=== PATIENT | male | born 1955 | race Caucasian/White ===

== ENCOUNTER → 2017-10-21 | Outpatient (CLI) | payer SELFPAY ==
[2017-10-21 15:53] LABS: HCT 37.9 % (39.0-53.0); HGB 12.4 gm/dL (13.0-17.5); MCH 27.1 pg (25.0-35.0); MCHC 32.7 g/dL (31.0-37.0); Mean Platelet Volume 6.6; Platelet Count 263 k/uL (150-450); RBC 4.57 m/uL (4.30-5.90); RDW 13.9 % (11.5-15.5); WBC 5.6 k/uL (3.8-10.6)
[2017-10-21 16:03] LABS: Anion Gap 12 mmol/L; Blood Urea Nitrogen 18 mg/dL (9-20); Carbon Dioxide 26 mmol/L (22-30); Chloride 99 mmol/L (98-107); Potassium 4.8 mmol/L (3.5-5.1); Sodium 137 mmol/L (137-145)
== END | disposition home or self-care (01) ==
LOC: LABPAT 15:13
PROVIDERS: ATTEND Internal Medicine Interventional Cardiology
DX: Z01.812 Encounter for preprocedural laboratory examination (principal); I25.10 Atherosclerotic heart disease of native coronary artery without angina pectoris
CPT/HCPCS: 36415; 80051; 82565; 84520; 85027

== ENCOUNTER 2017-10-29 10:16 | Day surgery (SDC) | payer OTHER ==
[2017-10-28 08:38] VITALS: BMI 29.2
[~2017-10-29 10:16] MED LIST: ALPRAZolam 0.25 MG TAB PO PRN; ALPRAZolam 0.5 MG TAB PO PRN; ASPIRIN 325 MG TAB PO STA; ATORVASTATIN 80 MG TAB PO STA; NITROGLYCERIN SL TABS 0.4 MG TAB SUBLINGUAL PRN; SODIUM CHLORIDE 0.9% 1,000 ML in EMPTY BAG 1 BAG IV ONE
[2017-10-29 11:00] LABS: Glucose,Whole Blood 179 mg/dL (75-99)
[2017-10-29] MEDS ORDERED: diphenhydrAMINE 50 MG/ML 1 ML VIAL IVP ONE (12:25)
[2017-10-29] MEDS ORDERED: fentaNYL (PF) 50 MCG/ML 2 ML AMP IV ONE (12:25)
[2017-10-29] MEDS ORDERED: LIDOCAINE 1% INJ 10MG/ML (20 ML MDV) SQ ONE (12:27)
[2017-10-29] MEDS ORDERED: VERAPAMIL SYRINGE (5 MG/10 ML) INTRAARTER ONE (12:28)
[2017-10-29] MEDS ORDERED: MIDAZOLAM 2 MG/2 ML VIAL IV ONE (12:29)
[2017-10-29] MEDS ORDERED: HEPARIN SODIUM 1,000 UN/ML (10ML VL) IV ONE (12:34)
[2017-10-29] MEDS ORDERED: IOPAMIDOL-370 125ML BTL INJ ONE (12:38)
[2017-10-29] MEDS ORDERED: RX INFO: IV CONTRAST WAS GIVEN 1 EACH MISC MISCELLANE PRN (12:47)
[2017-10-29] MEDS ORDERED: SODIUM CHLORIDE 0.9% 1,000 ML IV SCH (13:00)
[2017-10-29] MEDS ORDERED: MD COMMUNICATION TO PHARMACY 1 EACH MISC PO ONE ×2 (14:49)
--- NOTE | 2017-10-29 15:07 | CC ---
CARDIAC CATHETERIZATION REPORT Mr. Castro is a 62-year-old male with known history of hypertension, hyperlipidemia, diabetes mellitus, who has been complaining of progressive exertional chest discomfort and dyspnea on exertion. He had an abnormal myocardial perfusion imaging with evidence of inducible ischemia involving the anterior wall. In view of that, recommendation made regarding cardiac catheterization. The procedures, risks and complication were discussed with the patient who is in full understanding and agreement. PROCEDURE: Patient was brought to laborer cook house in a fasting state after receiving fentanyl and Benadryl and achieving moderate conscious sedated state. Using Xylocaine anesthesia and Seldinger technique a 6-Italian sheath was introduced in the right radial artery. Selective right and left angiography performed using 3.5 Bend, right and left Shanta catheter, multiple views of the coronary artery including hemiaxial views obtained. Following that, a 5-Italian tight pigtail catheter was introduced in the left ventricle and a 30 degree DENSON view of the left ventricle was obtained. Following that, catheter and sheath were removed, hemostasis was obtained with deployment of a TR band. There was no immediate complication. Patient is returned to his room in stable condition. Patient received 5000 units of intravenous heparin as well as intra-arterial verapamil. FINDINGS: FLUOROSCOPY: There was severe calcification involving the proximal LAD and the proximal left circumflex as well as in mid right coronary artery. LEFT MAIN: This is a large-sized vessel bifurcating into left circumflex, left anterior descending artery, left main coronary artery has a 20% to 30% plaque proximally without any evidence of high-grade stenosis. LEFT ANTERIOR DESCENDING ARTERY: This is a heavily calcified vessel reaching to the apex, tapers down distal third giving rise to 2 diagonal branch at the takeoff of the first diagonal branch and the first septal bridge contractor, there is a heavily calcified lesion with area of stenosis up to 99%. There is another lesion following the takeoff of the first septal bridge contractor. The rest of the vessel has mild to moderate intimal disease without any evidence of high-grade stenosis next left circumflex this is a nondominant vessel giving rise to a large obtuse marginal branch. The obtuse marginal branch at the takeoff of the 95% stenosis. The rest of the vessel has no high-grade stenosis. RIGHT CORONARY ARTERY: This is a large, dominant vessel bifurcating into PDA and posterolateral single branches, heavily calcified in the mid segment. The vessel has diffuse intimal disease with area of stenosis of 30% to 40% without any evidence of high-grade stenosis. LEFT VENTRICULOGRAM: Left ventriculogram is performed 30-degree DENSON view and revealed mild mid anterior wall hypokinesis. The estimated ejection fraction is 50%. There was no significant mitral regurgitation. HEMODYNAMICS: There was no gradient across the aortic valve. The left the ventricular end-diastolic pressure was 12-14 mmHg. CONCLUSION: 1. Critical stenosis involving the proximal left anterior descending artery and the first obtuse marginal branch. 2. Mild to moderate disease in the right coronary artery. 3. Heavily calcified coronary arteries. 4. Minimally impaired left ventricular systolic function. RECOMMENDATION: In view of finding anatomy, I have recommended proceeding with evaluation for possible coronary bypass grafting. The rationale behind that approach in view of the history of diabetes and the location of the lesion were discussed with the patient and his family who is in full understanding and agreement. DURATION OF PROCEDURE: 16 minutes. JANINE / KEILY: [id number] /
--- NOTE | 2017-10-29 15:13 | LTR ---
DATE OF SERVICE: 10/29/2017 RE: Micah Castro Dear Dr. Valentine; I had the pleasure to perform cardiac catheterization on Mr. Castro at [facility] on October 29 and a full copy of the procedure note will be forwarded to you. In brief, he was found to have severe obstructive disease involving the LAD and the first obtuse marginal branch and based on those findings and his history of diabetes, I have recommended to proceed with evaluation for possible coronary artery bypass grafting. I will keep you updated on his progress and thank you again for allowing me to participate in this patient's care. Please feel free to call for any questions. Sincerely yours. MD JANINE Thurman / KEILY: [id number] /
--- NOTE | 2017-10-29 15:22 | P.GSCN ---
History of Present Illness Consult date: 10/29/17 Reason for Consult: Coronary artery disease, surgical recommendations. Requesting physician: Chano Varma History of present illness: This is a 62-year-old patient of Dr. Valentine. He has a previous medical history of hypertension, [id number] diabetes mellitus, gout, and remote tobacco dependence, he quit smoking 30 years ago. Over the last 2 years he's had chest discomfort with increased activity, however it has been getting worse recently. He has associated dyspnea on exertion and occasional palpitations along with some numbness in his left arm. He denies dizziness, orthopnea, paroxysmal nocturnal dyspnea, syncope or near syncope, lower extremity claudication, TIA or strokelike symptoms. This chest discomfort was relieved with rest. He presented to his primary care physician as he was concerned about the increase in frequency and severity. A stress test was completed 10/10 which demonstrated mild anterior wall hypokinesis with inducible ischemia at peak exercise. He was referred to Dr. Varma for cardiac evaluation. Transthoracic echocardiogram completed in Dr. Varma's office on 10/15/2017 demonstrated normal systolic function with an ejection fraction of 55%, normal diastolic function, mild mitral regurgitation, trace aortic regurgitation, and mild tricuspid regurgitation. He was recommended to undergo heart catheterization which was completed today in which demonstrated left main stenosis 30%, RCA 40% stenosis, circumflex stenosis of 90%, and proximal and mid LAD stenosis of 99%. LV gram completed demonstrated ejection fraction of 50 %. Due to the nature of his disease cardiothoracic surgery was consulted for surgical revascularization recommendations. Review of Systems Review of systems was completed and was negative except as noted. - Cardiovascular Reports chest pain, Reports decreased exercise tolerance, Reports dyspnea on exertion, Reports high blood pressure, Reports palpitations, Reports shortness of breath Past Medical History Past Medical History: Chest Pain / Angina, Diabetes Mellitus, Deep Vein Thrombosis (DVT), Hyperlipidemia, Hypertension Additional Past Medical History / Comment(s): gout, History of Any Multi-Drug Resistant Organisms: None Reported Past Surgical History: Hernia Repair, Orthopedic Surgery Additional Past Surgical History / Comment(s): left upper leg surgery(Fx)/pin and jose- jose later removed, surgery for fx left lower leg Past Anesthesia/Blood Transfusion Reactions: No Reported Reaction Past Psychological History: No Psychological Hx Reported Smoking Status: Former smoker Past Alcohol Use History: Rare Past Drug Use History: None Reported - Past Family History Mother Family Medical History: No Reported History Medications and Allergies Home Medications Medication Instructions Recorded Confirmed Type Aspirin [Adult Low Dose Aspirin EC] 81 mg PO DAILY 10/28/17 10/29/17 History Atorvastatin [Lipitor] 40 mg PO DAILY 10/28/17 10/29/17 History Fish Oil(Dose Unknown) 1 tab PO DAILY 10/28/17 10/29/17 History Isosorbide Mononitrate ER [Imdur] 30 mg PO DAILY 10/28/17 10/29/17 History Multivitamins, Thera [Multivitamin 1 tab PO 1200 10/28/17 10/29/17 History (formulary)] metFORMIN HCL 1,000 mg PO BID 10/28/17 10/29/17 History Allergies Allergy/AdvReac Type Severity Reaction Status Date / Time No Known Allergies Allergy Verified 10/28/17 08:25 Surgical - Exam Vital Signs Temp Pulse Resp BP Pulse Ox 97.9 F 76 18 98/56 98 10/29/17 10:40 10/29/17 10:40 10/29/17 10:40 10/29/17 10:40 10/29/17 10:40 - General well developed, well nourished, no distress, no pain, obese - Eyes PERRL, normal ocular movement - ENT no hearing loss - Neck no masses, no bruits, trachea midline - Respiratory Lungs sounds clear bilaterally. Respirations even, nonlabored. Currently on room air with oxygen saturation 99%. No chest wall deformities. - Cardiovascular S1, S2 present. Regular rate and rhythm, sinus rhythm on telemetry. Palpable peripheral pulses bilaterally. No edema present. No calf pain or tenderness noted. No varicosities noted. T band present to right radial artery. - Abdomen Abdomen: soft, bowel sounds - Genitourinary Deferred - Rectum Deferred - Integumentary no rash, no growths, no abnormal pigmentation - Neurologic normal coordination, normal sensation - Psychiatric oriented to time, oriented to person, oriented to place, speech is normal, memory intact Results - Labs Abnormal Lab Results - Last 24 Hours (Table) 10/29/17 Range/Units 10:42 POC Glucose (mg/dL) 179 H (75-99) mg/dL - Imaging Additional studies: Heart catheterization films reviewed. Assessment and Plan (1) Hypertension Current Visit: Yes Status: Chronic Code(s): I10 - ESSENTIAL (PRIMARY) HYPERTENSION SNOMED Code(s): 39181735 (2) Hyperlipidemia Current Visit: Yes Status: Chronic Code(s): E78.5 - HYPERLIPIDEMIA, UNSPECIFIED SNOMED Code(s): 54845410 (3) Non-insulin dependent type 2 diabetes mellitus Current Visit: Yes Status: Chronic Code(s): E11.9 - TYPE 2 DIABETES MELLITUS WITHOUT COMPLICATIONS SNOMED Code(s): 40329450 (4) Tobacco dependence in remission Current Visit: No Status: Resolved Code(s): F17.201 - NICOTINE DEPENDENCE, UNSPECIFIED, IN REMISSION SNOMED Code(s): 216984261 (5) Coronary artery disease Current Visit: Yes Status: Chronic Code(s): I25.10 - ATHSCL HEART DISEASE OF [place] CORONARY ARTERY W/O ANG PCTRS SNOMED Code(s): 98691507 (6) Gout Current Visit: Yes Status: Chronic Code(s): M10.9 - GOUT, UNSPECIFIED SNOMED Code(s): 18024531 (7) Obesity Current Visit: Yes Status: Chronic Code(s): E66.9 - OBESITY, UNSPECIFIED SNOMED Code(s): 495004727 Plan: The patient was seen and examined at the bedside. Chart/diagnostics were reviewed. Will discuss the case with the surgeon. Normal surgical process explained in detail to the patient and his family. Risks and benefits were explained. All questions were answered, and patient was agreeable to consider surgery and allow preoperative testing. Preoperative testing was ordered. We would recommend continuing aspirin, statin. Would recommend adding beta lenore therapy. We will calculate STS risk score once testing is completed and will discuss with the patient and his family. Medical management per Dr. Varma. More recommendations to follow once testing is complete. Thank you Dr. Varma for this consult. We look forward to working with you in the care of your patient. Time with Patient: Greater than 30
[2017-10-29 21:03] LABS: Glucose,Whole Blood 307 mg/dL (75-99)
--- NOTE | 2017-10-29 21:36 | US ---
EXAMINATION TYPE: US carotid duplex BILAT DATE OF EXAM: 10/29/2017 COMPARISON: NONE CLINICAL HISTORY: preop cardiac surgery. EXAM MEASUREMENTS: RIGHT: Peak Systolic Velocity (PSV) cm/sec ----- Right CCA: 67.7 ----- Right ICA: 50.0 ----- Right ECA: 66.0 ICA/CCA ratio: 0.7 RIGHT: End Diastole cm/sec ----- Right CCA: 18.0 ----- Right ICA: 17.6 ----- Right ECA: 7.1 LEFT: Peak Systolic Velocity (PSV) cm/sec ----- Left CCA: 68.3 ----- Left ICA: 56.1 ----- Left ECA: 41.4 ICA/CCA ratio: 0.8 LEFT: End Diastole cm/sec ----- Left CCA: 22.5 ----- Left ICA: 24.6 ----- Left ECA: 0.0 VERTEBRALS (direction of flow): Right Vertebral: Antegrade Left Vertebral: Antegrade Rhythm: Normal IMPRESSION: ONLY MILD ATHEROSCLEROTIC CHANGES WITH NO SIGNIFICANT VELOCITY ELEVATIONS.
--- NOTE | 2017-10-29 21:38 | XR ---
EXAMINATION: XR chest 2V DATE AND TIME: 10/29/2017 5:39 PM ORDERING PROVIDER: Rupali Hoewll CLINICAL INDICATION: PreOp Cardiac Surgery TECHNIQUE: PA and lateral COMPARISON: None. DESCRIPTION: Intrathoracic stomach redemonstrated. The lungs are clear. The pleural spaces are negative. The cardiac silhouette is not enlarged. The skeletal structures are intact without focal findings. The soft tissues are unremarkable. IMPRESSION: NO ACUTE PROCESS.
[2017-10-29 22:22] LABS: Appearance,Urine Clear (Clear); Bilirubin,Urine Negative (Negative); Blood,Urine Negative (Negative); Color,Urine Light Yellow; Glucose,Urine (UA) 4+ (Negative); Ketones,Urine Negative (Negative); Leukocyte Esterase,Urine Negative (Negative); Nitrite,Urine Negative (Negative); PH, Urine 5.5 (5.0-8.0); Protein,Urine Negative (Negative); Specific Gravity,Urine 1.015 (1.001-1.035); Urobilinogen,Urine <2.0 mg/dL (<2.0)
[2017-10-29] MEDS: INSULIN ASPART 100 UNIT/ML 1 ML 10 ML VIAL SQ SCH (22:41)
[2017-10-30 06:03] LABS: Glucose,Whole Blood 188 mg/dL (75-99)
[2017-10-30] MEDS: INSULIN ASPART 100 UNIT/ML 1 ML 10 ML VIAL SQ SCH (06:44)
[2017-10-30 06:54] LABS: Basophils % (A) 1 %; Eosinophils # (A) 0.2 k/uL (0-0.7); Eosinophils % (A) 5 %; HCT 37.8 % (39.0-53.0); HGB 12.6 gm/dL (13.0-17.5); Lymphocytes # (A) 1.3 k/uL (1.0-4.8); Lymphocytes % (A) 29 %; MCH 28.1 pg (25.0-35.0); MCHC 33.4 g/dL (31.0-37.0); Mean Platelet Volume 6.7; Monocytes # (A) 0.3 k/uL (0-1.0); Monocytes % (A) 6 %; Neutrophils # (A) 2.6 k/uL (1.3-7.7); Neutrophils % (A) 57 %; Platelet Count 222 k/uL (150-450); RDW 14.1 % (11.5-15.5); WBC 4.5 k/uL (3.8-10.6)
[2017-10-30 07:16] LABS: Partial Thromboplastin Time 22.2 sec (22.0-30.0); Prothrombin Time 10.2 sec (9.0-12.0)
--- NOTE | 2017-10-30 07:41 | PN ---
PROGRESS NOTE Mr. Castro is a 62-year-old male known history of hypertension, hyperlipidemia, diabetes mellitus, who presented with symptoms of chest discomfort and abnormal myocardial perfusion imaging, underwent a coronary angiography was performed and revealed a severe disease involving the proximal LAD as well as the first obtuse marginal branch. He is doing well this morning, ambulating without difficulty. Denying any chest pain. No dizziness. No palpitation. No nausea. He continued to be on aspirin once a day, Lipitor 40 mg daily, isosorbide mononitrate 30 mg daily. PHYSICAL EXAMINATION: Blood pressure 114/60 with the heart rate in 70s. LUNGS: Clear. HEART: Regular rate and rhythm. S1, S2. No S3. No rub. ABDOMEN: Soft, nontender. EXTREMITIES: No edema. Right radial pulse is intact. IMPRESSION: 1. Severe coronary disease involving the proximal left anterior descending artery. 2. Diabetes. 3. Hyperlipidemia. RECOMMENDATION: The patient will be evaluated by the surgical team today and depending on their decision, further recommendation will be made. In view of the location of the lesion as well as history of diabetes, patient will benefit from a GOMEZ to the LAD. Otherwise, percutaneous revascularization can be performed. Depending on the timing of surgical intervention if recommended, the patient may be discharged home today and followed as an outpatient. MMODL / IJN: [id number] /
[2017-10-30 07:44] LABS: ALT 48 U/L (21-72); AST 30 U/L (17-59); Albumin 3.9 g/dL (3.5-5.0); Alkaline Phosphatase 53 U/L (38-126); Anion Gap 11 mmol/L; Blood Urea Nitrogen 15 mg/dL (9-20); Carbon Dioxide 27 mmol/L (22-30); Chloride 104 mmol/L (98-107); Cholesterol 159 mg/dL (<200); Glucose 175 mg/dL (74-99); HDL Cholesterol 45 mg/dL (40-60); LDL Cholesterol,Calculated 77 mg/dL (0-99); Magnesium 2.1 mg/dL (1.6-2.3); Potassium 4.7 mmol/L (3.5-5.1); Sodium 142 mmol/L (137-145); Total Bilirubin 0.6 mg/dL (0.2-1.3); Total Protein 6.4 g/dL (6.3-8.2); Triglycerides 187 mg/dL (<150)
[2017-10-30 08:16] VITALS: RESP 16; TEMP 97.1
--- NOTE | 2017-10-30 08:38 | P.CONS ---
History of Present Illness - Reason for Consult Consult date: 10/30/17 Medical management - Chief Complaint Critical coronary artery disease with angina. - History of Present Illness This is a consultation note on a 62-year-old white male who is essentially admitted for abnormal cardiac catheterization. The patient saw me in the office recently and had symptoms of angina with EKG changes. The patient was then admitted for appropriate consultation with cardiology which ended up doing a cardiac catheterization. The patient is now fairly asymptomatic at rest. However, catheterization does show critical stenosis and thoracic and Henefer surgery have been consulted for appropriate evaluation for open heart surgery. Review of Systems Constitutional: Denies chills, Denies fever Eyes: denies blurred vision, denies pain Ears, nose, mouth and throat: Denies headache, Denies sore throat Cardiovascular: Reports as per HPI, Reports chest pain, Reports decreased exercise tolerance Respiratory: Denies cough Gastrointestinal: Denies abdominal pain, Denies diarrhea, Denies nausea, Denies vomiting Musculoskeletal: Denies myalgias Integumentary: Denies pruritus, Denies rash Neurological: Denies numbness, Denies weakness Past Medical History Past Medical History: Chest Pain / Angina, Diabetes Mellitus, Deep Vein Thrombosis (DVT), Hyperlipidemia, Hypertension Additional Past Medical History / Comment(s): gout, History of Any Multi-Drug Resistant Organisms: None Reported Past Surgical History: Hernia Repair, Orthopedic Surgery Additional Past Surgical History / Comment(s): left upper leg surgery(Fx)/pin and jose- jose later removed, surgery for fx left lower leg Past Anesthesia/Blood Transfusion Reactions: No Reported Reaction Past Psychological History: No Psychological Hx Reported Smoking Status: Former smoker Past Alcohol Use History: Rare Past Drug Use History: None Reported - Past Family History Mother Family Medical History: No Reported History Medications and Allergies Home Medications Medication Instructions Recorded Confirmed Type Aspirin [Adult Low Dose Aspirin EC] 81 mg PO DAILY 10/28/17 10/29/17 History Atorvastatin [Lipitor] 40 mg PO DAILY 10/28/17 10/29/17 History Fish Oil(Dose Unknown) 1 tab PO DAILY 10/28/17 10/29/17 History Isosorbide Mononitrate ER [Imdur] 30 mg PO DAILY 10/28/17 10/29/17 History Multivitamins, Thera [Multivitamin 1 tab PO 1200 10/28/17 10/29/17 History (formulary)] metFORMIN HCL 1,000 mg PO BID 10/28/17 10/29/17 History Allergies Allergy/AdvReac Type Severity Reaction Status Date / Time No Known Allergies Allergy Verified 10/28/17 08:25 Physical Exam Vitals: Vital Signs Temp Pulse Pulse Resp BP BP Pulse Ox 10/30/17 08:00 97.1 F L 80 16 132/87 96 10/29/17 20:00 97.9 F 75 18 114/68 97 10/29/17 16:32 78 16 117/72 97 10/29/17 15:32 72 16 135/78 94 L 10/29/17 14:40 81 18 130/78 10/29/17 13:40 72 18 114/77 10/29/17 13:25 72 18 116/73 99 10/29/17 13:13 64 18 111/71 100 10/29/17 12:55 66 16 112/72 95 10/29/17 10:40 97.9 F 76 18 98/56 98 Intake and Output 10/29/17 10/30/17 10/30/17 22:59 06:59 14:59 Intake Total 500 360 Balance 500 360 Intake: Intake, IV Titration 500 Amount Sodium Chloride 0.9% 1, 500 000 ml @ 100 mls/hr IV . Q10H [facility] Rx#:[id number] Oral 360 Other: Voiding Method Toilet Urinal # Voids 1 1 Weight 95.254 kg 95.1 kg - Constitutional General appearance: no acute distress - EENT Eyes: EOMI - Neck Neck: no lymphadenopathy - Respiratory Respiratory: bilateral: CTA - Cardiovascular Rhythm: regular Heart sounds: normal: S1, S2 Abnormal Heart Sounds: no S3 Gallop - Gastrointestinal General gastrointestinal: soft, no tenderness - Neurologic Neurologic: CNII-XII intact - Musculoskeletal Musculoskeletal: gait normal Results CBC & Chem 7: 10/30/17 06:20 10/30/17 06:20 Labs: Abnormal Lab Results - Last 24 Hours (Table) 10/29/17 10/29/17 10/29/17 Range/Units 10:42 21:01 22:10 Hgb (13.0-17.5) gm/dL Hct (39.0-53.0) % Glucose (74-99) mg/dL POC Glucose (mg/dL) 179 H 307 H (75-99) mg/dL Triglycerides (<150) mg/dL Urine Glucose (UA) 4+ H (Negative) 10/30/17 10/30/17 10/30/17 Range/Units 06:01 06:20 06:20 Hgb 12.6 L (13.0-17.5) gm/dL Hct 37.8 L (39.0-53.0) % Glucose 175 H (74-99) mg/dL POC Glucose (mg/dL) 188 H (75-99) mg/dL Triglycerides 187 H (<150) mg/dL Urine Glucose (UA) (Negative) Microbiology - Last 24 Hours (Table) 10/29/17 20:25 Nasal Screen MRSA/MSSA - Preliminary Nasal Swab Assessment and Plan (1) Coronary artery disease Current Visit: Yes Status: Chronic Code(s): I25.10 - ATHSCL HEART DISEASE OF [place] CORONARY ARTERY W/O ANG PCTRS SNOMED Code(s): 46850644 (2) Gout Current Visit: Yes Status: Chronic Code(s): M10.9 - GOUT, UNSPECIFIED SNOMED Code(s): 97365992 (3) Hyperlipidemia Current Visit: Yes Status: Chronic Code(s): E78.5 - HYPERLIPIDEMIA, UNSPECIFIED SNOMED Code(s): 65299930 (4) Hypertension Current Visit: Yes Status: Chronic Code(s): I10 - ESSENTIAL (PRIMARY) HYPERTENSION SNOMED Code(s): 21203209 (5) Non-insulin dependent type 2 diabetes mellitus Current Visit: Yes Status: Chronic Code(s): E11.9 - TYPE 2 DIABETES MELLITUS WITHOUT COMPLICATIONS SNOMED Code(s): 93956964 (6) Tobacco dependence in remission Current Visit: No Status: Resolved Code(s): F17.201 - NICOTINE DEPENDENCE, UNSPECIFIED, IN REMISSION SNOMED Code(s): 575668829 Plan: We'll continue to follow with cardiology and thoracic surgery. Most likely CABG will be instituted. Follow blood sugar closely. We'll continue to follow. Time with Patient: Less than 30
[2017-10-30] MEDS ORDERED: METOPROLOL TARTRATE 12.5 MG TAB PO SCH (09:00)
[2017-10-30] MEDS ORDERED: ATORVASTATIN 40 MG TAB PO SCH (09:00)
[2017-10-30] MEDS ORDERED: ISOSORBIDE MONONITRATE ER 30 MG TAB.ER.24H PO SCH (09:00)
[2017-10-30] MEDS ORDERED: ASPIRIN 81 MG PO SCH (09:00)
--- NOTE | 2017-10-30 09:07 | P.PN ---
Subjective Progress Note Date: 10/30/17 Principal diagnosis: Coronary artery disease. Previous medical history of hypertension, non-insulin- dependent diabetes mellitus, gout, and remote tobacco dependence with preoperative FEV1 91% of predicted. Patient's currently sitting in bed in no acute distress. Denies pain, shortness of breath. Dr. Saravia was present to discuss surgery with the patient , reinforced teaching, risks discussed with patient and family, all questions answered, patient is agreeable to proceed with surgery. Objective - Vital Signs Vital signs: Vital Signs Temp 97.1 F L 10/30/17 08:00 Pulse 80 10/30/17 08:00 Resp 16 10/30/17 08:00 BP 132/87 10/30/17 08:00 Pulse Ox 96 10/30/17 08:00 Intake & Output 10/29/17 10/30/17 10/30/17 18:59 06:59 18:59 Intake Total 300 500 370 Balance 300 500 370 Weight 95.254 kg 95.1 kg Intake: IV 300 10 Invasive Line 1 10 Intake, IV Titration 500 Amount Sodium Chloride 0.9% 1, 500 000 ml @ 100 mls/hr IV . Q10H [facility] Rx#:[id number] Oral 360 Other: Voiding Method Toilet Toilet Urinal # Voids 1 - Constitutional General appearance: Present: cooperative, no acute distress, obese - Respiratory Details: Lungs sounds clear bilaterally. Respirations even, nonlabored. Currently on room air with oxygen saturation 96%. Able to achieve 2500 mL on his incentive spirometry. - Cardiovascular Details: S1, S2 present. Regular rate and rhythm, sinus rhythm on telemetry. Palpable peripheral pulses bilaterally. No edema present. No calf pain or tenderness noted. - Gastrointestinal Gastrointestinal Comment(s): Abdomen soft, nontender, nondistended. Active bowel sounds 4 quadrants. Tolerating diet. - Genitourinary Genitourinary Comment(s): Continues to void clear, yellow urine. - Integumentary Integumentary Comment(s): Skin is warm and dry with evidence of good perfusion. Right radial arterial site puncture without hematoma. - Neurologic Neurologic: Present: CNII-XII intact - Musculoskeletal Musculoskeletal: Present: gait normal, strength equal bilaterally - Psychiatric Psychiatric: Present: A&O x's 3, appropriate affect, intact judgment & insight - Allied health notes Allied health notes reviewed: nursing - Labs CBC & Chem 7: 10/30/17 06:20 10/30/17 06:20 Labs: Abnormal Lab Results - Last 24 Hours (Table) 10/29/17 10/29/17 10/29/17 Range/Units 10:42 21:01 22:10 Hgb (13.0-17.5) gm/dL Hct (39.0-53.0) % Glucose (74-99) mg/dL POC Glucose (mg/dL) 179 H 307 H (75-99) mg/dL Triglycerides (<150) mg/dL Urine Glucose (UA) 4+ H (Negative) 10/30/17 10/30/17 10/30/17 Range/Units 06:01 06:20 06:20 Hgb 12.6 L (13.0-17.5) gm/dL Hct 37.8 L (39.0-53.0) % Glucose 175 H (74-99) mg/dL POC Glucose (mg/dL) 188 H (75-99) mg/dL Triglycerides 187 H (<150) mg/dL Urine Glucose (UA) (Negative) Microbiology - Last 24 Hours (Table) 10/29/17 20:25 Nasal Screen MRSA/MSSA - Preliminary Nasal Swab - Imaging and Cardiology Chest x-ray: report reviewed, image reviewed Results and carotid Dopplers and vein mapping reviewed. Assessment and Plan (1) Hypertension Current Visit: Yes Status: Chronic Code(s): I10 - ESSENTIAL (PRIMARY) HYPERTENSION SNOMED Code(s): 76335660 (2) Hyperlipidemia Current Visit: Yes Status: Chronic Code(s): E78.5 - HYPERLIPIDEMIA, UNSPECIFIED SNOMED Code(s): 16901468 (3) Non-insulin dependent type 2 diabetes mellitus Current Visit: Yes Status: Chronic Code(s): E11.9 - TYPE 2 DIABETES MELLITUS WITHOUT COMPLICATIONS SNOMED Code(s): 54393713 (4) Tobacco dependence in remission Current Visit: No Status: Resolved Code(s): F17.201 - NICOTINE DEPENDENCE, UNSPECIFIED, IN REMISSION SNOMED Code(s): 319779096 (5) Coronary artery disease Current Visit: Yes Status: Chronic Code(s): I25.10 - ATHSCL HEART DISEASE OF [place] CORONARY ARTERY W/O ANG PCTRS SNOMED Code(s): 66839942 (6) Gout Current Visit: Yes Status: Chronic Code(s): M10.9 - GOUT, UNSPECIFIED SNOMED Code(s): 85484978 (7) Obesity Current Visit: Yes Status: Chronic Code(s): E66.9 - OBESITY, UNSPECIFIED SNOMED Code(s): 234076427 Plan: 1. Continue aspirin, statin. Will add low-dose beta lenore. 2. Encourage preoperative use of incentive spirometer. 3. Patient needs good blood sugar control. Defer to primary care for management at this time. 4. Will continue to reinforce preoperative teaching. 5. Will perform 5 m walk test today. 6. STS risk score calculated and discussed with the family. 7. Plan is coronary artery bypass grafting 2, bilateral internal mammary artery harvest, intraoperative transesophageal echocardiogram, and epi-aortic scanning next 11/05/2017. Need to maximize medical therapy including starting beta lenore therapy. Time with Patient: Greater than 30
[2017-10-30] MEDS ORDERED: MUPIROCIN 2% OINT 22 GM TUBE TOPICAL SCH (09:30)
[2017-10-30 10:41] VITALS: BP 136/77; PULSE 78
--- NOTE | 2017-11-05 11:41 | P.VSCSTY ---
Greater Saphenous Vein Mapping This is bilateral lower extremity greater saphenous vein mapping. Date of service 10/29/2017 Vein quality and ultrasound appearance no thrombus or wall changes are seen. The vein on the right leg appears small throughout. The vein on the left leg is especially small below the knee.. Vein size groin right 5.2 x 4.6 groin left 3.8 x 2.9 High thigh right 3.4 x 1.8 high thigh left 2.8 x 2.4 Mid thigh right 2.2 x 1.6 mid thigh left 2.9 x 2.5 Above-knee right 1.9 x 1.6 above- knee left 2.3 x 2.0 Below knee right 1.7 x 1.4 below-knee left to 0.3 x 1.6 Mid calf right 1.4 x 0.9 mid calf left 1.9 x 1.5 Ankle right 1.7 x 0.9 ankle left 2.3 x 1.6 Impression the saphenous vein in most of the right leg may very well be too small for use as conduit. Also the vein below the knee on the left may be too small. Right thigh may be usable. Consider other conduit..
--- NOTE | 2017-11-05 11:42 | P.ARTDOP ---
Arterial Doppler LOWER EXTREMITY ARTERIAL DOPPLER: DATE OF SERVICE: 10/29/2017 Reason for study: Pre-CABG. Doppler waveforms: Multiphasic throughout bilaterally. Pulse volume recording: []. Pressure gradients: None. Ankle-brachial indices: Greater than 1 bilaterally. Toe pressures: [] on the right, [] on the left Impression: Normal study.
== END 2017-10-30 11:39 | disposition home or self-care (01) ==
LOC: CATHCVL 10:16 → 6SEL 12:45 → CATHCVL 10-30 11:39
PROVIDERS: ATTEND Internal Medicine Interventional Cardiology
DX: I25.10 Atherosclerotic heart disease of native coronary artery without angina pectoris (principal); M10.9 Gout, unspecified; E78.00 Pure hypercholesterolemia, unspecified; I10 Essential (primary) hypertension; E11.9 Type 2 diabetes mellitus without complications; R94.39 Abnormal result of other cardiovascular function study; E66.9 Obesity, unspecified; Z68.29 Body mass index [BMI] 29.0-29.9, adult; Z86.718 Personal history of other venous thrombosis and embolism; Z79.84 Long term (current) use of oral hypoglycemic drugs; Z79.82 Long term (current) use of aspirin; Z79.899 Other long term (current) drug therapy; Z87.891 Personal history of nicotine dependence
CPT/HCPCS: 94150; 93458; 80061; 80053; 84443; 83735; 85025; 85610; 85730; 81003; 87070; 87086; 71046; 93970; 93922; 93880; C1894; C1769; J2250; J1200; J2001; J3010; J1644; Q9967; 80074; 83036; 86850; 86900; 86901; 86920; 93923

== ENCOUNTER 2017-11-05 06:29 | Inpatient (IN) | payer OTHER ==
[2017-10-30 13:06] LABS: Hepatitis B Core IgM Non-Reactive (Non-Reactive)
[2017-10-30 15:01] LABS: Hemoglobin A1C 7.9 % (4.0-6.0)
[2017-11-01 16:22] LABS: Hepatitis A Antibody IgM Non-Reactive (Non-Reactive)
[~2017-11-05 06:29] MED LIST changes: +ALBUMIN HUMAN 25% 50 ML IV ONE; +ALBUMIN HUMAN 5% 500 ML IVPB ONE; -ALPRAZolam 0.25 MG TAB PO PRN; -ALPRAZolam 0.5 MG TAB PO PRN; +ASPIRIN 325 MG TAB PO ONE; -ASPIRIN 325 MG TAB PO STA; +ATORVASTATIN 10 MG TAB PO ONE; -ATORVASTATIN 80 MG TAB PO STA; +CALCIUM CHLORIDE 100 MG/ML 10 ML SYRINGE IV ONE; +CHLORHEXIDINE GLUCONATE 15 ML CUP MUCOUS MEM ONE; +CLEVIDIPINE BUTYRATE 25 MG in EMPTY BAG 1 BAG IV ONE; +DEXTROSE 5% IN WATER 1,000 ML with POTASSIUM CHLORIDE 110 MEQ, MAGNESIUM SULFATE 16 MEQ... IV ONE; +DEXTROSE 5% IN WATER 1,000 ML with POTASSIUM CHLORIDE 25 MEQ, SODIUM CHLORIDE 2.5MEQ/ML... IRRIGATION ONE; +HEPARIN SODIUM 1,000 UN/ML (10ML VL) IV ONE; +HEPARIN SODIUM,PORCINE 5,000 UNIT in SODIUM CHLORIDE 0.9% 500 ML IV ONE; +INSULIN REGULAR 100 UNIT in SODIUM CHLORIDE 0.9% 100 ML IV ONE; +LACTATED RINGERS 1,000 ML IV ONE; +MAGNESIUM SULFATE MG 500 MG/ML VIAL IV ONE; +MANNITOL 25% 12.5 GM/50 ML VIAL IV ONE; +METOPROLOL TARTRATE 12.5 MG TAB PO ONE; +NITROGLYCERIN SL TABS 0.4 MG TAB SUBLINGUAL ONE; -NITROGLYCERIN SL TABS 0.4 MG TAB SUBLINGUAL PRN; +NITROGLYCERIN-D5W PMX 25 MG/250 ML BTL IV ONE; +NITROGLYCERIN-D5W PMX 50 MG in DEXTROSE/WATER 1 250ML.BAG IV ONE; +NOREPINEPHRINE 4 MG in DEXTROSE 5% IN WATER 250 ML IV ONE; +PAPAVERINE 360 MG in SODIUM CHLORIDE 0.9% 90 ML IV ONE; +PHENYLEPHRINE 40 MG in SODIUM CHLORIDE 0.9% 250 ML IV ONE; +PHENYLEPHRINE-0.9% NACL SYG 1 MG/10 ML SYRINGE IV ONE; +PROPOFOL 1,000 MG/100 ML VIAL IV ONE; +PROTAMINE SULFATE 10 MG/ML 25 ML VIAL IV ONE; +PROTAMINE SULFATE 250 MG in EMPTY BAG 1 BAG IV ONE; +SODIUM BICARB 8.4% 50 ML SYR (1 MEQ/ML) IV ONE; +SODIUM CHLORIDE 0.9% 1,000 ML IV ONE; -SODIUM CHLORIDE 0.9% 1,000 ML in EMPTY BAG 1 BAG IV ONE; +TRANEXAMIC ACID 2,000 MG in SODIUM CHLORIDE 0.9% 180 ML IV ONE; +ceFAZolin 1,000 MG in SODIUM CHLORIDE 0.9% IRRIGATIO 1,000 ML IRRIGATION ONE; +ceFAZolin 2,000 MG in SODIUM CHLORIDE 0.9% 30 ML IVPB ONE
[2017-11-05 08:16] LABS: Glucose,Whole Blood 188 mg/dL (75-99)
[2017-11-05] MEDS ORDERED: PROTAMINE SULFATE 10 MG/ML 25 ML VIAL IV ONE (10:03)
[2017-11-05] MEDS ORDERED: MAGNESIUM SULFATE 4 MEQ/ML 2 ML VIAL ONE (10:03)
[2017-11-05] MEDS ORDERED: ELECTROLYTE-R (PH 7.4) 1,000 ML IV.SOLN IV ONE (10:03)
[2017-11-05] MEDS ORDERED: SODIUM CHLORIDE 0.9% 250 ML BAG ONE (10:03)
[2017-11-05] MEDS ORDERED: fentaNYL (PF) 50 MCG/ML 50 ML VIAL ONE (10:03)
[2017-11-05] MEDS ORDERED: PROPOFOL 10 MG/ML 20 ML VIAL IV ONE (10:03)
[2017-11-05] MEDS ORDERED: SODIUM CHLORIDE 0.9% IRRIG 1,000 ML BTL IRRIGATION ONE (10:03)
[2017-11-05] MEDS ORDERED: VECURONIUM 10 MG VIAL IV ONE (10:03)
[2017-11-05] MEDS ORDERED: MIDAZOLAM 2 MG/2 ML VIAL ONE (10:03)
[2017-11-05] MEDS ORDERED: HEPARIN SODIUM,PORCINE 10,000 UNIT/ML 1 ML VIAL ONE (10:03)
[2017-11-05] MEDS ORDERED: ROCURONIUM BROMIDE 10 MG/ML 10 ML VIAL IV ONE (10:03)
[2017-11-05] MEDS ORDERED: LIDOCAINE 2% SYG (PF) 100 MG/5 ML ONE (10:03)
[2017-11-05] MEDS ORDERED: fentaNYL (PF) 50 MCG/ML 2 ML AMP ONE (10:03)
[2017-11-05] MEDS ORDERED: ALBUMIN HUMAN 5% 500 ML VIAL IVPB ONE (10:03)
[2017-11-05] MEDS ORDERED: TRANEXAMIC ACID 1,000 MG/10 ML VIAL ONE (10:03)
[2017-11-05 10:38] LABS: ABG Base Excess -0.3 mmol/L; ABG HCO3 24 mmol/L (21-25); ABG Oxygen Saturation 99.9 % (94-97); ABG PCO2 37 mmHg (35-45); ABG PH 7.42 (7.35-7.45); ABG PO2 211 mmHg (83-108); ABG Sodium Whole Blood 140 mmol/L (135-146); ABG TCO2 25 mmol/L (19-24)
[2017-11-05] MEDS ORDERED: TRANEXAMIC ACID 2,000 MG in SODIUM CHLORIDE 0.9% 180 ML IV ONE (11:00)
[2017-11-05 12:04] LABS: ABG Base Excess -0.9 mmol/L; ABG HCO3 24 mmol/L (21-25); ABG PCO2 40 mmHg (35-45); ABG PH 7.39 (7.35-7.45); ABG PO2 262 mmHg (83-108); ABG Potassium Whole Blood 3.9 mmol/L (3.4-4.5); ABG Sodium Whole Blood 141 mmol/L (135-146); ABG TCO2 25 mmol/L (19-24)
[2017-11-05 13:14] LABS: ABG Base Excess -1.4 mmol/L; ABG HCO3 24 mmol/L (21-25); ABG PCO2 40 mmHg (35-45); ABG PH 7.38 (7.35-7.45); ABG PO2 227 mmHg (83-108); ABG Potassium Whole Blood 3.8 mmol/L (3.4-4.5); ABG Sodium Whole Blood 141 mmol/L (135-146); ABG TCO2 25 mmol/L (19-24)
[2017-11-05 14:18] LABS: ABG HCO3 26 mmol/L (21-25); ABG PCO2 48 mmHg (35-45); ABG PH 7.34 (7.35-7.45); ABG PO2 222 mmHg (83-108); ABG Potassium Whole Blood 4.9 mmol/L (3.4-4.5); ABG Sodium Whole Blood 138 mmol/L (135-146); ABG TCO2 27 mmol/L (19-24)
[2017-11-05 14:48] LABS: ABG Base Excess -0.1 mmol/L; ABG HCO3 25 mmol/L (21-25); ABG PCO2 43 mmHg (35-45); ABG PH 7.38 (7.35-7.45); ABG PO2 265 mmHg (83-108); ABG Potassium Whole Blood 4.3 mmol/L (3.4-4.5); ABG Sodium Whole Blood 139 mmol/L (135-146); ABG TCO2 26 mmol/L (19-24)
[2017-11-05 15:52] LABS: ABG Base Excess -0.1 mmol/L; ABG HCO3 25 mmol/L (21-25); ABG Oxygen Saturation 99.5 % (94-97); ABG PCO2 43 mmHg (35-45); ABG PH 7.38 (7.35-7.45); ABG PO2 150 mmHg (83-108); ABG Potassium Whole Blood 3.9 mmol/L (3.4-4.5); ABG Sodium Whole Blood 141 mmol/L (135-146); ABG TCO2 27 mmol/L (19-24)
[2017-11-05] MEDS ORDERED: ONDANSETRON 4 MG/2 ML VIAL IVP PRN (16:55)
[2017-11-05] MEDS ORDERED: Phosphorus Replacement Protoco 1 EACH MISC MISCELLANE PRN (16:55)
[2017-11-05] MEDS ORDERED: NITROGLYCERIN-D5W PMX 50 MG in DEXTROSE/WATER 1 250ML.BAG IV SCH (16:55)
[2017-11-05] MEDS ORDERED: Potassium Replacement Protocol 1 EACH MISC MISCELLANE PRN (16:55)
[2017-11-05] MEDS ORDERED: Magnesium Replacement Protocol 1 EACH MISC MISCELLANE PRN (16:55)
[2017-11-05] MEDS ORDERED: PROPOFOL 1,000 MG in EMPTY BAG 1 BAG IV SCH (16:55)
[2017-11-05] MEDS ORDERED: BENZOCAINE/MENTHOL LOZENG 1 EACH LOZENGE MUCOUS MEM PRN (16:55)
[2017-11-05] MEDS ORDERED: CALCIUM CHLORIDE 1,000 MG in SODIUM CHLORIDE 0.9% 100 ML IV PRN (16:55)
[2017-11-05] MEDS ORDERED: IPRATROPIUM-ALBUTEROL 3 ML NEB INHALATION PRN (16:55)
[2017-11-05] MEDS ORDERED: METOCLOPRAMIDE 5 MG/ML 2 ML VIAL IVP PRN (16:55)
[2017-11-05] MEDS ORDERED: DEXTROSE 5% IN WATER 100 ML with AMIODARONE 150 MG IV PRN (16:55)
[2017-11-05] MEDS: LACTATED RINGERS 1,000 ML IV SCH (17:00)
[2017-11-05 17:09] LABS: Glucose,Whole Blood 100 mg/dL (75-99)
[2017-11-05] MEDS: CLEVIDIPINE BUTYRATE 25 MG in EMPTY BAG 1 BAG IV SCH ×4 (17:15→21:45)
--- NOTE | 2017-11-05 17:32 | XR ---
EXAMINATION TYPE: XR chest 1V portable DATE OF EXAM: 11/05/2017 COMPARISON: 10/29/2017 HISTORY: Postop cardiac surgery TECHNIQUE: Single frontal view of the chest is obtained. FINDINGS: Endotracheal tube is 5 cm from the monae in good position. There is left chest tube. Ther e is nasogastric tube. There is right jugular catheter with tip in the right pulmonary artery. There is right chest tube. There is some mild atelectasis at the lung bases. IMPRESSION: Postsurgical changes. Mild subsegmental atelectasis. No heart failure. No pneumothorax.
[2017-11-05 17:41] LABS: INR 1.3 (<1.2); Partial Thromboplastin Time 29.8 sec (22.0-30.0); Prothrombin Time 12.5 sec (9.0-12.0)
[2017-11-05] MEDS: ACETAMINOPHEN IV (For NPO) 1,000 MG in EMPTY BAG 1 BAG IVPB SCH (17:41)
[2017-11-05 17:42] LABS: Ionized Calcium 4.9 mg/dL (4.5-5.3)
[2017-11-05 17:44] LABS: Basophils % (A) 0 %; Eosinophils # (A) 0.1 k/uL (0-0.7); Eosinophils % (A) 2 %; HCT 22.4 % (39.0-53.0); Lymphocytes # (A) 0.7 k/uL (1.0-4.8); Lymphocytes % (A) 17 %; MCH 27.3 pg (25.0-35.0); MCHC 33.5 g/dL (31.0-37.0); MCV 81.5 fL (80.0-100.0); Mean Platelet Volume 7.7; Monocytes # (A) 0.3 k/uL (0-1.0); Monocytes % (A) 7 %; Neutrophils # (A) 3.2 k/uL (1.3-7.7); Neutrophils % (A) 73 %; Platelet Count 133 k/uL (150-450); RBC 2.75 m/uL (4.30-5.90); RDW 14.1 % (11.5-15.5); WBC 4.3 k/uL (3.8-10.6)
[2017-11-05 17:45] LABS: HGB 7.5 gm/dL (13.0-17.5)
[2017-11-05 17:46] LABS: ABG Base Excess -0.2 mmol/L; ABG HCO3 26 mmol/L (21-25); ABG PCO2 47 mmHg (35-45); ABG PH 7.34 (7.35-7.45); ABG PO2 223 mmHg (83-108); ABG TCO2 27 mmol/L (19-24)
--- NOTE | 2017-11-05 17:53 | PCN ---
PROCEDURE NOTE DATE OF PROCEDURE: 11/05/2017 SURGEON: Dr. Dayday Saravia PROCEDURE: Intraoperative graft flow measurements using the [employer] system. 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 DESCRIPTION OF PROCEDURE: After completing the 2 distal anastomoses of the right internal mammary artery to the left anterior descending artery and the left internal mammary artery to the obtuse marginal artery, and after coming off bypass with good hemodynamics, a 2 mm probe was selected. The flow into the right internal mammary artery to the left anterior descending artery was 99 mL/minute, pulsatility index of 1.7, and diastolic filling of 75%, showing an excellent functioning graft. The flow into the left internal mammary artery to the obtuse marginal artery was 28 mL/minute, pulsatility index of 1.9, diastolic filling of 65%, also showing an excellent functioning graft. With that, the procedure was terminated. MMODL / IJN: [id number] /
[2017-11-05] MEDS: KETOROLAC 30 MG/ML 1 ML VIAL IVP SCH (17:54)
[2017-11-05 18:02] LABS: Glucose,Whole Blood 122 mg/dL (75-99)
[2017-11-05] MEDS: INSULIN REGULAR 100 UNIT in SODIUM CHLORIDE 0.9% 100 ML IV SCH (18:02)
[2017-11-05] MEDS ORDERED: MORPHINE SULFATE 2 MG/ML SYRINGE IVP PRN (18:04)
[2017-11-05 18:05] LABS: ALT 36 U/L (21-72); AST 32 U/L (17-59); Albumin 3.4 g/dL (3.5-5.0); Alkaline Phosphatase 24 U/L (38-126); Anion Gap 6 mmol/L; Blood Urea Nitrogen 14 mg/dL (9-20); Carbon Dioxide 25 mmol/L (22-30); Chloride 110 mmol/L (98-107); Glucose 92 mg/dL (74-99); Magnesium 2.3 mg/dL (1.6-2.3); Potassium 3.8 mmol/L (3.5-5.1); Sodium 141 mmol/L (137-145); Total Bilirubin 0.7 mg/dL (0.2-1.3)
[2017-11-05] MEDS ORDERED: hydrALAZINE HCL 20 MG/ML 1 ML VIAL IVP PRN (18:12)
[2017-11-05 19:01] LABS: Glucose,Whole Blood 169 mg/dL (75-99)
[2017-11-05] MEDS: IPRATROPIUM-ALBUTEROL 3 ML NEB INHALATION SCH (19:34)
[2017-11-05 19:53] LABS: Basophils # (A) 0.1 k/uL (0-0.2); Basophils % (A) 1 %; Eosinophils # (A) 0.2 k/uL (0-0.7); Eosinophils % (A) 2 %; Lymphocytes # (A) 1.6 k/uL (1.0-4.8); Lymphocytes % (A) 15 %; MCH 28.9 pg (25.0-35.0); MCHC 35.3 g/dL (31.0-37.0); Mean Platelet Volume 7.1; Monocytes # (A) 0.6 k/uL (0-1.0); Monocytes % (A) 6 %; Neutrophils # (A) 8.4 k/uL (1.3-7.7); Neutrophils % (A) 77 %; Platelet Count 241 k/uL (150-450); RBC 3.17 m/uL (4.30-5.90); RDW 14.1 % (11.5-15.5); WBC 10.9 k/uL (3.8-10.6)
[2017-11-05 19:55] LABS: HGB 9.2 gm/dL (13.0-17.5)
[2017-11-05] MEDS ORDERED: IPRATROPIUM-ALBUTEROL 3 ML NEB INHALATION SCH (20:00)
[2017-11-05 20:10] LABS: Glucose,Whole Blood 183 mg/dL (75-99)
[2017-11-05] MEDS: MUPIROCIN 2% OINT 22 GM TUBE NASAL SCH (20:37)
[2017-11-05] MEDS ORDERED: METOPROLOL TARTRATE 12.5 MG TAB PO STA (20:39)
[2017-11-05 21:08] LABS: Glucose,Whole Blood 191 mg/dL (75-99)
[2017-11-05] MEDS ORDERED: MUPIROCIN 2% OINT 22 GM TUBE NASAL ONE (21:15)
[2017-11-05 21:16] LABS: ABG Base Excess -2.6 mmol/L; ABG HCO3 23 mmol/L (21-25); ABG Oxygen Saturation 93.7 % (94-97); ABG PCO2 39 mmHg (35-45); ABG PH 7.37 (7.35-7.45); ABG PO2 67 mmHg (83-108); ABG TCO2 24 mmol/L (19-24)
[2017-11-05] MEDS: POTASSIUM CHLORIDE 10 MEQ in WATER FOR INJECTION 1 100ML.BAG IVPB SCH ×2 (21:45→22:50)
[2017-11-05 21:54] LABS: Glucose,Whole Blood 192 mg/dL (75-99)
[2017-11-05 23:00] LABS: Basophils % (A) 0 %; Eosinophils % (A) 0 %; HCT 24.8 % (39.0-53.0); HGB 8.7 gm/dL (13.0-17.5); Lymphocytes # (A) 0.5 k/uL (1.0-4.8); Lymphocytes % (A) 6 %; MCH 28.8 pg (25.0-35.0); MCHC 35.2 g/dL (31.0-37.0); MCV 81.9 fL (80.0-100.0); Mean Platelet Volume 7.2; Monocytes # (A) 0.4 k/uL (0-1.0); Monocytes % (A) 5 %; Neutrophils # (A) 6.8 k/uL (1.3-7.7); Neutrophils % (A) 88 %; Platelet Count 206 k/uL (150-450); RBC 3.03 m/uL (4.30-5.90); WBC 7.8 k/uL (3.8-10.6)
[2017-11-05 23:05] LABS: Glucose,Whole Blood 178 mg/dL (75-99)
[2017-11-05] MEDS ORDERED: ceFAZolin IN SWFI 2 GM/20 ML SYRINGE IVP ONE (23:10)
[2017-11-05] MEDS ORDERED: HEPARIN SODIUM,PORCINE 5,000 UNIT/ML 1 ML VIAL ONE (23:30)
[2017-11-05] MEDS ORDERED: KETOROLAC 30 MG/ML 1 ML VIAL ONE (23:30)
[2017-11-05] MEDS ORDERED: METOPROLOL TARTRATE 12.5 MG TAB ONE (23:30)
[2017-11-06 00:05] LABS: Glucose,Whole Blood 173 mg/dL (75-99)
[2017-11-06 00:56] LABS: Glucose,Whole Blood 165 mg/dL (75-99)
[2017-11-06 01:56] LABS: Glucose,Whole Blood 148 mg/dL (75-99)
[2017-11-06 02:55] LABS: Glucose,Whole Blood 125 mg/dL (75-99)
[2017-11-06 03:55] LABS: Glucose,Whole Blood 127 mg/dL (75-99)
[2017-11-06] MEDS: HEPARIN SODIUM,PORCINE 5,000 UNIT/ML 1 ML VIAL SQ SCH ×4 (04:27→23:04)
[2017-11-06] MEDS: ACETAMINOPHEN IV (For NPO) 1,000 MG in EMPTY BAG 1 BAG IVPB SCH ×4 (04:27→17:11)
[2017-11-06] MEDS: KETOROLAC 30 MG/ML 1 ML VIAL IVP SCH ×5 (04:27→23:05)
[2017-11-06] MEDS: ceFAZolin IN SWFI 2 GM/20 ML SYRINGE IVP SCH ×3 (04:27→15:00)
[2017-11-06 04:28] LABS: Basophils % (A) 0 %; Eosinophils % (A) 0 %; HCT 23.3 % (39.0-53.0); HGB 7.7 gm/dL (13.0-17.5); Lymphocytes # (A) 0.5 k/uL (1.0-4.8); Lymphocytes % (A) 11 %; MCH 26.8 pg (25.0-35.0); MCHC 33.1 g/dL (31.0-37.0); MCV 81.1 fL (80.0-100.0); Mean Platelet Volume 9.6; Monocytes # (A) 0.4 k/uL (0-1.0); Monocytes % (A) 8 %; Neutrophils # (A) 3.9 k/uL (1.3-7.7); Neutrophils % (A) 80 %; Platelet Count 155 k/uL (150-450); RBC 2.88 m/uL (4.30-5.90); RDW 14.1 % (11.5-15.5); WBC 4.9 k/uL (3.8-10.6)
[2017-11-06 04:35] LABS: Ionized Calcium 4.6 mg/dL (4.5-5.3)
[2017-11-06 04:38] LABS: INR 1.2 (<1.2); Partial Thromboplastin Time 23.3 sec (22.0-30.0); Prothrombin Time 11.1 sec (9.0-12.0)
[2017-11-06 04:44] LABS: ALT 38 U/L (21-72); AST 71 U/L (17-59); Albumin 3.6 g/dL (3.5-5.0); Alkaline Phosphatase 25 U/L (38-126); Anion Gap 8 mmol/L; Blood Urea Nitrogen 11 mg/dL (9-20); Calcium 8.2 mg/dL (8.4-10.2); Carbon Dioxide 25 mmol/L (22-30); Chloride 107 mmol/L (98-107); Glucose 109 mg/dL (74-99); Sodium 140 mmol/L (137-145); Total Bilirubin 0.4 mg/dL (0.2-1.3); Total Protein 5.2 g/dL (6.3-8.2)
[2017-11-06 04:54] LABS: Glucose,Whole Blood 116 mg/dL (75-99)
[2017-11-06] MEDS: ALBUMIN HUMAN 5% 250 ML in EMPTY BAG 1 BAG IVPB PRN ×2 (04:55→06:27)
[2017-11-06] MEDS: INSULIN REGULAR 100 UNIT in SODIUM CHLORIDE 0.9% 100 ML IV SCH (05:59)
[2017-11-06 06:10] LABS: Glucose,Whole Blood 112 mg/dL (75-99)
[2017-11-06 07:02] LABS: Glucose,Whole Blood 149 mg/dL (75-99)
--- NOTE | 2017-11-06 07:59 | P.CRDCN ---
History of Present Illness Consult date: 11/06/17 Chief complaint: Status post CABG History of present illness: This is a pleasant 62-year-old gentleman who sees Dr. Varma in the office as an outpatient who was admitted to the hospital yesterday and underwent elective CABG 2 were the patient received GOMEZ to OM and the OMAR to LAD. This is his postoperative day #1. The patient was extubated yesterday after the surgery. He is maintaining normal sinus mechanism. Hemodynamically he is stable. He has been making good urine. He is on small dose of nitrate to keep his GOMEZ and OMAR open. Beside that he is on aspirin and metoprolol and statin. The liver function test are slightly deviated. Once the liver function tests improve the patient's need to be started on higher dose of statin. The patient was experiencing chest discomfort concerning for severe underlying coronary artery disease. He underwent a myocardial perfusion imaging stress test which revealed an anterior ischemia and subsequently underwent a heart catheterization which revealed two-vessel CAD involving the LAD as well as the OM. The patient was referred for CABG and he received 2 bypasses as described above. We'll continue the current medical regimen which includes antiplatelet, statin, and beta lenore. Consider adding Plavix to current medical treatment down the line. Consider also increasing the dose of statin down the line. Continue monitor the knee function and electrolytes. His hemoglobin this morning is above 7. The GFR is more than 60. 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 History of Any Multi-Drug Resistant Organisms: None Reported Past Surgical History: Heart Catheterization, Hernia Repair, Orthopedic Surgery Additional Past Surgical History / Comment(s): left upper leg surgery(Fx)/pin and jose- jose later removed,ORIF surgery for fx left lower leg Past Anesthesia/Blood Transfusion Reactions: No Reported Reaction, Motion Sickness Additional Past Anesthesia/Blood Transfusion Reaction / Comment(s): no hx blood transfusion Smoking Status: Former smoker - Past Family History Mother Family Medical History: No Reported History Medications and Allergies Home Medications Medication Instructions Recorded Confirmed Type Atorvastatin [Lipitor] 40 mg PO DAILY 10/28/17 11/05/17 History Fish Oil/Dha/Epa [Fish Oil 1,200 1 cap PO DAILY #0 10/28/17 11/05/17 History mg Fish Oil] Isosorbide Mononitrate ER [Imdur] 30 mg PO DAILY 10/28/17 11/05/17 History Multivitamins, Thera [Multivitamin 1 tab PO DAILY 10/28/17 11/05/17 History (formulary)] Metoprolol Tartrate [Lopressor] 12.5 mg PO BID #60 tab 10/30/17 11/05/17 Rx Mupirocin 2% Oint [Bactroban 2% 1 applic TOPICAL BID applic 10/30/17 11/05/17 Rx Oint] Nitroglycerin Sl Tabs [Nitrostat] 0.4 mg SUBLINGUAL Q5M PRN #25 tab 10/30/17 Rx metFORMIN HCL 1,000 mg PO BID #0 10/30/17 11/05/17 Rx Aspirin EC [Ecotrin] 325 mg PO DAILY 11/05/17 11/05/17 History Allergies Allergy/AdvReac Type Severity Reaction Status Date / Time No Known Allergies Allergy Verified 11/05/17 17:07 Physical Exam Vitals: Vital Signs Pulse Resp BP Pulse Ox 11/06/17 07:00 79 20 100 11/06/17 06:30 77 26 H 99 11/06/17 06:00 80 13 98 11/06/17 05:30 87 21 82/65 98 11/06/17 05:00 81 16 82/65 99 11/06/17 04:30 84 14 92/70 98 11/06/17 04:00 87 14 92/70 98 11/06/17 03:30 86 16 92/63 99 11/06/17 03:00 87 16 92/63 100 11/06/17 02:30 83 15 92/64 99 11/06/17 02:00 84 15 92/64 96 11/06/17 01:30 83 14 88/66 96 11/06/17 01:00 86 14 84/62 96 11/06/17 00:30 86 14 85/61 96 11/06/17 00:00 84 13 85/61 93 L 11/05/17 23:30 93 15 95/61 92 L 11/05/17 23:00 92 16 94/59 93 L 11/05/17 22:30 93 13 90/60 94 L 07/17/18 22:00 95 14 90/60 94 L 11/05/17 21:30 115 H 24 100/60 92 L 11/05/17 21:00 87 12 100/60 93 L 11/05/17 20:30 111 H 27 H 103/62 90 L 18 20:00 108 H 23 103/62 92 L 18 19:56 96 18 19:35 102 H 18 19:30 101 H 20 110/71 95 18 19:00 84 16 110/71 90 L 18 18:50 100 14 135/85 92 L 18 18:40 94 40 H 135/85 97 18 18:30 85 21 135/85 92 L 18 18:20 93 17 93 L 18 18:10 81 16 93 L 18 18:00 84 18 135/85 97 18 17:50 80 14 100 18 17:40 76 16 100 18 17:30 74 18 100 18 17:20 73 17 100 18 17:10 72 16 100 18 17:08 72 14 100 18 16:55 100 Intake and Output 11/05/1711/06/18 18 22:59 06:59 14:59 Intake Total 437.025 0307.208 59 Output Total 3858 1081 50 Balance -3001.376 445.208 9 Intake: IV 704 1332 59 ACETAMINOPHEN IV (For NPO 100 200 ) 1,000 mg In Empty Bag 1 bag @ 400 mls/hr IVPB Q6HR [facility] Rx#:[id number] Albumin Human 5% 250 ml 500 In Empty Bag 1 bag @ 250 mls/hr IVPB Q1HR PRN Rx#: [id number] Cardiac Output 150 60 Lactated Ringers 1,000 ml 300 400 50 @ 20 mls/hr IV .Q24H [facility] Rx#:[id number] Potassium Chloride 10 meq 100 100 In Water For Injection 1 100ml.bag @ 100 mls/hr IVPB Q1H [facility] Rx#: [id number] Pressure Bag 54 72 9 Intake, IV Titration 152.624 94.208 0 Amount Clevidipine Butyrate 25 126.300 50 mg In Empty Bag 1 bag @ 1 MG/HR 2 mls/hr IV .Q24H [facility] Rx#:[id number] Insulin Regular 100 unit 11.125 44.208 0 In Sodium Chloride 0.9% 100 ml @ Per Protocol IV .Q0M [facility] Rx#:[id number] Propofol 1,000 mg In 15.199 Empty Bag 1 bag @ Titrate IV .Q0M [facility] Rx#: [id number] Oral 100 Output: Chest Tube Drainage 568 371 36 Left Pleural/Mediastinal 107 56 10 Mediastinal 430 200 20 Right Pleural/Mediastinal 31 115 6 Urine 2290 710 14 Estimated Blood Loss 1000 Other: Voiding Method Indwelling Catheter Indwelling Catheter Weight 98.7 kg ABP, PAP, CO, CI - Last 8 Hours Arterial Blood Pressure 98/55 Arterial Blood Pressure 105/59 Arterial Blood Pressure 115/68 Arterial Blood Pressure 113/61 Arterial Blood Pressure 104/57 Arterial Blood Pressure 109/61 Arterial Blood Pressure 103/59 Arterial Blood Pressure 106/61 Arterial Blood Pressure 101/57 Arterial Blood Pressure 102/56 Arterial Blood Pressure 106/61 Arterial Blood Pressure 110/63 Arterial Blood Pressure 114/63 Arterial Blood Pressure 101/59 Pulmonary Artery Pressure 30/15 Pulmonary Artery Pressure 24/13 Pulmonary Artery Pressure 26/14 Pulmonary Artery Pressure 39/24 Pulmonary Artery Pressure 25/13 Pulmonary Artery Pressure 23/11 Pulmonary Artery Pressure 21/11 Pulmonary Artery Pressure 24/13 Pulmonary Artery Pressure 24/13 Pulmonary Artery Pressure 26/13 Pulmonary Artery Pressure 27/14 Pulmonary Artery Pressure 32/18 Pulmonary Artery Pressure 34/20 Pulmonary Artery Pressure 34/19 Pulmonary Artery Pressure 33/19 Cardiac Output 5.1 Cardiac Output 5.1 Cardiac Output 5.1 Cardiac Output 5.1 Cardiac Output 5.1 Cardiac Output 5.1 Cardiac Output 5.1 Cardiac Output 7.5 Cardiac Output 7.5 Cardiac Output 7.5 Cardiac Output 7.5 Cardiac Output 7.5 Cardiac Output 7.5 Cardiac Output 7.5 Cardiac Output 7.5 Cardiac Index 2.4 - Constitutional General appearance: no acute distress - Respiratory Respiratory: bilateral: diminished - Cardiovascular Rhythm: regular Heart sounds: normal: S1, S2 Results 11/06/17 04:15 11/06/17 04:15 Cardiac Enzymes 11/05/17 11/06/17 Range/Units 17:15 04:15 AST 32 71 H (17-59) U/L Coagulation 11/05/17 11/06/17 Range/Units 17:30 04:15 PT 12.5 H 11.1 (9.0-12.0) sec APTT 29.8 23.3 (22.0-30.0) sec CBC 11/05/17 11/05/17 11/05/17 Range/Units 17:15 19:40 22:35 WBC 4.3 10.9 H 7.8 (3.8-10.6) k/uL RBC 2.75 L 3.17 L 3.03 L (4.30-5.90) m/uL Hgb 7.5 L D 9.2 L D 8.7 L (13.0-17.5) gm/dL Hct 22.4 L 26.0 L 24.8 L (39.0-53.0) % Plt Count 133 L 241 206 (150-450) k/uL 11/06/17 Range/Units 04:15 WBC 4.9 (3.8-10.6) k/uL RBC 2.88 L (4.30-5.90) m/uL Hgb 7.7 L (13.0-17.5) gm/dL Hct 23.3 L (39.0-53.0) % Plt Count 155 (150-450) k/uL Comprehensive Metabolic Panel 11/05/17 11/06/17 Range/Units 17:15 04:15 Sodium 141 140 (137-145) mmol/L Potassium 3.8 4.0 (3.5-5.1) mmol/L Chloride 110 H 107 (98-107) mmol/L Carbon Dioxide 25 25 (22-30) mmol/L BUN 14 11 (9-20) mg/dL Creatinine 0.70 0.70 (0.66-1.25) mg/dL Glucose 92 109 H (74-99) mg/dL Calcium 8.0 L 8.2 L (8.4-10.2) mg/dL AST 32 71 H (17-59) U/L ALT 36 38 (21-72) U/L Alkaline Phosphatase 24 L 25 L (38-126) U/L Total Protein 5.0 L 5.2 L (6.3-8.2) g/dL Albumin 3.4 L 3.6 (3.5-5.0) g/dL Current Medications Generic Name Dose Route Start Last Admin Trade Name Freq PRN Reason Stop Dose Admin Hydrocodone Bitart/Acetaminophen 2 each 11/06/17 23:00 Anton 5-325 PO Q4HR PRN Severe Pain Hydrocodone Bitart/Acetaminophen 1 each 11/06/17 23:00 Anton 5-325 PO Q4HR PRN Moderate Pain Albuterol/Ipratropium 3 ml 11/05/17 16:55 Duoneb 0.5 Mg-3 Mg/3 Ml Soln INHALATION RT-Q2H PRN Shortness Of Breath Or Wheezing Albuterol/Ipratropium 3 ml 11/05/17 22:31 11/05/17 19:34 Duoneb 0.5 Mg-3 Mg/3 Ml Soln INHALATION Not Given RT-QID [facility] Aspirin 325 mg 11/06/17 09:00 Aspirin PO DAILY [facility] Atorvastatin Calcium 40 mg 11/06/17 09:00 Lipitor PO DAILY [facility] Benzocaine/Menthol 1 each 11/05/17 16:55 Cepacol Lozenge MUCOUS MEM Q2H PRN Sore Throat Bisacodyl 10 mg 11/06/17 16:31 Dulcolax RECTAL DAILY PRN Constipation Cefazolin Sodium 2 gm 11/06/17 00:00 11/06/17 04:27 Kefzol IVP 11/06/17 16:01 Not Given Q8HR [facility] Clopidogrel Bisulfate 75 mg 11/06/17 09:00 Plavix PO DAILY [facility] Heparin Sodium (Porcine) 5,000 unit 11/06/17 00:31 11/06/17 04:27 Heparin SQ Not Given Q8HR [facility] Hydralazine HCl 10 mg 11/05/17 18:12 Apresoline IVP Q6HR PRN SBP >150 Acetaminophen 1,000 mg/ IV 100 mls @ 400 mls/hr 11/05/17 18:00 11/06/17 06:30 Solution IVPB 11/06/17 18:01 400 mls/hr Q6HR [facility] Administration Albumin Human 250 ml/ IV 250 mls @ 250 mls/hr 11/05/17 16:55 11/06/17 06:27 Solution IVPB 11/07/17 16:56 250 mls/hr Q1HR PRN Administration For Volume Amiodarone HCl 150 mg/ 103 mls @ 618 mls/hr 11/05/17 16:55 Dextrose/Water IV .Q10M PRN Per protocol Protocol Calcium Chloride 1,000 mg/ 110 mls @ 100 mls/hr 11/05/17 16:55 Sodium Chloride IV 12/05/17 23:00 ONCE PRN Ionized Calcium less than 4.4 Clevidipine 25 mg/ IV Solution 50 mls @ 2 mls/hr 11/05/17 16:55 11/06/17 02: 00 IV Infused .Q24H [facility] Titration Protocol 1 MG/HR Insulin Human Regular 100 unit 101 mls @ 0 mls/hr 11/05/17 16:55 11/06/17 07: 03 / Sodium Chloride IV 4.5 units/hr .Q0M [facility] 4.54 mls/hr Titration Protocol Per Protocol Lactated Ringer's 1,000 mls @ 20 mls/hr 11/05/17 16:55 11/05/17 17:00 Lactated Ringers IV 50 mls/hr .Q24H [facility] Administration Ketorolac Tromethamine 15 mg 11/05/17 18:00 11/06/17 06:24 Toradol IVP 11/10/17 18:01 15 mg Q6H [facility] Administration Magnesium Hydroxide 2,400 mg 11/06/17 16:31 Milk Of Magnesia PO BID PRN Constipation Metoclopramide HCl 10 mg 11/05/17 16:55 Reglan IVP Q4H PRN Nausea And Vomiting Metoprolol Tartrate 12.5 mg 11/06/17 09:00 Lopressor PO BID [facility] Miscellaneous Information 1 each 11/05/17 16:55 Magnesium Per Protocol MISCELLANE DAILY PRN Per Protocol Protocol Miscellaneous Information 1 each 11/05/17 16:55 Phosphorus Per Protocol MISCELLANE DAILY PRN Per Protocol Protocol Miscellaneous Information 1 each 11/05/17 16:55 Potassium Per Protocol MISCELLANE DAILY PRN Per Protocol Protocol Multivitamins 1 each 11/06/17 12:00 Theragran PO DAILY@1200 [facility] Mupirocin 1 applic 11/05/17 21:00 11/05/17 20:37 Bactroban Oint NASAL 11/08/17 21:01 1 applic BID [facility] Administration Ondansetron HCl 4 mg 11/05/17 16:55 Zofran IVP Q6HR PRN Nausea And Vomiting Oxycodone HCl 10 mg 11/05/17 16:55 Oxyir PO 11/06/17 23:00 Q4H PRN Severe Pain Oxycodone HCl 5 mg 11/05/17 16:55 11/06/17 04:39 Oxyir PO 11/06/17 23:00 5 mg Q4H PRN Administration Moderate Pain Pantoprazole Sodium 40 mg 11/06/17 09:00 Protonix IVP DAILY [facility] Senna/Docusate Sodium 2 each 11/06/17 21:00 Senokot-S PO HS [facility] Sodium Chloride 10 ml 11/05/17 21:00 11/05/17 20:37 Saline Flush IV 10 ml BID [facility] Administration Intake and Output 11/05/17 11/06/17 11/06/17 22:59 06:59 14:59 Intake Total 379.460 4753.208 59 Output Total 3858 1081 50 Balance -3001.376 445.208 9 Intake: IV 704 1332 59 ACETAMINOPHEN IV (For NPO 100 200 ) 1,000 mg In Empty Bag 1 bag @ 400 mls/hr IVPB Q6HR [facility] Rx#:[id number] Albumin Human 5% 250 ml 500 In Empty Bag 1 bag @ 250 mls/hr IVPB Q1HR PRN Rx#: [id number] Cardiac Output 150 60 Lactated Ringers 1,000 ml 300 400 50 @ 20 mls/hr IV .Q24H [facility] Rx#:[id number] Potassium Chloride 10 meq 100 100 In Water For Injection 1 100ml.bag @ 100 mls/hr IVPB Q1H [facility] Rx#: [id number] Pressure Bag 54 72 9 Intake, IV Titration 152.624 94.208 0 Amount Clevidipine Butyrate 25 126.300 50 mg In Empty Bag 1 bag @ 1 MG/HR 2 mls/hr IV .Q24H [facility] Rx#:[id number] Insulin Regular 100 unit 11.125 44.208 0 In Sodium Chloride 0.9% 100 ml @ Per Protocol IV .Q0M [facility] Rx#:[id number] Propofol 1,000 mg In 15.199 Empty Bag 1 bag @ Titrate IV .Q0M [facility] Rx#: [id number] Oral 100 Output: Chest Tube Drainage 568 371 36 Left Pleural/Mediastinal 107 56 10 Mediastinal 430 200 20 Right Pleural/Mediastinal 31 115 6 Urine 2290 710 14 Estimated Blood Loss 1000 Other: Voiding Method Indwelling Catheter Indwelling Catheter Weight 98.7 kg 11/06/17 04:15 11/06/17 04:15 Assessment and Plan Assessment: Assessment #1 severe CAD and status post CABG as described above #2 acute respiratory failure which has improved #3 diabetes type 2 #4 hypertension #5 dyslipidemia Plan #1 the patient was extubated yesterday #2 he is hemodynamically stable #3 he has been maintaining normal sinus mechanism #4 I would continue the current medical treatment with aspirin, beta lenore, and statin #5 the dose of statin need to be increased down the line #6 also should consider starting the patient on Plavix. Thank you for allowing us participate in his care and we will continue following up with the patient
[2017-11-06 08:02] LABS: Glucose,Whole Blood 228 mg/dL (75-99)
[2017-11-06] MEDS: ASPIRIN 325 MG TAB PO SCH (08:04)
[2017-11-06] MEDS: CLOPIDOGREL 75 MG TAB PO SCH (08:04)
[2017-11-06] MEDS: METOPROLOL TARTRATE 12.5 MG TAB PO SCH ×2 (08:04→21:08)
[2017-11-06] MEDS: ATORVASTATIN 40 MG TAB PO SCH (08:05)
[2017-11-06] MEDS: MUPIROCIN 2% OINT 22 GM TUBE NASAL SCH ×2 (08:05→21:08)
--- NOTE | 2017-11-06 08:16 | XR ---
EXAMINATION TYPE: XR chest 1V portable DATE OF EXAM: 11/06/2017 CLINICAL HISTORY: Post open cardiac surgery progress study. TECHNIQUE: Single AP portable upright view of the chest is obtained. COMPARISON: Chest x-ray from one day earlier and older exam one week earlier. FINDINGS: There is interval extubation with removal of endotracheal and orogastric tubes. There is s table right internal jugular [place] catheter. Post CABG changes with mediastinal clips and sternal wires is redemonstrated. There are persistent bilateral chest tubes and mediastinal drainage cathete r. There is persistent cardiomegaly with mild central vascular congestion and small bilateral pleural ef fusions. There is persistent right hilar linear atelectasis. No new focal airspace opacity or pneumot horax is seen bilaterally. Osseous structures are intact. Retrocardiac opacity suggesting moderate si ze hiatal hernia is again seen. IMPRESSION: Interval extubation. There is persisting cardiomegaly with mild central vascular congesti on and small bilateral pleural effusions with right hilar linear atelectasis redemonstrated
[2017-11-06] MEDS: IPRATROPIUM-ALBUTEROL 3 ML NEB INHALATION SCH ×4 (08:55→19:27)
[2017-11-06] MEDS ORDERED: PANTOPRAZOLE 40 MG/10 ML VIAL IVP SCH (09:00)
[2017-11-06 09:04] LABS: Glucose,Whole Blood 201 mg/dL (75-99)
[2017-11-06 09:54] LABS: Glucose,Whole Blood 164 mg/dL (75-99)
--- NOTE | 2017-11-06 09:57 | P.PN ---
Subjective Progress Note Date: 11/06/17 Principal diagnosis: Coronary artery disease. Previous medical history of hypertension, hyperlipidemia, [id number] diabetes mellitus with preoperative hemoglobin A1c 7.9%, gout, remote tobacco dependence with preoperative FEV1 91% of predicted, obesity. POD #1 elective coronary artery bypass grafting 2, left internal mammary artery to the first obtuse marginal coronary artery, right internal mammary artery to the left anterior descending coronary artery. Intraoperative transesophageal echocardiogram. Epi-aortic scanning. Intraoperative graft flow measurements using the [employer] system. Postoperative normocytic, normochromic anemia, an expected outcome of surgery secondary to hemodilution and bypass pump use. Patient's currently sitting up in chair in no acute distress. States his pain is well-controlled, denies shortness of breath. He was successfully extubated last night at 21:32. His postoperative course thus far has been uneventful. Objective - Vital Signs Vital signs: Vital Signs Temp 97.1 F L 11/05/17 07:23 Pulse 80 11/06/17 09:09 Resp 7 L 11/06/17 09:00 BP 82/65 11/06/17 05:30 Pulse Ox 100 11/06/17 09:00 Intake & Output 11/05/17 11/06/17 11/06/17 18:59 06:59 18:59 Intake Total 114.248 9695.457 141.389 Output Total 3055 1884 184 Balance -2754.625 201.457 -42.611 Weight 98.7 kg Intake: IV 261 1778 137 ACETAMINOPHEN IV (For NPO 100 200 ) 1,000 mg In Empty Bag 1 bag @ 400 mls/hr IVPB Q6HR [facility] Rx#:[id number] Albumin Human 5% 250 ml 500 In Empty Bag 1 bag @ 250 mls/hr IVPB Q1HR PRN Rx#: [id number] Cardiac Output 40 170 10 Lactated Ringers 1,000 ml 100 600 100 @ 20 mls/hr IV .Q24H [facility] Rx#:[id number] Potassium Chloride 10 meq 200 In Water For Injection 1 100ml.bag @ 100 mls/hr IVPB Q1H [facility] Rx#: [id number] Pressure Bag 18 108 27 Intake, IV Titration 39.375 207.457 4.389 Amount Clevidipine Butyrate 25 38.900 137.400 mg In Empty Bag 1 bag @ 1 MG/HR 2 mls/hr IV .Q24H [facility] Rx#:[id number] Insulin Regular 100 unit 0.475 54.858 4.389 In Sodium Chloride 0.9% 100 ml @ Per Protocol IV .Q0M [facility] Rx#:[id number] Propofol 1,000 mg In 15.199 Empty Bag 1 bag @ Titrate IV .Q0M [facility] Rx#: [id number] Oral 100 Output: Chest Tube Drainage 390 549 100 Left Pleural/Mediastinal 70 93 10 Mediastinal 310 320 80 Right Pleural/Mediastinal 10 136 10 Urine 1665 1335 84 Estimated Blood Loss 1000 Other: Voiding Method Indwelling Catheter Indwelling Catheter Indwelling Catheter ABP, PAP, CO, CI - Last Documented Arterial Blood Pressure 99/52 Pulmonary Artery Pressure 24/12 Cardiac Output 5.1 Cardiac Index 2.4 - Constitutional General appearance: Present: cooperative, no acute distress, obese - Respiratory Details: Lungs sounds diminished bilaterally. Respirations even, nonlabored. Currently on 2 L nasal cannula with oxygen saturation 100%. Able to achieve 750 mL on his incentive spirometry. Effective cough. Mediastinal chest tube to continuous wall suction, 200 mL serosanguineous drainage overnight, 600 mL since surgery. Left pleural chest tube to continuous wall suction, 55 mL serosanguineous drainage overnight, 170 mL since surgery. Right pleural chest tube to continuous wall suction, 110 mL serosanguineous drainage overnight, on 140 mL since surgery. No air leaks present. - Cardiovascular Details: S1, S2 present. Regular rate and rhythm, sinus rhythm on telemetry. Sternum stable. Ventricular epicardial pacemaker wires present, connected to generator , VVI mode with backup rate 50 bpm. Palpable peripheral pulses bilaterally. No edema present. No calf pain or tenderness noted. Right internal jugular [place]/Cordis, left radial arterial line present. Last CO/CI 5.1/2.4 on no inotropes. Heart hugger in place with patient demonstrating appropriate use. Antiembolism stockings, SCDs present. - Gastrointestinal Gastrointestinal Comment(s): Abdomen soft, nontender, nondistended. Hypoactive bowel sounds present 4 quadrants. Tolerating clear liquids. No flatus yet. - Genitourinary Genitourinary Comment(s): De Jesus present draining clear, yellow urine. Output 40-175 mL per hour overnight. - Integumentary Integumentary Comment(s): Skin is warm and dry with evidence of good perfusion. Anterior chest incision well approximated and covered with dry intact dressing. - Neurologic Neurologic: Present: CNII-XII intact - Musculoskeletal Musculoskeletal: Present: strength equal bilaterally - Psychiatric Psychiatric: Present: A&O x's 3, appropriate affect, intact judgment & insight - Allied health notes Allied health notes reviewed: nursing - Labs CBC & Chem 7: 11/06/17 04:15 11/06/17 04:15 Labs: Abnormal Lab Results - Last 24 Hours (Table) 10/30/17 11/05/17 11/05/17 Range/Units 06:20 10:40 12:06 WBC (3.8-10.6) k/uL RBC (4.30-5.90) m/uL Hgb (13.0-17.5) gm/dL Hct (39.0-53.0) % Plt Count (150-450) k/uL Neutrophils # (1.3-7.7) k/uL Lymphocytes # (1.0-4.8) k/uL PT (9.0-12.0) sec INR (<1.2) ABG pH (7.35-7.45) ABG pCO2 (35-45) mmHg ABG pO2 211 H 262 H (83-108) mmHg ABG HCO3 (21-25) mmol/L ABG Total CO2 25 H 25 H (19-24) mmol/L ABG O2 Saturation 99.9 H 100.0 H (94-97) % ABG Hematocrit (34.0-46.0) % ABG Potassium (3.4-4.5) mmol/L ABG Ionized Calcium (4.5-5.3) mg/dL ABG Glucose 175 H 154 H (75-99) mg/dL ABG Lactic Acid 1.8 H (0.5-1.6) mmol/L Hemoglobin 11.5 L 11.1 L (13.0-17.5) gm/dL Chloride (98-107) mmol/L Glucose (74-99) mg/dL POC Glucose (mg/dL) (75-99) mg/dL Calcium (8.4-10.2) mg/dL AST (17-59) U/L Alkaline Phosphatase (38-126) U/L Total Protein (6.3-8.2) g/dL Albumin (3.5-5.0) g/dL Arterial Blood Potassium (3.4-4.5) mmol/L Arterial Blood Glucose 175 H 154 H (75-99) mg/dL Crossmatch See Detail 11/05/17 11/05/17 11/05/17 Range/Units 13:16 14:19 14:49 WBC (3.8-10.6) k/uL RBC (4.30-5.90) m/uL Hgb (13.0-17.5) gm/dL Hct (39.0-53.0) % Plt Count (150-450) k/uL Neutrophils # (1.3-7.7) k/uL Lymphocytes # (1.0-4.8) k/uL PT (9.0-12.0) sec INR (<1.2) ABG pH 7.34 L (7.35-7.45) ABG pCO2 48 H (35-45) mmHg ABG pO2 227 H 222 H 265 H (83-108) mmHg ABG HCO3 26 H (21-25) mmol/L ABG Total CO2 25 H 27 H 26 H (19-24) mmol/L ABG O2 Saturation 100.0 H 100.0 H 100.0 H (94-97) % ABG Hematocrit 30 L 21 L 23 L (34.0-46.0) % ABG Potassium 4.9 H (3.4-4.5) mmol/L ABG Ionized Calcium 4.1 L 4.1 L (4.5-5.3) mg/dL ABG Glucose 136 H 187 H 161 H (75-99) mg/dL ABG Lactic Acid 1.7 H 1.9 H 1.9 H (0.5-1.6) mmol/L Hemoglobin 9.7 L 7.0 L* 7.6 L (13.0-17.5) gm/dL Chloride (98-107) mmol/L Glucose (74-99) mg/dL POC Glucose (mg/dL) (75-99) mg/dL Calcium (8.4-10.2) mg/dL AST (17-59) U/L Alkaline Phosphatase (38-126) U/L Total Protein (6.3-8.2) g/dL Albumin (3.5-5.0) g/dL Arterial Blood Potassium 4.9 H (3.4-4.5) mmol/L Arterial Blood Glucose 136 H 187 H 161 H (75-99) mg/dL Crossmatch 11/05/17 11/05/17 11/05/17 Range/Units 15:54 17:07 17:15 WBC (3.8-10.6) k/uL RBC 2.75 L (4.30-5.90) m/uL Hgb 7.5 L D (13.0-17.5) gm/dL Hct 22.4 L (39.0-53.0) % Plt Count 133 L (150-450) k/uL Neutrophils # (1.3-7.7) k/uL Lymphocytes # 0.7 L (1.0-4.8) k/uL PT (9.0-12.0) sec INR (<1.2) ABG pH (7.35-7.45) ABG pCO2 (35-45) mmHg ABG pO2 150 H (83-108) mmHg ABG HCO3 (21-25) mmol/L ABG Total CO2 27 H (19-24) mmol/L ABG O2 Saturation 99.5 H (94-97) % ABG Hematocrit 25 L (34.0-46.0) % ABG Potassium (3.4-4.5) mmol/L ABG Ionized Calcium (4.5-5.3) mg/dL ABG Glucose 137 H (75-99) mg/dL ABG Lactic Acid 1.9 H (0.5-1.6) mmol/L Hemoglobin 8.3 L (13.0-17.5) gm/dL Chloride (98-107) mmol/L Glucose (74-99) mg/dL POC Glucose (mg/dL) 100 H (75-99) mg/dL Calcium (8.4-10.2) mg/dL AST (17-59) U/L Alkaline Phosphatase (38-126) U/L Total Protein (6.3-8.2) g/dL Albumin (3.5-5.0) g/dL Arterial Blood Potassium (3.4-4.5) mmol/L Arterial Blood Glucose 137 H (75-99) mg/dL Crossmatch 11/05/17 11/05/17 11/05/17 Range/Units 17:15 17:30 17:41 WBC (3.8-10.6) k/uL RBC (4.30-5.90) m/uL Hgb (13.0-17.5) gm/dL Hct (39.0-53.0) % Plt Count (150-450) k/uL Neutrophils # (1.3-7.7) k/uL Lymphocytes # (1.0-4.8) k/uL PT 12.5 H (9.0-12.0) sec INR 1.3 H (<1.2) ABG pH 7.34 L (7.35-7.45) ABG pCO2 47 H (35-45) mmHg ABG pO2 223 H (83-108) mmHg ABG HCO3 26 H (21-25) mmol/L ABG Total CO2 27 H (19-24) mmol/L ABG O2 Saturation 100.0 H (94-97) % ABG Hematocrit (34.0-46.0) % ABG Potassium (3.4-4.5) mmol/L ABG Ionized Calcium (4.5-5.3) mg/dL ABG Glucose (75-99) mg/dL ABG Lactic Acid (0.5-1.6) mmol/L Hemoglobin (13.0-17.5) gm/dL Chloride 110 H (98-107) mmol/L Glucose (74-99) mg/dL POC Glucose (mg/dL) (75-99) mg/dL Calcium 8.0 L (8.4-10.2) mg/dL AST (17-59) U/L Alkaline Phosphatase 24 L (38-126) U/L Total Protein 5.0 L (6.3-8.2) g/dL Albumin 3.4 L (3.5-5.0) g/dL Arterial Blood Potassium (3.4-4.5) mmol/L Arterial Blood Glucose (75-99) mg/dL Crossmatch 11/05/17 11/05/17 11/05/17 Range/Units 18:01 18:59 19:40 WBC 10.9 H (3.8-10.6) k/uL RBC 3.17 L (4.30-5.90) m/uL Hgb 9.2 L D (13.0-17.5) gm/dL Hct 26.0 L (39.0-53.0) % Plt Count (150-450) k/uL Neutrophils # 8.4 H (1.3-7.7) k/uL Lymphocytes # (1.0-4.8) k/uL PT (9.0-12.0) sec INR (<1.2) ABG pH (7.35-7.45) ABG pCO2 (35-45) mmHg ABG pO2 (83-108) mmHg ABG HCO3 (21-25) mmol/L ABG Total CO2 (19-24) mmol/L ABG O2 Saturation (94-97) % ABG Hematocrit (34.0-46.0) % ABG Potassium (3.4-4.5) mmol/L ABG Ionized Calcium (4.5-5.3) mg/dL ABG Glucose (75-99) mg/dL ABG Lactic Acid (0.5-1.6) mmol/L Hemoglobin (13.0-17.5) gm/dL Chloride (98-107) mmol/L Glucose (74-99) mg/dL POC Glucose (mg/dL) 122 H 169 H (75-99) mg/dL Calcium (8.4-10.2) mg/dL AST (17-59) U/L Alkaline Phosphatase (38-126) U/L Total Protein (6.3-8.2) g/dL Albumin (3.5-5.0) g/dL Arterial Blood Potassium (3.4-4.5) mmol/L Arterial Blood Glucose (75-99) mg/dL Crossmatch 11/05/17 11/05/17 11/05/17 Range/Units 20:08 21:06 21:10 WBC (3.8-10.6) k/uL RBC (4.30-5.90) m/uL Hgb (13.0-17.5) gm/dL Hct (39.0-53.0) % Plt Count (150-450) k/uL Neutrophils # (1.3-7.7) k/uL Lymphocytes # (1.0-4.8) k/uL PT (9.0-12.0) sec INR (<1.2) ABG pH (7.35-7.45) ABG pCO2 (35-45) mmHg ABG pO2 67 L (83-108) mmHg ABG HCO3 (21-25) mmol/L ABG Total CO2 (19-24) mmol/L ABG O2 Saturation 93.7 L (94-97) % ABG Hematocrit (34.0-46.0) % ABG Potassium (3.4-4.5) mmol/L ABG Ionized Calcium (4.5-5.3) mg/dL ABG Glucose (75-99) mg/dL ABG Lactic Acid (0.5-1.6) mmol/L Hemoglobin (13.0-17.5) gm/dL Chloride (98-107) mmol/L Glucose (74-99) mg/dL POC Glucose (mg/dL) 183 H 191 H (75-99) mg/dL Calcium (8.4-10.2) mg/dL AST (17-59) U/L Alkaline Phosphatase (38-126) U/L Total Protein (6.3-8.2) g/dL Albumin (3.5-5.0) g/dL Arterial Blood Potassium (3.4-4.5) mmol/L Arterial Blood Glucose (75-99) mg/dL Crossmatch 11/05/17 11/05/17 11/05/17 Range/Units 21:52 22:35 23:03 WBC (3.8-10.6) k/uL RBC 3.03 L (4.30-5.90) m/uL Hgb 8.7 L (13.0-17.5) gm/dL Hct 24.8 L (39.0-53.0) % Plt Count (150-450) k/uL Neutrophils # (1.3-7.7) k/uL Lymphocytes # 0.5 L (1.0-4.8) k/uL PT (9.0-12.0) sec INR (<1.2) ABG pH (7.35-7.45) ABG pCO2 (35-45) mmHg ABG pO2 (83-108) mmHg ABG HCO3 (21-25) mmol/L ABG Total CO2 (19-24) mmol/L ABG O2 Saturation (94-97) % ABG Hematocrit (34.0-46.0) % ABG Potassium (3.4-4.5) mmol/L ABG Ionized Calcium (4.5-5.3) mg/dL ABG Glucose (75-99) mg/dL ABG Lactic Acid (0.5-1.6) mmol/L Hemoglobin (13.0-17.5) gm/dL Chloride (98-107) mmol/L Glucose (74-99) mg/dL POC Glucose (mg/dL) 192 H 178 H (75-99) mg/dL Calcium (8.4-10.2) mg/dL AST (17-59) U/L Alkaline Phosphatase (38-126) U/L Total Protein (6.3-8.2) g/dL Albumin (3.5-5.0) g/dL Arterial Blood Potassium (3.4-4.5) mmol/L Arterial Blood Glucose (75-99) mg/dL Crossmatch 11/06/17 11/06/17 11/06/17 Range/Units 00:04 00:54 01:53 WBC (3.8-10.6) k/uL RBC (4.30-5.90) m/uL Hgb (13.0-17.5) gm/dL Hct (39.0-53.0) % Plt Count (150-450) k/uL Neutrophils # (1.3-7.7) k/uL Lymphocytes # (1.0-4.8) k/uL PT (9.0-12.0) sec INR (<1.2) ABG pH (7.35-7.45) ABG pCO2 (35-45) mmHg ABG pO2 (83-108) mmHg ABG HCO3 (21-25) mmol/L ABG Total CO2 (19-24) mmol/L ABG O2 Saturation (94-97) % ABG Hematocrit (34.0-46.0) % ABG Potassium (3.4-4.5) mmol/L ABG Ionized Calcium (4.5-5.3) mg/dL ABG Glucose (75-99) mg/dL ABG Lactic Acid (0.5-1.6) mmol/L Hemoglobin (13.0-17.5) gm/dL Chloride (98-107) mmol/L Glucose (74-99) mg/dL POC Glucose (mg/dL) 173 H 165 H 148 H (75-99) mg/dL Calcium (8.4-10.2) mg/dL AST (17-59) U/L Alkaline Phosphatase (38-126) U/L Total Protein (6.3-8.2) g/dL Albumin (3.5-5.0) g/dL Arterial Blood Potassium (3.4-4.5) mmol/L Arterial Blood Glucose (75-99) mg/dL Crossmatch 11/06/17 11/06/17 11/06/17 Range/Units 02:53 03:52 04:15 WBC (3.8-10.6) k/uL RBC 2.88 L (4.30-5.90) m/uL Hgb 7.7 L (13.0-17.5) gm/dL Hct 23.3 L (39.0-53.0) % Plt Count (150-450) k/uL Neutrophils # (1.3-7.7) k/uL Lymphocytes # 0.5 L (1.0-4.8) k/uL PT (9.0-12.0) sec INR (<1.2) ABG pH (7.35-7.45) ABG pCO2 (35-45) mmHg ABG pO2 (83-108) mmHg ABG HCO3 (21-25) mmol/L ABG Total CO2 (19-24) mmol/L ABG O2 Saturation (94-97) % ABG Hematocrit (34.0-46.0) % ABG Potassium (3.4-4.5) mmol/L ABG Ionized Calcium (4.5-5.3) mg/dL ABG Glucose (75-99) mg/dL ABG Lactic Acid (0.5-1.6) mmol/L Hemoglobin (13.0-17.5) gm/dL Chloride (98-107) mmol/L Glucose (74-99) mg/dL POC Glucose (mg/dL) 125 H 127 H (75-99) mg/dL Calcium (8.4-10.2) mg/dL AST (17-59) U/L Alkaline Phosphatase (38-126) U/L Total Protein (6.3-8.2) g/dL Albumin (3.5-5.0) g/dL Arterial Blood Potassium (3.4-4.5) mmol/L Arterial Blood Glucose (75-99) mg/dL Crossmatch 11/06/17 11/06/17 11/06/17 Range/Units 04:15 04:15 04:50 WBC (3.8-10.6) k/uL RBC (4.30-5.90) m/uL Hgb (13.0-17.5) gm/dL Hct (39.0-53.0) % Plt Count (150-450) k/uL Neutrophils # (1.3-7.7) k/uL Lymphocytes # (1.0-4.8) k/uL PT (9.0-12.0) sec INR 1.2 H (<1.2) ABG pH (7.35-7.45) ABG pCO2 (35-45) mmHg ABG pO2 (83-108) mmHg ABG HCO3 (21-25) mmol/L ABG Total CO2 (19-24) mmol/L ABG O2 Saturation (94-97) % ABG Hematocrit (34.0-46.0) % ABG Potassium (3.4-4.5) mmol/L ABG Ionized Calcium (4.5-5.3) mg/dL ABG Glucose (75-99) mg/dL ABG Lactic Acid (0.5-1.6) mmol/L Hemoglobin (13.0-17.5) gm/dL Chloride (98-107) mmol/L Glucose 109 H (74-99) mg/dL POC Glucose (mg/dL) 116 H (75-99) mg/dL Calcium 8.2 L (8.4-10.2) mg/dL AST 71 H (17-59) U/L Alkaline Phosphatase 25 L (38-126) U/L Total Protein 5.2 L (6.3-8.2) g/dL Albumin (3.5-5.0) g/dL Arterial Blood Potassium (3.4-4.5) mmol/L Arterial Blood Glucose (75-99) mg/dL Crossmatch 11/06/17 11/06/17 11/06/17 Range/Units 06:08 06:59 08:01 WBC (3.8-10.6) k/uL RBC (4.30-5.90) m/uL Hgb (13.0-17.5) gm/dL Hct (39.0-53.0) % Plt Count (150-450) k/uL Neutrophils # (1.3-7.7) k/uL Lymphocytes # (1.0-4.8) k/uL PT (9.0-12.0) sec INR (<1.2) ABG pH (7.35-7.45) ABG pCO2 (35-45) mmHg ABG pO2 (83-108) mmHg ABG HCO3 (21-25) mmol/L ABG Total CO2 (19-24) mmol/L ABG O2 Saturation (94-97) % ABG Hematocrit (34.0-46.0) % ABG Potassium (3.4-4.5) mmol/L ABG Ionized Calcium (4.5-5.3) mg/dL ABG Glucose (75-99) mg/dL ABG Lactic Acid (0.5-1.6) mmol/L Hemoglobin (13.0-17.5) gm/dL Chloride (98-107) mmol/L Glucose (74-99) mg/dL POC Glucose (mg/dL) 112 H 149 H 228 H (75-99) mg/dL Calcium (8.4-10.2) mg/dL AST (17-59) U/L Alkaline Phosphatase (38-126) U/L Total Protein (6.3-8.2) g/dL Albumin (3.5-5.0) g/dL Arterial Blood Potassium (3.4-4.5) mmol/L Arterial Blood Glucose (75-99) mg/dL Crossmatch 11/06/17 Range/Units 09:02 WBC (3.8-10.6) k/uL RBC (4.30-5.90) m/uL Hgb (13.0-17.5) gm/dL Hct (39.0-53.0) % Plt Count (150-450) k/uL Neutrophils # (1.3-7.7) k/uL Lymphocytes # (1.0-4.8) k/uL PT (9.0-12.0) sec INR (<1.2) ABG pH (7.35-7.45) ABG pCO2 (35-45) mmHg ABG pO2 (83-108) mmHg ABG HCO3 (21-25) mmol/L ABG Total CO2 (19-24) mmol/L ABG O2 Saturation (94-97) % ABG Hematocrit (34.0-46.0) % ABG Potassium (3.4-4.5) mmol/L ABG Ionized Calcium (4.5-5.3) mg/dL ABG Glucose (75-99) mg/dL ABG Lactic Acid (0.5-1.6) mmol/L Hemoglobin (13.0-17.5) gm/dL Chloride (98-107) mmol/L Glucose (74-99) mg/dL POC Glucose (mg/dL) 201 H (75-99) mg/dL Calcium (8.4-10.2) mg/dL AST (17-59) U/L Alkaline Phosphatase (38-126) U/L Total Protein (6.3-8.2) g/dL Albumin (3.5-5.0) g/dL Arterial Blood Potassium (3.4-4.5) mmol/L Arterial Blood Glucose (75-99) mg/dL Crossmatch - Imaging and Cardiology Chest x-ray: report reviewed, image reviewed Assessment and Plan (1) Coronary artery disease Current Visit: Yes Status: Chronic Code(s): I25.10 - ATHSCL HEART DISEASE OF [place] CORONARY ARTERY W/O ANG PCTRS SNOMED Code(s): 88090983 (2) Gout Current Visit: Yes Status: Chronic Code(s): M10.9 - GOUT, UNSPECIFIED SNOMED Code(s): 06007057 (3) Hyperlipidemia Current Visit: Yes Status: Chronic Code(s): E78.5 - HYPERLIPIDEMIA, UNSPECIFIED SNOMED Code(s): 49484873 (4) Hypertension Current Visit: Yes Status: Chronic Code(s): I10 - ESSENTIAL (PRIMARY) HYPERTENSION SNOMED Code(s): 93620513 (5) Non-insulin dependent type 2 diabetes mellitus Current Visit: Yes Status: Chronic Code(s): E11.9 - TYPE 2 DIABETES MELLITUS WITHOUT COMPLICATIONS SNOMED Code(s): 55105170 (6) Obesity Current Visit: Yes Status: Chronic Code(s): E66.9 - OBESITY, UNSPECIFIED SNOMED Code(s): 994800329 (7) Tobacco dependence in remission Current Visit: No Status: Resolved Code(s): F17.201 - NICOTINE DEPENDENCE, UNSPECIFIED, IN REMISSION SNOMED Code(s): 263990361 Plan: 1. Continue aspirin, statin, Plavix, subcu heparin, beta lenore. Will increase beta lenore therapy as tolerated. 2. Discontinue [place]-Sakina catheter. Connected Cordis to continuous CVP monitoring. 3. Wean O2 as tolerated. Encourage incentive spirometry use 10 times every hour. Encourage continued smoking cessation. 4. Bronchodilators per pulmonology. 5. Increase activity, ambulate in room. PT/OT/cardiac rehab consulted. 6. GI/DVT prophylaxis. 7. Will monitor daily labs and x-rays. No need for blood transfusion. 8. Pain control with ordered medications. 9. More recommendations to follow. Time with Patient: Greater than 30
[2017-11-06 10:58] LABS: Glucose,Whole Blood 134 mg/dL (75-99)
[2017-11-06] MEDS: MULTIVITAMINS, THERA 1 EACH TAB PO SCH (11:47)
[2017-11-06 12:05] LABS: Glucose,Whole Blood 99 mg/dL (75-99)
[2017-11-06 13:04] LABS: Glucose,Whole Blood 137 mg/dL (75-99)
[2017-11-06] MEDS: LACTATED RINGERS 1,000 ML IV SCH (13:09)
[2017-11-06] MEDS ORDERED: FUROSEMIDE 10 MG/ML 2 ML VIAL IV ONE (13:30)
[2017-11-06] MEDS ORDERED: ALBUMIN HUMAN 5% 250 ML in EMPTY BAG 1 BAG IVPB ONE (13:30)
[2017-11-06 14:00] LABS: Glucose,Whole Blood 180 mg/dL (75-99)
--- NOTE | 2017-11-06 14:05 | P.CNPUL ---
History of Present Illness Consult date: 11/06/17 Requesting physician: Dayday Saravia Reason for consult: other (Status post CABG) Chief complaint: Status post CABG History of present illness: This is a 62-year-old white male, status post CABG 2, done electively, patient had previous workup on outpatient basis, and he underwent GOMEZ to obtuse marginal and OMAR to LAD. Postoperatively, patient was on mechanical ventilation, and I was asked to see him on consultation. Patient was on mechanical ventilation for few hours, and his weaning was followed as per protocol. Extubated a few hours after he arrived to the ICU, tolerated the extubation well, and I'm seeing him today on consultation. Doing well, asymptomatic, denies any chest pain or discomfort, denies any shortness of breath. No cough no wheezing, no nausea, no vomiting, no abdominal pain. Patient is presently on multiple cardiac meds including antiplatelets, beta blockers, and statins. Chest x-ray showed cardiomegaly, small bilateral pleural effusions, and minimal right hilar linear atelectasis. 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 History of Any Multi-Drug Resistant Organisms: None Reported Past Surgical History: Heart Catheterization, Hernia Repair, Orthopedic Surgery Additional Past Surgical History / Comment(s): left upper leg surgery(Fx)/pin and jose- jose later removed,ORIF surgery for fx left lower leg Past Anesthesia/Blood Transfusion Reactions: No Reported Reaction, Motion Sickness Additional Past Anesthesia/Blood Transfusion Reaction / Comment(s): no hx blood transfusion Smoking Status: Former smoker - Past Family History Mother Family Medical History: No Reported History Medications and Allergies Home Medications Medication Instructions Recorded Confirmed Type Atorvastatin [Lipitor] 40 mg PO DAILY 10/28/17 11/05/17 History Fish Oil/Dha/Epa [Fish Oil 1,200 1 cap PO DAILY #0 10/28/17 11/05/17 History mg Fish Oil] Isosorbide Mononitrate ER [Imdur] 30 mg PO DAILY 10/28/17 11/05/17 History Multivitamins, Thera [Multivitamin 1 tab PO DAILY 10/28/17 11/05/17 History (formulary)] Metoprolol Tartrate [Lopressor] 12.5 mg PO BID #60 tab 10/30/17 11/05/17 Rx Mupirocin 2% Oint [Bactroban 2% 1 applic TOPICAL BID applic 10/30/17 11/05/17 Rx Oint] Nitroglycerin Sl Tabs [Nitrostat] 0.4 mg SUBLINGUAL Q5M PRN #25 tab 10/30/17 Rx metFORMIN HCL 1,000 mg PO BID #0 10/30/17 11/05/17 Rx Aspirin EC [Ecotrin] 325 mg PO DAILY 11/05/17 11/05/17 History Allergies Allergy/AdvReac Type Severity Reaction Status Date / Time No Known Allergies Allergy Verified 11/05/17 17:07 Physical Exam Vitals: Vital Signs Temp Pulse Resp BP Pulse Ox 11/06/17 13:00 81 18 97 11/06/17 12:30 75 17 98 11/06/17 12:00 98.3 F 77 10 L 98 11/06/17 11:30 78 10 L 96 11/06/17 11:00 80 13 92 L 11/06/17 10:39 78 16 100 11/06/17 10:00 75 12 97 11/06/17 09:30 81 10 L 97 11/06/17 09:09 80 11/06/17 09:00 78 7 L 100 11/06/17 08:57 77 11/06/17 08:30 77 14 100 11/06/17 08:00 83 22 98 11/06/17 07:30 83 10 L 100 11/06/17 07:00 79 20 100 11/06/17 06:30 77 26 H 99 11/06/17 06:00 80 13 98 11/06/17 05:30 87 21 82/65 98 11/06/17 05:00 81 16 82/65 99 11/06/17 04:30 84 14 92/70 98 11/06/17 04:00 87 14 92/70 98 11/06/17 03:30 86 16 92/63 99 11/06/17 03:00 87 16 92/63 100 11/06/17 02:30 83 15 92/64 99 07/18/18 02:00 84 15 92/64 96 07/18/18 01:30 83 14 88/66 96 18/18 01:00 86 14 84/62 96 18/18 00:30 86 14 85/61 96 18/18 00:00 84 13 85/61 93 L 07/17/18 23:30 93 15 95/61 92 L 07/17/18 23:00 92 16 94/59 93 L 0717/18 22:30 93 13 90/60 94 L 0717/18 22:00 95 14 90/60 94 L 07/17/18 21:30 115 H 24 100/60 92 L 07/17/18 21:00 87 12 100/60 93 L 17/18 20:30 111 H 27 H 103/62 90 L 17/18 20:00 108 H 23 103/62 92 L 0717/18 19:56 96 17/18 19:35 102 H 17/18 19:30 101 H 20 110/71 95 17/18 19:00 84 16 110/71 90 L 17/18 18:50 100 14 135/85 92 L 0717/18 18:40 94 40 H 135/85 97 0717/18 18:30 85 21 135/85 92 L 0717/18 18:20 93 17 93 L 17/18 18:10 81 16 93 L 07/17/18 18:00 84 18 135/85 97 /17/18 17:50 80 14 100 17/18 17:40 76 16 100 17/18 17:30 74 18 100 17/18 17:20 73 17 100 /17/18 17:10 72 16 100 07/17/18 17:08 72 14 100 07/17/18 16:55 100 Intake and Output 17/18 /18/18 /18/18 22:59 06:59 14:59 Intake Total 859.772 9396.208 389.118 Output Total 3858 1081 435 Balance -3001.376 445.208 -45.882 Intake: IV 704 1332 361 ACETAMINOPHEN IV (For NPO 100 200 100 ) 1,000 mg In Empty Bag 1 bag @ 400 mls/hr IVPB Q6HR [facility] Rx#:[id number] Albumin Human 5% 250 ml 500 In Empty Bag 1 bag @ 250 mls/hr IVPB Q1HR PRN Rx#: [id number] Cardiac Output 150 60 10 Lactated Ringers 1,000 ml 300 400 200 @ 20 mls/hr IV .Q24H [facility] Rx#:[id number] Potassium Chloride 10 meq 100 100 In Water For Injection 1 100ml.bag @ 100 mls/hr IVPB Q1H [facility] Rx#: [id number] Pressure Bag 54 72 51 Intake, IV Titration 152.624 94.208 28.118 Amount Clevidipine Butyrate 25 126.300 50 mg In Empty Bag 1 bag @ 1 MG/HR 2 mls/hr IV .Q24H [facility] Rx#:[id number] Insulin Regular 100 unit 11.125 44.208 28.118 In Sodium Chloride 0.9% 100 ml @ Per Protocol IV .Q0M [facility] Rx#:[id number] Propofol 1,000 mg In 15.199 Empty Bag 1 bag @ Titrate IV .Q0M [facility] Rx#: [id number] Oral 100 Output: Chest Tube Drainage 568 371 230 Left Pleural/Mediastinal 107 56 40 Mediastinal 430 200 130 Right Pleural/Mediastinal 31 115 60 Urine 2290 710 205 Estimated Blood Loss 1000 Other: Voiding Method Indwelling Catheter Indwelling Catheter Indwelling Catheter Weight 98.7 kg ABP, PAP, CO, CI - Last 8 Hours Arterial Blood Pressure 99/48 Arterial Blood Pressure 93/48 Arterial Blood Pressure 88/49 Arterial Blood Pressure 87/52 Arterial Blood Pressure 86/54 Arterial Blood Pressure 88/53 Arterial Blood Pressure 97/51 Arterial Blood Pressure 100/53 Arterial Blood Pressure 99/52 Arterial Blood Pressure 104/54 Arterial Blood Pressure 92/54 Arterial Blood Pressure 96/53 Arterial Blood Pressure 98/55 Arterial Blood Pressure 105/59 Pulmonary Artery Pressure 24/12 Pulmonary Artery Pressure 26/14 Pulmonary Artery Pressure 33/17 Pulmonary Artery Pressure 30/16 Pulmonary Artery Pressure 30/15 Pulmonary Artery Pressure 24/13 Pulmonary Artery Pressure 26/14 Cardiac Output 5.1 Cardiac Output 5.1 Cardiac Output 5.1 Cardiac Output 5.1 Cardiac Output 5.1 Cardiac Output 5.1 Cardiac Output 5.1 Cardiac Index 2.4 Physical Exam: Revealed a 62-year-old white male in no distress, on nasal cannula. Head: Atraumatic normocephalic. HEENT:[Neck is supple.] [No neck masses.] [No thyromegaly.] [No JVD.] Chest: [Diminished breath sounds at the bases, no crackles or rhonchi or wheezes..] Cardiac Exam: [Normal S1 and S2, no S3 gallop, positive pericardial rub..] Abdomen: [Soft, nontender, no megaly, no rebound, no guarding, normal bowel sounds.] Extremities: [No clubbing, no edema, no cyanosis.] Neurological Exam: [No focal neurologic deficit.] Psychiatric: Normal mood affect and mental status examination. Musculoskeletal: No focal weakness, normal range of motion, no deformities. Results - Laboratory Findings CBC and BMP: 11/06/17 04:15 11/06/17 04:15 ABG ABG pH 7.37 (7.35-7.45) 11/05/17 21:10 ABG pCO2 39 mmHg (35-45) 11/05/17 21:10 ABG pO2 67 mmHg (83-108) L 11/05/17 21:10 ABG O2 Saturation 93.7 % (94-97) L 11/05/17 21:10 PT/INR, D-dimer PT 11.1 sec (9.0-12.0) 11/06/17 04:15 INR 1.2 (<1.2) H 11/06/17 04:15 Abnormal lab findings: Abnormal Labs 10/30/17 10/30/17 11/05/17 06:20 06:20 08:14 WBC RBC Hgb Hct Plt Count Neutrophils # Lymphocytes # PT INR ABG pH ABG pCO2 ABG pO2 ABG HCO3 ABG Total CO2 ABG O2 Saturation ABG Hematocrit ABG Potassium ABG Ionized Calcium ABG Glucose ABG Lactic Acid Hemoglobin Chloride Glucose POC Glucose (mg/dL) 188 H Hemoglobin A1c 7.9 H Calcium AST Alkaline Phosphatase Total Protein Albumin Arterial Blood Potassium Arterial Blood Glucose Crossmatch See Detail 11/05/17 11/05/17 11/05/17 10:40 12:06 13:16 WBC RBC Hgb Hct Plt Count Neutrophils # Lymphocytes # PT INR ABG pH ABG pCO2 ABG pO2 211 H 262 H 227 H ABG HCO3 ABG Total CO2 25 H 25 H 25 H ABG O2 Saturation 99.9 H 100.0 H 100.0 H ABG Hematocrit 30 L ABG Potassium ABG Ionized Calcium ABG Glucose 175 H 154 H 136 H ABG Lactic Acid 1.8 H 1.7 H Hemoglobin 11.5 L 11.1 L 9.7 L Chloride Glucose POC Glucose (mg/dL) Hemoglobin A1c Calcium AST Alkaline Phosphatase Total Protein Albumin Arterial Blood Potassium Arterial Blood Glucose 175 H 154 H 136 H Crossmatch 11/05/17 11/05/17 11/05/17 14:19 14:49 15:54 WBC RBC Hgb Hct Plt Count Neutrophils # Lymphocytes # PT INR ABG pH 7.34 L ABG pCO2 48 H ABG pO2 222 H 265 H 150 H ABG HCO3 26 H ABG Total CO2 27 H 26 H 27 H ABG O2 Saturation 100.0 H 100.0 H 99.5 H ABG Hematocrit 21 L 23 L 25 L ABG Potassium 4.9 H ABG Ionized Calcium 4.1 L 4.1 L ABG Glucose 187 H 161 H 137 H ABG Lactic Acid 1.9 H 1.9 H 1.9 H Hemoglobin 7.0 L* 7.6 L 8.3 L Chloride Glucose POC Glucose (mg/dL) Hemoglobin A1c Calcium AST Alkaline Phosphatase Total Protein Albumin Arterial Blood Potassium 4.9 H Arterial Blood Glucose 187 H 161 H 137 H Crossmatch 11/05/17 11/05/17 11/05/17 17:07 17:15 17:15 WBC RBC 2.75 L Hgb 7.5 L D Hct 22.4 L Plt Count 133 L Neutrophils # Lymphocytes # 0.7 L PT INR ABG pH ABG pCO2 ABG pO2 ABG HCO3 ABG Total CO2 ABG O2 Saturation ABG Hematocrit ABG Potassium ABG Ionized Calcium ABG Glucose ABG Lactic Acid Hemoglobin Chloride 110 H Glucose POC Glucose (mg/dL) 100 H Hemoglobin A1c Calcium 8.0 L AST Alkaline Phosphatase 24 L Total Protein 5.0 L Albumin 3.4 L Arterial Blood Potassium Arterial Blood Glucose Crossmatch 11/05/17 11/05/17 11/05/17 17:30 17:41 18:01 WBC RBC Hgb Hct Plt Count Neutrophils # Lymphocytes # PT 12.5 H INR 1.3 H ABG pH 7.34 L ABG pCO2 47 H ABG pO2 223 H ABG HCO3 26 H ABG Total CO2 27 H ABG O2 Saturation 100.0 H ABG Hematocrit ABG Potassium ABG Ionized Calcium ABG Glucose ABG Lactic Acid Hemoglobin Chloride Glucose POC Glucose (mg/dL) 122 H Hemoglobin A1c Calcium AST Alkaline Phosphatase Total Protein Albumin Arterial Blood Potassium Arterial Blood Glucose Crossmatch 11/05/17 11/05/17 11/05/17 18:59 19:40 20:08 WBC 10.9 H RBC 3.17 L Hgb 9.2 L D Hct 26.0 L Plt Count Neutrophils # 8.4 H Lymphocytes # PT INR ABG pH ABG pCO2 ABG pO2 ABG HCO3 ABG Total CO2 ABG O2 Saturation ABG Hematocrit ABG Potassium ABG Ionized Calcium ABG Glucose ABG Lactic Acid Hemoglobin Chloride Glucose POC Glucose (mg/dL) 169 H 183 H Hemoglobin A1c Calcium AST Alkaline Phosphatase Total Protein Albumin Arterial Blood Potassium Arterial Blood Glucose Crossmatch 11/05/17 11/05/17 11/05/17 21:06 21:10 21:52 WBC RBC Hgb Hct Plt Count Neutrophils # Lymphocytes # PT INR ABG pH ABG pCO2 ABG pO2 67 L ABG HCO3 ABG Total CO2 ABG O2 Saturation 93.7 L ABG Hematocrit ABG Potassium ABG Ionized Calcium ABG Glucose ABG Lactic Acid Hemoglobin Chloride Glucose POC Glucose (mg/dL) 191 H 192 H Hemoglobin A1c Calcium AST Alkaline Phosphatase Total Protein Albumin Arterial Blood Potassium Arterial Blood Glucose Crossmatch 11/05/17 11/05/17 11/06/17 22:35 23:03 00:04 WBC RBC 3.03 L Hgb 8.7 L Hct 24.8 L Plt Count Neutrophils # Lymphocytes # 0.5 L PT INR ABG pH ABG pCO2 ABG pO2 ABG HCO3 ABG Total CO2 ABG O2 Saturation ABG Hematocrit ABG Potassium ABG Ionized Calcium ABG Glucose ABG Lactic Acid Hemoglobin Chloride Glucose POC Glucose (mg/dL) 178 H 173 H Hemoglobin A1c Calcium AST Alkaline Phosphatase Total Protein Albumin Arterial Blood Potassium Arterial Blood Glucose Crossmatch 11/06/17 11/06/17 11/06/17 00:54 01:53 02:53 WBC RBC Hgb Hct Plt Count Neutrophils # Lymphocytes # PT INR ABG pH ABG pCO2 ABG pO2 ABG HCO3 ABG Total CO2 ABG O2 Saturation ABG Hematocrit ABG Potassium ABG Ionized Calcium ABG Glucose ABG Lactic Acid Hemoglobin Chloride Glucose POC Glucose (mg/dL) 165 H 148 H 125 H Hemoglobin A1c Calcium AST Alkaline Phosphatase Total Protein Albumin Arterial Blood Potassium Arterial Blood Glucose Crossmatch 11/06/17 11/06/17 11/06/17 03:52 04:15 04:15 WBC RBC 2.88 L Hgb 7.7 L Hct 23.3 L Plt Count Neutrophils # Lymphocytes # 0.5 L PT INR 1.2 H ABG pH ABG pCO2 ABG pO2 ABG HCO3 ABG Total CO2 ABG O2 Saturation ABG Hematocrit ABG Potassium ABG Ionized Calcium ABG Glucose ABG Lactic Acid Hemoglobin Chloride Glucose POC Glucose (mg/dL) 127 H Hemoglobin A1c Calcium AST Alkaline Phosphatase Total Protein Albumin Arterial Blood Potassium Arterial Blood Glucose Crossmatch 11/06/17 11/06/17 11/06/17 04:15 04:50 06:08 WBC RBC Hgb Hct Plt Count Neutrophils # Lymphocytes # PT INR ABG pH ABG pCO2 ABG pO2 ABG HCO3 ABG Total CO2 ABG O2 Saturation ABG Hematocrit ABG Potassium ABG Ionized Calcium ABG Glucose ABG Lactic Acid Hemoglobin Chloride Glucose 109 H POC Glucose (mg/dL) 116 H 112 H Hemoglobin A1c Calcium 8.2 L AST 71 H Alkaline Phosphatase 25 L Total Protein 5.2 L Albumin Arterial Blood Potassium Arterial Blood Glucose Crossmatch 11/06/17 11/06/17 11/06/17 06:59 08:01 09:02 WBC RBC Hgb Hct Plt Count Neutrophils # Lymphocytes # PT INR ABG pH ABG pCO2 ABG pO2 ABG HCO3 ABG Total CO2 ABG O2 Saturation ABG Hematocrit ABG Potassium ABG Ionized Calcium ABG Glucose ABG Lactic Acid Hemoglobin Chloride Glucose POC Glucose (mg/dL) 149 H 228 H 201 H Hemoglobin A1c Calcium AST Alkaline Phosphatase Total Protein Albumin Arterial Blood Potassium Arterial Blood Glucose Crossmatch 11/06/17 11/06/17 11/06/17 09:52 10:57 13:03 WBC RBC Hgb Hct Plt Count Neutrophils # Lymphocytes # PT INR ABG pH ABG pCO2 ABG pO2 ABG HCO3 ABG Total CO2 ABG O2 Saturation ABG Hematocrit ABG Potassium ABG Ionized Calcium ABG Glucose ABG Lactic Acid Hemoglobin Chloride Glucose POC Glucose (mg/dL) 164 H 134 H 137 H Hemoglobin A1c Calcium AST Alkaline Phosphatase Total Protein Albumin Arterial Blood Potassium Arterial Blood Glucose Crossmatch - Diagnostic Findings Chest x-ray: image reviewed (As noted in HPI.) Assessment and Plan Assessment: Impression: 1 severe coronary artery disease, status post CABG 2. Patient was extubated uneventfully a few hours after he arrived to the ICU. He is postoperative day # 1. 2 multiple comorbidities including type 2 diabetes, benign essential hypertension, dyslipidemia. Recommendation: Continue present treatment plan, incentive spirometry, and early ambulation. We'll continue to follow. Time with Patient: Greater than 30
[2017-11-06] MEDS ORDERED: ALBUMIN HUMAN 5% 250 ML in EMPTY BAG 1 BAG IVPB STA (15:16)
[2017-11-06 15:46] LABS: Glucose,Whole Blood 177 mg/dL (75-99)
[2017-11-06 16:21] LABS: Glucose,Whole Blood 147 mg/dL (75-99)
[2017-11-06] MEDS ORDERED: BISACODYL 10 MG SUPP RECTAL PRN (16:31)
[2017-11-06] MEDS ORDERED: MAGNESIUM HYDROXIDE 2,400 MG/10 ML CUP PO PRN (16:31)
[2017-11-06 17:25] LABS: Glucose,Whole Blood 118 mg/dL (75-99)
[2017-11-06 17:25] LABS: Glucose,Whole Blood 144 mg/dL (75-99)
[2017-11-06 17:53] LABS: Glucose,Whole Blood 119 mg/dL (75-99)
[2017-11-06 18:56] LABS: Glucose,Whole Blood 165 mg/dL (75-99)
[2017-11-06 19:45] LABS: Glucose,Whole Blood 154 mg/dL (75-99)
[2017-11-06 20:54] LABS: Glucose,Whole Blood 97 mg/dL (75-99)
[2017-11-06] MEDS: SENNOSIDES-DOCUSATE SODIUM 1 EACH TAB PO SCH (21:09)
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
[2017-11-06 22:04] LABS: Glucose,Whole Blood 88 mg/dL (75-99)
[2017-11-06] MEDS ORDERED: HYDROcodone/APAP 5-325MG 1 EACH TAB PO PRN ×2 (23:00)
[2017-11-06 23:13] LABS: Glucose,Whole Blood 119 mg/dL (75-99)
[2017-11-07 00:05] LABS: Glucose,Whole Blood 143 mg/dL (75-99)
[2017-11-07] MEDS: ALBUMIN HUMAN 5% 250 ML in EMPTY BAG 1 BAG IVPB PRN (00:15)
[2017-11-07 01:01] LABS: Glucose,Whole Blood 119 mg/dL (75-99)
[2017-11-07 01:50] LABS: Glucose,Whole Blood 102 mg/dL (75-99)
[2017-11-07 03:04] LABS: Glucose,Whole Blood 100 mg/dL (75-99)
[2017-11-07 04:24] LABS: Glucose,Whole Blood 153 mg/dL (75-99)
[2017-11-07 05:12] LABS: Glucose,Whole Blood 139 mg/dL (75-99)
[2017-11-07 05:54] LABS: Basophils % (A) 0 %; Eosinophils # (A) 0.1 k/uL (0-0.7); Eosinophils % (A) 2 %; Lymphocytes # (A) 0.8 k/uL (1.0-4.8); Lymphocytes % (A) 16 %; MCH 27.2 pg (25.0-35.0); MCHC 33.4 g/dL (31.0-37.0); MCV 81.6 fL (80.0-100.0); Mean Platelet Volume 8.5; Monocytes # (A) 0.3 k/uL (0-1.0); Monocytes % (A) 6 %; Neutrophils # (A) 3.7 k/uL (1.3-7.7); Neutrophils % (A) 76 %; Platelet Count 147 k/uL (150-450); RBC 2.45 m/uL (4.30-5.90); RDW 14.1 % (11.5-15.5); WBC 4.9 k/uL (3.8-10.6)
[2017-11-07 05:56] LABS: HGB 6.7 gm/dL (13.0-17.5)
[2017-11-07] MEDS: KETOROLAC 30 MG/ML 1 ML VIAL IVP SCH (06:00)
[2017-11-07 06:04] LABS: Ionized Calcium 4.7 mg/dL (4.5-5.3)
--- NOTE | 2017-11-07 06:10 | P.PN ---
Subjective Progress Note Date: 11/07/17 Principal diagnosis: This is a continue progress note on a 62-year-old white male essentially postop day #2 for coronary bypass graft. The patient has no new complaints. Hemodynamically has been stable as far as the ICU team is concerned. He states minimal pain. No other voiding difficulties are stated. No significant nausea or vomiting is noted. Objective - Vital Signs Vital signs: Vital Signs Temp 100.2 F H 11/07/17 04:00 Pulse 83 11/07/17 04:00 Resp 19 11/07/17 04:00 BP 82/65 11/06/17 05:30 Pulse Ox 100 11/07/17 04:00 Intake & Output 11/06/17 11/06/17 11/07/17 06:59 18:59 06:59 Intake Total 2085.457 669.668 302.035 Output Total 1884 960 703 Balance 201.457 -290.332 -400.965 Weight 98.7 kg 98.7 kg Intake: IV 1778 616 265 ACETAMINOPHEN IV (For NPO 200 200 ) 1,000 mg In Empty Bag 1 bag @ 400 mls/hr IVPB Q6HR [facility] Rx#:[id number] Albumin Human 5% 250 ml 500 In Empty Bag 1 bag @ 250 mls/hr IVPB Q1HR PRN Rx#: [id number] Cardiac Output 170 10 Lactated Ringers 1,000 ml 600 325 205 @ 20 mls/hr IV .Q24H [facility] Rx#:[id number] Potassium Chloride 10 meq 200 In Water For Injection 1 100ml.bag @ 100 mls/hr IVPB Q1H [facility] Rx#: [id number] Pressure Bag 108 81 60 Intake, IV Titration 207.457 53.668 37.035 Amount Clevidipine Butyrate 25 137.400 mg In Empty Bag 1 bag @ 1 MG/HR 2 mls/hr IV .Q24H [facility] Rx#:[id number] Insulin Regular 100 unit 54.858 53.668 37.035 In Sodium Chloride 0.9% 100 ml @ Per Protocol IV .Q0M [facility] Rx#:[id number] Propofol 1,000 mg In 15.199 Empty Bag 1 bag @ Titrate IV .Q0M [facility] Rx#: [id number] Oral 100 Output: Chest Tube Drainage 549 290 287 Left Pleural/Mediastinal 93 60 85 Mediastinal 320 160 112 Right Pleural/Mediastinal 136 70 90 Urine 1335 670 416 Other: Voiding Method Indwelling Catheter Indwelling Catheter Indwelling Catheter ABP, PAP, CO, CI - Last Documented Arterial Blood Pressure 118/57 Pulmonary Artery Pressure 24/12 Cardiac Output 5.1 Cardiac Index 2.4 - Constitutional General appearance: Present: average body habitus - EENT Eyes: Absent: abnormal pupil - Respiratory Respiratory: bilateral: diminished - Cardiovascular Rhythm: regular Heart sounds: normal: S1, S2 - Gastrointestinal General gastrointestinal: Absent: soft - Psychiatric Psychiatric: Present: A&O x's 3 - Labs CBC & Chem 7: 11/07/17 05:30 11/06/17 04:15 Labs: Abnormal Lab Results - Last 24 Hours (Table) 11/06/17 11/06/17 11/06/17 Range/Units 06:08 06:59 08:01 RBC (4.30-5.90) m/uL Hgb (13.0-17.5) gm/dL Hct (39.0-53.0) % Plt Count (150-450) k/uL Lymphocytes # (1.0-4.8) k/uL POC Glucose (mg/dL) 112 H 149 H 228 H (75-99) mg/dL 11/06/17 11/06/17 11/06/17 Range/Units 09:02 09:52 10:57 RBC (4.30-5.90) m/uL Hgb (13.0-17.5) gm/dL Hct (39.0-53.0) % Plt Count (150-450) k/uL Lymphocytes # (1.0-4.8) k/uL POC Glucose (mg/dL) 201 H 164 H 134 H (75-99) mg/dL 11/06/17 11/06/17 11/06/17 Range/Units 13:03 13:58 14:56 RBC (4.30-5.90) m/uL Hgb (13.0-17.5) gm/dL Hct (39.0-53.0) % Plt Count (150-450) k/uL Lymphocytes # (1.0-4.8) k/uL POC Glucose (mg/dL) 137 H 180 H 177 H (75-99) mg/dL 11/06/17 11/06/17 11/06/17 Range/Units 15:57 16:53 17:05 RBC (4.30-5.90) m/uL Hgb (13.0-17.5) gm/dL Hct (39.0-53.0) % Plt Count (150-450) k/uL Lymphocytes # (1.0-4.8) k/uL POC Glucose (mg/dL) 147 H 118 H 144 H (75-99) mg/dL 11/06/17 11/06/17 11/06/17 Range/Units 17:51 18:54 19:44 RBC (4.30-5.90) m/uL Hgb (13.0-17.5) gm/dL Hct (39.0-53.0) % Plt Count (150-450) k/uL Lymphocytes # (1.0-4.8) k/uL POC Glucose (mg/dL) 119 H 165 H 154 H (75-99) mg/dL 11/06/17 11/07/17 11/07/17 Range/Units 23:11 00:00 00:58 RBC (4.30-5.90) m/uL Hgb (13.0-17.5) gm/dL Hct (39.0-53.0) % Plt Count (150-450) k/uL Lymphocytes # (1.0-4.8) k/uL POC Glucose (mg/dL) 119 H 143 H 119 H (75-99) mg/dL 11/07/17 11/07/17 11/07/17 Range/Units 01:48 03:00 04:20 RBC (4.30-5.90) m/uL Hgb (13.0-17.5) gm/dL Hct (39.0-53.0) % Plt Count (150-450) k/uL Lymphocytes # (1.0-4.8) k/uL POC Glucose (mg/dL) 102 H 100 H 153 H (75-99) mg/dL 11/07/17 11/07/17 Range/Units 05:09 05:30 RBC 2.45 L (4.30-5.90) m/uL Hgb 6.7 L* (13.0-17.5) gm/dL Hct 20.0 L* (39.0-53.0) % Plt Count 147 L (150-450) k/uL Lymphocytes # 0.8 L (1.0-4.8) k/uL POC Glucose (mg/dL) 139 H (75-99) mg/dL Assessment and Plan (1) Coronary artery disease Current Visit: Yes Status: Chronic Code(s): I25.10 - ATHSCL HEART DISEASE OF [place] CORONARY ARTERY W/O ANG PCTRS SNOMED Code(s): 65443968 (2) Hyperlipidemia Current Visit: Yes Status: Chronic Code(s): E78.5 - HYPERLIPIDEMIA, UNSPECIFIED SNOMED Code(s): 94120966 (3) Hypertension Current Visit: Yes Status: Chronic Code(s): I10 - ESSENTIAL (PRIMARY) HYPERTENSION SNOMED Code(s): 81730283 (4) Non-insulin dependent type 2 diabetes mellitus Current Visit: Yes Status: Chronic Code(s): E11.9 - TYPE 2 DIABETES MELLITUS WITHOUT COMPLICATIONS SNOMED Code(s): 60498807 (5) Tobacco dependence in remission Current Visit: No Status: Resolved Code(s): F17.201 - NICOTINE DEPENDENCE, UNSPECIFIED, IN REMISSION SNOMED Code(s): 244531601 Plan: We'll continue follow from a medical perspective. Pulmonary toilet and postoperative prophylaxis is in place. He seems progressing at a normal trajectory at this time. Check CBC and CMP in a.m. Time with Patient: Less than 30
[2017-11-07 06:15] LABS: HCT 20.4 % (39.0-53.0); MCH 26.6 pg (25.0-35.0); MCHC 32.7 g/dL (31.0-37.0); MCV 81.4 fL (80.0-100.0); Mean Platelet Volume 9.5; Platelet Count 123 k/uL (150-450); WBC 4.8 k/uL (3.8-10.6)
[2017-11-07 06:19] LABS: HGB 6.6 gm/dL (13.0-17.5)
[2017-11-07 06:24] LABS: ALT 30 U/L (21-72); AST 50 U/L (17-59); Albumin 3.8 g/dL (3.5-5.0); Alkaline Phosphatase 26 U/L (38-126); Anion Gap 11 mmol/L; Blood Urea Nitrogen 14 mg/dL (9-20); Calcium 8.5 mg/dL (8.4-10.2); Carbon Dioxide 24 mmol/L (22-30); Chloride 103 mmol/L (98-107); Glucose 111 mg/dL (74-99); Magnesium 1.9 mg/dL (1.6-2.3); Potassium 3.4 mmol/L (3.5-5.1); Sodium 138 mmol/L (137-145); Total Bilirubin 0.7 mg/dL (0.2-1.3); Total Protein 5.4 g/dL (6.3-8.2)
[2017-11-07 06:31] LABS: Glucose,Whole Blood 111 mg/dL (75-99)
[2017-11-07] MEDS ORDERED: Potassium Replacement Protocol 1 EACH MISC MISCELLANE PRN (06:40)
[2017-11-07] MEDS: MAGNESIUM SULFATE-D5W PMX 1 GM in DEXTROSE/WATER 1 100ML.BAG IVPB SCH ×2 (07:01→09:49)
[2017-11-07] MEDS: LACTATED RINGERS 1,000 ML IV SCH (07:01)
[2017-11-07 07:11] LABS: Glucose,Whole Blood 128 mg/dL (75-99)
--- NOTE | 2017-11-07 08:00 | P.PN ---
Subjective Progress Note Date: 11/07/17 Principal diagnosis: Status post CABG This is a pleasant 62-year-old gentleman who sees Dr. Varma in the office as an outpatient who was admitted to the hospital yesterday and underwent elective CABG 2 were the patient received GOMEZ to OM and the OMAR to LAD. This is his postoperative day #1. The patient was extubated yesterday after the surgery. He is maintaining normal sinus mechanism. Hemodynamically he is stable. He has been making good urine. He is on small dose of nitrate to keep his GOMEZ and OMAR open. Beside that he is on aspirin and metoprolol and statin. The liver function test are slightly deviated. Once the liver function tests improve the patient's need to be started on higher dose of statin. The patient was experiencing chest discomfort concerning for severe underlying coronary artery disease. He underwent a myocardial perfusion imaging stress test which revealed an anterior ischemia and subsequently underwent a heart catheterization which revealed two-vessel CAD involving the LAD as well as the OM. On follow-up with the patient today, he was sitting in the chair comfortably. The chest acute still draining. He is on aspirin as well as statin as well as metoprolol. We will consider add Plavix to the aspirin as well as increase the dose of statin down the line. The hemoglobin is around 6. Objective - Vital Signs Vital signs: Vital Signs Temp 100.2 F H 11/07/17 04:00 Pulse 90 11/07/17 07:00 Resp 16 11/07/17 07:00 BP 82/65 11/06/17 05:30 Pulse Ox 95 11/07/17 07:00 Intake & Output 11/06/17 11/07/17 11/07/17 18:59 06:59 18:59 Intake Total 669.668 386.088 0 Output Total 960 803 Balance -290.332 -416.912 0 Weight 98.7 kg Intake: IV 616 343 ACETAMINOPHEN IV (For NPO 200 ) 1,000 mg In Empty Bag 1 bag @ 400 mls/hr IVPB Q6HR [facility] Rx#:[id number] Cardiac Output 10 Lactated Ringers 1,000 ml 325 265 @ 20 mls/hr IV .Q24H [facility] Rx#:[id number] Pressure Bag 81 78 Intake, IV Titration 53.668 43.088 0 Amount Insulin Regular 100 unit 53.668 43.088 0 In Sodium Chloride 0.9% 100 ml @ Per Protocol IV .Q0M [facility] Rx#:[id number] Output: Chest Tube Drainage 290 307 Left Pleural/Mediastinal 60 95 Mediastinal 160 122 Right Pleural/Mediastinal 70 90 Urine 670 496 Other: Voiding Method Indwelling Catheter Indwelling Catheter ABP, PAP, CO, CI - Last Documented Arterial Blood Pressure 116/54 Pulmonary Artery Pressure 24/12 Cardiac Output 5.1 Cardiac Index 2.4 - Constitutional General appearance: Present: no acute distress - Respiratory Respiratory: bilateral: diminished - Cardiovascular Rhythm: regular Heart sounds: normal: S1, S2 - Labs CBC & Chem 7: 11/07/17 06:05 11/07/17 05:30 Labs: Abnormal Lab Results - Last 24 Hours (Table) 11/06/17 11/06/17 11/06/17 Range/Units 08:01 09:02 09:52 RBC (4.30-5.90) m/uL Hgb (13.0-17.5) gm/dL Hct (39.0-53.0) % Plt Count (150-450) k/uL Lymphocytes # (1.0-4.8) k/uL Potassium (3.5-5.1) mmol/L Glucose (74-99) mg/dL POC Glucose (mg/dL) 228 H 201 H 164 H (75-99) mg/dL Alkaline Phosphatase (38-126) U/L Total Protein (6.3-8.2) g/dL 11/06/17 11/06/17 11/06/17 Range/Units 10:57 13:03 13:58 RBC (4.30-5.90) m/uL Hgb (13.0-17.5) gm/dL Hct (39.0-53.0) % Plt Count (150-450) k/uL Lymphocytes # (1.0-4.8) k/uL Potassium (3.5-5.1) mmol/L Glucose (74-99) mg/dL POC Glucose (mg/dL) 134 H 137 H 180 H (75-99) mg/dL Alkaline Phosphatase (38-126) U/L Total Protein (6.3-8.2) g/dL 07/18/18 07/18/18 07/18/18 Range/Units 14:56 15:57 16:53 RBC (4.30-5.90) m/uL Hgb (13.0-17.5) gm/dL Hct (39.0-53.0) % Plt Count (150-450) k/uL Lymphocytes # (1.0-4.8) k/uL Potassium (3.5-5.1) mmol/L Glucose (74-99) mg/dL POC Glucose (mg/dL) 177 H 147 H 118 H (75-99) mg/dL Alkaline Phosphatase (38-126) U/L Total Protein (6.3-8.2) g/dL 11/06/17 11/06/17 11/06/17 Range/Units 17:05 17:51 18:54 RBC (4.30-5.90) m/uL Hgb (13.0-17.5) gm/dL Hct (39.0-53.0) % Plt Count (150-450) k/uL Lymphocytes # (1.0-4.8) k/uL Potassium (3.5-5.1) mmol/L Glucose (74-99) mg/dL POC Glucose (mg/dL) 144 H 119 H 165 H (75-99) mg/dL Alkaline Phosphatase (38-126) U/L Total Protein (6.3-8.2) g/dL 11/06/17 11/06/17 11/07/17 Range/Units 19:44 23:11 00:00 RBC (4.30-5.90) m/uL Hgb (13.0-17.5) gm/dL Hct (39.0-53.0) % Plt Count (150-450) k/uL Lymphocytes # (1.0-4.8) k/uL Potassium (3.5-5.1) mmol/L Glucose (74-99) mg/dL POC Glucose (mg/dL) 154 H 119 H 143 H (75-99) mg/dL Alkaline Phosphatase (38-126) U/L Total Protein (6.3-8.2) g/dL 11/07/17 11/07/17 11/07/17 Range/Units 00:58 01:48 03:00 RBC (4.30-5.90) m/uL Hgb (13.0-17.5) gm/dL Hct (39.0-53.0) % Plt Count (150-450) k/uL Lymphocytes # (1.0-4.8) k/uL Potassium (3.5-5.1) mmol/L Glucose (74-99) mg/dL POC Glucose (mg/dL) 119 H 102 H 100 H (75-99) mg/dL Alkaline Phosphatase (38-126) U/L Total Protein (6.3-8.2) g/dL 11/07/17 11/07/17 11/07/17 Range/Units 04:20 05:09 05:30 RBC (4.30-5.90) m/uL Hgb (13.0-17.5) gm/dL Hct (39.0-53.0) % Plt Count (150-450) k/uL Lymphocytes # (1.0-4.8) k/uL Potassium 3.4 L (3.5-5.1) mmol/L Glucose 111 H (74-99) mg/dL POC Glucose (mg/dL) 153 H 139 H (75-99) mg/dL Alkaline Phosphatase 26 L (38-126) U/L Total Protein 5.4 L (6.3-8.2) g/dL 11/07/17 11/07/17 11/07/17 Range/Units 05:30 06:05 06:28 RBC 2.45 L 2.50 L (4.30-5.90) m/uL Hgb 6.7 L* 6.6 L* (13.0-17.5) gm/dL Hct 20.0 L* 20.4 L (39.0-53.0) % Plt Count 147 L 123 L (150-450) k/uL Lymphocytes # 0.8 L (1.0-4.8) k/uL Potassium (3.5-5.1) mmol/L Glucose (74-99) mg/dL POC Glucose (mg/dL) 111 H (75-99) mg/dL Alkaline Phosphatase (38-126) U/L Total Protein (6.3-8.2) g/dL 11/07/17 Range/Units 07:08 RBC (4.30-5.90) m/uL Hgb (13.0-17.5) gm/dL Hct (39.0-53.0) % Plt Count (150-450) k/uL Lymphocytes # (1.0-4.8) k/uL Potassium (3.5-5.1) mmol/L Glucose (74-99) mg/dL POC Glucose (mg/dL) 128 H (75-99) mg/dL Alkaline Phosphatase (38-126) U/L Total Protein (6.3-8.2) g/dL Assessment and Plan Assessment: Assessment #1 severe CAD and status post CABG as described above #2 acute respiratory failure which has improved #3 diabetes type 2 #4 hypertension #5 dyslipidemia Plan #1 the patient continues to be hemodynamically stable #2 continue the antiplatelet, beta lenore, and statin #3 consider blood transfusion in view of the low hemoglobin which is around 6 #4 follow-up with the patient. Thank you for allowing us participate in his care and we will continue following up with the patient
[2017-11-07] MEDS: IPRATROPIUM-ALBUTEROL 3 ML NEB INHALATION SCH ×4 (08:10→19:26)
--- NOTE | 2017-11-07 08:10 | XR ---
EXAMINATION TYPE: XR chest 1V portable DATE OF EXAM: 11/07/2017 Comparison: 11/06/2017 Clinical History: 62-year-old male Post Operative Cardiac Surgery Findings: Right IJ sheath remains in place with removal of the Cutler-Sakina catheter. Cardiomegaly. Median sternot swati wires are present with post-CABG clips in the mediastinum. Mediastinal drain and bilateral chest tubes are demonstrated. Trace left apical pneumothorax is noted and in retrospect, is probably smalle r when compared to prior exam. Trace effusions and some patchy bibasilar areas of atelectasis. A band of atelectasis is increased at the right suprahilar region. Impression: 1. Trace left apical pneumothorax. In retrospect, this was very subtle on the prior and is smaller fr om prior exam. 2. Cardiomegaly with trace effusions and patchy bibasilar atelectasis. 3. New band of atelectasis at the right suprahilar region.
[2017-11-07 08:11] LABS: Glucose,Whole Blood 126 mg/dL (75-99)
[2017-11-07] MEDS: METOPROLOL TARTRATE 12.5 MG TAB PO SCH (09:17)
[2017-11-07] MEDS ORDERED: FUROSEMIDE 10 MG/ML 2 ML VIAL IV ONE (09:30)
[2017-11-07] MEDS: ASPIRIN 325 MG TAB PO SCH (09:52)
[2017-11-07] MEDS: PANTOPRAZOLE 40 MG TABLET PO SCH (09:52)
[2017-11-07] MEDS: HEPARIN SODIUM,PORCINE 5,000 UNIT/ML 1 ML VIAL SQ SCH ×2 (09:52→17:07)
[2017-11-07] MEDS: CLOPIDOGREL 75 MG TAB PO SCH (09:52)
[2017-11-07] MEDS: ATORVASTATIN 40 MG TAB PO SCH (09:52)
[2017-11-07] MEDS: MUPIROCIN 2% OINT 22 GM TUBE NASAL SCH ×2 (09:53→20:48)
[2017-11-07] MEDS ORDERED: SODIUM FERRIC GLUCONAT-SUCROSE 125 MG in SODIUM CHLORIDE 0.9% 100 ML IVPB ONE (10:00)
--- NOTE | 2017-11-07 10:08 | P.PN ---
Subjective Progress Note Date: 11/07/17 Principal diagnosis: Coronary artery disease. Previous medical history of hypertension, hyperlipidemia, [id number] diabetes mellitus with preoperative hemoglobin A1c 7.9%, gout, remote tobacco dependence with preoperative FEV1 91% of predicted, obesity. POD #2 elective coronary artery bypass grafting 2, left internal mammary artery to the first obtuse marginal coronary artery, right internal mammary artery to the left anterior descending coronary artery. Intraoperative transesophageal echocardiogram. Epi-aortic scanning. Intraoperative graft flow measurements using the Medistim system. Postoperative normocytic, normochromic anemia, an expected outcome of surgery secondary to hemodilution and bypass pump use. Patient's currently sitting up in chair in no acute distress. States his pain is well-controlled, denies shortness of breath. Patient's hemoglobin is low this morning and 6.6 but patient is hemodynamically stable. No new complaints or concerns. Objective - Vital Signs Vital signs: Vital Signs Temp 100.2 F H 11/07/17 04:00 Pulse 90 11/07/17 07:00 Resp 16 11/07/17 07:00 BP 82/65 11/06/17 05:30 Pulse Ox 95 11/07/17 07:00 Intake & Output 11/06/17 11/07/17 11/07/17 18:59 06:59 18:59 Intake Total 669.668 386.088 0 Output Total 960 803 Balance -290.332 -416.912 0 Weight 98.7 kg Intake: IV 616 343 ACETAMINOPHEN IV (For NPO 200 ) 1,000 mg In Empty Bag 1 bag @ 400 mls/hr IVPB Q6HR [facility] Rx#:[id number] Cardiac Output 10 Lactated Ringers 1,000 ml 325 265 @ 20 mls/hr IV .Q24H [facility] Rx#:[id number] Pressure Bag 81 78 Intake, IV Titration 53.668 43.088 0 Amount Insulin Regular 100 unit 53.668 43.088 0 In Sodium Chloride 0.9% 100 ml @ Per Protocol IV .Q0M [facility] Rx#:[id number] Output: Chest Tube Drainage 290 307 Left Pleural/Mediastinal 60 95 Mediastinal 160 122 Right Pleural/Mediastinal 70 90 Urine 670 496 Other: Voiding Method Indwelling Catheter Indwelling Catheter ABP, PAP, CO, CI - Last Documented Arterial Blood Pressure 116/54 Pulmonary Artery Pressure 24/12 Cardiac Output 5.1 Cardiac Index 2.4 - Constitutional General appearance: Present: cooperative, no acute distress, obese - Respiratory Details: Lungs sounds diminished bilaterally. Respirations even, nonlabored. Currently on 2 L nasal cannula with oxygen saturation 97%. Able to achieve 750-1000 mL on his incentive spirometry. Effective cough with productive yellow sputum. Mediastinal chest tube to continuous wall suction, 70 mL serosanguineous drainage overnight, 300 mL in the last 24 hours. Left pleural chest tube to continuous wall suction, 65 mL serosanguineous drainage overnight, 200 mL in the last 24 hours. Right pleural chest tube to continuous wall suction, 80 mL serosanguineous drainage overnight, 160 mL in the last 24 hours. No air leaks present. - Cardiovascular Details: S1, S2 present. Regular rate and rhythm, sinus rhythm on telemetry. Sternum stable. Ventricular epicardial pacemaker wires present, grounded. Palpable peripheral pulses bilaterally. No edema present. No calf pain or tenderness noted. Right internal jugular Cordis, left radial arterial line present. Heart hugger in place with patient demonstrating appropriate use. Antiembolism stockings, SCDs present. - Gastrointestinal Gastrointestinal Comment(s): Abdomen soft, nontender, nondistended. Hypoactive bowel sounds present 4 quadrants. Tolerating full liquids. No flatus yet. - Genitourinary Genitourinary Comment(s): De Jesus present draining clear, yellow urine. Output 30-60 mL per hour overnight , with a couple of hours at 10 mL per hour. - Integumentary Integumentary Comment(s): Skin is warm and dry with evidence of good perfusion. Anterior chest incision well approximated and covered with dry intact dressing. - Neurologic Neurologic: Present: CNII-XII intact - Musculoskeletal Musculoskeletal: Present: gait normal, strength equal bilaterally - Psychiatric Psychiatric: Present: A&O x's 3, appropriate affect, intact judgment & insight - Allied health notes Allied health notes reviewed: nursing - Labs CBC & Chem 7: 11/07/17 06:05 11/07/17 05:30 Labs: Abnormal Lab Results - Last 24 Hours (Table) 11/06/17 11/06/17 11/06/17 Range/Units 09:02 09:52 10:57 RBC (4.30-5.90) m/uL Hgb (13.0-17.5) gm/dL Hct (39.0-53.0) % Plt Count (150-450) k/uL Lymphocytes # (1.0-4.8) k/uL Potassium (3.5-5.1) mmol/L Glucose (74-99) mg/dL POC Glucose (mg/dL) 201 H 164 H 134 H (75-99) mg/dL Alkaline Phosphatase (38-126) U/L Total Protein (6.3-8.2) g/dL 11/06/17 11/06/17 11/06/17 Range/Units 13:03 13:58 14:56 RBC (4.30-5.90) m/uL Hgb (13.0-17.5) gm/dL Hct (39.0-53.0) % Plt Count (150-450) k/uL Lymphocytes # (1.0-4.8) k/uL Potassium (3.5-5.1) mmol/L Glucose (74-99) mg/dL POC Glucose (mg/dL) 137 H 180 H 177 H (75-99) mg/dL Alkaline Phosphatase (38-126) U/L Total Protein (6.3-8.2) g/dL 11/06/17 11/06/17 11/06/17 Range/Units 15:57 16:53 17:05 RBC (4.30-5.90) m/uL Hgb (13.0-17.5) gm/dL Hct (39.0-53.0) % Plt Count (150-450) k/uL Lymphocytes # (1.0-4.8) k/uL Potassium (3.5-5.1) mmol/L Glucose (74-99) mg/dL POC Glucose (mg/dL) 147 H 118 H 144 H (75-99) mg/dL Alkaline Phosphatase (38-126) U/L Total Protein (6.3-8.2) g/dL 11/06/17 11/06/17 11/06/17 Range/Units 17:51 18:54 19:44 RBC (4.30-5.90) m/uL Hgb (13.0-17.5) gm/dL Hct (39.0-53.0) % Plt Count (150-450) k/uL Lymphocytes # (1.0-4.8) k/uL Potassium (3.5-5.1) mmol/L Glucose (74-99) mg/dL POC Glucose (mg/dL) 119 H 165 H 154 H (75-99) mg/dL Alkaline Phosphatase (38-126) U/L Total Protein (6.3-8.2) g/dL 11/06/17 11/07/17 11/07/17 Range/Units 23:11 00:00 00:58 RBC (4.30-5.90) m/uL Hgb (13.0-17.5) gm/dL Hct (39.0-53.0) % Plt Count (150-450) k/uL Lymphocytes # (1.0-4.8) k/uL Potassium (3.5-5.1) mmol/L Glucose (74-99) mg/dL POC Glucose (mg/dL) 119 H 143 H 119 H (75-99) mg/dL Alkaline Phosphatase (38-126) U/L Total Protein (6.3-8.2) g/dL 11/07/17 11/07/17 11/07/17 Range/Units 01:48 03:00 04:20 RBC (4.30-5.90) m/uL Hgb (13.0-17.5) gm/dL Hct (39.0-53.0) % Plt Count (150-450) k/uL Lymphocytes # (1.0-4.8) k/uL Potassium (3.5-5.1) mmol/L Glucose (74-99) mg/dL POC Glucose (mg/dL) 102 H 100 H 153 H (75-99) mg/dL Alkaline Phosphatase (38-126) U/L Total Protein (6.3-8.2) g/dL 11/07/17 11/07/17 11/07/17 Range/Units 05:09 05:30 05:30 RBC 2.45 L (4.30-5.90) m/uL Hgb 6.7 L* (13.0-17.5) gm/dL Hct 20.0 L* (39.0-53.0) % Plt Count 147 L (150-450) k/uL Lymphocytes # 0.8 L (1.0-4.8) k/uL Potassium 3.4 L (3.5-5.1) mmol/L Glucose 111 H (74-99) mg/dL POC Glucose (mg/dL) 139 H (75-99) mg/dL Alkaline Phosphatase 26 L (38-126) U/L Total Protein 5.4 L (6.3-8.2) g/dL 11/07/17 11/07/17 11/07/17 Range/Units 06:05 06:28 07:08 RBC 2.50 L (4.30-5.90) m/uL Hgb 6.6 L* (13.0-17.5) gm/dL Hct 20.4 L (39.0-53.0) % Plt Count 123 L (150-450) k/uL Lymphocytes # (1.0-4.8) k/uL Potassium (3.5-5.1) mmol/L Glucose (74-99) mg/dL POC Glucose (mg/dL) 111 H 128 H (75-99) mg/dL Alkaline Phosphatase (38-126) U/L Total Protein (6.3-8.2) g/dL 11/07/17 Range/Units 08:09 RBC (4.30-5.90) m/uL Hgb (13.0-17.5) gm/dL Hct (39.0-53.0) % Plt Count (150-450) k/uL Lymphocytes # (1.0-4.8) k/uL Potassium (3.5-5.1) mmol/L Glucose (74-99) mg/dL POC Glucose (mg/dL) 126 H (75-99) mg/dL Alkaline Phosphatase (38-126) U/L Total Protein (6.3-8.2) g/dL - Imaging and Cardiology Chest x-ray: report reviewed, image reviewed Assessment and Plan (1) Coronary artery disease Current Visit: Yes Status: Chronic Code(s): I25.10 - ATHSCL HEART DISEASE OF [place] CORONARY ARTERY W/O ANG PCTRS SNOMED Code(s): 18339258 (2) Gout Current Visit: Yes Status: Chronic Code(s): M10.9 - GOUT, UNSPECIFIED SNOMED Code(s): 83738701 (3) Hyperlipidemia Current Visit: Yes Status: Chronic Code(s): E78.5 - HYPERLIPIDEMIA, UNSPECIFIED SNOMED Code(s): 49442979 (4) Hypertension Current Visit: Yes Status: Chronic Code(s): I10 - ESSENTIAL (PRIMARY) HYPERTENSION SNOMED Code(s): 73866709 (5) Non-insulin dependent type 2 diabetes mellitus Current Visit: Yes Status: Chronic Code(s): E11.9 - TYPE 2 DIABETES MELLITUS WITHOUT COMPLICATIONS SNOMED Code(s): 68851333 (6) Obesity Current Visit: Yes Status: Chronic Code(s): E66.9 - OBESITY, UNSPECIFIED SNOMED Code(s): 840988912 (7) Tobacco dependence in remission Current Visit: No Status: Resolved Code(s): F17.201 - NICOTINE DEPENDENCE, UNSPECIFIED, IN REMISSION SNOMED Code(s): 668954330 Plan: 1. Continue aspirin, statin, Plavix, subcu heparin, beta lenore. Will increase beta lenore therapy as tolerated. 2. Will give IV Lasix 20 mg 1 dose now, discontinue De Jesus catheter 2 hours post. 3. Wean O2 as tolerated. Encourage incentive spirometry use 10 times every hour. Encourage continued smoking cessation. 4. Bronchodilators per pulmonology. 5. Increase activity, ambulate in room. PT/OT/cardiac rehab consulted. 6. GI/DVT prophylaxis. 7. Will monitor daily labs and x-rays. No need for blood transfusion. Will start oral iron, in addition will give 1 dose of IV iron now. 8. Replace potassium and magnesium per protocol. 9. Will discontinue mediastinal chest tubes today. 10. Pain control with ordered medications. 11. Insulin/diabetic management per primary care service. 12. More recommendations to follow. Time with Patient: Greater than 30
[2017-11-07 12:15] LABS: Glucose,Whole Blood 182 mg/dL (75-99)
[2017-11-07] MEDS: FERROUS SULFATE 325 MG TAB PO SCH ×2 (12:20→18:20)
[2017-11-07] MEDS: MULTIVITAMINS, THERA 1 EACH TAB PO SCH (12:20)
[2017-11-07] MEDS: ASCORBIC ACID 500 MG TAB PO SCH ×2 (12:20→18:20)
[2017-11-07] MEDS: POTASSIUM CHLORIDE ER 20 MEQ TAB.ER PO SCH ×2 (12:20→13:05)
[2017-11-07] MEDS ORDERED: INSULIN ASPART 100 UNIT/ML 1 ML 10 ML VIAL SQ SCH ×2 (12:30→17:30)
--- NOTE | 2017-11-07 12:44 | P.PN ---
Subjective Progress Note Date: 11/07/17 Principal diagnosis: Status post CABG postoperative day #2 This is a 62-year-old white male, status post CABG 2, done electively, patient had previous workup on outpatient basis, and he underwent GOMEZ to obtuse marginal and OMAR to LAD. Postoperatively, patient was on mechanical ventilation, and I was asked to see him on consultation. Patient was on mechanical ventilation for few hours, and his weaning was followed as per protocol. Extubated a few hours after he arrived to the ICU, tolerated the extubation well, and I'm seeing him today on consultation. Doing well, asymptomatic, denies any chest pain or discomfort, denies any shortness of breath. No cough no wheezing, no nausea, no vomiting, no abdominal pain. Patient is presently on multiple cardiac meds including antiplatelets, beta blockers, and statins. Chest x-ray showed cardiomegaly, small bilateral pleural effusions, and minimal right hilar linear atelectasis. Reevaluated today on 11/07/2017, patient is doing relatively well, asymptomatic, no cough no wheezing no shortness of breath. Chest x-ray showed a small tiny apical left-sided pneumothorax, not unusual to be seen in post CABG patients. And has no clinical significance whatsoever. Chest tube remains in place, and there is no leak. Chest x-ray also showed some cardiomegaly and trace of effusions with atelectasis which is also not an unusual finding in postoperative patients. It is rather expected. Patient is doing well with incentive spirometry. Denies any pulmonary symptoms whatsoever. Hemoglobin is low at 6.6, patient is presently on iron. Transfusion decision will be decided upon by cardiac surgery. Objective - Vital Signs Vital signs: Vital Signs Temp 100.2 F H 11/07/17 04:00 Pulse 90 11/07/17 08:28 Resp 16 11/07/17 07:00 BP 82/65 11/06/17 05:30 Pulse Ox 95 11/07/17 07:00 Intake & Output 11/06/17 11/07/17 11/07/17 18:59 06:59 18:59 Intake Total 669.668 386.088 0 Output Total 960 803 Balance -290.332 -416.912 0 Weight 98.7 kg Intake: IV 616 343 ACETAMINOPHEN IV (For NPO 200 ) 1,000 mg In Empty Bag 1 bag @ 400 mls/hr IVPB Q6HR [facility] Rx#:[id number] Cardiac Output 10 Lactated Ringers 1,000 ml 325 265 @ 20 mls/hr IV .Q24H [facility] Rx#:[id number] Pressure Bag 81 78 Intake, IV Titration 53.668 43.088 0 Amount Insulin Regular 100 unit 53.668 43.088 0 In Sodium Chloride 0.9% 100 ml @ Per Protocol IV .Q0M [facility] Rx#:[id number] Output: Chest Tube Drainage 290 307 Left Pleural/Mediastinal 60 95 Mediastinal 160 122 Right Pleural/Mediastinal 70 90 Urine 670 496 Other: Voiding Method Indwelling Catheter Indwelling Catheter ABP, PAP, CO, CI - Last Documented Arterial Blood Pressure 116/54 Pulmonary Artery Pressure 24/12 Cardiac Output 5.1 Cardiac Index 2.4 - Exam Physical Exam: Revealed a 62-year-old white male in no distress, on nasal cannula. Head: Atraumatic normocephalic. HEENT:[Neck is supple.] [No neck masses.] [No thyromegaly.] [No JVD.] Chest: [Diminished breath sounds at the bases, minimal crackles at the left base , no rhonchi, no wheezes.] Cardiac Exam: [Normal S1 and S2, no S3 gallop, positive pericardial rub..] Abdomen: [Soft, nontender, no megaly, no rebound, no guarding, normal bowel sounds.] Extremities: [No clubbing, no edema, no cyanosis.] Neurological Exam: [No focal neurologic deficit.] Psychiatric: Normal mood affect and mental status examination. Musculoskeletal: No focal weakness, normal range of motion, no deformities. - Labs CBC & Chem 7: 11/07/17 06:05 11/07/17 05:30 Labs: Abnormal Lab Results - Last 24 Hours (Table) 11/06/17 11/06/17 11/06/17 Range/Units 13:03 13:58 14:56 RBC (4.30-5.90) m/uL Hgb (13.0-17.5) gm/dL Hct (39.0-53.0) % Plt Count (150-450) k/uL Lymphocytes # (1.0-4.8) k/uL Potassium (3.5-5.1) mmol/L Glucose (74-99) mg/dL POC Glucose (mg/dL) 137 H 180 H 177 H (75-99) mg/dL Alkaline Phosphatase (38-126) U/L Total Protein (6.3-8.2) g/dL 11/06/17 11/06/17 11/06/17 Range/Units 15:57 16:53 17:05 RBC (4.30-5.90) m/uL Hgb (13.0-17.5) gm/dL Hct (39.0-53.0) % Plt Count (150-450) k/uL Lymphocytes # (1.0-4.8) k/uL Potassium (3.5-5.1) mmol/L Glucose (74-99) mg/dL POC Glucose (mg/dL) 147 H 118 H 144 H (75-99) mg/dL Alkaline Phosphatase (38-126) U/L Total Protein (6.3-8.2) g/dL 11/06/17 11/06/17 11/06/17 Range/Units 17:51 18:54 19:44 RBC (4.30-5.90) m/uL Hgb (13.0-17.5) gm/dL Hct (39.0-53.0) % Plt Count (150-450) k/uL Lymphocytes # (1.0-4.8) k/uL Potassium (3.5-5.1) mmol/L Glucose (74-99) mg/dL POC Glucose (mg/dL) 119 H 165 H 154 H (75-99) mg/dL Alkaline Phosphatase (38-126) U/L Total Protein (6.3-8.2) g/dL 11/06/17 11/07/17 11/07/17 Range/Units 23:11 00:00 00:58 RBC (4.30-5.90) m/uL Hgb (13.0-17.5) gm/dL Hct (39.0-53.0) % Plt Count (150-450) k/uL Lymphocytes # (1.0-4.8) k/uL Potassium (3.5-5.1) mmol/L Glucose (74-99) mg/dL POC Glucose (mg/dL) 119 H 143 H 119 H (75-99) mg/dL Alkaline Phosphatase (38-126) U/L Total Protein (6.3-8.2) g/dL 11/07/17 11/07/17 11/07/17 Range/Units 01:48 03:00 04:20 RBC (4.30-5.90) m/uL Hgb (13.0-17.5) gm/dL Hct (39.0-53.0) % Plt Count (150-450) k/uL Lymphocytes # (1.0-4.8) k/uL Potassium (3.5-5.1) mmol/L Glucose (74-99) mg/dL POC Glucose (mg/dL) 102 H 100 H 153 H (75-99) mg/dL Alkaline Phosphatase (38-126) U/L Total Protein (6.3-8.2) g/dL 11/07/17 11/07/17 11/07/17 Range/Units 05:09 05:30 05:30 RBC 2.45 L (4.30-5.90) m/uL Hgb 6.7 L* (13.0-17.5) gm/dL Hct 20.0 L* (39.0-53.0) % Plt Count 147 L (150-450) k/uL Lymphocytes # 0.8 L (1.0-4.8) k/uL Potassium 3.4 L (3.5-5.1) mmol/L Glucose 111 H (74-99) mg/dL POC Glucose (mg/dL) 139 H (75-99) mg/dL Alkaline Phosphatase 26 L (38-126) U/L Total Protein 5.4 L (6.3-8.2) g/dL 11/07/17 11/07/17 11/07/17 Range/Units 06:05 06:28 07:08 RBC 2.50 L (4.30-5.90) m/uL Hgb 6.6 L* (13.0-17.5) gm/dL Hct 20.4 L (39.0-53.0) % Plt Count 123 L (150-450) k/uL Lymphocytes # (1.0-4.8) k/uL Potassium (3.5-5.1) mmol/L Glucose (74-99) mg/dL POC Glucose (mg/dL) 111 H 128 H (75-99) mg/dL Alkaline Phosphatase (38-126) U/L Total Protein (6.3-8.2) g/dL 11/07/17 11/07/17 Range/Units 08:09 12:12 RBC (4.30-5.90) m/uL Hgb (13.0-17.5) gm/dL Hct (39.0-53.0) % Plt Count (150-450) k/uL Lymphocytes # (1.0-4.8) k/uL Potassium (3.5-5.1) mmol/L Glucose (74-99) mg/dL POC Glucose (mg/dL) 126 H 182 H (75-99) mg/dL Alkaline Phosphatase (38-126) U/L Total Protein (6.3-8.2) g/dL Assessment and Plan Assessment: Impression: 1 severe coronary artery disease, status post CABG 2. Patient was extubated uneventfully a few hours after he arrived to the ICU. He is postoperative day # 2 2 multiple comorbidities including type 2 diabetes, benign essential hypertension, dyslipidemia. 3 postoperative atelectasis and small tiny apical left-sided pneumothorax, expected finding after CABG. Recommendation: Continue present treatment plan, incentive spirometry, and early ambulation. We'll continue to follow. Time with Patient: Less than 30
[2017-11-07] MEDS ORDERED: METOPROLOL TARTRATE 12.5 MG TAB PO STA (14:41)
[2017-11-07 17:16] LABS: Glucose,Whole Blood 300 mg/dL (75-99)
[2017-11-07 17:16] LABS: Glucose,Whole Blood 307 mg/dL (75-99)
[2017-11-07] MEDS: INSULIN REGULAR 100 UNIT in SODIUM CHLORIDE 0.9% 100 ML IV SCH (17:35)
[2017-11-07 18:23] LABS: Glucose,Whole Blood 302 mg/dL (75-99)
--- NOTE | 2017-11-07 19:01 | OP ---
OPERATIVE REPORT DATE OF SURGERY: 11/05/2017. SURGEON: Dr. Dayday Saravia. TECHNICIAN SUPPORT ENGINEER: Clifford Mirza and Siómn Simons. ANESTHESIA: General endotracheal by Dr. Scanlon. PREOPERATIVE DIAGNOSES: 1. Double-vessel coronary artery disease. 2. Hypertension. 3. Hyperlipidemia. 4. Diabetes. 5. Ex-smoker. 6. Preserved left ventricular function. POSTOPERATIVE DIAGNOSES: 1. Double-vessel coronary artery disease. 2. Hypertension. 3. Hyperlipidemia. 4. Diabetes. 5. Ex-smoker. 6. Preserved left ventricular function. PROCEDURES: 1. Total arterial double coronary artery bypass grafting using the skeletonized in situ right internal mammary artery crossing the midline to the left anterior descending artery, the skeletonized in situ left internal mammary artery to the obtuse marginal artery. 2. Transesophageal echocardiogram and epiaortic scanning. INDICATION FOR SURGERY: Patient is a 62-year-old gentleman found to have severe LAD and circumflex stenosis as well as moderate left main stenosis with nonocclusive disease in a dominant right coronary artery. The patient's ejection fraction is estimated at 55%. Patient is brought in today for elective coronary artery bypass grafting. We will be using bilateral internal mammary artery in view of the patient's age. No plans to bypass the right coronary artery, and that was discussed with Cardiology. The STS risk was discussed with him and his family. They understood it and agreed to proceed. DESCRIPTION OF THE PROCEDURE: The patient had a right internal jugular Fidelity-Sakina catheter and right radial arterial line placed in the preoperative holding area. Subsequently he was brought to the operating room. He had normal PA pressure and good cardiac index. General endotracheal anesthesia was induced uneventfully. De Jesus catheter was inserted. The chest, abdomen and both lower extremities were prepped and draped using ChloraPrep. Ioban was used to cover the skin. Patient received 2 grams of cefazolin intravenously. Transesophageal echocardiogram confirmed the preoperative finding of overall preserved left ventricular function and no significant valvular abnormality. Midline sternotomy was performed and the bone was mildly osteopenic. The left hemisternum was elevated and the left internal mammary artery was harvested in a totally skeletonized fashion. The left pleura was intentionally opened in this process and was drained with a 28-Citizen [place] chest tube. We administered 5000 units of heparin before clipping the mammary artery before its bifurcation, transecting it. It had maximum pulsatile flow in it. The same was repeated on the right side and the right hemisternum was elevated and the right internal mammary artery was harvested in a totally skeletonized fashion. The right pleura was opened in this process and was drained with a 28-Citizen [place] chest tube. The mammary artery was also clipped before its bifurcation and transected, had excellent pulsatile flow in it. Mediastinal fat was transected between 2 ties and epiaortic scanning revealed no protruding atheroma in the ascending aorta. Pericardium was opened in an inverted T- fashion and a pericardial crater was created. Findings included a short and high-positioned aorta. That would make any redo- surgery extremely difficult. There was evidence of diffuse coronary artery disease. After systemic heparinization after placement of respective pledgeted pursestring, aortic cannulation of the proximal arch with a 21-Citizen [place] soft flow cannula and venous cannulation via the right atrial appendage was performed. Antegrade as well as retrograde cardioplegia catheters were placed. Cardiopulmonary bypass was initiated and the patient's temperature was allowed to drift down to 34.5 degrees Celsius. With the heart empty and beating, we looked at the target. The mid LAD had a soft spot anteriorly but again was diffusely diseased as predicted by cardiac catheterization. The obtuse marginal artery was also found in a soft spot but had also diffuse wall disease. Aorta was clamped and during aortic clamping, myocardial protection was achieved with an initial dose of 1 L of antegrade cold blood cardioplegia with adequate arrest at 300 mL followed by 500 mL of retrograde cold blood cardioplegia. Subsequent doses were given retrograde at 15-minute intervals. The first distal anastomosis was between the left internal mammary artery and the obtuse marginal artery, which was opened; it was around 1.5 mm in diameter; using Prolene 7-0 in a continuous fashion. That anastomosis was hemostatic. I made a deep groove in the left pleural pericardial fat to accommodate the mammary artery medial to the lung and away from the posterior sternal table. The second distal anastomosis was between the right internal mammary artery that crossed the midline at the level of the proximal ascending aorta to the mid left anterior descending artery, which was opened; it was around 1.75 mm in diameter and had wall disease in it; using Prolene 7-0 in continuous fashion. The adventitia of this mammary artery was affixed to the epicardium with Prolene 7-0 suture. The anastomosis was hemostatic. The patient received magnesium and lidocaine before unclamping the aorta. He regained spontaneous sinus rhythm. After a period of reperfusion and satisfied with the distal anastomosis, we were able to wean off cardioplegia bypass without the need of any inotropic or vasopressor support. Test with then full dose protamine was given. Decannulation followed. The venous cannulation site was reinforced with a pledgeted Prolene as well as the antegrade cardioplegia site. One bipolar ventricular pacing wire was placed. One 32-Citizen [place] substernal chest tube was placed. The mediastinal fat on the right side was split to accommodate the right internal mammary artery medial to the lung and away from the posterior sternal table. After ensuring adequate hemostasis, hemodynamics, and after approximating all pericardial mediastinal fat over all conduits and heart, the sternum was closed using 5 [id number] pineal cables after interposing Fibrillar between the sternal edges. Thorough irrigation of cefazolin followed. The rest of the closure proceeded in layers. Skin glue was applied. Patient did not receive any blood bank product but received 250 mL of Cell Saver blood. He was transferred to the ICU in excellent condition with excellent hemodynamics , normal EKG on low-dose nitroglycerin. MMODL / IJN: [id number] / KYLE
[2017-11-07 19:06] LABS: Glucose,Whole Blood 245 mg/dL (75-99)
[2017-11-07 20:30] LABS: Glucose,Whole Blood 225 mg/dL (75-99)
[2017-11-07] MEDS: SENNOSIDES-DOCUSATE SODIUM 1 EACH TAB PO SCH (20:48)
[2017-11-07] MEDS ORDERED: METOPROLOL TARTRATE 25 MG TAB PO SCH (21:00)
[2017-11-07] MEDS ORDERED: INSULIN NPH 300 UNIT/3 ML VIAL SQ SCH (21:00)
[2017-11-07 21:32] LABS: Glucose,Whole Blood 183 mg/dL (75-99)
[2017-11-07 22:52] LABS: Glucose,Whole Blood 137 mg/dL (75-99)
[2017-11-07 23:03] LABS: Glucose,Whole Blood 113 mg/dL (75-99)
[2017-11-08] MEDS ORDERED: HEPARIN SODIUM,PORCINE 5,000 UNIT/ML 1 ML VIAL ONE
[2017-11-08 00:05] LABS: Glucose,Whole Blood 150 mg/dL (75-99)
[2017-11-08 01:17] LABS: Glucose,Whole Blood 143 mg/dL (75-99)
[2017-11-08 02:19] LABS: Glucose,Whole Blood 107 mg/dL (75-99)
[2017-11-08 03:22] LABS: Glucose,Whole Blood 170 mg/dL (75-99)
[2017-11-08 04:06] LABS: Glucose,Whole Blood 132 mg/dL (75-99)
[2017-11-08 04:41] LABS: HCT 20.3 % (39.0-53.0); MCHC 33.1 g/dL (31.0-37.0); MCV 81.5 fL (80.0-100.0); Mean Platelet Volume 7.5; RBC 2.48 m/uL (4.30-5.90); RDW 14.2 % (11.5-15.5); WBC 5.9 k/uL (3.8-10.6)
[2017-11-08] MEDS: HEPARIN SODIUM,PORCINE 5,000 UNIT/ML 1 ML VIAL SQ SCH ×3 (05:26→16:59)
[2017-11-08 05:28] LABS: Glucose,Whole Blood 147 mg/dL (75-99)
[2017-11-08 06:15] LABS: Ionized Calcium 4.8 mg/dL (4.5-5.3)
[2017-11-08 06:23] LABS: Glucose,Whole Blood 124 mg/dL (75-99)
[2017-11-08 06:24] LABS: HGB 6.7 gm/dL (13.0-17.5)
[2017-11-08 06:29] LABS: ALT 29 U/L (21-72); AST 30 U/L (17-59); Albumin 3.3 g/dL (3.5-5.0); Alkaline Phosphatase 31 U/L (38-126); Anion Gap 8 mmol/L; Blood Urea Nitrogen 14 mg/dL (9-20); Calcium 8.3 mg/dL (8.4-10.2); Carbon Dioxide 25 mmol/L (22-30); Chloride 105 mmol/L (98-107); Glucose 100 mg/dL (74-99); Magnesium 2.3 mg/dL (1.6-2.3); Phosphorus 3.2 mg/dL (2.5-4.5); Potassium 3.9 mmol/L (3.5-5.1); Sodium 138 mmol/L (137-145); Total Bilirubin 0.7 mg/dL (0.2-1.3)
[2017-11-08] MEDS ORDERED: POTASSIUM CHLORIDE ER 20 MEQ TAB.ER PO SCH (07:00)
[2017-11-08 07:15] LABS: Platelet Count 185 k/uL (150-450)
[2017-11-08 07:28] LABS: Glucose,Whole Blood 103 mg/dL (75-99)
[2017-11-08] MEDS ORDERED: INSULN ASP PRT/INSULIN ASPART 100 UNIT/ML 10 ML VIAL SQ SCH (07:30)
[2017-11-08] MEDS ORDERED: FUROSEMIDE 10 MG/ML 2 ML VIAL IV ONE (07:41)
--- NOTE | 2017-11-08 08:05 | P.PN ---
Subjective Progress Note Date: 11/08/17 Principal diagnosis: Status post CABG This is a pleasant 62-year-old gentleman who sees Dr. Varma in the office as an outpatient who was admitted to the hospital yesterday and underwent elective CABG 2 were the patient received GOMEZ to OM and the OMAR to LAD. This is his postoperative day #1. The patient was extubated yesterday after the surgery. He is maintaining normal sinus mechanism. Hemodynamically he is stable. He has been making good urine. He is on small dose of nitrate to keep his GOMEZ and OMAR open. Beside that he is on aspirin and metoprolol and statin. The liver function test are slightly deviated. Once the liver function tests improve the patient's need to be started on higher dose of statin. The patient was experiencing chest discomfort concerning for severe underlying coronary artery disease. He underwent a myocardial perfusion imaging stress test which revealed an anterior ischemia and subsequently underwent a heart catheterization which revealed two-vessel CAD involving the LAD as well as the OM. On follow-up with the patient today, he continues to be doing good. He has been up and around walking in the hallway. He is going to be transferred to selective units. The hemoglobin continues to be above 6 but the patient is hemodynamically stable. He is on maximize medical treatment consistent of dual antiplatelet therapy along with beta lenore as well as statin. I did increase the dose of Lipitor to 80 mg by mouth daily. Objective - Vital Signs Vital signs: Vital Signs Temp 99 F 11/07/17 20:00 Pulse 87 11/08/17 07:00 Resp 21 11/08/17 07:00 BP 89/58 11/07/17 18:00 Pulse Ox 95 11/08/17 07:00 Intake & Output 11/07/17 11/08/17 11/08/17 18:59 06:59 18:59 Intake Total 903.168 256.529 33.639 Output Total 1040 345 10 Balance -136.832 -88.471 23.639 Weight 98.5 kg 96.9 kg Intake: IV 341 211 28 0.9 carrier 55 35 5 Lactated Ringers 1,000 ml 220 140 20 @ 20 mls/hr IV .Q24H [facility] Rx#:[id number] Pressure Bag 66 36 3 Intake, IV Titration 212.168 45.529 5.639 Amount Insulin Regular 100 unit 12.168 45.529 5.639 In Sodium Chloride 0.9% 100 ml @ Per Protocol IV .Q0M [facility] Rx#:[id number] Magnesium Sulfate-D5w Pmx 100 1 gm In Dextrose/Water 1 100ml.bag @ 100 mls/hr IVPB Q1H [facility] Rx#: [id number] Sodium Ferric Gluconat- 100 Sucrose 125 mg In Sodium Chloride 0.9% 100 ml @ 100 mls/hr IVPB ONCE ONE Rx#:[id number] Oral 350 Output: Chest Tube Drainage 200 145 10 Left Pleural/Mediastinal 70 95 0 Mediastinal 40 Right Pleural/Mediastinal 90 50 10 Urine 840 200 Other: Voiding Method Indwelling Catheter Urinal ABP, PAP, CO, CI - Last Documented Arterial Blood Pressure 124/62 Pulmonary Artery Pressure 24/12 Cardiac Output 5.1 Cardiac Index 2.4 - Constitutional General appearance: Present: no acute distress - Respiratory Respiratory: bilateral: diminished - Cardiovascular Rhythm: regular Heart sounds: normal: S1, S2 - Labs CBC & Chem 7: 11/08/17 04:25 11/08/17 04:25 Labs: Abnormal Lab Results - Last 24 Hours (Table) 11/07/17 11/07/17 11/07/17 Range/Units 08:09 12:12 17:01 RBC (4.30-5.90) m/uL Hgb (13.0-17.5) gm/dL Hct (39.0-53.0) % Glucose (74-99) mg/dL POC Glucose (mg/dL) 126 H 182 H 300 H (75-99) mg/dL Calcium (8.4-10.2) mg/dL Alkaline Phosphatase (38-126) U/L Total Protein (6.3-8.2) g/dL Albumin (3.5-5.0) g/dL 11/07/17 11/07/17 11/07/17 Range/Units 17:04 18:22 19:04 RBC (4.30-5.90) m/uL Hgb (13.0-17.5) gm/dL Hct (39.0-53.0) % Glucose (74-99) mg/dL POC Glucose (mg/dL) 307 H 302 H 245 H (75-99) mg/dL Calcium (8.4-10.2) mg/dL Alkaline Phosphatase (38-126) U/L Total Protein (6.3-8.2) g/dL Albumin (3.5-5.0) g/dL 11/07/17 11/07/17 11/07/17 Range/Units 20:27 21:11 22:10 RBC (4.30-5.90) m/uL Hgb (13.0-17.5) gm/dL Hct (39.0-53.0) % Glucose (74-99) mg/dL POC Glucose (mg/dL) 225 H 183 H 137 H (75-99) mg/dL Calcium (8.4-10.2) mg/dL Alkaline Phosphatase (38-126) U/L Total Protein (6.3-8.2) g/dL Albumin (3.5-5.0) g/dL 11/07/17 11/08/17 11/08/17 Range/Units 23:02 00:03 01:03 RBC (4.30-5.90) m/uL Hgb (13.0-17.5) gm/dL Hct (39.0-53.0) % Glucose (74-99) mg/dL POC Glucose (mg/dL) 113 H 150 H 143 H (75-99) mg/dL Calcium (8.4-10.2) mg/dL Alkaline Phosphatase (38-126) U/L Total Protein (6.3-8.2) g/dL Albumin (3.5-5.0) g/dL 11/08/17 11/08/17 11/08/17 Range/Units 02:16 03:21 04:05 RBC (4.30-5.90) m/uL Hgb (13.0-17.5) gm/dL Hct (39.0-53.0) % Glucose (74-99) mg/dL POC Glucose (mg/dL) 107 H 170 H 132 H (75-99) mg/dL Calcium (8.4-10.2) mg/dL Alkaline Phosphatase (38-126) U/L Total Protein (6.3-8.2) g/dL Albumin (3.5-5.0) g/dL 11/08/17 11/08/17 11/08/17 Range/Units 04:25 04:25 05:24 RBC 2.48 L (4.30-5.90) m/uL Hgb 6.7 L* (13.0-17.5) gm/dL Hct 20.3 L (39.0-53.0) % Glucose 100 H (74-99) mg/dL POC Glucose (mg/dL) 147 H (75-99) mg/dL Calcium 8.3 L (8.4-10.2) mg/dL Alkaline Phosphatase 31 L (38-126) U/L Total Protein 5.0 L (6.3-8.2) g/dL Albumin 3.3 L (3.5-5.0) g/dL 11/08/17 11/08/17 Range/Units 06:22 07:27 RBC (4.30-5.90) m/uL Hgb (13.0-17.5) gm/dL Hct (39.0-53.0) % Glucose (74-99) mg/dL POC Glucose (mg/dL) 124 H 103 H (75-99) mg/dL Calcium (8.4-10.2) mg/dL Alkaline Phosphatase (38-126) U/L Total Protein (6.3-8.2) g/dL Albumin (3.5-5.0) g/dL Assessment and Plan Assessment: Assessment #1 severe CAD and status post CABG as described above #2 acute respiratory failure which has improved #3 diabetes type 2 #4 hypertension #5 dyslipidemia Plan #1 the patient continues to be hemodynamically stable #2 continue the antiplatelet, beta lenore, and statin #3 the patient is going to be transferred to selective unit. Thank you for allowing us participate in his care and we will continue following up with the patient
[2017-11-08 08:12] LABS: Glucose,Whole Blood 135 mg/dL (75-99)
--- NOTE | 2017-11-08 08:14 | XR ---
EXAMINATION TYPE: XR chest 1V portable DATE OF EXAM: 11/08/2017 COMPARISON: 11/07/2017 HISTORY: Status post cardiac surgery. Follow-up examination. TECHNIQUE: Single frontal view of the chest is obtained. FINDINGS: Right thoracostomy tube, right internal jugular central venous catheter sheath, post opera tive changes the chest, left-sided thoracostomy tube, and scattered areas of atelectasis are unchange d from the prior. There is redemonstration of an enlarged cardiomediastinal silhouette. Left apical p neumothorax is unchanged. No right pneumothorax is seen. IMPRESSION: Stable findings in comparison the prior with unchanged placement of thoracostomy tubes, trace left apical pneumothorax, and scattered strand-like bilateral subsegmental atelectasis.
[2017-11-08] MEDS ORDERED: METOPROLOL TARTRATE 50 MG TAB PO SCH (09:00)
[2017-11-08] MEDS: ASCORBIC ACID 500 MG TAB PO SCH ×2 (09:09→16:59)
[2017-11-08] MEDS: PANTOPRAZOLE 40 MG TABLET PO SCH (09:09)
[2017-11-08] MEDS: FERROUS SULFATE 325 MG TAB PO SCH ×2 (09:09→16:59)
[2017-11-08] MEDS: ATORVASTATIN 80 MG TAB PO SCH (09:10)
[2017-11-08] MEDS: ASPIRIN 325 MG TAB PO SCH (09:10)
[2017-11-08] MEDS: CLOPIDOGREL 75 MG TAB PO SCH (09:10)
[2017-11-08] MEDS: MUPIROCIN 2% OINT 22 GM TUBE NASAL SCH ×2 (09:11→21:33)
[2017-11-08 09:32] LABS: Glucose,Whole Blood 199 mg/dL (75-99)
[2017-11-08 10:10] LABS: Glucose,Whole Blood 211 mg/dL (75-99)
[2017-11-08] MEDS: IPRATROPIUM-ALBUTEROL 3 ML NEB INHALATION SCH ×4 (10:56→20:54)
[2017-11-08 11:05] LABS: Glucose,Whole Blood 170 mg/dL (75-99)
--- NOTE | 2017-11-08 12:01 | CDI ---
Last Revision, March 2017 Documentation Clarification Form Date: 11/08/2017 11:48:00 AM From: Tita QuinonesCaraballoNORRIS, CCDS Admit Date: 11/05/2017 6:29:00 AM Patient Name: Micah Castro Visit Number: [id number] Discharge Date: 11/10/2017 ATTENTION: The Clinical Documentation Specialists (CDI) and [facility] Coding Staff appreciate your assistance in clarifying documentation. Please respond to the clarification below the line at the bottom and electronically sign. The CDI & [facility] Coding staff will review the response and follow-up if needed. Please note: Queries are made part of the Legal Health Record. If you have any questions, please contact the author of this message via ITS. Dr. Roberto Carlos Henry: 62 yo male, presented for elective CABG x2, stable postop, extubated within a few hours of arrival to the ICU. Per the cardiology consult & subsequent progress notes: acute respiratory failure, improved. History/Risk Factors: CAD, Htn, Former smoker. Clinical Indicators: Post extubation VS: P 115, R 24, BP 100/60, PO 92 4Lnc. Lung assessment: Normal, non-labored breathing. CXR Postop: Mild subsegmental atelectasis (as expected per pulmonary). Treatment: O2 4Lnc down to 2Lnc. Albuterol INH In your professional opinion, can you please clarify the type of acute respiratory failure if you agree with this diagnosis: Acute Respiratory Failure, further specify (if known): With hypercapnia? With hypoxia? Acute Respiratory Failure ruled out? Other Diagnosis, please specify Unable to determine Please continue to document in your progress notes and discharge summary in order to capture severity of illness and risk of mortality. Include clinical findings that support your diagnosis. MTDD
[2017-11-08 12:37] LABS: Glucose,Whole Blood 134 mg/dL (75-99)
[2017-11-08] MEDS: MULTIVITAMINS, THERA 1 EACH TAB PO SCH (12:40)
[2017-11-08] MEDS: INSULIN ASPART 100 UNIT/ML 1 ML 10 ML VIAL SQ SCH ×4 (12:41→21:31)
--- NOTE | 2017-11-08 13:29 | P.PN ---
Subjective Progress Note Date: 11/08/17 Principal diagnosis: Coronary artery disease. Previous medical history of hypertension, hyperlipidemia, [id number] diabetes mellitus with preoperative hemoglobin A1c 7.9, gout, remote tobacco dependence with preoperative FEV1 91% of predicted and obesity. POD #3 elective coronary artery bypass grafting 2, left internal mammary artery to the first obtuse marginal coronary artery, right internal mammary artery to the left anterior descending coronary artery. Intraoperative transesophageal echocardiogram. Epi-aortic scanning. Intraoperative graft flow measurements using the Medist[employer] system. Postoperative normocytic, normochromic anemia, an expected outcome of surgery secondary to hemodilution and bypass pump use. The patient is currently laying in bed in no acute distress. Reports his pain is well-controlled, he denies shortness of breath. Patient's hemoglobin is 6.7 this morning but remains hemodynamically stable. No new complaints or concerns. Right IJ Cordis remains in place current CVP pressure is 14 mmHg. Objective - Vital Signs Vital signs: Vital Signs Temp 99 F 11/07/17 20:00 Pulse 87 11/08/17 07:00 Resp 21 11/08/17 07:00 BP 89/58 11/07/17 18:00 Pulse Ox 95 11/08/17 07:00 Intake & Output 11/07/17 11/08/17 11/08/17 18:59 06:59 18:59 Intake Total 903.168 256.529 33.639 Output Total 1040 345 10 Balance -136.832 -88.471 23.639 Weight 98.5 kg 96.9 kg Intake: IV 341 211 28 0.9 carrier 55 35 5 Lactated Ringers 1,000 ml 220 140 20 @ 20 mls/hr IV .Q24H [facility] Rx#:[id number] Pressure Bag 66 36 3 Intake, IV Titration 212.168 45.529 5.639 Amount Insulin Regular 100 unit 12.168 45.529 5.639 In Sodium Chloride 0.9% 100 ml @ Per Protocol IV .Q0M [facility] Rx#:[id number] Magnesium Sulfate-D5w Pmx 100 1 gm In Dextrose/Water 1 100ml.bag @ 100 mls/hr IVPB Q1H [facility] Rx#: [id number] Sodium Ferric Gluconat- 100 Sucrose 125 mg In Sodium Chloride 0.9% 100 ml @ 100 mls/hr IVPB ONCE ONE Rx#:[id number] Oral 350 Output: Chest Tube Drainage 200 145 10 Left Pleural/Mediastinal 70 95 0 Mediastinal 40 Right Pleural/Mediastinal 90 50 10 Urine 840 200 Other: Voiding Method Indwelling Catheter Urinal ABP, PAP, CO, CI - Last Documented Arterial Blood Pressure 124/62 Pulmonary Artery Pressure 24/12 Cardiac Output 5.1 Cardiac Index 2.4 - Constitutional General appearance: Present: cooperative, no acute distress, obese - Respiratory Details: Lung sounds are essentially clear throughout, diminished to his bilateral bases. Respirations are symmetrical and nonlabored. Oxygen saturation is are 96% on room air. He is achieving 750 mL on his incentive spirometry. Left and right pleural chest tubes remain in place to low continuous wall suction -20 cm H2O. Draining thin serosanguineous drainage. No air leak is present. Left pleural chest tube drained 60 mL in the last 8 hours, 200 mL in the last 24 hours. Right pleural chest tube drained 100 mL in the last 8 hours, 200 mL the last 24 hours. - Cardiovascular Details: Regular rhythm and rate. S1 and S2 present, negative for S3, gallop or murmur. Bedside telemetry showing normal sinus rhythm heart rate 95. Sternum is stable. Heart hugger is in place and he is demonstrating appropriate use. Knee -high UDAY hose and sequential compression devices in place to his bilateral lower extremities. Right IJ Cordis in place with continuous CVP monitoring, current CVP pressure 14 mmHg. Ventricular epicardial pacemaker wires in place and grounded. No edema present. - Gastrointestinal Gastrointestinal Comment(s): Abdomen is soft, nontender and nondistended. Active bowel sounds all 4 abdominal quadrants. Tolerating oral intake. Passing flatus. No guarding or rigidity. No organomegaly. - Genitourinary Genitourinary Comment(s): Voiding clear yellow urine. 800 mL of output in the last 8 hours. - Integumentary Integumentary Comment(s): Skin is warm and dry. No clubbing or cyanosis present. Midline sternal incision clean dry and approximated. No drainage or redness present. No rash or abnormal pigmentation present. - Neurologic Neurologic Comment(s): No focal deficits. Neurologic: Present: CNII-XII intact - Musculoskeletal Musculoskeletal: Present: gait normal, strength equal bilaterally - Psychiatric Psychiatric: Present: A&O x's 3, appropriate affect, intact judgment & insight - Allied health notes Allied health notes reviewed: nursing - Labs CBC & Chem 7: 11/08/17 04:25 11/08/17 04:25 Labs: Abnormal Lab Results - Last 24 Hours (Table) 11/07/17 11/07/17 11/07/17 Range/Units 12:12 17:01 17:04 RBC (4.30-5.90) m/uL Hgb (13.0-17.5) gm/dL Hct (39.0-53.0) % Glucose (74-99) mg/dL POC Glucose (mg/dL) 182 H 300 H 307 H (75-99) mg/dL Calcium (8.4-10.2) mg/dL Alkaline Phosphatase (38-126) U/L Total Protein (6.3-8.2) g/dL Albumin (3.5-5.0) g/dL 11/07/17 11/07/17 11/07/17 Range/Units 18:22 19:04 20:27 RBC (4.30-5.90) m/uL Hgb (13.0-17.5) gm/dL Hct (39.0-53.0) % Glucose (74-99) mg/dL POC Glucose (mg/dL) 302 H 245 H 225 H (75-99) mg/dL Calcium (8.4-10.2) mg/dL Alkaline Phosphatase (38-126) U/L Total Protein (6.3-8.2) g/dL Albumin (3.5-5.0) g/dL 11/07/17 11/07/17 11/07/17 Range/Units 21:11 22:10 23:02 RBC (4.30-5.90) m/uL Hgb (13.0-17.5) gm/dL Hct (39.0-53.0) % Glucose (74-99) mg/dL POC Glucose (mg/dL) 183 H 137 H 113 H (75-99) mg/dL Calcium (8.4-10.2) mg/dL Alkaline Phosphatase (38-126) U/L Total Protein (6.3-8.2) g/dL Albumin (3.5-5.0) g/dL 11/08/17 11/08/17 11/08/17 Range/Units 00:03 01:03 02:16 RBC (4.30-5.90) m/uL Hgb (13.0-17.5) gm/dL Hct (39.0-53.0) % Glucose (74-99) mg/dL POC Glucose (mg/dL) 150 H 143 H 107 H (75-99) mg/dL Calcium (8.4-10.2) mg/dL Alkaline Phosphatase (38-126) U/L Total Protein (6.3-8.2) g/dL Albumin (3.5-5.0) g/dL 11/08/17 11/08/17 11/08/17 Range/Units 03:21 04:05 04:25 RBC (4.30-5.90) m/uL Hgb (13.0-17.5) gm/dL Hct (39.0-53.0) % Glucose 100 H (74-99) mg/dL POC Glucose (mg/dL) 170 H 132 H (75-99) mg/dL Calcium 8.3 L (8.4-10.2) mg/dL Alkaline Phosphatase 31 L (38-126) U/L Total Protein 5.0 L (6.3-8.2) g/dL Albumin 3.3 L (3.5-5.0) g/dL 11/08/17 11/08/17 11/08/17 Range/Units 04:25 05:24 06:22 RBC 2.48 L (4.30-5.90) m/uL Hgb 6.7 L* (13.0-17.5) gm/dL Hct 20.3 L (39.0-53.0) % Glucose (74-99) mg/dL POC Glucose (mg/dL) 147 H 124 H (75-99) mg/dL Calcium (8.4-10.2) mg/dL Alkaline Phosphatase (38-126) U/L Total Protein (6.3-8.2) g/dL Albumin (3.5-5.0) g/dL 11/08/17 11/08/17 Range/Units 07:27 08:11 RBC (4.30-5.90) m/uL Hgb (13.0-17.5) gm/dL Hct (39.0-53.0) % Glucose (74-99) mg/dL POC Glucose (mg/dL) 103 H 135 H (75-99) mg/dL Calcium (8.4-10.2) mg/dL Alkaline Phosphatase (38-126) U/L Total Protein (6.3-8.2) g/dL Albumin (3.5-5.0) g/dL - Imaging and Cardiology Chest x-ray: report reviewed, image reviewed Assessment and Plan (1) Coronary artery disease Current Visit: Yes Status: Chronic Code(s): I25.10 - ATHSCL HEART DISEASE OF [place] CORONARY ARTERY W/O ANG PCTRS SNOMED Code(s): 98161560 (2) Gout Current Visit: Yes Status: Chronic Code(s): M10.9 - GOUT, UNSPECIFIED SNOMED Code(s): 95843670 (3) Hyperlipidemia Current Visit: Yes Status: Chronic Code(s): E78.5 - HYPERLIPIDEMIA, UNSPECIFIED SNOMED Code(s): 89377417 (4) Hypertension Current Visit: Yes Status: Chronic Code(s): I10 - ESSENTIAL (PRIMARY) HYPERTENSION SNOMED Code(s): 58290772 (5) Non-insulin dependent type 2 diabetes mellitus Current Visit: Yes Status: Chronic Code(s): E11.9 - TYPE 2 DIABETES MELLITUS WITHOUT COMPLICATIONS SNOMED Code(s): 85555492 (6) Obesity Current Visit: Yes Status: Chronic Code(s): E66.9 - OBESITY, UNSPECIFIED SNOMED Code(s): 741824057 (7) Tobacco dependence in remission Current Visit: No Status: Resolved Code(s): F17.201 - NICOTINE DEPENDENCE, UNSPECIFIED, IN REMISSION SNOMED Code(s): 812501802 Plan: 1. Continue aspirin, statin, Plavix, subcu heparin, beta lenore. Will increase metoprolol tartrate 50 mg by mouth twice a day. 2. Will give IV Lasix 20 mg 1 dose now. 3. Wean O2 as tolerated. Encourage incentive spirometry use 10 times every hour. 4. Bronchodilators per pulmonology, Dr. Betts's recommendations. 5. Increase activity, ambulate in room. PT/OT/cardiac rehab following. 6. Continue GI/DVT prophylaxis. 7. Will monitor daily labs and x-rays. No need for blood transfusion. Continue oral ferrous sulfate and vitamin C. 8. Pull Ventricular epicardial pacemaker wires. Bed rest for 1 hour post pacemaker wire removal. 9. We will keep his left and right pleural chest tubes in for another 24 hours. 10. Pain control with ordered medications. 11. Insulin/diabetic management per primary care service. 12. More recommendations to follow based on patient's clinical course. 13. Remove right IJ Cordis. 14. Transferred to [address] [place] [address] when bed available. Time with Patient: Greater than 30
[2017-11-08 13:48] VITALS: BMI 29.7
--- NOTE | 2017-11-08 14:05 | P.PN ---
Subjective Progress Note Date: 11/08/17 Principal diagnosis: Status post CABG postoperative day #3 This is a 62-year-old white male, status post CABG 2, done electively, patient had previous workup on outpatient basis, and he underwent GOMEZ to obtuse marginal and OMAR to LAD. Postoperatively, patient was on mechanical ventilation, and I was asked to see him on consultation. Patient was on mechanical ventilation for few hours, and his weaning was followed as per protocol. Extubated a few hours after he arrived to the ICU, tolerated the extubation well, and I'm seeing him today on consultation. Doing well, asymptomatic, denies any chest pain or discomfort, denies any shortness of breath. No cough no wheezing, no nausea, no vomiting, no abdominal pain. Patient is presently on multiple cardiac meds including antiplatelets, beta blockers, and statins. Chest x-ray showed cardiomegaly, small bilateral pleural effusions, and minimal right hilar linear atelectasis. Reevaluated today on 11/07/2017, patient is doing relatively well, asymptomatic, no cough no wheezing no shortness of breath. Chest x-ray showed a small tiny apical left-sided pneumothorax, not unusual to be seen in post CABG patients. And has no clinical significance whatsoever. Chest tube remains in place, and there is no leak. Chest x-ray also showed some cardiomegaly and trace of effusions with atelectasis which is also not an unusual finding in postoperative patients. It is rather expected. Patient is doing well with incentive spirometry. Denies any pulmonary symptoms whatsoever. Hemoglobin is low at 6.6, patient is presently on iron. Transfusion decision will be decided upon by cardiac surgery. Reevaluated today on 11/08/2017, remains in the ICU, patient is relatively asymptomatic, chest x-ray continues to show small tiny apical pneumothorax. Chest tube remains in place. Hemoglobin is 6.7, was 6.6 yesterday. Basic metabolic profile is relatively normal. Patient denies any cough wheezing shortness of breath, he does have some chronic back pain and the thoracic spine area with some tenderness. Objective - Vital Signs Vital signs: Vital Signs Temp 96.3 F L 11/08/17 12:00 Pulse 80 11/08/17 13:00 Resp 22 11/08/17 13:00 BP 86/57 11/08/17 13:00 Pulse Ox 94 L 11/08/17 13:00 Intake & Output 11/07/17 11/08/17 11/08/17 18:59 06:59 18:59 Intake Total 903.168 256.529 170.039 Output Total 7687 688 4281 Balance -136.832 -88.471 -1009.961 Weight 98.5 kg 96.9 kg Intake: IV 341 211 151 0.9 carrier 55 35 10 Lactated Ringers 1,000 ml 220 140 120 @ 20 mls/hr IV .Q24H [facility] Rx#:[id number] Pressure Bag 66 36 21 Intake, IV Titration 212.168 45.529 19.039 Amount Insulin Regular 100 unit 12.168 45.529 19.039 In Sodium Chloride 0.9% 100 ml @ Per Protocol IV .Q0M [facility] Rx#:[id number] Magnesium Sulfate-D5w Pmx 100 1 gm In Dextrose/Water 1 100ml.bag @ 100 mls/hr IVPB Q1H [facility] Rx#: [id number] Sodium Ferric Gluconat- 100 Sucrose 125 mg In Sodium Chloride 0.9% 100 ml @ 100 mls/hr IVPB ONCE ONE Rx#:[id number] Oral 350 Output: Chest Tube Drainage 200 145 180 Left Pleural/Mediastinal 70 95 90 Mediastinal 40 Right Pleural/Mediastinal 90 50 90 Urine 916 726 6696 Other: Voiding Method Indwelling Catheter Urinal Urinal # Voids 1 ABP, PAP, CO, CI - Last Documented Arterial Blood Pressure 96/50 Pulmonary Artery Pressure 24/12 Cardiac Output 5.1 Cardiac Index 2.4 - Exam Physical Exam: Revealed a 62-year-old white male in no distress, on room air Head: Atraumatic normocephalic. HEENT:[Neck is supple.] [No neck masses.] [No thyromegaly.] [No JVD.] Chest: [Diminished breath sounds at the bases, minimal crackles at the left base , no rhonchi, no wheezes.] Cardiac Exam: [Normal S1 and S2, no S3 gallop, positive pericardial rub..] Abdomen: [Soft, nontender, no megaly, no rebound, no guarding, normal bowel sounds.] Extremities: [No clubbing, no edema, no cyanosis.] Neurological Exam: [No focal neurologic deficit.] Psychiatric: Normal mood affect and mental status examination. Musculoskeletal: No focal weakness, normal range of motion, no deformities. Minimal tenderness over the midthoracic spine area. - Labs CBC & Chem 7: 11/08/17 04:25 11/08/17 04:25 Labs: Abnormal Lab Results - Last 24 Hours (Table) 11/07/17 11/07/17 11/07/17 Range/Units 17:01 17:04 18:22 RBC (4.30-5.90) m/uL Hgb (13.0-17.5) gm/dL Hct (39.0-53.0) % Glucose (74-99) mg/dL POC Glucose (mg/dL) 300 H 307 H 302 H (75-99) mg/dL Calcium (8.4-10.2) mg/dL Alkaline Phosphatase (38-126) U/L Total Protein (6.3-8.2) g/dL Albumin (3.5-5.0) g/dL 11/07/17 11/07/17 11/07/17 Range/Units 19:04 20:27 21:11 RBC (4.30-5.90) m/uL Hgb (13.0-17.5) gm/dL Hct (39.0-53.0) % Glucose (74-99) mg/dL POC Glucose (mg/dL) 245 H 225 H 183 H (75-99) mg/dL Calcium (8.4-10.2) mg/dL Alkaline Phosphatase (38-126) U/L Total Protein (6.3-8.2) g/dL Albumin (3.5-5.0) g/dL 11/07/17 11/07/17 11/08/17 Range/Units 22:10 23:02 00:03 RBC (4.30-5.90) m/uL Hgb (13.0-17.5) gm/dL Hct (39.0-53.0) % Glucose (74-99) mg/dL POC Glucose (mg/dL) 137 H 113 H 150 H (75-99) mg/dL Calcium (8.4-10.2) mg/dL Alkaline Phosphatase (38-126) U/L Total Protein (6.3-8.2) g/dL Albumin (3.5-5.0) g/dL 11/08/17 11/08/17 11/08/17 Range/Units 01:03 02:16 03:21 RBC (4.30-5.90) m/uL Hgb (13.0-17.5) gm/dL Hct (39.0-53.0) % Glucose (74-99) mg/dL POC Glucose (mg/dL) 143 H 107 H 170 H (75-99) mg/dL Calcium (8.4-10.2) mg/dL Alkaline Phosphatase (38-126) U/L Total Protein (6.3-8.2) g/dL Albumin (3.5-5.0) g/dL 11/08/17 11/08/17 11/08/17 Range/Units 04:05 04:25 04:25 RBC 2.48 L (4.30-5.90) m/uL Hgb 6.7 L* (13.0-17.5) gm/dL Hct 20.3 L (39.0-53.0) % Glucose 100 H (74-99) mg/dL POC Glucose (mg/dL) 132 H (75-99) mg/dL Calcium 8.3 L (8.4-10.2) mg/dL Alkaline Phosphatase 31 L (38-126) U/L Total Protein 5.0 L (6.3-8.2) g/dL Albumin 3.3 L (3.5-5.0) g/dL 11/08/17 11/08/17 11/08/17 Range/Units 05:24 06:22 07:27 RBC (4.30-5.90) m/uL Hgb (13.0-17.5) gm/dL Hct (39.0-53.0) % Glucose (74-99) mg/dL POC Glucose (mg/dL) 147 H 124 H 103 H (75-99) mg/dL Calcium (8.4-10.2) mg/dL Alkaline Phosphatase (38-126) U/L Total Protein (6.3-8.2) g/dL Albumin (3.5-5.0) g/dL 11/08/17 11/08/17 11/08/17 Range/Units 08:11 09:31 10:08 RBC (4.30-5.90) m/uL Hgb (13.0-17.5) gm/dL Hct (39.0-53.0) % Glucose (74-99) mg/dL POC Glucose (mg/dL) 135 H 199 H 211 H (75-99) mg/dL Calcium (8.4-10.2) mg/dL Alkaline Phosphatase (38-126) U/L Total Protein (6.3-8.2) g/dL Albumin (3.5-5.0) g/dL 11/08/17 11/08/17 Range/Units 11:04 12:35 RBC (4.30-5.90) m/uL Hgb (13.0-17.5) gm/dL Hct (39.0-53.0) % Glucose (74-99) mg/dL POC Glucose (mg/dL) 170 H 134 H (75-99) mg/dL Calcium (8.4-10.2) mg/dL Alkaline Phosphatase (38-126) U/L Total Protein (6.3-8.2) g/dL Albumin (3.5-5.0) g/dL Assessment and Plan Assessment: Impression: 1 severe coronary artery disease, status post CABG 2. Patient was extubated uneventfully a few hours after he arrived to the ICU. He is postoperative day # 3 2 multiple comorbidities including type 2 diabetes, benign essential hypertension, dyslipidemia. 3 postoperative atelectasis and small tiny apical left-sided pneumothorax, expected finding after CABG. Recommendation: Continue present treatment plan, incentive spirometry, may consider transferring the patient out of the ICU to a monitor bed on selective today. We'll continue to follow. Time with Patient: Less than 30
[2017-11-08 17:52] LABS: Glucose,Whole Blood 164 mg/dL (75-99)
[2017-11-08 21:10] LABS: Glucose,Whole Blood 260 mg/dL (75-99)
[2017-11-08] MEDS: INSULIN NPH 300 UNIT/3 ML VIAL SQ SCH (21:31)
[2017-11-08] MEDS: METOPROLOL TARTRATE 25 MG TAB PO SCH (21:32)
[2017-11-08] MEDS: SENNOSIDES-DOCUSATE SODIUM 1 EACH TAB PO SCH (21:35)
[2017-11-09] MEDS: HEPARIN SODIUM,PORCINE 5,000 UNIT/ML 1 ML VIAL SQ SCH ×4 (02:23→21:51)
[2017-11-09 04:56] LABS: Basophils % (A) 0 %; Eosinophils # (A) 0.2 k/uL (0-0.7); Eosinophils % (A) 4 %; HCT 21.9 % (39.0-53.0); HGB 7.2 gm/dL (13.0-17.5); Lymphocytes # (A) 1.5 k/uL (1.0-4.8); Lymphocytes % (A) 31 %; MCH 27.5 pg (25.0-35.0); MCHC 32.8 g/dL (31.0-37.0); MCV 83.8 fL (80.0-100.0); Mean Platelet Volume 7.1; Monocytes # (A) 0.3 k/uL (0-1.0); Monocytes % (A) 7 %; Neutrophils # (A) 2.7 k/uL (1.3-7.7); Neutrophils % (A) 56 %; Platelet Count 237 k/uL (150-450); RBC 2.62 m/uL (4.30-5.90); RDW 14.9 % (11.5-15.5); WBC 4.8 k/uL (3.8-10.6)
[2017-11-09 05:10] LABS: ALT 29 U/L (21-72); AST 22 U/L (17-59); Albumin 3.3 g/dL (3.5-5.0); Alkaline Phosphatase 33 U/L (38-126); Anion Gap 7 mmol/L; Blood Urea Nitrogen 17 mg/dL (9-20); Calcium 8.2 mg/dL (8.4-10.2); Carbon Dioxide 26 mmol/L (22-30); Chloride 105 mmol/L (98-107); Glucose 147 mg/dL (74-99); Magnesium 2.1 mg/dL (1.6-2.3); Phosphorus 4.2 mg/dL (2.5-4.5); Potassium 4.1 mmol/L (3.5-5.1); Sodium 138 mmol/L (137-145); Total Bilirubin 0.6 mg/dL (0.2-1.3); Total Protein 5.1 g/dL (6.3-8.2)
--- NOTE | 2017-11-09 07:10 | XR ---
EXAMINATION TYPE: XR chest 1V portable DATE OF EXAM: 11/09/2017 HISTORY: pOST OP cabg. REFERENCE: Previous study dated 11/08/2017. FINDINGS: There are bilateral chest tubes in place. There has been a midline sternotomy. There is a m iniscule left apical pneumothorax. The patient's right internal jugular sheath is been removed. The heart is enlarged. There is bilateral areas of platelike atelectasis. There are small, bilateral effusions. IMPRESSION: 1. MINISCULE RESIDUAL LEFT PNEUMOTHORAX. 2. SMALL, BILATERAL EFFUSIONS. 3. BILATERAL AREAS OF PLATELIKE ATELECTASIS.
[2017-11-09 07:27] LABS: Glucose,Whole Blood 177 mg/dL (75-99)
[2017-11-09] MEDS: IPRATROPIUM-ALBUTEROL 3 ML NEB INHALATION SCH (08:04)
[2017-11-09] MEDS: ATORVASTATIN 80 MG TAB PO SCH (08:30)
[2017-11-09] MEDS: ASPIRIN 325 MG TAB PO SCH (08:30)
[2017-11-09] MEDS: MULTIVITAMINS, THERA 1 EACH TAB PO SCH (08:30)
[2017-11-09] MEDS: METOPROLOL TARTRATE 25 MG TAB PO SCH ×2 (08:30→21:51)
[2017-11-09] MEDS: ASCORBIC ACID 500 MG TAB PO SCH ×2 (08:31→16:43)
[2017-11-09] MEDS: FERROUS SULFATE 325 MG TAB PO SCH ×2 (08:31→16:43)
[2017-11-09] MEDS: INSULIN ASPART 100 UNIT/ML 1 ML 10 ML VIAL SQ SCH ×5 (08:31→21:29)
[2017-11-09] MEDS: CLOPIDOGREL 75 MG TAB PO SCH (08:31)
[2017-11-09] MEDS: PANTOPRAZOLE 40 MG TABLET PO SCH (08:31)
[2017-11-09] MEDS: INSULN ASP PRT/INSULIN ASPART 100 UNIT/ML 10 ML VIAL SQ SCH (08:38)
[2017-11-09] MEDS ORDERED: FUROSEMIDE 10 MG/ML 2 ML VIAL IV STA (09:32)
--- NOTE | 2017-11-09 10:44 | P.PN ---
Subjective Progress Note Date: 11/09/17 Principal diagnosis: Coronary artery disease. Previous medical history of hypertension, hyperlipidemia, lzz-irkrwvy-vmztwxzzk diabetes mellitus with preoperative hemoglobin A1c 7.9, gout, remote tobacco dependence with preoperative FEV1 91% of predicted and obesity. POD #4 elective coronary artery bypass grafting 2, left internal mammary artery to the first obtuse marginal coronary artery, right internal mammary artery to the left anterior descending coronary artery. Intraoperative transesophageal echocardiogram. Epi-aortic scanning. Intraoperative graft flow measurements using the [employer]ist[employer] system. Postoperative normocytic, normochromic anemia, an expected outcome of surgery secondary to hemodilution and bypass pump use. The patient is currently sitting up to the bedside chair in no acute distress. Reports his pain is well-controlled, he denies shortness of breath. Patient's hemoglobin is 7.2 this morning and remains hemodynamically stable. No new complaints or concerns. Oxygen saturations are 94% on room air, he is achieving 1000 mL with encouragement on his incentive spirometry. Objective - Vital Signs Vital signs: Vital Signs Temp 98.7 F 11/09/17 04:00 Pulse 90 11/09/17 08:16 Resp 16 11/09/17 04:00 BP 94/64 11/09/17 04:00 Pulse Ox 94 L 11/09/17 04:00 Intake & Output 11/08/17 11/09/17 11/09/17 18:59 06:59 18:59 Intake Total 1069.039 240 Output Total 1670 990 Balance -600.961 -750 Weight 96.9 kg 95.9 kg Intake: IV 280 240 0.9 carrier 10 Lactated Ringers 1,000 ml 240 240 @ 20 mls/hr IV .Q24H [facility] Rx#:[id number] Pressure Bag 30 Intake, IV Titration 19.039 Amount Insulin Regular 100 unit 19.039 In Sodium Chloride 0.9% 100 ml @ Per Protocol IV .Q0M [facility] Rx#:[id number] Oral 770 Output: Chest Tube Drainage 320 290 Left Pleural/Mediastinal 155 180 Right Pleural/Mediastinal 165 110 Urine 1350 700 Other: Voiding Method Urinal Urinal # Voids 1 ABP, PAP, CO, CI - Last Documented Arterial Blood Pressure 111/56 Pulmonary Artery Pressure 24/12 Cardiac Output 5.1 Cardiac Index 2.4 - Constitutional General appearance: Present: cooperative, no acute distress, obese - Respiratory Details: Lung sounds are essentially clear throughout, diminished his bilateral bases. Respirations are symmetrical and nonlabored. Oxygen saturation are 94% on room air. He is achieving 1000 L on his incentive spirometry. Left and right pleural chest tubes remain in place to low continuous wall suction -20 cm H2O. No air leak is present. They are draining thin serosanguineous drainage. Left pleural chest tube drained 250 mL in 24 hours, 145 mL in the last 8 hours. Right pleural chest tube drained 230 mL output in the last 24 hours, 75 mL in the last 8 hours. - Cardiovascular Details: Regular rhythm and rate. S1 and S2 present, negative for S3, gallop or murmur. Sternum is stable. Bedside telemetry showing normal sinus rhythm heart rate 89. Knee-high UDAY hose and sequential compression devices in place to his bilateral lower extremities. No edema present. - Gastrointestinal Gastrointestinal Comment(s): Abdomen is soft, nontender nondistended. Active bowel sounds to all 4 pedal quadrants. Tolerating oral intake. Passing flatus. No bowel movement since surgery. - Genitourinary Genitourinary Comment(s): Voiding clear yellow urine. 300 mL output in the last 8 hours. - Integumentary Integumentary Comment(s): Skin is warm and dry. No clubbing or cyanosis present. Midline sternal incision clean and dry and approximated. No redness or drainage present. No rash or abnormal pigmentation present. - Neurologic Neurologic Comment(s): No focal deficits. Neurologic: Present: CNII-XII intact - Musculoskeletal Musculoskeletal: Present: gait normal, strength equal bilaterally - Psychiatric Psychiatric: Present: A&O x's 3, appropriate affect, intact judgment & insight - Allied health notes Allied health notes reviewed: nursing - Labs CBC & Chem 7: 11/09/17 04:40 11/09/17 04:40 Labs: Abnormal Lab Results - Last 24 Hours (Table) 11/08/17 11/08/17 11/08/17 Range/Units 11:04 12:35 17:33 RBC (4.30-5.90) m/uL Hgb (13.0-17.5) gm/dL Hct (39.0-53.0) % Glucose (74-99) mg/dL POC Glucose (mg/dL) 170 H 134 H 164 H (75-99) mg/dL Calcium (8.4-10.2) mg/dL Alkaline Phosphatase (38-126) U/L Total Protein (6.3-8.2) g/dL Albumin (3.5-5.0) g/dL 11/08/17 11/09/17 11/09/17 Range/Units 21:08 04:40 04:40 RBC 2.62 L (4.30-5.90) m/uL Hgb 7.2 L (13.0-17.5) gm/dL Hct 21.9 L (39.0-53.0) % Glucose 147 H (74-99) mg/dL POC Glucose (mg/dL) 260 H (75-99) mg/dL Calcium 8.2 L (8.4-10.2) mg/dL Alkaline Phosphatase 33 L (38-126) U/L Total Protein 5.1 L (6.3-8.2) g/dL Albumin 3.3 L (3.5-5.0) g/dL 11/09/17 Range/Units 07:25 RBC (4.30-5.90) m/uL Hgb (13.0-17.5) gm/dL Hct (39.0-53.0) % Glucose (74-99) mg/dL POC Glucose (mg/dL) 177 H (75-99) mg/dL Calcium (8.4-10.2) mg/dL Alkaline Phosphatase (38-126) U/L Total Protein (6.3-8.2) g/dL Albumin (3.5-5.0) g/dL - Imaging and Cardiology Chest x-ray: report reviewed, image reviewed Assessment and Plan (1) Coronary artery disease Current Visit: Yes Status: Chronic Code(s): I25.10 - ATHSCL HEART DISEASE OF [place] CORONARY ARTERY W/O ANG PCTRS SNOMED Code(s): 25384385 (2) Gout Current Visit: Yes Status: Chronic Code(s): M10.9 - GOUT, UNSPECIFIED SNOMED Code(s): 66371554 (3) Hyperlipidemia Current Visit: Yes Status: Chronic Code(s): E78.5 - HYPERLIPIDEMIA, UNSPECIFIED SNOMED Code(s): 46744381 (4) Hypertension Current Visit: Yes Status: Chronic Code(s): I10 - ESSENTIAL (PRIMARY) HYPERTENSION SNOMED Code(s): 20124098 (5) Non-insulin dependent type 2 diabetes mellitus Current Visit: Yes Status: Chronic Code(s): E11.9 - TYPE 2 DIABETES MELLITUS WITHOUT COMPLICATIONS SNOMED Code(s): 13651877 (6) Obesity Current Visit: Yes Status: Chronic Code(s): E66.9 - OBESITY, UNSPECIFIED SNOMED Code(s): 308682480 (7) Tobacco dependence in remission Current Visit: No Status: Resolved Code(s): F17.201 - NICOTINE DEPENDENCE, UNSPECIFIED, IN REMISSION SNOMED Code(s): 472381056 Plan: 1. Continue aspirin, statin, Plavix, subcu heparin, beta lenore. Will increase his beta lenore as tolerated. 2. Will give IV Lasix 20 mg 1 dose now. 3. Wean O2 as tolerated. Encourage incentive spirometry use 10 times every hour. 4. Bronchodilators per pulmonology, Dr. Betts's recommendations. 5. Increase activity, ambulate in room. PT/OT/cardiac rehab following. 6. Continue GI/DVT prophylaxis. 7. Will monitor daily labs and x-rays. Continue oral ferrous sulfate and vitamin C. 8. We will remove his right pleural chest tube this a.m., keep his left pleural chest tube in place to low continuous wall suction. 9. Pain control with ordered medications. 10. Insulin/diabetic management per primary care service. 11. More recommendations to follow based on patient's clinical course. 12. Transferred to [address] [place] [address] when bed available. Right pleural chest tube removed without incident. Sutures secured in place, folded 4 x 4 gauze to cover and secured with tape. Time with Patient: Greater than 30
[2017-11-09] MEDS ORDERED: ACETAMINOPHEN TAB 325 MG TAB PO PRN (11:13)
[2017-11-09 12:17] LABS: Glucose,Whole Blood 226 mg/dL (75-99)
--- NOTE | 2017-11-09 12:48 | PN ---
PROGRESS NOTE Mr. Castro is a 62-year-old male who was admitted electively, underwent coronary bypass grafting. He is doing well this morning. One of his chest tubes were removed. He denying any chest pain. He continued to be in sinus mechanism. He denies any dizziness or palpitation. He denies any nausea. He continues to be at this time on aspirin once a day, Lipitor 80 mg daily, Plavix 75 mg daily. He received 1 dose of Lasix, metoprolol tartrate 25 mg twice a day. PHYSICAL EXAMINATION: Blood pressure 108/70 with a heart in the 80s. Lungs with few crackles, no wheezes. HEART: Regular rhythm S1, S2. No S3. No rub. ABDOMEN: Soft, nontender. EXTREMITIES: No significant edema. LAB DATA: Lab data revealed a hemoglobin of 7.2, which improved compared with yesterday. BUN and creatinine 17.8, potassium 4.1. IMPRESSION: 1. Status post bypass grafting, stable. 2. Hyperlipidemia. 3. Anemia. RECOMMENDATION: From the cardiac standpoint, we will continue present therapy, increase the level of activity, ambulate the patient. I am hopeful that he should be able to be discharged home in the next 48 hours. MMODL / IJN: [id number] /
--- NOTE | 2017-11-09 13:39 | P.PN ---
Subjective Progress Note Date: 11/09/17 Principal diagnosis: Status post CABG postoperative day #4 This is a 62-year-old white male, status post CABG 2, done electively, patient had previous workup on outpatient basis, and he underwent GOMEZ to obtuse marginal and OMAR to LAD. Postoperatively, patient was on mechanical ventilation, and I was asked to see him on consultation. Patient was on mechanical ventilation for few hours, and his weaning was followed as per protocol. Extubated a few hours after he arrived to the ICU, tolerated the extubation well, and I'm seeing him today on consultation. Doing well, asymptomatic, denies any chest pain or discomfort, denies any shortness of breath. No cough no wheezing, no nausea, no vomiting, no abdominal pain. Patient is presently on multiple cardiac meds including antiplatelets, beta blockers, and statins. Chest x-ray showed cardiomegaly, small bilateral pleural effusions, and minimal right hilar linear atelectasis. Reevaluated today on 11/07/2017, patient is doing relatively well, asymptomatic, no cough no wheezing no shortness of breath. Chest x-ray showed a small tiny apical left-sided pneumothorax, not unusual to be seen in post CABG patients. And has no clinical significance whatsoever. Chest tube remains in place, and there is no leak. Chest x-ray also showed some cardiomegaly and trace of effusions with atelectasis which is also not an unusual finding in postoperative patients. It is rather expected. Patient is doing well with incentive spirometry. Denies any pulmonary symptoms whatsoever. Hemoglobin is low at 6.6, patient is presently on iron. Transfusion decision will be decided upon by cardiac surgery. Reevaluated today on 11/08/2017, remains in the ICU, patient is relatively asymptomatic, chest x-ray continues to show small tiny apical pneumothorax. Chest tube remains in place. Hemoglobin is 6.7, was 6.6 yesterday. Basic metabolic profile is relatively normal. Patient denies any cough wheezing shortness of breath, he does have some chronic back pain and the thoracic spine area with some tenderness. Reevaluated today on 11/09/2017, continues to do well, relatively asymptomatic. No cough no wheezing no shortness of breath. Chest x-ray and labs were reviewed , continues to have a left sided chest tube which may be removed today, I did not appreciate any pneumothorax on the chest x-ray today. Hemoglobin remains low at 7.2, WBC count is 4.8. Basic metabolic profile is normal, renal profile is normal. Objective - Vital Signs Vital signs: Vital Signs Temp 98.2 F 11/09/17 12:00 Pulse 74 11/09/17 12:00 Resp 21 11/09/17 12:00 BP 102/76 11/09/17 12:00 Pulse Ox 97 11/09/17 12:00 Intake & Output 11/08/17 11/09/17 11/09/17 18:59 06:59 18:59 Intake Total 1069.039 240 250 Output Total 1670 990 880 Balance -600.961 -750 -630 Weight 96.9 kg 95.9 kg 97.6 kg Intake: IV 280 240 0.9 carrier 10 Lactated Ringers 1,000 ml 240 240 @ 20 mls/hr IV .Q24H [facility] Rx#:[id number] Pressure Bag 30 Intake, IV Titration 19.039 Amount Insulin Regular 100 unit 19.039 In Sodium Chloride 0.9% 100 ml @ Per Protocol IV .Q0M [facility] Rx#:[id number] Oral 770 250 Output: Chest Tube Drainage 320 290 30 Left Pleural/Mediastinal 155 180 Right Pleural/Mediastinal 165 110 30 Urine 1350 700 850 Other: Voiding Method Urinal Urinal Urinal # Voids 1 ABP, PAP, CO, CI - Last Documented Arterial Blood Pressure 111/56 Pulmonary Artery Pressure 24/12 Cardiac Output 5.1 Cardiac Index 2.4 - Exam Physical Exam: Revealed a 62-year-old white male in no distress, on room air Head: Atraumatic normocephalic. HEENT:[Neck is supple.] [No neck masses.] [No thyromegaly.] [No JVD.] Chest: [Diminished breath sounds at the bases, minimal crackles at the left base , no rhonchi, no wheezes.] Chest tube on the left side was noted. Cardiac Exam: [Normal S1 and S2, no S3 gallop, positive pericardial rub..] Abdomen: [Soft, nontender, no megaly, no rebound, no guarding, normal bowel sounds.] Extremities: [No clubbing, no edema, no cyanosis.] Neurological Exam: [No focal neurologic deficit.] Psychiatric: Normal mood affect and mental status examination. Musculoskeletal: No focal weakness, normal range of motion, no deformities. Minimal tenderness over the midthoracic spine area. - Labs CBC & Chem 7: 11/09/17 04:40 11/09/17 04:40 Labs: Abnormal Lab Results - Last 24 Hours (Table) 11/08/17 11/08/17 11/09/17 Range/Units 17:33 21:08 04:40 RBC 2.62 L (4.30-5.90) m/uL Hgb 7.2 L (13.0-17.5) gm/dL Hct 21.9 L (39.0-53.0) % Glucose (74-99) mg/dL POC Glucose (mg/dL) 164 H 260 H (75-99) mg/dL Calcium (8.4-10.2) mg/dL Alkaline Phosphatase (38-126) U/L Total Protein (6.3-8.2) g/dL Albumin (3.5-5.0) g/dL 11/09/17 11/09/17 11/09/17 Range/Units 04:40 07:25 12:15 RBC (4.30-5.90) m/uL Hgb (13.0-17.5) gm/dL Hct (39.0-53.0) % Glucose 147 H (74-99) mg/dL POC Glucose (mg/dL) 177 H 226 H (75-99) mg/dL Calcium 8.2 L (8.4-10.2) mg/dL Alkaline Phosphatase 33 L (38-126) U/L Total Protein 5.1 L (6.3-8.2) g/dL Albumin 3.3 L (3.5-5.0) g/dL Assessment and Plan Assessment: Impression: 1 severe coronary artery disease, status post CABG 2. Patient was extubated uneventfully a few hours after he arrived to the ICU. He is postoperative day # 4 2 multiple comorbidities including type 2 diabetes, benign essential hypertension, dyslipidemia. 3 postoperative atelectasis and small tiny apical left-sided pneumothorax, expected finding after CABG. Recommendation: Continue present treatment plan, incentive spirometry, transferred to a monitored bed on selective today, we will continue to follow. Possible discharge planning in the next 24-48 hours. Time with Patient: Less than 30
[2017-11-09 16:23] LABS: Glucose,Whole Blood 137 mg/dL (75-99)
--- NOTE | 2017-11-09 18:50 | P.PN ---
[facility]call [facility] was covering for Dr. Valentine over the weekend on 11/09 and 11/10 this is a pleasant 62 years old male with past medical history of coronary artery disease, DVT, hyperlipidemia, hypertension, status post cardiac cath. today is postoperative day #4. Patient underwent double coronary artery bypass graft procedure 11/05/2017 area originally patient underwent cardiac cath for chest discomfort and severe underlying coronary artery disease which revealed two-vessel CAD involving the LAD as well as the OM. patient was managed originally in the ICU , he was intubated for short period of time. now he is without intubation and off ventilator. Objective - Vital Signs Vital signs: Vital Signs Temp 97 F L 11/09/17 16:00 Pulse 78 11/09/17 16:00 Resp 18 11/09/17 16:00 BP 123/73 11/09/17 16:00 Pulse Ox 94 L 11/09/17 16:00 Intake & Output 11/08/17 11/09/17 11/09/17 18:59 06:59 18:59 Intake Total 1069.039 240 610 Output Total 1670 990 880 Balance -600.961 -750 -270 Weight 96.9 kg 95.9 kg 97.6 kg Intake: IV 280 240 0.9 carrier 10 Lactated Ringers 1,000 ml 240 240 @ 20 mls/hr IV .Q24H MARLA Rx#:[id number] Pressure Bag 30 Intake, IV Titration 19.039 Amount Insulin Regular 100 unit 19.039 In Sodium Chloride 0.9% 100 ml @ Per Protocol IV .Q0M MARLA Rx#:[id number] Oral 770 610 Output: Chest Tube Drainage 320 290 30 Left Pleural/Mediastinal 155 180 Right Pleural/Mediastinal 165 110 30 Urine 1350 700 850 Other: Voiding Method Urinal Urinal Toilet # Voids 1 ABP, PAP, CO, CI - Last Documented Arterial Blood Pressure 111/56 Pulmonary Artery Pressure 24/12 Cardiac Output 5.1 Cardiac Index 2.4 - Exam GENERAL: The patient is alert and oriented x3, not in any acute distress. Well developed, well nourished. HEENT: Pupils are round and equally reacting to light. EOMI. No scleral icterus. No conjunctival pallor. Normocephalic, atraumatic. No pharyngeal erythema. No thyromegaly. CARDIOVASCULAR: S1 and S2 present. No murmurs, rubs, or gallops. PULMONARY: Chest is clear to auscultation, no wheezing or crackles. ABDOMEN: Soft, nontender, nondistended, normoactive bowel sounds. No palpable organomegaly. MUSCULOSKELETAL: No joint swelling or deformity. EXTREMITIES: No cyanosis, clubbing, or pedal edema. NEUROLOGICAL: Gross neurological examination did not reveal any focal deficits. SKIN: No rashes. - Labs CBC & Chem 7: 11/09/17 04:40 11/09/17 04:40 Labs: Abnormal Lab Results - Last 24 Hours (Table) 11/08/17 11/09/17 11/09/17 Range/Units 21:08 04:40 04:40 RBC 2.62 L (4.30-5.90) m/uL Hgb 7.2 L (13.0-17.5) gm/dL Hct 21.9 L (39.0-53.0) % Glucose 147 H (74-99) mg/dL POC Glucose (mg/dL) 260 H (75-99) mg/dL Calcium 8.2 L (8.4-10.2) mg/dL Alkaline Phosphatase 33 L (38-126) U/L Total Protein 5.1 L (6.3-8.2) g/dL Albumin 3.3 L (3.5-5.0) g/dL 11/09/17 11/09/17 11/09/17 Range/Units 07:25 12:15 16:21 RBC (4.30-5.90) m/uL Hgb (13.0-17.5) gm/dL Hct (39.0-53.0) % Glucose (74-99) mg/dL POC Glucose (mg/dL) 177 H 226 H 137 H (75-99) mg/dL Calcium (8.4-10.2) mg/dL Alkaline Phosphatase (38-126) U/L Total Protein (6.3-8.2) g/dL Albumin (3.5-5.0) g/dL Assessment and Plan Assessment: active coronary artery disease, status post cardiac cath status post double coronary artery bypass graft procedure Hyperlipidemia Hypertension Plan: patient is a status post CABG. He was transferred from the ICU to the general medical floor today. His starting diet well. Continue with same treatment. Continue with symptom of treatment. Patient is been followed by cardiology and pulmonary services for consultation.repeat chest x-ray from 11/09/2017 showing minimal residual left pneumothorax which is not unusual in patients with CABG. Continue with GI and DVT prophylaxis. Further recommendation based on the clinical course
[2017-11-09 21:13] LABS: Glucose,Whole Blood 116 mg/dL (75-99)
[2017-11-09] MEDS: SENNOSIDES-DOCUSATE SODIUM 1 EACH TAB PO SCH (21:51)
[2017-11-09] MEDS: INSULIN NPH 300 UNIT/3 ML VIAL SQ SCH (21:51)
[2017-11-10 02:15] LABS: Glucose,Whole Blood 167 mg/dL (75-99)
[2017-11-10 06:08] LABS: Glucose,Whole Blood 167 mg/dL (75-99)
--- NOTE | 2017-11-10 06:26 | XR ---
EXAMINATION TYPE: XR chest 2V DATE OF EXAM: 11/10/2017 HISTORY: Postop CABG. REFERENCE: Previous study dated 11/09/2017. FINDINGS: There has been a midline sternotomy. The heart is mildly enlarged. The patient's bilateral pleural drains have been removed. No definite pneumothorax is seen. There is a slight pleural reactio n on the right. There is minimal platelike atelectasis at the right lung base. The lungs are otherwis e clear. IMPRESSION: 1. MILD CARDIOMEGALY. 2. PLATELIKE ATELECTASIS, RIGHT LUNG BASE.
[2017-11-10 06:37] LABS: Basophils % (A) 1 %; Eosinophils # (A) 0.2 k/uL (0-0.7); Eosinophils % (A) 4 %; HCT 21.2 % (39.0-53.0); Lymphocytes % (A) 23 %; MCH 27.3 pg (25.0-35.0); MCHC 32.6 g/dL (31.0-37.0); Monocytes # (A) 0.4 k/uL (0-1.0); Monocytes % (A) 9 %; Neutrophils # (A) 2.6 k/uL (1.3-7.7); Neutrophils % (A) 61 %; Platelet Count 257 k/uL (150-450); RBC 2.53 m/uL (4.30-5.90); RDW 15.2 % (11.5-15.5); WBC 4.3 k/uL (3.8-10.6)
[2017-11-10 06:51] LABS: ALT 27 U/L (21-72); AST 21 U/L (17-59); Albumin 3.1 g/dL (3.5-5.0); Alkaline Phosphatase 40 U/L (38-126); Anion Gap 7 mmol/L; Blood Urea Nitrogen 15 mg/dL (9-20); Calcium 8.4 mg/dL (8.4-10.2); Carbon Dioxide 28 mmol/L (22-30); Chloride 105 mmol/L (98-107); Glucose 155 mg/dL (74-99); Potassium 4.2 mmol/L (3.5-5.1); Sodium 140 mmol/L (137-145); Total Bilirubin 0.8 mg/dL (0.2-1.3); Total Protein 5.2 g/dL (6.3-8.2)
[2017-11-10 07:03] LABS: HGB 6.9 gm/dL (13.0-17.5)
[2017-11-10] MEDS: INSULN ASP PRT/INSULIN ASPART 100 UNIT/ML 10 ML VIAL SQ SCH (07:09)
[2017-11-10] MEDS: PANTOPRAZOLE 40 MG TABLET PO SCH (07:09)
[2017-11-10] MEDS: INSULIN ASPART 100 UNIT/ML 1 ML 10 ML VIAL SQ SCH ×2 (07:09→12:06)
[2017-11-10] MEDS: FERROUS SULFATE 325 MG TAB PO SCH (07:09)
[2017-11-10] MEDS: ASCORBIC ACID 500 MG TAB PO SCH (07:09)
[2017-11-10] MEDS: ASPIRIN 325 MG TAB PO SCH (08:19)
[2017-11-10] MEDS: HEPARIN SODIUM,PORCINE 5,000 UNIT/ML 1 ML VIAL SQ SCH (08:19)
[2017-11-10] MEDS: CLOPIDOGREL 75 MG TAB PO SCH (08:20)
[2017-11-10] MEDS: ATORVASTATIN 80 MG TAB PO SCH (08:20)
[2017-11-10] MEDS: METOPROLOL TARTRATE 25 MG TAB PO SCH (08:20)
[2017-11-10 08:26] VITALS: RESP 18; TEMP 97.5
[2017-11-10] MEDS ORDERED: FUROSEMIDE 10 MG/ML 2 ML VIAL IV STA (09:45)
--- NOTE | 2017-11-10 09:50 | P.PN ---
Subjective Progress Note Date: 11/10/17 Principal diagnosis: Coronary artery disease. Previous medical history of hypertension, hyperlipidemia, [id number] diabetes mellitus with preoperative hemoglobin A1c 7.9, gout, remote tobacco dependence with preoperative FEV1 91% of predicted and obesity. POD #5 elective coronary artery bypass grafting 2, left internal mammary artery to the first obtuse marginal coronary artery, right internal mammary artery to the left anterior descending coronary artery. Intraoperative transesophageal echocardiogram. Epi-aortic scanning. Intraoperative graft flow measurements using the [employer]ist[employer] system. Postoperative normocytic, normochromic anemia, an expected outcome of surgery secondary to hemodilution and bypass pump use. The patient is currently sitting up to the bedside chair in no acute distress. He currently denies any complaints of pain or shortness of breath this time. He reports that he has been ambulating in the [facility] hallway without difficulty. Patient's hemoglobin is 6.9 this morning and remains hemodynamically stable. No new complaints or concerns. Oxygen saturations are 95% on room air, he is achieving 1000 mL with encouragement on his incentive spirometry. Objective - Vital Signs Vital signs: Vital Signs Temp 97.5 F L 11/10/17 08:00 Pulse 92 11/10/17 08:00 Resp 18 11/10/17 08:00 BP 122/67 11/10/17 08:00 Pulse Ox 98 11/10/17 08:00 Intake & Output 11/09/17 11/10/17 11/10/17 18:59 06:59 18:59 Intake Total 610 10 360 Output Total 880 300 Balance -270 -290 360 Weight 97.6 kg 95.9 kg Intake: IV 10 Invasive Line 5 10 Oral 610 360 Output: Chest Tube Drainage 30 Right Pleural/Mediastinal 30 Urine 850 300 Other: Voiding Method Toilet Toilet ABP, PAP, CO, CI - Last Documented Arterial Blood Pressure 111/56 Pulmonary Artery Pressure 24/12 Cardiac Output 5.1 Cardiac Index 2.4 - Constitutional General appearance: Present: cooperative, no acute distress, obese - Respiratory Details: Lung sounds are essentially clear throughout, diminished to his bilateral bases. Respirations are symmetrical and nonlabored. Oxygen saturation are 95% on room air. He is achieving 1000 mL on his incentive spirometry. - Cardiovascular Details: Regular rhythm and rate. S1 and S2 present, negative for S3, gallop or murmur. Sternum is stable. Remote telemetry showing normal sinus rhythm heart rate 75. Knee-high UDAY hose and sequential compression devices in place to his bilateral lower extremities. Heart hugger is in place and he is demonstrating appropriate use. No edema present. - Gastrointestinal Gastrointestinal Comment(s): Abdomen is soft, nontender and nondistended. Active bowel sounds all 4 abdominal quadrants. Tolerating oral intake. Bowel movement yesterday 2017. No organomegaly. No guarding or rigidity. - Genitourinary Genitourinary Comment(s): Voiding clear yellow urine. 300 mL output in the last 8 hours. - Integumentary Integumentary Comment(s): Skin is warm and dry. No clubbing or cyanosis present. Midline sternal incision clean and dry and approximated. No redness or drainage present. No rash or abnormal pigmentation present. - Neurologic Neurologic Comment(s): No focal deficits. Neurologic: Present: CNII-XII intact - Musculoskeletal Musculoskeletal: Present: gait normal, strength equal bilaterally - Psychiatric Psychiatric: Present: A&O x's 3, appropriate affect, intact judgment & insight - Allied health notes Allied health notes reviewed: nursing - Labs CBC & Chem 7: 11/10/17 05:37 11/10/17 05:37 Labs: Abnormal Lab Results - Last 24 Hours (Table) 11/09/17 11/09/17 11/09/17 Range/Units 12:15 16:21 21:11 RBC (4.30-5.90) m/uL Hgb (13.0-17.5) gm/dL Hct (39.0-53.0) % Glucose (74-99) mg/dL POC Glucose (mg/dL) 226 H 137 H 116 H (75-99) mg/dL Total Protein (6.3-8.2) g/dL Albumin (3.5-5.0) g/dL 11/10/17 11/10/17 11/10/17 Range/Units 02:13 05:37 05:37 RBC 2.53 L (4.30-5.90) m/uL Hgb 6.9 L* (13.0-17.5) gm/dL Hct 21.2 L (39.0-53.0) % Glucose 155 H (74-99) mg/dL POC Glucose (mg/dL) 167 H (75-99) mg/dL Total Protein 5.2 L (6.3-8.2) g/dL Albumin 3.1 L (3.5-5.0) g/dL 11/10/17 Range/Units 06:07 RBC (4.30-5.90) m/uL Hgb (13.0-17.5) gm/dL Hct (39.0-53.0) % Glucose (74-99) mg/dL POC Glucose (mg/dL) 167 H (75-99) mg/dL Total Protein (6.3-8.2) g/dL Albumin (3.5-5.0) g/dL - Imaging and Cardiology Chest x-ray: report reviewed, image reviewed Assessment and Plan (1) Coronary artery disease Current Visit: Yes Status: Chronic Code(s): I25.10 - ATHSCL HEART DISEASE OF [place] CORONARY ARTERY W/O ANG PCTRS SNOMED Code(s): 66652789 (2) Gout Current Visit: Yes Status: Chronic Code(s): M10.9 - GOUT, UNSPECIFIED SNOMED Code(s): 34388178 (3) Hyperlipidemia Current Visit: Yes Status: Chronic Code(s): E78.5 - HYPERLIPIDEMIA, UNSPECIFIED SNOMED Code(s): 52771597 (4) Hypertension Current Visit: Yes Status: Chronic Code(s): I10 - ESSENTIAL (PRIMARY) HYPERTENSION SNOMED Code(s): 56494443 (5) Non-insulin dependent type 2 diabetes mellitus Current Visit: Yes Status: Chronic Code(s): E11.9 - TYPE 2 DIABETES MELLITUS WITHOUT COMPLICATIONS SNOMED Code(s): 37506948 (6) Obesity Current Visit: Yes Status: Chronic Code(s): E66.9 - OBESITY, UNSPECIFIED SNOMED Code(s): 121058610 Plan: 1. Continue aspirin, statin, Plavix, subcu heparin, beta lenore. Will increase his beta lenore as tolerated. 2. Will give IV Lasix 20 mg 1 dose now. 3. Wean O2 as tolerated. Encourage incentive spirometry use 10 times every hour. 4. Bronchodilators per pulmonology, Dr. Betts's recommendations. 5. Increase activity, ambulate in room. PT/OT/cardiac rehab following. 6. Continue GI/DVT prophylaxis. 7. Will monitor daily labs and x-rays. Continue oral ferrous sulfate and vitamin C. 8. Insulin/diabetic management per primary care service. 9. Pain control with ordered medications. 10. More recommendations to follow based on patient's clinical course. 11. Anticipate discharge home within the next 24 hours. Time with Patient: Greater than 30
[2017-11-10 11:52] LABS: Glucose,Whole Blood 155 mg/dL (75-99)
[2017-11-10] MEDS: MULTIVITAMINS, THERA 1 EACH TAB PO SCH (12:10)
[2017-11-10 12:14] VITALS: BP 106/55; PULSE 76
--- NOTE | 2017-11-10 13:19 | PN ---
PROGRESS NOTE Mr. Castro is a 62-year-old male who has underwent coronary bypass grafting. He is doing well this morning. Ambulating without difficulty, feeling stronger. Denied chest pain, no palpitation. He continues to be in sinus mechanism. He has no nausea and vomiting. He continues to be on aspirin once a day, Lipitor 80 mg daily, Plavix 75 mg daily, furosemide 40 mg daily, metoprolol tartrate 25 mg twice a day. PHYSICAL EXAMINATION: Blood pressure 122/60 with a heart rate in 90s. Lungs no wheezes with mild decrease in breath sounds at bases. HEART: Regular rate and rhythm S1, S2. No S3. No rub. ABDOMEN: Soft, nontender. Extremities: No significant edema. LAB DATA: Revealed hemoglobin of 6.9. BUN and creatinine of 15 and 0.9. IMPRESSION: 1. Status post coronary artery bypass grafting, stable. 2. Hyperlipidemia, treated. 3. Anemia. This is stable. RECOMMENDATION: He will continue present therapy. I would expect he should be able to be discharged home soon and followed as an outpatient. JANINE / DARLINEN: [id number] /
--- NOTE | 2017-11-10 13:29 | P.DS ---
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 Symptomatic multivessel coronary artery disease 2. Hypertension 3. Hyperlipidemia 4. Zui-oesczer-eohxdmtzx diabetes mellitus with a preoperative hemoglobin A1c of 7.9% 5. Gout 6. Remote history of tobacco dependence quit over 30 years ago, preoperative FEV1 of 91% predicted value 7. Obesity 8. Postoperative normal cystic, normochromic anemia, and expected outcome of surgery secondary to hemodilution and bypass pump use PRINCIPAL PROCEDURE: 1. Elective coronary artery bypass grafting 2, left internal mammary artery to the first obtuse marginal coronary artery, right internal mammary artery to the left anterior descending coronary artery. 2. Intraoperative transesophageal echocardiogram and epi-aortic scanning. 3. Intraoperative graft flow measurements using the [employer] system. HISTORY OF PRESENT ILLNESS: This is a 62-year-old gentleman who is followed by Dr. Loy Valentine on an outpatient basis. He has a past medical history significant for coronary artery disease, hypertension, hyperlipidemia, non- insulin-dependent diabetes mellitus, gout, remote history of tobacco dependence and obesity. He has a two-year history of complaints of chest discomfort with activity. Recently, the chest pain has been more frequent and has progressively been getting worse. Subsequently he underwent a stress test which demonstrated mild anterior wall hypokinesis with inducible ischemia at peak exercise. A cardiac evaluation was performed by Dr. Varma and a a 2-D echocardiogram was completed which showed normal systolic function with an ejection fraction of 55%, mild mitral valve regurgitation, trace aortic valve regurgitation and mild tricuspid valve regurgitation. For further evaluation the patient underwent a cardiac catheterization which demonstrated a 30% left main stenosis, 40% right coronary artery stenosis, 90% circumflex stenosis and 99% stenosis to his proximal and mid left anterior descending coronary artery. Also during heart catheterization a left ventriculogram was completed which showed an ejection fraction of 50%. Due to the patient's above mentioned symptoms, stress test and cardiac catheterization results a referral was placed to Dr. Saravia from cardiothoracic surgery for myocardial revascularization recommendations. The heart catheterization results were reviewed with the patient by Dr. Saravia an elective myocardial revascularization surgery was recommended. HOSPITAL COURSE: The patient was admitted to the hospital and after obtaining consent the patient was taken to the operating room where Dr. Dayday Saravai performed an elective coronary artery bypass grafting 2, left internal mammary artery to the first obtuse marginal coronary artery, right internal mammary artery to the left anterior descending coronary artery, intraoperative transesophageal echocardiogram and epi-aortic scanning and intraoperative graft flow measurements using the [employer] system. The patient was transferred to the cardiovascular intensive care unit where he was recovered, monitored hemodynamically, and where he progressed to cardiac rehabilitation phase 1. He was extubated, all lines, tubes and support drips were discontinued when appropriate and he was transferred to [address] [place] [address] for further monitoring and rehabilitation. Postoperatively he did have some anemia which was treated with oral ferrous sulfate as he remained hemodynamically stable. His oxygen was titrated down, he continued to work with physical and occupational therapy and was ready to be discharged home on postop day #5. He has received written and verbal instructions regarding his medications, activity restrictions, signs and symptoms requiring physician notification and his follow-up appointments. The discharge instructions were also reviewed with the patient's son. COMPLICATIONS: Postoperatively the patient did have normocytic, normochromic anemia which is an expected outcome of surgery secondary to hemodilution and bypass pump use. CONSULTATIONS: 1. Dr. Varma for cardiology management. 2. Dr Loy Valentine for medical management. 3. Dr Betts for pulmonary and ventilator management. DISCHARGE INSTRUCTIONS: 1. No driving for 4 weeks, or until physician gives their ok. 2. The patient should sleep in their own bed, no medical bed needed. 3. Stairs are not an issue. If the bedroom is upstairs, it is advised that the patient go up at night and down in the morning for the first week. Go slowly, using handrail and take 1 step at a time. 4. UDAY hose are to be worn for 30 days or until physician discontinues. 5. Heart hugger is to be worn 100% of the time until physician discontinues.( except when showering) 6. No lifting, pushing, or pulling more than 10 pounds for 12 weeks. The physician will advise of any restriction changes. 7. The patient is expected to continue the prescribed walking program. 8. Continue pain control per as needed orders. 9. Continue with incentive spirometry and splinting/heart hugger until otherwise directed by the physician. 10. Must shower daily using liquid antibacterial soap and a separate white washcloth for each individual incision. 11. Routine sternal incision care, no ointments, lotions or powders on the incisions. 12. Please notify surgeon/nurse practitioner for temperature greater than 101F or purulent drainage from incisions 13. Prescriptions for first 30 days given per cardiac surgery service. After 30 days, all prescription refills obtained through cardiology/primary care physician. 14. A red arm and has been placed on this patient it should be worn for 30 days post surgery and will be removed by the cardiothoracic surgeons. If an ER visit is necessary, please make sure the number on the red arm band is called. 15. The patient has been instructed to check his blood sugars before meals and at bedtime, keep a log of his blood sugars and bring the log of his blood sugars to his follow-up appointment with his primary care physician. He is also been instructed to contact Dr. Valentine's office in the morning to report his 24-hour record of his blood sugars. HOME HEALTH SERVICES TO PROVIDE: RN SKILLED HOME CARE SERVICES FOR POST-OP SURGICAL PATIENTS WITH THE FOLLOWING: Coronary Artery Bypass Surgery (CABG), Mitral Valve Replacement/ Repair ( MVR), Aortic Valve Replacement/Repair (AVR) RN TO CONTINUE EDUCATION FROM ``ROAD TO A HEALTH HEART PATIENT EDUCATION MANUAL" (GIVEN TO PATIENT IN THE HOSPITAL) MEDICATION RECONCILIATION WITH EDUCATION NEEDED ON FIRST HOME VISIT EMPHASIZE IMPORTANCE OF WEARING BREAST SUPPORT/HEART HUGGER ENCOURAGE USE OF INCENTIVE SPIROMETER 10 X EVERY HOUR WHILE AWAKE ENCOURAGE UTILIZATION OF LOWER EXTREMITY COMPRESSION STOCKINGS/UDAY HOSE and ELEVATE LEGS ABOVE LEVEL OF HEART WHILE AT REST. ENCOURAGE AMBULATION 3-5x/day INCREASING TOLERATES, WHILE AVOID EXTREMES IN TEMPERATURE FREQUENCY: RN TO OPEN THE PATIENT WITHIN 24 HOURS OF DISCHARGE FROM THE HOSPITAL WITH [place]HEALTH [place] [facility] [place] TO VISIT 2-3 X A WEEK FOR 4 WEEKS ESTABLISHED BY PATIENT NEEDS. REMOVAL OF SUTURES: NURSING SERVICES TO REMOVE SUTURES TWO WEEKS POST SURGICAL DATE 11/19/2017 . If any questions regarding suture removal please call the office at [phone]. LABORATORY: CBC, CMP TO BE DRAWN ON THE THIRD DAY HOME, on 11/13/2017 (RAN STAT) FAX RESULTS TO [phone]. TELEHEALTH PARAMETERS: WEIGHT: NOTIFY MD OF WEIGHT GAIN OF 2 LBS IN 24 HOURS OR 5 LBS IN ONE WEEK HR: NOTIFY MD OF HR <55 BPM OR HR>100 BPM BP: NOTIFY MD IF BP <90/55 OR BP>140/100 O2 SAT: NOTIFY MD IF PO2<93% ON ROOM AIR SEND TELEHEALTH REPORT TO PACKAGE CAR DRIVER AND CARDIOVASCULAR SURGEON THE FIRST WEEK OF CARE AND THEN BI-WEEKLY. PLEASE ADDITIONALLY COMMUNICATE ANY ABNORMALS AND NEW FINDINGS TO THE SURGEONS OFFICE. Plan - Discharge Summary Discharge Rx Participant: Yes New Discharge Prescriptions: New Acetaminophen Tab [Tylenol] 650 mg PO Q6HR PRN tab PRN Reason: Fever And/ Or Pain Ascorbic Acid [Vitamin C] 500 mg PO BID-W/MEALS #60 tab Aspirin 325 mg PO DAILY tab Atorvastatin [Lipitor] 80 mg PO DAILY #60 tab Clopidogrel [Plavix] 75 mg PO DAILY #30 tab Ferrous Sulfate [Iron (65 MG Elemental)] 325 mg PO BID-W/MEALS #60 tab Furosemide [Lasix] 40 mg PO DAILY 5 Days #5 tab Metoprolol Tartrate [Lopressor] 25 mg PO BID #60 tab Multivitamins, Thera [Multivitamin (formulary)] 1 each PO DAILY@1200 tab Pantoprazole [Protonix] 40 mg PO AC-BRKFST #30 Potassium Chloride ER [K-Dur 10] 10 meq PO DAILY 5 Days #5 tab.er.prt Sennosides-Docusate Sodium [Senokot-S] 2 each PO HS #14 tab Glimepiride [Amaryl] 2 mg PO AC-BRKFST #30 tab metFORMIN HCL [Glucophage] 1,000 mg PO BID-W/MEALS #120 tab Discontinued Isosorbide Mononitrate ER [Imdur] 30 mg PO DAILY Atorvastatin [Lipitor] 40 mg PO DAILY Metoprolol Tartrate [Lopressor] 12.5 mg PO BID #60 tab Mupirocin 2% Oint [Bactroban 2% Oint] 1 applic TOPICAL BID applic Nitroglycerin Sl Tabs [Nitrostat] 0.4 mg SUBLINGUAL Q5M PRN #25 tab PRN Reason: Chest Pain Aspirin EC [Ecotrin] 325 mg PO DAILY Discharge Medication List Acetaminophen Tab [Tylenol] 650 mg PO Q6HR PRN tab 11/10/17 [Rx] Ascorbic Acid [Vitamin C] 500 mg PO BID-W/MEALS #60 tab 11/10/17 [Rx] Aspirin 325 mg PO DAILY tab 11/10/17 [Rx] Atorvastatin [Lipitor] 80 mg PO DAILY #60 tab 11/10/17 [Rx] Clopidogrel [Plavix] 75 mg PO DAILY #30 tab 11/10/17 [Rx] Ferrous Sulfate [Iron (65 MG Elemental)] 325 mg PO BID-W/MEALS #60 tab 11/10/17 [Rx] Furosemide [Lasix] 40 mg PO DAILY 5 Days #5 tab 11/10/17 [Rx] Glimepiride [Amaryl] 2 mg PO AC-BRKFST #30 tab 11/10/17 [Rx] Metoprolol Tartrate [Lopressor] 25 mg PO BID #60 tab 11/10/17 [Rx] Multivitamins, Thera [Multivitamin (formulary)] 1 each PO DAILY@1200 tab [Rx] Pantoprazole [Protonix] 40 mg PO AC-BRKFST #30 tablet.dr 11/10/17 [Rx] Potassium Chloride ER [K-Dur 10] 10 meq PO DAILY 5 Days #5 tab.er.prt 11/10/17 [ Rx] Sennosides-Docusate Sodium [Senokot-S] 2 each PO HS #14 tab 11/10/17 [Rx] metFORMIN HCL [Glucophage] 1,000 mg PO BID-W/MEALS #120 tab 11/10/17 [Rx] Follow up Appointment(s)/Referral(s): Sonya Betts MD [STAFF PHYSICIAN] - 11/15/17 2:45 pm Rupali Howell NPC [Nurse Practitioner] - 11/14/17 1:00 pm Chano Varma MD [STAFF PHYSICIAN] - 11/15/17 4:00 pm Dayday Saravia MD [STAFF PHYSICIAN] - 12/06/17 10:00 am Loy Valentine MD [Primary Care Provider] - 11/18/17 2:00 pm [facility], [NON-STAFF] - Ambulatory/Diagnostic Orders: Complete Blood Count w/diff [LAB.AMB] Time Frame: 11/13/17, Facility: [facility], Location: Laboratory [facility] Comprehensive Metabolic Panel [LAB.AMB] Time Frame: 11/13/17, Facility: [facility], Location: Laboratory [facility] Activity/Diet/Wound Care/Special Instructions: DISCHARGE INSTRUCTIONS: 1. No driving for 4 weeks, or until physician gives their ok. 2. The patient should sleep in their own bed, no medical bed needed. 3. Stairs are not an issue. If the bedroom is upstairs, it is advised that the patient go up at night and down in the morning for the first week. Go slowly, using handrail and take 1 step at a time. 4. UDAY hose are to be worn for 30 days or until physician discontinues. 5. Heart hugger is to be worn 100% of the time until physician discontinues.( except when showering) 6. No lifting, pushing, or pulling more than 10 pounds for 12 weeks. The physician will advise of any restriction changes. 7. The patient is expected to continue the prescribed walking program. 8. Continue pain control per as needed orders. 9. Continue with incentive spirometry and splinting/heart hugger until otherwise directed by the physician. 10. Must shower daily using liquid antibacterial soap and a separate white washcloth for each individual incision. 11. Routine sternal incision care, no ointments, lotions or powders on the incisions. 12. Please notify surgeon/nurse practitioner for temperature greater than 101F or purulent drainage from incisions 13. Prescriptions for first 30 days given per cardiac surgery service. After 30 days, all prescription refills obtained through cardiology/primary care physician. 14. A red arm and has been placed on this patient it should be worn for 30 days post surgery and will be removed by the cardiothoracic surgeons. If an ER visit is necessary, please make sure the number on the red arm band is called. 15. The patient has been instructed to check his blood sugars before meals and at bedtime, keep a log of his blood sugars and bring the log of his blood sugars to his follow-up appointment with his primary care physician. HOME HEALTH SERVICES TO PROVIDE: RN SKILLED HOME CARE SERVICES FOR POST-OP SURGICAL PATIENTS WITH THE FOLLOWING: Coronary Artery Bypass Surgery (CABG), Mitral Valve Replacement/ Repair ( MVR), Aortic Valve Replacement/Repair (AVR) RN TO CONTINUE EDUCATION FROM ``ROAD TO A HEALTH HEART PATIENT EDUCATION MANUAL" (GIVEN TO PATIENT IN THE HOSPITAL) MEDICATION RECONCILIATION WITH EDUCATION NEEDED ON FIRST HOME VISIT EMPHASIZE IMPORTANCE OF WEARING BREAST SUPPORT/HEART HUGGER ENCOURAGE USE OF INCENTIVE SPIROMETER 10 X EVERY HOUR WHILE AWAKE ENCOURAGE UTILIZATION OF LOWER EXTREMITY COMPRESSION STOCKINGS/UDAY HOSE and ELEVATE LEGS ABOVE LEVEL OF HEART WHILE AT REST. ENCOURAGE AMBULATION 3-5x/day INCREASING TOLERATES, WHILE AVOID EXTREMES IN TEMPERATURE FREQUENCY: RN TO OPEN THE PATIENT WITHIN 24 HOURS OF DISCHARGE FROM THE HOSPITAL WITH [place]HEALTH [place] [facility] [place] TO VISIT 2-3 X A WEEK FOR 4 WEEKS ESTABLISHED BY PATIENT NEEDS. REMOVAL OF SUTURES: NURSING SERVICES TO REMOVE SUTURES TWO WEEKS POST SURGICAL DATE 11/19/2017 . If any questions regarding suture removal please call the office at [phone]. LABORATORY: CBC, CMP TO BE DRAWN ON THE THIRD DAY HOME, on 11/13/2017 (RAN STAT) FAX RESULTS TO [phone]. TELEHEALTH PARAMETERS: WEIGHT: NOTIFY MD OF WEIGHT GAIN OF 2 LBS IN 24 HOURS OR 5 LBS IN ONE WEEK HR: NOTIFY MD OF HR <55 BPM OR HR>100 BPM BP: NOTIFY MD IF BP <90/55 OR BP>140/100 O2 SAT: NOTIFY MD IF PO2<93% ON ROOM AIR SEND TELEHEALTH REPORT TO PACKAGE CAR DRIVER AND CARDIOVASCULAR SURGEON THE FIRST WEEK OF CARE AND THEN BI-WEEKLY. PLEASE ADDITIONALLY COMMUNICATE ANY ABNORMALS AND NEW FINDINGS TO THE SURGEONS OFFICE. Discharge Disposition: HOME WITH HOME HEALTH SERVICES
--- NOTE | 2017-11-10 13:50 | P.PN ---
[facility] on-call hospital was covering for Dr. Valentine over the weekend on 11/09 and 11/10 this is a pleasant 62 years old male with past medical history of coronary artery disease, DVT, hyperlipidemia, hypertension, status post cardiac cath. today is postoperative day #4. Patient underwent double coronary artery bypass graft procedure 11/05/2017 area originally patient underwent cardiac cath for chest discomfort and severe underlying coronary artery disease which revealed two-vessel CAD involving the LAD as well as the OM. patient was managed originally in the ICU , he was intubated for short period of time. now he is without intubation and off ventilator. and transferred to the general medical floor since yesterday On 11/08/2017 Patient was lying in bed comfortable not in acute distress. Patient doesn't have any symptoms. He denies chest pain. No dyspnea. No dizziness or syncope. No change in urine or bowel habits. He states his stool is a black and he thinks that from his arm pills. No change in his urine no dysuria. Labs reviewed and shows that hemoglobin 6.9. And in the last few days his was fluctuating between 6.6 and 7.7. Patient denies to me and any signs of overt bleeding from anywhere else. Hemoglobin on 10/30/2017 was 12.6. Vitoss looks stable, however patient is on antihypertensive medication. Objective - Vital Signs Vital signs: Vital Signs Temp 97.5 F L 11/10/17 08:00 Pulse 76 11/10/17 12:00 Resp 18 11/10/17 12:00 BP 106/55 11/10/17 12:00 Pulse Ox 98 11/10/17 12:00 Intake & Output 11/09/17 11/10/17 11/10/17 18:59 06:59 18:59 Intake Total 610 10 360 Output Total 880 300 100 Balance -270 -290 260 Weight 97.6 kg 95.9 kg Intake: IV 10 Invasive Line 5 10 Oral 610 360 Output: Chest Tube Drainage 30 Right Pleural/Mediastinal 30 Urine 850 300 100 Other: Voiding Method Toilet Toilet # Voids 1 ABP, PAP, CO, CI - Last Documented Arterial Blood Pressure 111/56 Pulmonary Artery Pressure 24/12 Cardiac Output 5.1 Cardiac Index 2.4 - Exam GENERAL: The patient is alert and oriented x3, not in any acute distress. Well developed, well nourished. HEENT: Pupils are round and equally reacting to light. EOMI. No scleral icterus. No conjunctival pallor. Normocephalic, atraumatic. No pharyngeal erythema. No thyromegaly. CARDIOVASCULAR: S1 and S2 present. No murmurs, rubs, or gallops. PULMONARY: Chest is clear to auscultation, no wheezing or crackles. ABDOMEN: Soft, nontender, nondistended, normoactive bowel sounds. No palpable organomegaly. MUSCULOSKELETAL: No joint swelling or deformity. EXTREMITIES: No cyanosis, clubbing, or pedal edema. NEUROLOGICAL: Gross neurological examination did not reveal any focal deficits. SKIN: No rashes. - Labs CBC & Chem 7: 11/10/17 05:37 11/10/17 05:37 Labs: Abnormal Lab Results - Last 24 Hours (Table) 11/09/17 11/09/17 11/10/17 Range/Units 16:21 21:11 02:13 RBC (4.30-5.90) m/uL Hgb (13.0-17.5) gm/dL Hct (39.0-53.0) % Glucose (74-99) mg/dL POC Glucose (mg/dL) 137 H 116 H 167 H (75-99) mg/dL Total Protein (6.3-8.2) g/dL Albumin (3.5-5.0) g/dL 11/10/17 11/10/17 11/10/17 Range/Units 05:37 05:37 06:07 RBC 2.53 L (4.30-5.90) m/uL Hgb 6.9 L* (13.0-17.5) gm/dL Hct 21.2 L (39.0-53.0) % Glucose 155 H (74-99) mg/dL POC Glucose (mg/dL) 167 H (75-99) mg/dL Total Protein 5.2 L (6.3-8.2) g/dL Albumin 3.1 L (3.5-5.0) g/dL 11/10/17 Range/Units 11:50 RBC (4.30-5.90) m/uL Hgb (13.0-17.5) gm/dL Hct (39.0-53.0) % Glucose (74-99) mg/dL POC Glucose (mg/dL) 155 H (75-99) mg/dL Total Protein (6.3-8.2) g/dL Albumin (3.5-5.0) g/dL Assessment and Plan Assessment: - active coronary artery disease, status post cardiac cath, status post double coronary artery bypass graft procedure, management as per primary team Patient is been followed by cardiology and pulmonary services for consultation. -anemia , pt might lost some blood secondary to surgery , pt denies to me any s/ s of bleeding , he stated his stool is black and he attributes it to iron pill , I spoke with Dr. Saravia over the phone and discussed the case with him and informed him about my concern for anemia especially pt is on aspirin and plavix , and his INR is 1.2 and he is on heparin for DVT px, and recommendation for anemia work up eg iron profile, Vitamin B12 and folate level, checking occult blood in stool ,also i recommend GI consult. the decision for blood transfusion is deferred to primary team upon request of Dr. Jimenez -DM pt was getting metformin 1000 BID at [facility] , Hb A1c is 7.9 %, pt was on insulin while in-house however pt does not have insurance , i will put him on metformin 1000 mg bid, and add ameryl 2 mg daily and c/w ISS while in-house , monitor glucose. pt informed about these changes and he agrees . -Hyperlipidemia, continue with same and treatment -Hypertension, continue with same treatment DVT prophylaxis subcutaneous heparin GI prophylaxis Protonix Prognosis is guarded Thank you for consulting us Case with discussed with the primary team as above We will follow-up with the case. Dr. Valentine will resume the care of the patient from tomorrow Plan: patient is a status post CABG. He was transferred from the ICU to the general medical floor today. His starting diet well. Continue with same treatment. Continue with symptom of treatment. Patient is been followed by cardiology and pulmonary services for consultation.repeat chest x-ray from 11/09/2017 showing minimal residual left pneumothorax which is not unusual in patients with CABG. Continue with GI and DVT prophylaxis. Further recommendation based on the clinical course
[2017-11-10] MEDS ORDERED: metFORMIN 500 MG TAB PO SCH (17:30)
[2017-11-11] MEDS ORDERED: GLIMEPIRIDE 2 MG TAB PO SCH (07:30)
[2017-11-11] MEDS ORDERED: FUROSEMIDE 40 MG TAB PO SCH (09:00)
[2017-11-11] MEDS ORDERED: POTASSIUM CHLORIDE ER 10 MEQ TAB.ER.PRT PO SCH (09:00)
[2017-11-12] MEDS ORDERED: FUROSEMIDE 40 MG TAB PO SCH (09:00)
--- NOTE | 2017-11-17 23:51 | P.PN ---
Subjective Progress Note Date: 11/08/17 Objective - Vital Signs Vital signs: Vital Signs Temp 96.3 F L 11/08/17 11:15 Pulse 79 11/08/17 11:15 Resp 21 11/08/17 11:15 BP 86/58 11/08/17 11:15 Pulse Ox 95 11/08/17 11:15 Intake & Output 11/07/17 11/08/17 11/08/17 18:59 06:59 18:59 Intake Total 903.168 256.529 170.039 Output Total 5490 321 2427 Balance -136.832 -88.471 -1009.961 Weight 98.5 kg 96.9 kg Intake: IV 341 211 151 0.9 carrier 55 35 10 Lactated Ringers 1,000 ml 220 140 120 @ 20 mls/hr IV .Q24H [facility] Rx#:[id number] Pressure Bag 66 36 21 Intake, IV Titration 212.168 45.529 19.039 Amount Insulin Regular 100 unit 12.168 45.529 19.039 In Sodium Chloride 0.9% 100 ml @ Per Protocol IV .Q0M [facility] Rx#:[id number] Magnesium Sulfate-D5w Pmx 100 1 gm In Dextrose/Water 1 100ml.bag @ 100 mls/hr IVPB Q1H [facility] Rx#: [id number] Sodium Ferric Gluconat- 100 Sucrose 125 mg In Sodium Chloride 0.9% 100 ml @ 100 mls/hr IVPB ONCE ONE Rx#:[id number] Oral 350 Output: Chest Tube Drainage 200 145 180 Left Pleural/Mediastinal 70 95 90 Mediastinal 40 Right Pleural/Mediastinal 90 50 90 Urine 040 [id number] Other: Voiding Method Indwelling Catheter Urinal Urinal # Voids 1 ABP, PAP, CO, CI - Last Documented Arterial Blood Pressure 101/54 Pulmonary Artery Pressure 24/12 Cardiac Output 5.1 Cardiac Index 2.4 - Labs CBC & Chem 7: 11/08/17 04:25 11/08/17 04:25 Labs: Abnormal Lab Results - Last 24 Hours (Table) 11/07/17 11/07/17 11/07/17 Range/Units 17:01 17:04 18:22 RBC (4.30-5.90) m/uL Hgb (13.0-17.5) gm/dL Hct (39.0-53.0) % Glucose (74-99) mg/dL POC Glucose (mg/dL) 300 H 307 H 302 H (75-99) mg/dL Calcium (8.4-10.2) mg/dL Alkaline Phosphatase (38-126) U/L Total Protein (6.3-8.2) g/dL Albumin (3.5-5.0) g/dL 11/07/17 11/07/17 11/07/17 Range/Units 19:04 20:27 21:11 RBC (4.30-5.90) m/uL Hgb (13.0-17.5) gm/dL Hct (39.0-53.0) % Glucose (74-99) mg/dL POC Glucose (mg/dL) 245 H 225 H 183 H (75-99) mg/dL Calcium (8.4-10.2) mg/dL Alkaline Phosphatase (38-126) U/L Total Protein (6.3-8.2) g/dL Albumin (3.5-5.0) g/dL 11/07/17 11/07/17 11/08/17 Range/Units 22:10 23:02 00:03 RBC (4.30-5.90) m/uL Hgb (13.0-17.5) gm/dL Hct (39.0-53.0) % Glucose (74-99) mg/dL POC Glucose (mg/dL) 137 H 113 H 150 H (75-99) mg/dL Calcium (8.4-10.2) mg/dL Alkaline Phosphatase (38-126) U/L Total Protein (6.3-8.2) g/dL Albumin (3.5-5.0) g/dL 11/08/17 11/08/17 11/08/17 Range/Units 01:03 02:16 03:21 RBC (4.30-5.90) m/uL Hgb (13.0-17.5) gm/dL Hct (39.0-53.0) % Glucose (74-99) mg/dL POC Glucose (mg/dL) 143 H 107 H 170 H (75-99) mg/dL Calcium (8.4-10.2) mg/dL Alkaline Phosphatase (38-126) U/L Total Protein (6.3-8.2) g/dL Albumin (3.5-5.0) g/dL 11/08/17 11/08/17 11/08/17 Range/Units 04:05 04:25 04:25 RBC 2.48 L (4.30-5.90) m/uL Hgb 6.7 L* (13.0-17.5) gm/dL Hct 20.3 L (39.0-53.0) % Glucose 100 H (74-99) mg/dL POC Glucose (mg/dL) 132 H (75-99) mg/dL Calcium 8.3 L (8.4-10.2) mg/dL Alkaline Phosphatase 31 L (38-126) U/L Total Protein 5.0 L (6.3-8.2) g/dL Albumin 3.3 L (3.5-5.0) g/dL 11/08/17 11/08/17 11/08/17 Range/Units 05:24 06:22 07:27 RBC (4.30-5.90) m/uL Hgb (13.0-17.5) gm/dL Hct (39.0-53.0) % Glucose (74-99) mg/dL POC Glucose (mg/dL) 147 H 124 H 103 H (75-99) mg/dL Calcium (8.4-10.2) mg/dL Alkaline Phosphatase (38-126) U/L Total Protein (6.3-8.2) g/dL Albumin (3.5-5.0) g/dL 11/08/17 11/08/17 11/08/17 Range/Units 08:11 09:31 10:08 RBC (4.30-5.90) m/uL Hgb (13.0-17.5) gm/dL Hct (39.0-53.0) % Glucose (74-99) mg/dL POC Glucose (mg/dL) 135 H 199 H 211 H (75-99) mg/dL Calcium (8.4-10.2) mg/dL Alkaline Phosphatase (38-126) U/L Total Protein (6.3-8.2) g/dL Albumin (3.5-5.0) g/dL 11/08/17 11/08/17 Range/Units 11:04 12:35 RBC (4.30-5.90) m/uL Hgb (13.0-17.5) gm/dL Hct (39.0-53.0) % Glucose (74-99) mg/dL POC Glucose (mg/dL) 170 H 134 H (75-99) mg/dL Calcium (8.4-10.2) mg/dL Alkaline Phosphatase (38-126) U/L Total Protein (6.3-8.2) g/dL Albumin (3.5-5.0) g/dL Assessment and Plan (1) Coronary artery disease Current Visit: Yes Status: Chronic Code(s): I25.10 - ATHSCL HEART DISEASE OF [place] CORONARY ARTERY W/O ANG PCTRS SNOMED Code(s): 28711136 (2) Hyperlipidemia Current Visit: Yes Status: Chronic Code(s): E78.5 - HYPERLIPIDEMIA, UNSPECIFIED SNOMED Code(s): 13296241 (3) Hypertension Current Visit: Yes Status: Chronic Code(s): I10 - ESSENTIAL (PRIMARY) HYPERTENSION SNOMED Code(s): 57109373 (4) Non-insulin dependent type 2 diabetes mellitus Current Visit: Yes Status: Chronic Code(s): E11.9 - TYPE 2 DIABETES MELLITUS WITHOUT COMPLICATIONS SNOMED Code(s): 04166332 (5) Tobacco dependence in remission Current Visit: No Status: Resolved Code(s): F17.201 - NICOTINE DEPENDENCE, UNSPECIFIED, IN REMISSION SNOMED Code(s): 602507429
== END 2017-11-10 15:26 | disposition home health service (06) | DRG 235 ==
LOC: 2ORMAIN 06:29 → 6ICU 17:07 → 6SEL 11-09 13:33
PROVIDERS: ADMIT Surgery; ATTEND Surgery
PROC: 02100Z9 Bypass Coronary Artery, One Artery from Left Internal Mammary, Open Approach (ICD-10-PCS; 2017-11-05)
PROC: 5A1221Z Performance of Cardiac Output, Continuous (ICD-10-PCS; 2017-11-05)
PROC: B246ZZ4 Ultrasonography of Right and Left Heart, Transesophageal (ICD-10-PCS; 2017-11-05)
PROC: 4A0305C Measurement of Arterial Flow, Coronary, Open Approach (ICD-10-PCS; 2017-11-05)
PROC: 30233N0 Transfusion of Autologous Red Blood Cells into Peripheral Vein, Percutaneous Approach (ICD-10-PCS; 2017-11-05)
PROC: 02100Z8 Bypass Coronary Artery, One Artery from Right Internal Mammary, Open Approach (ICD-10-PCS; principal; 2017-11-05 08:00)
DX: I25.10 Atherosclerotic heart disease of native coronary artery without angina pectoris (principal); J96.00 Acute respiratory failure, unspecified whether with hypoxia or hypercapnia; J98.11 Atelectasis; I08.1 Rheumatic disorders of both mitral and tricuspid valves; I11.9 Hypertensive heart disease without heart failure; D64.9 Anemia, unspecified; E78.5 Hyperlipidemia, unspecified; E11.9 Type 2 diabetes mellitus without complications; E66.9 Obesity, unspecified; M10.9 Gout, unspecified; F17.201 Nicotine dependence, unspecified, in remission; Z68.29 Body mass index [BMI] 29.0-29.9, adult; Z79.82 Long term (current) use of aspirin; Z79.899 Other long term (current) drug therapy; Z86.718 Personal history of other venous thrombosis and embolism; Z87.81 Personal history of (healed) traumatic fracture
CPT/HCPCS: 71045; 71046; 80053; 80074; 82330; 82805; 83036; 83735; 84100; 84132; 85025; 85027; 85520; 85610; 85730; 86850; 86891; 86900; 86901; 86920; 94002; 94640

== ENCOUNTER → 2021-05-12 | Outpatient (CLI) | payer MEDICARE, OTHER ==
[2021-05-12 14:33] LABS: HGB 13.2 g/dL (13.0-17.0); MCH 29.2 pg (27.0-32.0); MCHC 32.2 g/dL (32.0-37.0); MCV 90.7 fL (80.0-97.0); Mean Platelet Volume 9.7 fL (9.5-12.2); Platelet Count 209 X 10*3/uL (140-440); RBC 4.52 X 10*6/uL (4.40-5.60); RDW 13.2 % (11.5-14.5); WBC 5.95 X 10*3/uL (4.50-10.00)
[2021-05-13 01:19] LABS: African American GFR (CKD) 91.1 (60.0-200.0); Anion Gap 10.9 mmol/L (10.00-18.00); Carbon Dioxide 25.1 mmol/L (20.0-27.5); Non-African American GFR(CKD) 78.6 (60.0-200.0); Potassium 4.7 mmol/L (3.5-5.5)
== END | disposition home or self-care (01) ==
LOC: LABPAT 09:02
PROVIDERS: ATTEND Internal Medicine Interventional Cardiology
DX: Z01.812 Encounter for preprocedural laboratory examination (principal); R94.39 Abnormal result of other cardiovascular function study
CPT/HCPCS: 36415; 80051; 82565; 84520; 85027

== ENCOUNTER 2021-05-17 06:22 | Day surgery (SDC) | payer MEDICARE, OTHER ==
[2021-05-11 15:52] VITALS: BMI 28.5
[~2021-05-17 06:22] MED LIST changes: -ALBUMIN HUMAN 25% 50 ML IV ONE; -ALBUMIN HUMAN 5% 500 ML IVPB ONE; +ALPRAZolam 0.25 MG TAB PO PRN; +ALPRAZolam 0.5 MG TAB PO PRN; -ASPIRIN 325 MG TAB PO ONE; +ASPIRIN 325 MG TAB PO STA; -ATORVASTATIN 10 MG TAB PO ONE; +ATORVASTATIN 80 MG TAB PO STA; -CALCIUM CHLORIDE 100 MG/ML 10 ML SYRINGE IV ONE; -CHLORHEXIDINE GLUCONATE 15 ML CUP MUCOUS MEM ONE; -CLEVIDIPINE BUTYRATE 25 MG in EMPTY BAG 1 BAG IV ONE; -DEXTROSE 5% IN WATER 1,000 ML with POTASSIUM CHLORIDE 110 MEQ, MAGNESIUM SULFATE 16 MEQ... IV ONE; -DEXTROSE 5% IN WATER 1,000 ML with POTASSIUM CHLORIDE 25 MEQ, SODIUM CHLORIDE 2.5MEQ/ML... IRRIGATION ONE; -HEPARIN SODIUM 1,000 UN/ML (10ML VL) IV ONE; -HEPARIN SODIUM,PORCINE 5,000 UNIT in SODIUM CHLORIDE 0.9% 500 ML IV ONE; -INSULIN REGULAR 100 UNIT in SODIUM CHLORIDE 0.9% 100 ML IV ONE; -LACTATED RINGERS 1,000 ML IV ONE; -MAGNESIUM SULFATE MG 500 MG/ML VIAL IV ONE; -MANNITOL 25% 12.5 GM/50 ML VIAL IV ONE; -METOPROLOL TARTRATE 12.5 MG TAB PO ONE; -NITROGLYCERIN SL TABS 0.4 MG TAB SUBLINGUAL ONE; +NITROGLYCERIN SL TABS 0.4 MG TAB SUBLINGUAL PRN; -NITROGLYCERIN-D5W PMX 25 MG/250 ML BTL IV ONE; -NITROGLYCERIN-D5W PMX 50 MG in DEXTROSE/WATER 1 250ML.BAG IV ONE; -NOREPINEPHRINE 4 MG in DEXTROSE 5% IN WATER 250 ML IV ONE; -PAPAVERINE 360 MG in SODIUM CHLORIDE 0.9% 90 ML IV ONE; -PHENYLEPHRINE 40 MG in SODIUM CHLORIDE 0.9% 250 ML IV ONE; -PHENYLEPHRINE-0.9% NACL SYG 1 MG/10 ML SYRINGE IV ONE; -PROPOFOL 1,000 MG/100 ML VIAL IV ONE; -PROTAMINE SULFATE 10 MG/ML 25 ML VIAL IV ONE; -PROTAMINE SULFATE 250 MG in EMPTY BAG 1 BAG IV ONE; -SODIUM BICARB 8.4% 50 ML SYR (1 MEQ/ML) IV ONE; -SODIUM CHLORIDE 0.9% 1,000 ML IV ONE; +SODIUM CHLORIDE 0.9% 1,000 ML in EMPTY BAG 1 BAG IV SCH; -TRANEXAMIC ACID 2,000 MG in SODIUM CHLORIDE 0.9% 180 ML IV ONE; -ceFAZolin 1,000 MG in SODIUM CHLORIDE 0.9% IRRIGATIO 1,000 ML IRRIGATION ONE; -ceFAZolin 2,000 MG in SODIUM CHLORIDE 0.9% 30 ML IVPB ONE
[2021-05-17] MEDS ORDERED: SODIUM CHLORIDE 0.9% 1,000 ML IV ONE (06:57)
[2021-05-17 06:58] LABS: Glucose,Whole Blood 102 mg/dL (75-99)
[2021-05-17 07:00] VITALS: RESP 16; TEMP 97.5
[2021-05-17] MEDS ORDERED: LIDOCAINE 1% INJ 10MG/ML (20 ML MDV) ONE (07:20)
[2021-05-17] MEDS ORDERED: VERAPAMIL 2.5 MG/ML 2 ML AMP ONE (07:20)
[2021-05-17] MEDS ORDERED: fentaNYL (PF) 50 MCG/ML 2 ML AMP ONE (07:32)
[2021-05-17] MEDS ORDERED: fentaNYL (PF) 50 MCG/ML 2 ML AMP IV ONE (07:34)
[2021-05-17] MEDS ORDERED: LIDOCAINE 1% INJ 10MG/ML (20 ML MDV) SQ ONE (07:36)
[2021-05-17] MEDS ORDERED: MIDAZOLAM 2 MG/2 ML VIAL IV ONE (07:38)
[2021-05-17] MEDS ORDERED: IOPAMIDOL-370 125ML BTL INJ ONE (07:52)
[2021-05-17] MEDS ORDERED: RX INFO: IV CONTRAST WAS GIVEN 1 EACH MISC MISCELLANE PRN (08:08)
[2021-05-17] MEDS ORDERED: SODIUM CHLORIDE 0.9% 1,000 ML IV SCH (08:15)
--- NOTE | 2021-05-17 08:18 | P.CARDCATH ---
Date of Procedure: 05/17/21 Description of Procedure: CARDIAC CATHETERIZATION REPORT CLINICAL HISTORY: [The patient is a 66-year-old male with a known history of coronary disease, status post CABG in 2018 has been complaining of chest discomfort and dyspnea, had an abnormal MPI with left circumflex territory ischemia. In view of that recommendations were made regarding cardiac catheterization, the risks and the complications were discussed with the patient who was informed understanding and agreement.] PROCEDURE: The patient was brought to the cardiac catheterization lab in a fasting, semi-sedated state after receiving Versed and Benadryl. The patient was prepped and draped in the conventional fashion. Using Xylocaine anesthesia, in the Seldinger technique, a 6 Cameroonian sheath was introduced in the right femoral artery. Selective right and left coronary angiography performed using 6 Cameroonian, 4 bend right and left Shanta catheter. Multiple views of the coronary artery, including hemiaxial views were obtained. Right Shanta was used to cannulate the OMAR to the LAD and an BROOKE catheter was used to cannulate the GOMEZ to the left circumflex, images of the grafts were obtained. Following that, a 6 Cameroonian tight pigtail catheter was introduced in the left ventricle and pressure of the left ventricle was obtained. At the end of the procedure the catheter and sheath were removed. Hemostasis was obtained with [deployment of an Angio- Seal]. There were no immediate complications. The patient was returned to the room in stable condition. SELECTIVE CORONARY ARTERIOGRAPHY: Fluoroscopy: There is significant calcification involving the proximal LAD. LEFT MAIN CORONARY ARTERY: This is a large size vessel, bifurcating into LAD and left circumflex, left main has a 20% plaque proximally LEFT ANTERIOR DESCENDING CORONARY ARTERY: This vessel is totally occluded proximally at the takeoff of the first septal medicare insurance specialist and diagonal branch, there was no antegrade flow LEFT CIRCUMFLEX CORONARY ARTERY: This is a nondominant vessel, giving rise to a large obtuse marginal branch, the left circumflex proximal to the obtuse marginal branch takeoff has a 90% stenosis RIGHT CORONARY ARTERY: This is a dominant large sized vessel, bifurcating distally to PDA and PLV, the RCA has mild disease of 20-30% in the mid and distal segment and involving the branches. OMAR to the LAD: The distal anastomotic site patent, the flow into the LAD is brisk. GOMEZ to the left circumflex: The distal anastomotic site is patent, the flow the OM is brisk LEFT VENTRICULOGRAM: Not performed HEMODYNAMICS: There was no gradient across the aortic valve, LVEDP was 10-14 mmHg CONCLUSION: 1. Chronically occluded proximal LAD. 2. Severe disease in the proximal left circumflex. 3. Mild disease in the RCA. 4. Patent GOMEZ to the left circumflex and OMAR to the LAD RECOMMENDATIONS: In view of the findings I would recommend continuing medical treatment with aggressive coronary risks modifications. The findings and the recommendations were discussed with the patient and his family. Duration of sedation 24 minutes.
[2021-05-17] MEDS ORDERED: TAMSULOSIN 0.4 MG CAP.ER.24H PO SCH (09:00)
[2021-05-17 12:19] VITALS: PULSE 66
[2021-05-17 12:31] VITALS: BP 130/71
[2021-05-17] MEDS ORDERED: REPAGLINIDE 1 MG TAB PO SCH (17:30)
[2021-05-17] MEDS ORDERED: EZETIMIBE 10 MG TAB PO SCH (21:00)
[2021-05-17] MEDS ORDERED: ATORVASTATIN 80 MG TAB PO SCH (21:00)
[2021-05-17] MEDS ORDERED: METOPROLOL TARTRATE 25 MG TAB PO SCH (21:00)
[2021-05-18] MEDS ORDERED: PANTOPRAZOLE 40 MG TABLET PO SCH (07:30)
[2021-05-18] MEDS ORDERED: ASPIRIN 81 MG PO SCH (09:00)
== END 2021-05-17 12:58 | disposition home or self-care (01) ==
LOC: CATHCVL 06:22
PROVIDERS: ATTEND Internal Medicine Interventional Cardiology
DX: I25.10 Atherosclerotic heart disease of native coronary artery without angina pectoris (principal); I25.84 Coronary atherosclerosis due to calcified coronary lesion; I25.82 Chronic total occlusion of coronary artery; I10 Essential (primary) hypertension; E11.9 Type 2 diabetes mellitus without complications; R94.39 Abnormal result of other cardiovascular function study; Z20.822 Contact with and (suspected) exposure to COVID-19; E78.2 Mixed hyperlipidemia; E78.00 Pure hypercholesterolemia, unspecified; Z95.1 Presence of aortocoronary bypass graft; Z98.890 Other specified postprocedural states; Z87.891 Personal history of nicotine dependence; Z79.84 Long term (current) use of oral hypoglycemic drugs; Z79.82 Long term (current) use of aspirin; Z79.899 Other long term (current) drug therapy
CPT/HCPCS: 93459; 87635; C1894; C1769; J2250; J2001; J3010; Q9967

== ENCOUNTER → 2021-11-21 | Outpatient (CLI) | payer MEDICARE, OTHER ==
[2021-11-21 10:32] LABS: ALT 35 U/L (10-49); AST 34 U/L (14-35); African American GFR (CKD) 81.2 (60.0-200.0); Albumin 4.4 g/dL (3.8-4.9); Albumin/Globulin Ratio 1.76 (1.60-3.17); Alkaline Phosphatase 68 U/L (41-126); BUN/Creat Ratio 15.09 Ratio (12.00-20.00); Blood Urea Nitrogen 16.6 mg/dL (9.0-27.0); Carbon Dioxide 27.4 mmol/L (20.0-27.5); Chloride 103 mmol/L (96-109); Chol/HDL Ratio 3.37 Ratio; Globulin 2.5 g/dL (1.6-3.3); Glucose 99 mg/dL (70-110); Non-African American GFR(CKD) 70.1 (60.0-200.0); Potassium 4.2 mmol/L (3.5-5.5); Sodium 140 mmol/L (135-145); Total Protein 6.9 g/dL (6.2-8.2)
== END | disposition home or self-care (01) ==
LOC: LABWHC1 07:53
PROVIDERS: ATTEND Internal Medicine Interventional Cardiology
DX: I10 Essential (primary) hypertension (principal); E78.2 Mixed hyperlipidemia
CPT/HCPCS: 36415; 80053; 80061

== ENCOUNTER → 2022-12-17 | Outpatient (CLI) | payer MEDICARE, OTHER ==
[2022-12-17 15:49] LABS: ALT 28 U/L (10-49); AST 23 U/L (14-35); Chol/HDL Ratio 3.17 Ratio; LDL Cholesterol,Calculated 75.5 mg/dL (0.0-131.0)
== END | disposition home or self-care (01) ==
LOC: LABWHC1 08:19
PROVIDERS: ATTEND Nurse Practitioner Adult Health
DX: E78.2 Mixed hyperlipidemia (principal)
CPT/HCPCS: 36415; 80061; 84450; 84460

== ENCOUNTER 2023-11-15 17:50 | Inpatient (IN) | payer MEDICARE, OTHER ==
[2023-11-15 19:44] LABS: Basophils % (A) 1 %; Eosinophils # (A) 0.1 k/uL (0-0.7); Eosinophils % (A) 3 %; HCT 23.5 % (39.0-53.0); HGB 7.4 gm/dL (13.0-17.5); Hypochromasia Marked; Lymphocytes # (A) 1.1 k/uL (1.0-4.8); Lymphocytes % (A) 32 %; MCH 23.8 pg (25.0-35.0); MCHC 31.3 g/dL (31.0-37.0); Mean Platelet Volume 8.7; Microcytosis Slight; Monocytes # (A) 0.3 k/uL (0-1.0); Monocytes % (A) 8 %; Neutrophils # (A) 1.8 k/uL (1.3-7.7); Neutrophils % (A) 54 %; Platelet Count 248 k/uL (150-450); Poikilocytosis Moderate; RBC 3.09 m/uL (4.30-5.90); WBC 3.3 k/uL (3.8-10.6)
[2023-11-15 19:49] LABS: Appearance,Urine Clear (Clear); Bilirubin,Urine Negative (Negative); Blood,Urine Negative (Negative); Color,Urine Colorless; Glucose,Urine (UA) Negative (Negative); Ketones,Urine Negative (Negative); Leukocyte Esterase,Urine Negative (Negative); Nitrite,Urine Negative (Negative); Protein,Urine Negative (Negative); Prothrombin Time 11.2 sec (10.0-12.5); Urobilinogen,Urine <2.0 mg/dL (<2.0)
[2023-11-15 19:55] LABS: African American GFR (CKD) >90 (>60 ml/min/1.73 sqM); Albumin 4.1 g/dL (3.5-5.0); Blood Urea Nitrogen 15 mg/dL (9-20); Carbon Dioxide 27 mmol/L (22-30); Non-African American GFR(CKD) >90 (>60 ml/min/1.73 sqM); Total Bilirubin 0.7 mg/dL (0.2-1.3); Total Protein 6.3 g/dL (6.3-8.2)
[2023-11-15 20:05] LABS: ALT 20 U/L (4-49); AST 28 U/L (17-59); Alkaline Phosphatase 66 U/L (38-126); Anion Gap 6 mmol/L; Calcium 8.6 mg/dL (8.4-10.2); Chloride 105 mmol/L (98-107); Glucose 126 mg/dL (74-99); NT-Pro-B-Type Natriuretic Pept 441 pg/mL; Sodium 138 mmol/L (137-145)
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
--- NOTE | 2023-11-15 20:20 | XR ---
EXAMINATION TYPE: XR chest 2V DATE OF EXAM: 11/15/2023 7:45 PM CLINICAL INDICATION:Male, 68 years old with history of shortness of breath; [facility] COMPARISON: Chest radiographs [id number] TECHNIQUE: XR chest 2V Frontal and lateral views of the chest. FINDINGS: Sternotomy wires in place. Lungs/Pleura: Moderate right pleural effusion seen with suspected associated airspace consolidation i n the right base. Left lung is clear. No pleural effusion. No pneumothorax. Pulmonary vascularity: Unremarkable. Heart/mediastinum: Cardiomediastinal silhouette is unremarkable. Musculoskeletal: No acute osseous pathology. Other findings: None Lines/Tubes: IMPRESSION: Moderate right pleural effusion and suspected associated airspace consolidation
[2023-11-15] MEDS: PANTOPRAZOLE 40 MG/10 ML VIAL IVP ONE (21:04)
--- NOTE | 2023-11-15 21:47 | CT ---
EXAMINATION TYPE: CT angio abdomen pelvis CT DLP: 2636.9 mGycm, Automated exposure control for dose reduction was used. DATE OF EXAM: 11/15/2023 9:14 PM COMPARISON: . . CLINICAL INDICATION:Male, 68 years old with history of GI bleed; PHH, rectal bleeding for 2 weeks TECHNIQUE: Multiple thin slice sub-millimeter images were obtained after administration of contrast. 3-D reconstructed images and maximum intensity projection images were obtained. CT angio abdomen pel vis CT Contrast: Contrast used:100 cc mL of Isovue 370 without and with IV Contrast, Oral contrast used: without Oral Contrast None FINDINGS: Lung bases: There is consolidating process in the right lung base is also effusion. There is either a large hiatal hernia or potentially gastric pull-through. The stomach that is seen above the diaphrag m is not completely imaged. CTA Abdomen and pelvis: The abdominal aorta does not demonstrate aneurysmal dilatation. Minimal scat tered Atherosclerotic plaquing is identified within the abdominal aorta. The origins of the superior mesenteric artery, renal arteries, inferior mesenteric artery, and celiac axis are patent. The kezia c vessels are normal in morphology CTA Lower extremities: Right: The common femoral and superficial femoral arteries are patent. The popliteal artery is patent . Anterior and posterior tibial arteries as well as the peroneal artery are patent. Anterior and post erior tibial arteries cross the ankle. Left: The common femoral and superficial femoral arteries are patent. The popliteal artery is patent. Anterior and posterior tibial arteries as well as the peroneal artery are patent. Anterior and poste rior tibial arteries cross the ankle. LIVER: Unremarkable GALLBLADDER AND BILE DUCTS: Unremarkable. PANCREAS: Unremarkable. SPLEEN: Unremarkable. ADRENAL GLANDS: Unremarkable. KIDNEYS AND URETERS: No evidence of hydronephrosis or renal calculus. The ureters are unremarkable. PELVIS BLADDER: Unremarkable REPRODUCTIVE: Unremarkable. ABDOMEN & PELVIS STOMACH AND BOWEL: No evidence of bowel obstruction. PERITONEUM: No evidence of pneumoperitoneum or free fluid. VASCULATURE: No evidence of aortic aneurysm. MUSCULOSKELETAL: No acute osseous abnormalities LYMPH NODES: No gross evidence for lymphadenopathy. SOFT TISSUE/ABDOMINAL WALL: Unremarkable IMPRESSION 1. No evidence of vascular occlusion. 4 Or, active extravasation. 2. Lung bases: There is consolidating process in the right lung base and also effusion. There is eit her a large hiatal hernia or potentially gastric pull-through. The stomach that is seen above the gogo phragm is not completely imaged. There is no stomach seen below the diaphragm.
[2023-11-15] MEDS ORDERED: ACETAMINOPHEN TAB 325 MG TAB PO PRN (22:42)
[2023-11-15] MEDS ORDERED: HYDROcodone/APAP 5-325MG 1 EACH TAB PO PRN (22:42)
[2023-11-15] MEDS ORDERED: NALOXONE 0.4 MG/ML 1 ML VIAL IV PRN (22:42)
[2023-11-16] MEDS: MAGNESIUM SULFATE-D5W PMX 1 GM in DEXTROSE/WATER 1 100ML.BAG IVPB SCH (00:59)
[2023-11-16 06:44] LABS: Prothrombin Time 10.6 sec (10.0-12.5)
[2023-11-16 06:49] LABS: ALT 19 U/L (4-49); AST 27 U/L (17-59); African American GFR (CKD) >90 (>60 ml/min/1.73 sqM); Albumin 3.7 g/dL (3.5-5.0); Alkaline Phosphatase 56 U/L (38-126); Anion Gap 5 mmol/L; Blood Urea Nitrogen 12 mg/dL (9-20); Calcium 8.4 mg/dL (8.4-10.2); Carbon Dioxide 25 mmol/L (22-30); Chloride 110 mmol/L (98-107); Glucose 126 mg/dL (74-99); Non-African American GFR(CKD) >90 (>60 ml/min/1.73 sqM); Potassium 4.2 mmol/L (3.5-5.1); Sodium 140 mmol/L (137-145); Total Bilirubin 1.1 mg/dL (0.2-1.3); Total Protein 5.9 g/dL (6.3-8.2)
[2023-11-16 06:50] LABS: Basophils % (A) 1 %; Eosinophils # (A) 0.2 k/uL (0-0.7); Eosinophils % (A) 5 %; HCT 26.5 % (39.0-53.0); HGB 8.4 gm/dL (13.0-17.5); Hypochromasia Marked; Lymphocytes # (A) 0.9 k/uL (1.0-4.8); Lymphocytes % (A) 28 %; MCH 24.8 pg (25.0-35.0); MCHC 31.6 g/dL (31.0-37.0); MCV 78.5 fL (80.0-100.0); Mean Platelet Volume 8.6; Monocytes # (A) 0.3 k/uL (0-1.0); Monocytes % (A) 9 %; Neutrophils # (A) 1.7 k/uL (1.3-7.7); Neutrophils % (A) 56 %; Platelet Count 231 k/uL (150-450); Poikilocytosis Moderate; RBC 3.37 m/uL (4.30-5.90); RDW 15.7 % (11.5-15.5); WBC 3.1 k/uL (3.8-10.6)
[2023-11-16] MEDS: PANTOPRAZOLE 40 MG/10 ML VIAL IV SCH (09:05)
--- NOTE | 2023-11-16 10:10 | P.HPIM ---
History of Present Illness Patient is a pleasant 68 years old male with past medical history of multiple medical problems as below Patient was sent by his PCP Dr. Maldonado for low hemoglobin as patient states Patient has been having some shortness of breath for about 1.5-2 weeks especially with exertion when he tried to do stuff but no chest pain He does start having dry cough currently Also has been complaining from some dizziness so he went to see his PCP and he had encounter with his nurse practitioner which ordered some of blood work 2 days later he got a call from his PCP asking him to come to emergency room for low hemoglobin In the emergency room his hemoglobin was 7.4, baseline 6-7, on 11/09 it was 13.2. Currently hemoglobin is 8.4 Patient states he is noted some black stool but yesterday he had 2 brown stools. No fresh blood. No abdominal pain or vomiting or diarrhea. Also he complains from sometimes stomach upset but not currently. 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 Maldonado Vital stable and patient is afebrile Hemoglobin 7.4 and repeat today is 8.4 BMP liver enzymes and troponin are unremarkable proBNP 441 Urine analysis is negative CT of the abdomen and pelvis with IV contrast showing right lung base cons olidation with pleural effusion Patient states he had colonoscopy more than 15 years ago but he does not did not have EGD before Review of Systems Review of systems CONSTITUTIONAL: No fever, no malaise, no fatigue. HEENT: No recent visual problems or hearing problems. Denied any sore throat. CARDIOVASCULAR: No orthopnea, PND, no palpitations, no syncope. PULMONARY: No chest wall tenderness, no hemoptysis. GASTROINTESTINAL: No diarrhea, no nausea, no vomiting, no abdominal pain. Normoactive bowel sounds. NEUROLOGICAL: No headaches, no weakness, no numbness. HEMATOLOGICAL: Denies any bleeding or petechiae. GENITOURINARY: Denies any burning micturition, frequency, or urgency. MUSCULOSKELETAL/RHEUMATOLOGICAL: Denies any joint pain, swelling, or any muscle pain. ENDOCRINE: Denies any polyuria or polydipsia. 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 History of Any Multi-Drug Resistant Organisms: None Reported Past Surgical History: Coronary Bypass/CABG, Heart Catheterization, Hernia Repair, Orthopedic Surgery Additional Past Surgical History / Comment(s): left upper leg surgery(Fx)/pin and jose- jose later removed,ORIF surgery for fx left lower leg Past Anesthesia/Blood Transfusion Reactions: No Reported Reaction, Motion Sickness Additional Past Anesthesia/Blood Transfusion Reaction / Comment(s): no hx blood transfusion Past Psychological History: No Psychological Hx Reported Smoking Status: Former smoker Past Alcohol Use History: Rare Additional Past Alcohol Use History / Comment(s): quit smoking age 30, started smoking age 22. 1 pack every 4 days Past Drug Use History: None Reported - Past Family History Mother Family Medical History: No Reported History Medications and Allergies Home Medications Medication Instructions Recorded Confirmed Type Acetaminophen Tab [Tylenol] 650 mg PO Q6HR PRN tab 11/10/17 05/11/21 Rx Metoprolol Tartrate [Lopressor] 25 mg PO BID #60 tab 11/10/17 05/17/21 Rx Pantoprazole [Protonix] 40 mg PO AC-BRKFST #30 tablet.dr 11/10/17 05/17/21 Rx Aspirin 81 mg PO DAILY 05/11/21 05/17/21 History Ezetimibe [Zetia] 10 mg PO DAILY 05/11/21 05/17/21 History Repaglinide 1 mg PO BID-W/MEALS 05/11/21 05/17/21 History Tamsulosin [Flomax] 0.4 mg PO BID 05/11/21 05/17/21 History metFORMIN HCL [Glucophage] 500 mg PO BID-W/MEALS 05/11/21 05/17/21 History Atorvastatin [Lipitor] 80 mg PO HS 05/17/21 05/17/21 History Allergies Allergy/AdvReac Type Severity Reaction Status Date / Time No Known Allergies Allergy Verified 11/15/23 18:14 Physical Exam Vitals: Vital Signs Temp Pulse Pulse Resp BP BP Pulse Ox 11/16/23 09:21 96 11/16/23 08:56 97.9 F 63 17 133/77 98 11/16/23 04:00 98.5 F 82 16 138/85 98 11/16/23 02:38 97.7 F 72 16 130/79 98 11/16/23 00:35 98.3 F 80 18 133/80 100 11/16/23 00:26 97.9 F 80 18 126/79 99 11/16/23 00:07 97.9 F 80 18 126/85 99 11/16/23 00:01 97.8 F 80 18 120/87 97 11/15/23 23:54 80 18 120/87 97 11/15/23 21:11 69 16 125/78 98 11/15/23 18:12 97.7 F 86 18 151/79 98 Intake and Output 11/15/23 11/16/23 11/16/23 22:59 06:59 14:59 Intake Total 310 Balance 310 Intake: Blood Product 310 Rc As-1 Unit 310 [id number] Other: Voiding Method Toilet # Voids 1 Weight 97.522 kg 97.5 kg GENERAL: The patient is alert and oriented x3, not in any acute distress. Well developed, well nourished. HEENT: Pupils are round and equally reacting to light. EOMI. No scleral icterus. No conjunctival pallor. Normocephalic, atraumatic. No pharyngeal erythema. No thyromegaly. CARDIOVASCULAR: S1 and S2 present. No murmurs, rubs, or gallops. PULMONARY: Chest is clear to auscultation, no wheezing , no crackles. ABDOMEN: Soft, nontender, nondistended, normoactive bowel sounds. No palpable organomegaly. MUSCULOSKELETAL: No joint swelling or deformity. EXTREMITIES: No cyanosis, clubbing, or pedal edema. NEUROLOGICAL: Gross neurological examination did not reveal any focal deficits. SKIN: No rashes. no petechiae. Results CBC & Chem 7: 11/16/23 06:10 11/16/23 06:10 Labs: Abnormal Lab Results - Last 24 Hours (Table) 11/15/23 11/15/23 11/15/23 Range/Units 19:25 19:25 21:55 WBC 3.3 L (3.8-10.6) k/uL RBC 3.09 L (4.30-5.90) m/uL Hgb 7.4 L (13.0-17.5) gm/dL Hct 23.5 L (39.0-53.0) % MCV 76.0 L (80.0-100.0) fL MCH 23.8 L (25.0-35.0) pg RDW (11.5-15.5) % Lymphocytes # (1.0-4.8) k/uL Chloride (98-107) mmol/L Glucose 126 H (74-99) mg/dL Total Protein (6.3-8.2) g/dL Crossmatch See Detail 11/16/23 11/16/23 Range/Units 06:10 06:10 WBC 3.1 L (3.8-10.6) k/uL RBC 3.37 L (4.30-5.90) m/uL Hgb 8.4 L (13.0-17.5) gm/dL Hct 26.5 L (39.0-53.0) % MCV 78.5 L (80.0-100.0) fL MCH 24.8 L (25.0-35.0) pg RDW 15.7 H (11.5-15.5) % Lymphocytes # 0.9 L (1.0-4.8) k/uL Chloride 110 H (98-107) mmol/L Glucose 126 H (74-99) mg/dL Total Protein 5.9 L (6.3-8.2) g/dL Crossmatch Thrombosis Risk Factor Assmnt - Choose All That Apply Any of the Below Risk Factors Present?: Yes Each Factor Represents 1 point: Obesity (BMI >25), Swollen legs (current), Va ricose veins Other Risk Factors: Yes Each Risk Factor Represents 2 Points: Age 61-74 years Each Risk Factor Represents 3 Points: History of DVT/PE Other congenital or acquired thrombophilia - If yes, enter type in comment: No Thrombosis Risk Factor Assessment Total Risk Factor Score: 8 Thrombosis Risk Factor Assessment Level: High Risk Assessment and Plan Assessment: Acute right lower lobe community-acquired pneumonia with mild right pleural effusion, Anemia acute versus chronic. Rule out GI bleed Diabetes mellitus Coronary artery disease s/p CABG x 4 about 6 years ago History of deep venous thrombosis Hypertension Hyperlipidemia BPH Plan: Avoid NSAIDs and blood thinners Monitor hemoglobin and surgery team on the case Continue with Protonix Will do anemia workup including occult blood in the stool Start ceftriaxone and Zithromax Start gentle hydration D5 normal saline at 50 mL/h Check pro- Calcitonin Labs and medication were reviewed.. Continue same treatment. Continue with symptomatic treatment. Resume home medication. Monitor labs and vitals. DVT and GI prophylaxis. Further recommendations as per clinical course of the patient DVT prophylaxis: Avoid subcutaneous heparin for possible GI bleed GI Prophylaxis: Ppi Prognosis is guarded
[2023-11-16] MEDS: DEXTROSE 5%-0.9% NACL 1,000 ML IV SCH (11:11)
[2023-11-16] MEDS: AZITHROMYCIN 500 MG in SODIUM CHLORIDE 0.9% 250 ML IVPB SCH (11:11)
[2023-11-16 11:25] LABS: Glucose,Whole Blood 142 mg/dL (70-110)
[2023-11-16 16:43] LABS: Glucose,Whole Blood 146 mg/dL (70-110)
[2023-11-16] MEDS ORDERED: DEXTROSE 50% SYRINGE 50 ML IVP PRN ×2 (17:06)
[2023-11-16] MEDS: INSULIN ASPART (NovoLOG) 100 UNIT/ML VIAL SQ SCH (17:24)
[2023-11-16 20:18] LABS: Glucose,Whole Blood 139 mg/dL (70-110)
[2023-11-16] MEDS: REPAGLINIDE 1 MG TAB PO SCH (20:37)
[2023-11-16] MEDS: ATORVASTATIN 20 MG TAB PO SCH (20:37)
--- NOTE | 2023-11-17 00:07 | P.CON ---
Consult Note - . Assessment/Plan:: Patient is a 68-year-old gentleman presenting today for low hemoglobin. Patient states that he was sent in by his doctor after having labs drawn a few days ago and was told that his blood is "very low". Patient states over the last 2 weeks he has developed shortness of breath with ambulation, intermittent left-sided chest pain, a "gurgling" in his abdomen, over the last month has had intermittent dark tarry stools. No nausea or vomiting. Not on blood thinners. Does take baby aspirin daily. Endorses intermittent constipation. Denies hematuria or hemoptysis. Denies fevers or chills. Also endorses dizziness with standing suddenly. States resolves once he sits down to rest. - Related Data Home Medications Medication Instructions Recorded Confirmed Aspirin 81 mg PO DAILY 05/11/21 05/17/21 Ezetimibe [Zetia] 10 mg PO DAILY 05/11/21 05/17/21 Repaglinide 1 mg PO BID-W/MEALS 05/11/21 05/17/21 Tamsulosin [Flomax] 0.4 mg PO BID 05/11/21 05/17/21 metFORMIN HCL [Glucophage] 500 mg PO BID-W/MEALS 05/11/21 05/17/21 Atorvastatin [Lipitor] 80 mg PO HS 05/17/21 05/17/21 Previous Rx's Medication Instructions Recorded Acetaminophen Tab [Tylenol] 650 mg PO Q6HR PRN tab 11/10/17 Metoprolol Tartrate [Lopressor] 25 mg PO BID #60 tab 11/10/17 Pantoprazole [Protonix] 40 mg PO AC-BRKFST #30 tablet. 11/10/17 Allergies Allergy/AdvReac Type Severity Reaction Status Date / Time No Known Allergies Allergy Verified 11/15/23 18:14 Review of Systems ROS Statement: Those systems with pertinent positive or pertinent negative responses have been documented in the HPI. ROS Other: All systems not noted in ROS Statement are negative. Constitutional: Denies: fever, chills Cardiovascular: Reports: chest pain (Intermittent left-sided with activity), dyspnea on exertion. Denies: edema Endocrine: Reports: fatigue Gastrointestinal: Reports: constipation, melena. 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 History of Any Multi-Drug Resistant Organisms: None Reported Past Surgical History: Coronary Bypass/CABG, Heart Catheterization, Hernia Repair, Orthopedic Surgery Additional Past Surgical History / Comment(s): left upper leg surgery(Fx)/pin and jose- jose later removed,ORIF surgery for fx left lower leg Past Anesthesia/Blood Transfusion Reactions: No Reported Reaction, Motion Sickness Additional Past Anesthesia/Blood Transfusion Reaction / Comment(s): no hx blood transfusion Past Psychological History: No Psychological Hx Reported Smoking Status: Former smoker Past Alcohol Use History: Rare Past Drug Use History: None Reported - Past Family History Mother Family Medical History: No Reported History General Exam gen: nad cv: rrr pul: non labored breathing abd: soft, protuberant, nondistended, no pain, no guarding or rebound tenderness ext: b/l trace edema in lower extremities 68 yo male w/ dark tarry stools, likely secondary to belkis's lesion large hiatal hernia -given the nature of large hiatal hernia, patient most likely have camerons ulcer. REcommend PPI twice daily, cardiac consult for preop clearance. Will likely take extensive preop planning will defer to foregut surgeon on staff as this is not emergent. Supportive care for now, may need CT surgery to assist with hernia. Explained this to the patient and bedside nurse in detail.
[2023-11-17 06:07] LABS: Glucose,Whole Blood 135 mg/dL (70-110)
[2023-11-17 07:44] LABS: Basophils % (A) 1 %; Eosinophils # (A) 0.2 k/uL (0-0.7); Eosinophils % (A) 6 %; HCT 27.3 % (39.0-53.0); HGB 8.6 gm/dL (13.0-17.5); Hypochromasia Marked; Lymphocytes # (A) 0.9 k/uL (1.0-4.8); Lymphocytes % (A) 27 %; MCH 24.8 pg (25.0-35.0); MCHC 31.6 g/dL (31.0-37.0); MCV 78.4 fL (80.0-100.0); Mean Platelet Volume 7.6; Monocytes # (A) 0.3 k/uL (0-1.0); Monocytes % (A) 7 %; Neutrophils % (A) 57 %; Platelet Count 245 k/uL (150-450); Poikilocytosis Moderate; RBC 3.48 m/uL (4.30-5.90); RDW 15.7 % (11.5-15.5); WBC 3.5 k/uL (3.8-10.6)
[2023-11-17 08:06] LABS: African American GFR (CKD) >90 (>60 ml/min/1.73 sqM); Anion Gap 7 mmol/L; Blood Urea Nitrogen 13 mg/dL (9-20); Calcium 8.2 mg/dL (8.4-10.2); Carbon Dioxide 25 mmol/L (22-30); Chloride 109 mmol/L (98-107); Glucose 115 mg/dL (74-99); Non-African American GFR(CKD) >90 (>60 ml/min/1.73 sqM); Potassium 4.1 mmol/L (3.5-5.1); Sodium 141 mmol/L (137-145)
[2023-11-17] MEDS: TAMSULOSIN 0.4 MG CAP.ER.24H PO SCH (08:41)
[2023-11-17] MEDS: ISOSORBIDE MONONITRATE ER 30 MG TAB.ER.24H PO SCH (08:41)
[2023-11-17] MEDS: METOPROLOL SUCCINATE (ER) 25 MG TAB.ER.24H PO SCH (08:41)
[2023-11-17] MEDS: EZETIMIBE 10 MG TAB PO SCH (08:41)
[2023-11-17] MEDS: ASPIRIN 81 MG PO SCH (08:41)
[2023-11-17 11:27] LABS: Glucose,Whole Blood 124 mg/dL (70-110)
--- NOTE | 2023-11-17 11:57 | US ---
EXAMINATION TYPE: US chest DATE OF EXAM: 11/17/2023 COMPARISON: NONE CLINICAL INDICATION: Male, 68 years old with history of Right pleural effusionj; Right chest TECHNIQUE: Targeted ultrasound of the posterior lower right hemithorax EXAM MEASUREMENTS: Right Pleural Effusion pocket size: 2.7 cm Right skin surface to fluid distance: 3.7 cm Right side marked for possible thoracentesis outside the dept. Pulmonologists are able to review the images in the patient?s EMR. IMPRESSIONS: Right pleural effusion as described above.
--- NOTE | 2023-11-17 12:32 | P.CNPUL ---
History of Present Illness Consult date: 11/17/23 Requesting physician: Remberto Segura Reason for consult: pleural effusion, abnormal CXR/CT Chief complaint: Dark tarry stools, anemia History of present illness: This is a pleasant 68-year-old male patient with a history of coronary artery disease with previous coronary artery bypass grafting, diabetes mellitus, hypertension, hyperlipidemia, gout. He had been having issues with dark stools over the past couple weeks. He is following with his primary care provider who called him yesterday and told him to come to the emergency room for low hemoglobin. His hemoglobin here was 7.4. He did receive 1 unit of packed red blood cells. Current hemoglobin 8.6. White count 3.5. Platelets 245. Sodium 141. Potassium 4.1. Bicarb 25. BUN 13. Creatinine 0.82. Glucose 124. Stool for occult blood is negative. Procalcitonin negative at 0.04. The patient was having some complaints of dyspnea on exertion. Chest x-ray revealed a right pleural effusion and we are consulted for the same. He is seen in the selective care unit sitting up at the bedside. Awake and alert in no acute distress. Maintaining good O2 saturations in the 90s on room air. CT scan of the abdomen revealed no valid evidence of vascular occlusion. There is consolidative process in the right lung base with effusion. There is either a large hiatal hernia or potentially gastric pull-through. Stomach is seen above the diaphragm. Ultrasound of the right chest revealed a small 2.7 cm pocket. Review of Systems REVIEW OF SYSTEMS: CONSTITUTIONAL: Denies any recent significant weight loss or weight gain. EYES: Denies change in vision. EARS, NOSE, MOUTH, THROAT: Denies headaches, denies sore throat. CARDIOVASCULAR: Denies chest pain, palpitations or syncopal episodes. RESPIRATORY: Denies shortness of breath, cough, congestion or hemoptysis. GASTROINTESTINAL: Positive for tarry stools. GENITOURINARY: Denies hematuria, denies infections. MUSKULOSKELETAL: Denies pain, denies swelling. INTEGUMENTARY: Denies rash, denies eczema. NEUROLOGICAL: Denies recent memory loss, no recent seizure activity. PSYCHIATRIC: Denies anxiety, denies depression. HEMATOLOGIC/LYMPHATIC: Positive for anemia, denies enlarged lymph nodes. 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 History of Any Multi-Drug Resistant Organisms: None Reported Past Surgical History: Coronary Bypass/CABG, Heart Catheterization, Hernia Repair, Orthopedic Surgery Additional Past Surgical History / Comment(s): left upper leg surgery(Fx)/pin and jose- jose later removed,ORIF surgery for fx left lower leg Past Anesthesia/Blood Transfusion Reactions: No Reported Reaction, Motion Sickness Additional Past Anesthesia/Blood Transfusion Reaction / Comment(s): no hx blood transfusion Past Psychological History: No Psychological Hx Reported Smoking Status: Former smoker Past Alcohol Use History: Rare Additional Past Alcohol Use History / Comment(s): quit smoking age 30, started smoking age 22. 1 pack every 4 days Past Drug Use History: None Reported - Past Family History Mother Family Medical History: No Reported History Medications and Allergies Home Medications Medication Instructions Recorded Confirmed Type Acetaminophen Tab [Tylenol] 650 mg PO Q6HR PRN tab 11/10/17 11/16/23 Rx Aspirin 81 mg PO DAILY 05/11/21 11/16/23 History Ezetimibe [Zetia] 10 mg PO DAILY 05/11/21 11/16/23 History Repaglinide 1 mg PO BID 05/11/21 11/16/23 History Tamsulosin [Flomax] 0.4 mg PO DAILY 05/11/21 11/16/23 History Atorvastatin [Lipitor] 20 mg PO HS 11/16/23 11/16/23 History Cinnamon Bark [Cinnamon] 2,000 mg PO Q2D 11/16/23 11/16/23 History Isosorbide Mononitrate ER [Imdur] 30 mg PO DAILY 11/16/23 11/16/23 History Losartan [Cozaar] 25 mg PO DAILY 11/16/23 11/16/23 History Metoprolol Succinate (ER) [Toprol 25 mg PO DAILY 11/16/23 11/16/23 History Xl] Midodrine [ProAmatine] 5 mg PO TID PRN 11/16/23 11/16/23 History Pantoprazole [Protonix] 40 mg PO DAILY 11/16/23 11/16/23 History metFORMIN HCL 500 mg PO BID 11/16/23 11/16/23 History Allergies Allergy/AdvReac Type Severity Reaction Status Date / Time No Known Allergies Allergy Verified 11/16/23 12:47 Physical Exam Vitals: Vital Signs Temp Pulse Resp BP Pulse Ox 11/17/23 12:13 63 18 121/73 100 11/17/23 08:35 97.8 F 72 16 144/83 97 11/17/23 04:45 98.2 F 60 18 127/73 98 11/16/23 23:08 98.7 F 73 18 138/88 99 11/16/23 19:58 98.1 F 69 18 152/83 99 11/16/23 16:00 97.5 F L 65 17 118/73 97 Intake and Output 11/16/23 11/17/23 11/17/23 22:59 06:59 14:59 Intake Total 1200 436 Balance 1200 436 Intake: Oral 1200 436 Other: Voiding Method Toilet Toilet Toilet # Voids 3 # Bowel Movements 1 Weight 96.8 kg GENERAL EXAM: Alert, active, 68-year-old male patient, on room air, comfortable in no apparent distress. HEAD: Normocephalic. EYES: Normal reaction of pupils, equal size. NOSE: Clear with pink turbinates. THROAT: No erythema or exudates. NECK: No masses, no JVD. CHEST: No chest wall deformity. LUNGS: Equal air entry with diminished right lung base. CVS: S1 and S2 normal with no audible murmur, regular rhythm. ABDOMEN: No hepatosplenomegaly, normal bowel sounds, no guarding or rigidity. SPINE: No scoliosis or deformity SKIN: No rashes CENTRAL NERVOUS SYSTEM: No focal deficits, tone is normal in all 4 extremities. EXTREMITIES: There is no peripheral edema. No clubbing, no cyanosis. Periphe ral pulses are intact. Results - Laboratory Findings CBC and BMP: 11/17/23 06:24 11/17/23 06:24 PT/INR, D-dimer PT 10.6 sec (10.0-12.5) 11/16/23 06:10 INR 1.0 (<1.2) 11/16/23 06:10 Abnormal lab findings: Abnormal Labs 11/15/23 11/15/23 11/15/23 19:25 19:25 21:55 WBC 3.3 L RBC 3.09 L Hgb 7.4 L Hct 23.5 L MCV 76.0 L MCH 23.8 L RDW Lymphocytes # Chloride Glucose 126 H POC Glucose (mg/dL) Calcium Total Protein Crossmatch See Detail 11/16/23 11/16/23 11/16/23 06:10 06:10 11:22 WBC 3.1 L RBC 3.37 L Hgb 8.4 L Hct 26.5 L MCV 78.5 L MCH 24.8 L RDW 15.7 H Lymphocytes # 0.9 L Chloride 110 H Glucose 126 H POC Glucose (mg/dL) 142 H Calcium Total Protein 5.9 L Crossmatch 11/16/23 11/16/23 11/17/23 16:41 20:17 06:06 WBC RBC Hgb Hct MCV MCH RDW Lymphocytes # Chloride Glucose POC Glucose (mg/dL) 146 H 139 H 135 H Calcium Total Protein Crossmatch 11/17/23 11/17/23 11/17/23 06:24 06:24 11:23 WBC 3.5 L RBC 3.48 L Hgb 8.6 L Hct 27.3 L MCV 78.4 L MCH 24.8 L RDW 15.7 H Lymphocytes # 0.9 L Chloride 109 H Glucose 115 H POC Glucose (mg/dL) 124 H Calcium 8.2 L Total Protein Crossmatch - Diagnostic Findings Chest x-ray: image reviewed Assessment and Plan Assessment: Anemia of unclear etiology. Status post 1 unit of packed red blood cells. Current hemoglobin 8.6. Stool for occult blood negative. Large hiatal hernia, on Protonix Small right-sided pleural effusion. Ultrasound revealed a 2.7 cm pocket. Stable and on room air History of coronary artery disease with previous coronary artery bypass grafting Hyperlipidemia Hypertension History of gout BPH Diabetes mellitus Plan: The patient was seen and evaluated CT scan of the abdomen, chest x-ray, ultrasound of the chest reviewed Medications and labs reviewed Stable and on room air No plans for thoracentesis Surgical services are consulted We will continue to follow and make further recommendations based on his clinical status I have personally seen and examined the patient, performed the documentation and the assessment and plan as written. Number of minutes spent on the visit: 20.
--- NOTE | 2023-11-17 15:02 | P.PN ---
Subjective Progress Note Date: 11/17/23 CHIEF COMPLAINT: Anemia HISTORY OF PRESENT ILLNESS: The patient is a 68-year-old male being followed for anemia, hemoglobin 7.4 on admission. After 1 unit of blood, hemoglobin is now 8.6. He reports having pre-existing open heart surgery. Denies any moderate epigastric pain. He reports his father had ulcers. Otherwise no prior upper endoscopy. Last colonoscopy almost 10 years ago. He does report change in bowel habits. He denies any dysphagia. Denies any active shortness of breath at this time. Denies any gastroesophageal reflux disease. He reports his last blood work at his primary care provider were completely normal. His anemia is completely new. He denies any signs of bleeding: Hematemesis, melena, hematochezia. ROS: No reports of nausea and vomiting. No bowel movements. No fevers or chills. No new chest pain. No productive sputum PHYSICAL EXAM: VITAL SIGNS: Reviewed CONSTITUTIONAL: Well developed and in no acute distress. EYES: Conjuctivae without sclera icterus. Extraocular movements grossly intact. HEAD, EARS, NOSE, THROAT: Moist buccal mucosa. Head is atraumatic, normocephalic. Hears conversational speech. No nasal drainage. Wears glasses. RESPIRATORY: Non-labored respirations and equal bilateral excursions. CARDIOVASCULAR: Palpable 2+ radial pulses. ABDOMEN: Nontender. MUSCULOSKELETAL: No gross deformity of the lower extremities noted. No cl ubbing. No cyanosis. SKIN: Good skin turgor. Well perfused. NEUROLOGIC: Cranial nerves II through XII grossly intact. No focal or lateralizing signs. PSYCH: Appropriate affect. Alert and oriented to person, place and time. CLINICAL LABS: Reviewed. Hemoglobin up 7.4-8.6 after 1 unit. STUDIES: CT of the abdomen pelvis independent review demonstrates intrathoracic paraesophageal hiatal hernia. No acute bleed identified. This is my independent interpretation. ASSESSMENT: 1. Acute blood loss anemia. 2. Paraesophageal hiatal hernia 3. Coronary artery disease PLAN: 1. Recommend upper endoscopy to assess for stress ulcers from paraesophageal hiatal hernia to address his anemia 2. Will need a upper GI with esophagram to elucidate again of volvulus versus mesenteric axial gastric volvulus 3. Do recommend cardiac risk assessment as he may benefit from surgical invention from large paraesophageal hiatal hernia Objective - Vital Signs Vital signs: Vital Signs Temp 97.8 F 11/17/23 08:35 Pulse 63 11/17/23 12:13 Resp 18 11/17/23 12:13 BP 121/73 11/17/23 12:13 Pulse Ox 100 11/17/23 12:13 FiO2 Intake & Output 11/16/23 11/17/23 11/17/23 18:59 06:59 18:59 Intake Total 1310 786 Balance 1310 786 Weight 96.8 kg Intake: Oral 1310 786 Other: Voiding Method Toilet Toilet Toilet # Voids 3 2 # Bowel Movements 1 - Labs CBC & Chem 7: 11/17/23 06:24 11/17/23 06:24 Labs: Abnormal Lab Results - Last 24 Hours (Table) 11/16/23 11/16/23 11/17/23 Range/Units 16:41 20:17 06:06 WBC (3.8-10.6) k/uL RBC (4.30-5.90) m/uL Hgb (13.0-17.5) gm/dL Hct (39.0-53.0) % MCV (80.0-100.0) fL MCH (25.0-35.0) pg RDW (11.5-15.5) % Lymphocytes # (1.0-4.8) k/uL Chloride (98-107) mmol/L Glucose (74-99) mg/dL POC Glucose (mg/dL) 146 H 139 H 135 H (70-110) mg/dL Hemoglobin A1c (<=6.0) % Calcium (8.4-10.2) mg/dL 11/17/23 11/17/23 11/17/23 Range/Units 06:24 06:24 06:24 WBC 3.5 L (3.8-10.6) k/uL RBC 3.48 L (4.30-5.90) m/uL Hgb 8.6 L (13.0-17.5) gm/dL Hct 27.3 L (39.0-53.0) % MCV 78.4 L (80.0-100.0) fL MCH 24.8 L (25.0-35.0) pg RDW 15.7 H (11.5-15.5) % Lymphocytes # 0.9 L (1.0-4.8) k/uL Chloride 109 H (98-107) mmol/L Glucose 115 H (74-99) mg/dL POC Glucose (mg/dL) (70-110) mg/dL Hemoglobin A1c 7.1 H (<=6.0) % Calcium 8.2 L (8.4-10.2) mg/dL 11/17/23 Range/Units 11:23 WBC (3.8-10.6) k/uL RBC (4.30-5.90) m/uL Hgb (13.0-17.5) gm/dL Hct (39.0-53.0) % MCV (80.0-100.0) fL MCH (25.0-35.0) pg RDW (11.5-15.5) % Lymphocytes # (1.0-4.8) k/uL Chloride (98-107) mmol/L Glucose (74-99) mg/dL POC Glucose (mg/dL) 124 H (70-110) mg/dL Hemoglobin A1c (<=6.0) % Calcium (8.4-10.2) mg/dL
[2023-11-17 15:25] LABS: % Iron Saturation 2.99 (15.00-50.00); Ferritin 7.1 ng/mL (22.0-322.0); Iron 14 UG/DL (65-175); Total Iron Binding Capacity 469 UG/DL (228-460)
[2023-11-17 16:25] LABS: Glucose,Whole Blood 228 mg/dL (70-110)
[2023-11-17 20:34] LABS: Glucose,Whole Blood 174 mg/dL (70-110)
[2023-11-17] MEDS: MELATONIN 3 MG TABLET PO PRN (21:20)
--- NOTE | 2023-11-17 22:27 | P.PN ---
Subjective Patient is a pleasant 68 years old male with past medical history of multiple medical problems as below Patient was sent by his PCP Dr. Maldonado for low hemoglobin as patient states Patient has been having some shortness of breath for about 1.5-2 weeks especially with exertion when he tried to do stuff but no chest pain He does start having dry cough currently Also has been complaining from some dizziness so he went to see his PCP and he had encounter with his nurse practitioner which ordered some of blood work 2 days later he got a call from his PCP asking him to come to emergency room for low hemoglobin In the emergency room his hemoglobin was 7.4, baseline 6-7, on 11/09 it was 13.2. Currently hemoglobin is 8.4 Patient states he is noted some black stool but yesterday he had 2 brown stools. No fresh blood. No abdominal pain or vomiting or diarrhea. Also he complains from sometimes stomach upset but not currently. No urinary complaint No headache weakness or numbness He denies smoking alcohol or illicit drugs He was not taking extra pain medication He was not sure what blood thinner or antiplatelet medication was taking at home His dial maker Dr. Varma and PCP Dr. Maldonado Vital stable and patient is afebrile Hemoglobin 7.4 and repeat today is 8.4 BMP liver enzymes and troponin are unremarkable proBNP 441 Urine analysis is negative CT of the abdomen and pelvis with IV contrast showing right lung base consolidation with pleural effusion Patient states he had colonoscopy more than 15 years ago but he does not did not have EGD before 11/16 patient feels better No dyspnea no chest pain Mild occasional coughing No more blood in the stool Hemoglobin 8.4 and 8.6 Anemia workup showing anemia of iron deficiency anemia and replacement started B12 is also low normal and never replaced Surgery team recommend surgical evaluation for paraesophageal hernia and possible EGD to rule out peptic ulcer disease in view of his anemia Patient remains on PPI Procalcitonin is negative. Pneumonia is very unlikely with no acute and le ukocytosis. Stop antibiotic most likely patient has atelectasis in the right lower lung with small pleural effusion Review of systems CONSTITUTIONAL: No fever, no malaise, no fatigue. HEENT: No recent visual problems or hearing problems. Denied any sore throat. CARDIOVASCULAR: No orthopnea, PND, no palpitations, no syncope. PULMONARY: No shortness of breath, no cough, no hemoptysis. GENITOURINARY: Denies any burning micturition, frequency, or urgency. MUSCULOSKELETAL/RHEUMATOLOGICAL: Denies any joint pain, swelling, or any muscle pain. ENDOCRINE: Denies any polyuria or polydipsia. Active Medications Generic Name Dose Route Start Last Admin Trade Name Freq PRN Reason Stop Dose Admin Acetaminophen 650 mg 11/15/23 22:42 Acetaminophen Tab 325 Mg Tab PO Q6HR PRN Mild Pain or Fever > 100.5 Hydrocodone Bitart/Acetaminophen 1 each 11/15/23 22:42 Hydrocodone/Apap 5-325mg 1 Each Tab PO Q6HR PRN Moderate Pain (Scale 4 to 6) Aspirin 81 mg 11/17/23 09:00 11/17/23 08:41 Aspirin 81 Mg PO 81 mg DAILY MARLA Administration Atorvastatin Calcium 20 mg 11/16/23 21:00 11/17/23 21:20 Atorvastatin 20 Mg Tab PO 20 mg HS MARLA Administration Cyanocobalamin 1,000 mcg 11/18/23 09:00 Cyanocobalamin 1,000 Mcg/Ml 1 Ml Vial IM 11/18/23 09:01 DAILY ON LICENSE OF [facility] Cyanocobalamin 1,000 mcg 11/19/23 09:00 Cyanocobalamin 500 Mcg Tab PO DAILY MARLA Dextrose/Water 25 ml 11/16/23 17:06 Dextrose 50% Syringe 50 Ml IVP PER PROTOCOL PRN Hypoglycemia Protocol Dextrose/Water 50 ml 11/16/23 17:06 Dextrose 50% Syringe 50 Ml IVP PER PROTOCOL PRN Hypoglycemia Protocol Ezetimibe 10 mg 11/17/23 09:00 11/17/23 08:41 Ezetimibe 10 Mg Tab PO 10 mg DAILY MARLA Administration Ferrous Sulfate 325 mg 11/18/23 07:30 Ferrous Sulfate 325 Mg Tab PO BID-W/MEALS ON LICENSE OF [facility] Dextrose/Sodium Chloride 1,000 mls @ 50 mls/hr 11/16/23 10:15 11/17/23 12:40 Dextrose 5%-Ns Iv Soln IV Not Given .Q20H ON LICENSE OF [facility] Insulin Aspart 0 unit 11/16/23 17:30 11/17/23 21:19 Insulin Aspart (Novolog) 100 Unit/Ml Vial SQ Not Given ACHS ON LICENSE OF [facility] Protocol Isosorbide Mononitrate 30 mg 11/17/23 09:00 11/17/23 08:41 Isosorbide Mononitrate Er 30 Mg Tab.Er.24h PO 30 mg DAILY ON LICENSE OF [facility] Administration Melatonin 3 mg 11/15/23 22:42 11/17/23 21:20 Melatonin 3 Mg Tablet PO 3 mg HS PRN Administration Insomnia Metoprolol Succinate 25 mg 11/17/23 09:00 11/17/23 08:41 Metoprolol Succinate (Er) 25 Mg Tab.Er.24h PO 25 mg DAILY MARLA Administration Naloxone HCl 0.2 mg 11/15/23 22:42 Naloxone 0.4 Mg/Ml 1 Ml Vial IV Q2M PRN Opioid Reversal Pantoprazole Sodium 40 mg 11/16/23 09:00 11/17/23 08:41 Pantoprazole 40 Mg/10 Ml Vial IV 40 mg DAILY MARLA Administration Repaglinide 1 mg 11/16/23 21:00 11/17/23 21:20 Repaglinide 1 Mg Tab PO 1 mg BID MARLA Administration Tamsulosin HCl 0.4 mg 11/17/23 09:00 11/17/23 08:41 Tamsulosin 0.4 Mg Cap.Er.24h PO 0.4 mg DAILY MARLA Administration Objective - Vital Signs Vital signs: Vital Signs Temp 97.8 F 11/17/23 08:35 Pulse 63 11/17/23 12:13 Resp 18 11/17/23 12:13 BP 121/73 11/17/23 12:13 Pulse Ox 100 11/17/23 12:13 FiO2 Intake & Output 11/16/23 11/17/23 11/17/23 18:59 06:59 18:59 Intake Total 1310 676 Balance 1310 676 Weight 96.8 kg Intake: Oral 1310 676 Other: Voiding Method Toilet Toilet Toilet # Voids 3 2 # Bowel Movements 1 - Exam GENERAL: The patient is alert and oriented x3, not in any acute distress. Well developed, well nourished. HEENT: Pupils are round and equally reacting to light. EOMI. No scleral icterus. No conjunctival pallor. Normocephalic, atraumatic. No pharyngeal erythema. No thyromegaly. CARDIOVASCULAR: S1 and S2 present. No murmurs, rubs, or gallops. PULMONARY: Chest is clear to auscultation, no wheezing , no crackles. ABDOMEN: Soft, nontender, nondistended, normoactive bowel sounds. No palpable organomegaly. MUSCULOSKELETAL: No joint swelling or deformity. EXTREMITIES: No cyanosis, clubbing, or pedal edema. NEUROLOGICAL: Gross neurological examination did not reveal any focal deficits. SKIN: No rashes. no petechiae. - Labs CBC & Chem 7: 11/17/23 06:24 11/17/23 06:24 Labs: Abnormal Lab Results - Last 24 Hours (Table) 11/16/23 11/16/23 11/17/23 Range/Units 16:41 20:17 06:06 WBC (3.8-10.6) k/uL RBC (4.30-5.90) m/uL Hgb (13.0-17.5) gm/dL Hct (39.0-53.0) % MCV (80.0-100.0) fL MCH (25.0-35.0) pg RDW (11.5-15.5) % Lymphocytes # (1.0-4.8) k/uL Chloride (98-107) mmol/L Glucose (74-99) mg/dL POC Glucose (mg/dL) 146 H 139 H 135 H (70-110) mg/dL Calcium (8.4-10.2) mg/dL 11/17/23 11/17/23 11/17/23 Range/Units 06:24 06:24 11:23 WBC 3.5 L (3.8-10.6) k/uL RBC 3.48 L (4.30-5.90) m/uL Hgb 8.6 L (13.0-17.5) gm/dL Hct 27.3 L (39.0-53.0) % MCV 78.4 L (80.0-100.0) fL MCH 24.8 L (25.0-35.0) pg RDW 15.7 H (11.5-15.5) % Lymphocytes # 0.9 L (1.0-4.8) k/uL Chloride 109 H (98-107) mmol/L Glucose 115 H (74-99) mg/dL POC Glucose (mg/dL) 124 H (70-110) mg/dL Calcium 8.2 L (8.4-10.2) mg/dL Assessment and Plan Assessment: Acute right lower lobe atelectasis with mild right pleural effusion, no need for thoracocentesis Anemia acute versus chronic. Rule out GI bleed Iron deficiency anemia and vitamin B12 deficiency anemia Paraesophageal hernia Diabetes mellitus Coronary artery disease s/p CABG x 4 about 6 years ago History of deep venous thrombosis Hypertension Hyperlipidemia BPH Plan: Surgery team recommend EGD and evaluation for paraesophageal hernia Avoid NSAIDs and blood thinners Monitor hemoglobin and surgery team on the case Continue with Protonix Iron and B12 replacement therapy Discontinue antibiotic Start gentle hydration D5 normal saline at 50 mL/h Labs and medication were reviewed.. Continue same treatment. Continue with symptomatic treatment. Resume home medication. Monitor labs and vitals. DVT and GI prophylaxis. Further recommendations as per clinical course of the patient DVT prophylaxis: Avoid subcutaneous heparin for possible GI bleed GI Prophylaxis: Ppi Prognosis is guarded
[2023-11-18] MEDS: FERROUS SULFATE 325 MG TAB PO SCH (00:13)
[2023-11-18 06:15] LABS: Glucose,Whole Blood 138 mg/dL (70-110)
[2023-11-18] MEDS ORDERED: PROPOFOL 10 MG/ML 20 ML VIAL IV ONE (09:08)
[2023-11-18] MEDS: IV FLUID CONTINUATION 1,000 ML IV ONE ×2 (09:09→09:22)
--- NOTE | 2023-11-18 09:26 | P.PCN ---
Date of Procedure: 11/18/23 Description of Procedure: PREOPERATIVE DIAGNOSIS: Acute anemia Status post blood transfusions POSTOPERATIVE DIAGNOSIS: Intrathoracic paraesophageal diaphragmatic hiatal hernia, grade 4 Mesenteric axial gastric volvulus OPERATION: Esophagogastroscopy SURGEON: Lissy Obando MD ANESTHESIA: MAC. INDICATIONS: The patient is a 68-year-old male who presents with acute blood loss anemia. He received blood transfusions. Upper endoscopy was offered for diagnostic assessment of acute ulcers. Benefits and risks of the procedure were described. Informed consent was obtained. DESCRIPTION: The patient was brought into the endoscopy suite and laid in the left lateral decubitus position. An Olympus gastroscope was passed along the posterior oropharynx down to the distal esophagus where the squamocolumnar junction was encountered at 37 cm from the incisors. The stomach was entered and no bile refl ux was found. No bleeding within the stomach was identified. No acute gastric ulcers were found. Due to gastric volvulus with mesenteric as serial rotation, the scope could not enter within the duodenum. Additional findings are listed below. The stomach was desufflated. The patient tolerated the procedure well. FINDINGS: Squamocolumnar junction 37 cm from the incisors. 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 Unable to intubate duodenum due to gastric volvulus RECOMMENDATIONS: 1. Recommend cardiac risk assessment for repair of gastric volvulus and diaphragmatic hiatal hernia 2. Recommend colonoscopy to complete anemia assessment
[2023-11-18] MEDS: CYANOCOBALAMIN 1,000 MCG/ML 1 ML VIAL IM SCH (09:42)
[2023-11-18 11:27] LABS: Glucose,Whole Blood 188 mg/dL (70-110)
--- NOTE | 2023-11-18 13:50 | P.PN ---
Subjective Progress Note Date: 11/18/23 This is a pleasant 68-year-old male patient with a history of coronary artery disease with previous coronary artery bypass grafting, diabetes mellitus, hypertension, hyperlipidemia, gout. He had been having issues with dark stools over the past couple weeks. He is following with his primary care provider who called him yesterday and told him to come to the emergency room for low hemoglobin. His hemoglobin here was 7.4. He did receive 1 unit of packed red blood cells. Current hemoglobin 8.6. White count 3.5. Platelets 245. Sodium 141. Potassium 4.1. Bicarb 25. BUN 13. Creatinine 0.82. Glucose 124. Stool for occult blood is negative. Procalcitonin negative at 0.04. The patient was having some complaints of dyspnea on exertion. Chest x-ray revealed a right pleural effusion and we are consulted for the same. He is seen in the selective care unit sitting up at the bedside. Awake and alert in no acute distress. Maintaining good O2 saturations in the 90s on room air. CT scan of the abdomen revealed no valid evidence of vascular occlusion. There is consolidative process in the right lung base with effusion. There is either a large hiatal hernia or potentially gastric pull-through. Stomach is seen above the diaphragm. Ultrasound of the right chest revealed a small 2.7 cm pocket. The patient is seen today November 18, 2023 in follow-up on the selective care unit. He is currently sitting up in a chair at the bedside. Awake and alert in no acute distress. Maintaining good O2 saturations in the 90s on room air. He did undergo EGD this morning and was found to have intrathoracic paraesophageal diaphragmatic hiatal hernia, grade 4 and mesenteric axial gastric volvulus. Glucose 188. He remains on D5W at 50 MLS per hour. Objective - Vital Signs Vital signs: Vital Signs Temp 98.1 F 11/17/23 19:47 Pulse 67 11/18/23 12:00 Resp 16 11/18/23 12:00 BP 101/63 11/18/23 12:00 Pulse Ox 96 11/18/23 12:00 FiO2 Intake & Output 11/17/23 11/18/23 11/18/23 18:59 06:59 18:59 Intake Total 896 336 Balance 896 336 Weight 97.7 kg Intake: IV 100 Oral 896 236 Other: Voiding Method Toilet Toilet Toilet # Voids 2 2 - Exam GENERAL EXAM: Alert, pleasant 68-year-old male, on room air, up in a chair, in n o apparent distress. HEAD: Normocephalic. EYES: Normal reaction of pupils, equal size. NOSE: Clear with pink turbinates. THROAT: No erythema or exudates. NECK: No masses, no JVD. CHEST: No chest wall deformity. LUNGS: Equal air entry with diminished right lung base. CVS: S1 and S2 normal with no audible murmur, regular rhythm. ABDOMEN: No hepatosplenomegaly, normal bowel sounds, no guarding or rigidity. SPINE: No scoliosis or deformity SKIN: No rashes CENTRAL NERVOUS SYSTEM: No focal deficits, tone is normal in all 4 extremities. EXTREMITIES: There is no peripheral edema. No clubbing, no cyanosis. Peripheral pulses are intact. - Labs CBC & Chem 7: 11/17/23 06:24 11/17/23 06:24 Labs: Abnormal Lab Results - Last 24 Hours (Table) 11/17/23 11/17/23 11/17/23 Range/Units 06:24 16:23 20:32 POC Glucose (mg/dL) 228 H 174 H (70-110) mg/dL Iron 14 L (65-175) UG/DL TIBC 469 H (228-460) UG/DL % Saturation 2.99 L (15.00-50.00) Ferritin 7.1 L (22.0-322.0) ng/mL 11/18/23 11/18/23 Range/Units 06:13 11:26 POC Glucose (mg/dL) 138 H 188 H (70-110) mg/dL Iron (65-175) UG/DL TIBC (228-460) UG/DL % Saturation (15.00-50.00) Ferritin (22.0-322.0) ng/mL Assessment and Plan Assessment: Anemia of unclear etiology. Status post 1 unit of packed red blood cells. Current hemoglobin 8.6. Stool for occult blood negative. Large hiatal hernia, on Protonix. EGD today to 11/18/2023 revealed intrathoracic paraesophageal diaphragmatic hiatal hernia, grade 4. Mesenteric axial gastric volvulus Small right-sided pleural effusion. Ultrasound revealed a 2.7 cm pocket. Stable and on room air History of coronary artery disease with previous coronary artery bypass grafting Hyperlipidemia Hypertension History of gout BPH Diabetes mellitus Plan: The patient was seen and evaluated Currently stable and on room air EGD results reviewed May need surgical repair of the gastric volvulus and diaphragmatic hiatal hernia We will continue to follow I have personally seen and examined the patient, performed the documentation and the assessment and plan as written. Number of minutes spent on the visit: 10.
[2023-11-18 16:53] LABS: Glucose,Whole Blood 143 mg/dL (70-110)
[2023-11-18 20:08] LABS: Glucose,Whole Blood 227 mg/dL (70-110)
--- NOTE | 2023-11-18 23:35 | P.PN ---
Subjective Progress Note Date: 11/18/23 HISTORY OF PRESENT ILLNESS: 68-year-old one of my office patient with active medical history of coronary artery disease post bypass surgery, history of type 2 diabetes, hypertension, hyperlipidemia, chronic lower back pain, history of gout who presented to the hospital on 11/15/2023 with likely GI bleed had very dark tarry stools for the last 2 weeks he was seen in the office and found to have low hemoglobin with send on Saturday his hemoglobin was 7.4 was initiated transfusion initially No GI coverage this week patient was seen general surgery Dr. Obando has not had any colonoscopy last 10 years no recent endoscopy reported no change in bowel habit or dysphagia but has been symptomatic with shortness of breath and increased heartburn last 2 weeks. Hemoglobin was corrected and patient was recommended to do endoscopy. Original assessment with CAT scan of the abdomen showed large hiatal hernia with potential gastric pull-through for gastric outlet syndrome as well. The plan on the finding with the EGD further management might require. REVIEW OF SYSTEMS: CONSTITUTIONAL: Well-developed no acute respiratory distress. EYES: No icterus sclerae, no conjunctivitis. EARS, NOSE, MOUTH, THROAT, and FACE: No sore throat, lymphadenopathy, carotid bruits or deformity. RESPIRATORY: No SOB cough or wheezes. CARDIOVASCULAR: No CP, Palpitation, PND, Orthopnea, or angina. GASTROINTESTINAL: Slight abdominal pain with nausea no vomiting positive change in bowel habits with tarry stool slight large hiatal hernia with possible gastric outlet syndrome. GENITOURINARY: Negative for Hematuria or UTI, no kidney stones. INTEGUMENT/BREAST: Negative for any muscular injury with mild osteoarthritis.. HEMATOLOGIC/LYMPHATIC: Negative for bleed or purpura. MUSCULOSKELTAL: Negative for Myalgia or arthralgia. NEURLOGICAL: No LOC, Sz or syncope, blurred vision dizziness or abnormality.. BEHAVIORAL/PSYCH: Negative. ENDOCRINE: Negative. PHYSICAL EXAMINATION: General Appearance: Alert, cooperative, no distress, appears stated age. Neck HEENT: Supple, no lymphadenopathy, no thyroid enlargement, no carotid bruits. Lungs: Decreased breath sounds specially in the right base positive for rhonchi no crackles or wheezes. Chest Wall: Decreased expansion with deep inspiration no tenderness and no deformity was found on exam, no costochondral pain or discomfort. Heart: Regular rate and rhythm, S1, S2 normal, no murmur, rub or gallop. Back: Symmetric, no curvature, ROM normal, no CVA tenderness. Abdomen: Significant pain and discomfort in the epigastric area no rebound or rigidity. Extremities: Extremities normal, atraumatic, no cyanosis or edema. Pulses: 2+ and symmetric. Skin: Skin color, texture, tugor normal, no rashes or lesions. Neurologic: Alert oriented x3 cranial nerves II through XII intact, no motor deficit, no abnormal balance or gait. ASSESSMENT AND PLAN: _Acute gastrointestinal bleed: Not a clear etiology most likely from hiatal hernia or peptic ulcer disease, patient was hospitalized continue PPI seen general surgery for possible endoscopy. _Acute blood loss anemia: Posttransfusion continue to watch hemoglobin every day. _Large hiatal hernia with possible gastric outlet syndrome again not clear etiology might require intervention eventually. _Right-sided pleural effusion: Ultrasound shows 2.7 cm pocket stable at this point does not require any thoracentesis. _Coronary artery disease post open heart surgery in the past has been doing well seeing cardiology on regular basis. _Blood 2 diabetes: Has been on metformin and Prandin Accu-Cheks sliding scales coverage for now hold off on medication. _Hypertension: Was slightly hypotensive using midodrine to keep his blood pressure systolic above 120 he is remain on losartan and metoprolol along with isosorbide mononitrate. _Hyperlipidemia: Still on atorvastatin and Zetia continue current medication. _BPH with no sign of urinary retention remain on Flomax. _Severe GERD: Has been on pantoprazole 40 mg daily. _Gout: With no acute attack has been stable no need for any active or acute medication. _GI prophylaxis: Remain on pantoprazole. CODE STATUS: Full code. Objective - Vital Signs Vital signs: Vital Signs Temp 98.1 F 11/17/23 19:47 Pulse 63 11/18/23 04:05 Resp 16 11/18/23 04:05 BP 120/75 11/18/23 04:05 Pulse Ox 98 11/18/23 04:05 FiO2 Intake & Output 11/17/23 11/17/23 11/18/23 06:59 18:59 06:59 Intake Total 896 Balance 896 Weight 96.8 kg 97.7 kg Intake: Oral 896 Other: Voiding Method Toilet Toilet Toilet # Voids 2 2 - Labs CBC & Chem 7: 11/17/23 06:24 11/17/23 06:24 Labs: Abnormal Lab Results - Last 24 Hours (Table) 11/17/23 11/17/23 11/17/23 Range/Units 06:06 06:24 06:24 WBC 3.5 L (3.8-10.6) k/uL RBC 3.48 L (4.30-5.90) m/uL Hgb 8.6 L (13.0-17.5) gm/dL Hct 27.3 L (39.0-53.0) % MCV 78.4 L (80.0-100.0) fL MCH 24.8 L (25.0-35.0) pg RDW 15.7 H (11.5-15.5) % Lymphocytes # 0.9 L (1.0-4.8) k/uL Chloride (98-107) mmol/L Glucose (74-99) mg/dL POC Glucose (mg/dL) 135 H (70-110) mg/dL Hemoglobin A1c 7.1 H (<=6.0) % Calcium (8.4-10.2) mg/dL Iron (65-175) UG/DL TIBC (228-460) UG/DL % Saturation (15.00-50.00) Ferritin (22.0-322.0) ng/mL 11/17/23 11/17/23 11/17/23 Range/Units 06:24 11:23 16:23 WBC (3.8-10.6) k/uL RBC (4.30-5.90) m/uL Hgb (13.0-17.5) gm/dL Hct (39.0-53.0) % MCV (80.0-100.0) fL MCH (25.0-35.0) pg RDW (11.5-15.5) % Lymphocytes # (1.0-4.8) k/uL Chloride 109 H (98-107) mmol/L Glucose 115 H (74-99) mg/dL POC Glucose (mg/dL) 124 H 228 H (70-110) mg/dL Hemoglobin A1c (<=6.0) % Calcium 8.2 L (8.4-10.2) mg/dL Iron 14 L (65-175) UG/DL TIBC 469 H (228-460) UG/DL % Saturation 2.99 L (15.00-50.00) Ferritin 7.1 L (22.0-322.0) ng/mL 11/17/23 Range/Units 20:32 WBC (3.8-10.6) k/uL RBC (4.30-5.90) m/uL Hgb (13.0-17.5) gm/dL Hct (39.0-53.0) % MCV (80.0-100.0) fL MCH (25.0-35.0) pg RDW (11.5-15.5) % Lymphocytes # (1.0-4.8) k/uL Chloride (98-107) mmol/L Glucose (74-99) mg/dL POC Glucose (mg/dL) 174 H (70-110) mg/dL Hemoglobin A1c (<=6.0) % Calcium (8.4-10.2) mg/dL Iron (65-175) UG/DL TIBC (228-460) UG/DL % Saturation (15.00-50.00) Ferritin (22.0-322.0) ng/mL
[2023-11-19 05:54] LABS: Glucose,Whole Blood 128 mg/dL (70-110)
[2023-11-19 07:46] LABS: Anisocytosis Slight; HCT 28.6 % (39.0-53.0); HGB 8.7 gm/dL (13.0-17.5); Hypochromasia Marked; MCHC 30.3 g/dL (31.0-37.0); MCV 79.3 fL (80.0-100.0); Mean Platelet Volume 8.2; Platelet Count 217 k/uL (150-450); Poikilocytosis Moderate; RDW 16.5 % (11.5-15.5); WBC 3.5 k/uL (3.8-10.6)
[2023-11-19] MEDS: CYANOCOBALAMIN 500 MCG TAB PO SCH (08:36)
[2023-11-19 08:45] LABS: ALT 20 U/L (4-49); AST 25 U/L (17-59); African American GFR (CKD) >90 (>60 ml/min/1.73 sqM); Alkaline Phosphatase 57 U/L (38-126); Anion Gap 8 mmol/L; Blood Urea Nitrogen 12 mg/dL (9-20); Calcium 8.5 mg/dL (8.4-10.2); Carbon Dioxide 23 mmol/L (22-30); Chloride 110 mmol/L (98-107); Glucose 120 mg/dL (74-99); Non-African American GFR(CKD) >90 (>60 ml/min/1.73 sqM); Potassium 4.2 mmol/L (3.5-5.1); Sodium 141 mmol/L (137-145); Total Bilirubin 0.7 mg/dL (0.2-1.3); Total Protein 6.2 g/dL (6.3-8.2)
[2023-11-19 11:38] LABS: Glucose,Whole Blood 103 mg/dL (70-110)
--- NOTE | 2023-11-19 13:34 | P.CRDCN ---
History of Present Illness Consult date: 11/19/23 History of present illness: HISTORY OF PRESENTING ILLNESS 68-year-old male known to Dr. Varma. He has a prior history of CAD s/p CABG. He had a heart cath in 2021 which showed patent OMAR to LCx and OMAR to LAD with severe [place] vessel disease. Patient presented to the hospital because of increased worsening shortness of breath for last 1 to 2 weeks. He reports that he is able to walk 1 mile without any limitations but going up 1 flight of stairs make him short of breath. If he carries a load with him while walking he gets short of breath. He had labs done with his primary care physician which showed a hemoglobin of 7.4. Due to this he was sent to the hospital where he got 1 unit of blood transfusion. He underwent upper GI endoscopy which showed hiatal hernia and he is being evaluated for possible hiatal hernia surgery. Cardiology is consulted for perioperative cardiac risk assessment. Patient is ECG shows sinus rhythm with right bundle branch block Patient's chest x-ray does not show signs of pulmonary congestion Hemoglobin 8.7, platelets 217, BUN 12, creatinine 0.8, iron 14, TIBC is high, ferritin is very low 7.1. REVIEW OF SYSTEMS 14 point review of system is negative except what is mentioned above in HPI. PHYSICAL EXAMINATION Vital signs reviewed. Head: Normocephalic. Eyes: Sclerae nonicteric. Neck: Brisk carotid upstroke, no jugular venous distention. Lungs: Clear to auscultation. Heart: Regular rate and rhythm, S1-S2, no S3, mild systolic murmur or rub. Abdomen: Soft nontender, positive bowel sounds. Extremities: No edema, intact distal pulses. Neuro: Alert, oritented, no focal deficits. Detailed neuro exam was not performed. ASSESSMENT Perioperative cardiac risk assessment for hiatal hernia surgery Acute symptomatic anemia Iron deficiency Hiatal hernia with erosive gastritis PLAN Continue aspirin 81 mg, Lipitor 20, Zetia 10, Imdur 30, metoprolol succinate 25 mg daily. Patient's blood pressure and heart rate is optimally controlled. There is no concerns of any arrhythmias or any congestive heart failure or any acute ischemia at this time. We will obtain an echocardiogram during this hospitalization. Will obtain last stress test on the clinic Would recommend IV iron supplementation Further recommendations to follow after reviewing echo and stress test reports Misha Delgadillo MD, FACC, RPVI Thank you for allowing [facility] to participate in this patient's care. Feel free to reach out in case of any followup questions. 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 History of Any Multi-Drug Resistant Organisms: None Reported Past Surgical History: Coronary Bypass/CABG, Heart Catheterization, Hernia Repair, Orthopedic Surgery Additional Past Surgical History / Comment(s): left upper leg surgery(Fx)/pin and jose- jose later removed,ORIF surgery for fx left lower leg Past Anesthesia/Blood Transfusion Reactions: No Reported Reaction, Motion Sickness Additional Past Anesthesia/Blood Transfusion Reaction / Comment(s): no hx blood transfusion Past Psychological History: No Psychological Hx Reported Smoking Status: Former smoker Past Alcohol Use History: Rare Additional Past Alcohol Use History / Comment(s): quit smoking age 30, started smoking age 22. 1 pack every 4 days Past Drug Use History: None Reported - Past Family History Mother Family Medical History: No Reported History Medications and Allergies Home Medications Medication Instructions Recorded Confirmed Type Acetaminophen Tab [Tylenol] 650 mg PO Q6HR PRN tab 11/10/17 11/16/23 Rx Aspirin 81 mg PO DAILY 05/11/21 11/16/23 History Ezetimibe [Zetia] 10 mg PO DAILY 05/11/21 11/16/23 History Repaglinide 1 mg PO BID 05/11/21 11/16/23 History Tamsulosin [Flomax] 0.4 mg PO DAILY 05/11/21 11/16/23 History Atorvastatin [Lipitor] 20 mg PO HS 11/16/23 11/16/23 History Cinnamon Bark [Cinnamon] 2,000 mg PO Q2D 11/16/23 11/16/23 History Isosorbide Mononitrate ER [Imdur] 30 mg PO DAILY 11/16/23 11/16/23 History Losartan [Cozaar] 25 mg PO DAILY 11/16/23 11/16/23 History Metoprolol Succinate (ER) [Toprol 25 mg PO DAILY 11/16/23 11/16/23 History Xl] Midodrine [ProAmatine] 5 mg PO TID PRN 11/16/23 11/16/23 History Pantoprazole [Protonix] 40 mg PO DAILY 11/16/23 11/16/23 History metFORMIN HCL 500 mg PO BID 11/16/23 11/16/23 History Allergies Allergy/AdvReac Type Severity Reaction Status Date / Time No Known Allergies Allergy Verified 11/16/23 12:47 Physical Exam Vitals: Vital Signs Temp Pulse Resp BP Pulse Ox 11/19/23 11:49 58 L 16 109/72 97 11/19/23 08:00 65 16 121/73 97 11/19/23 03:46 68 18 118/61 97 11/18/23 23:00 60 14 117/68 96 11/18/23 20:55 97.9 F 61 18 121/72 97 11/18/23 16:00 65 16 95/55 97 Intake and Output 11/18/23 11/19/23 11/19/23 22:59 06:59 14:59 Intake Total 118 118 Balance 118 118 Intake: Oral 118 118 Other: Voiding Method Toilet Toilet Toilet # Voids 1 Weight 97.7 kg Results 11/19/23 06:56 11/19/23 06:56 Cardiac Enzymes 11/19/23 Range/Units 06:56 AST 25 (17-59) U/L CBC 11/19/23 Range/Units 06:56 WBC 3.5 L (3.8-10.6) k/uL RBC 3.60 L (4.30-5.90) m/uL Hgb 8.7 L (13.0-17.5) gm/dL Hct 28.6 L (39.0-53.0) % Plt Count 217 (150-450) k/uL Comprehensive Metabolic Panel 11/19/23 Range/Units 06:56 Sodium 141 (137-145) mmol/L Potassium 4.2 (3.5-5.1) mmol/L Chloride 110 H (98-107) mmol/L Carbon Dioxide 23 (22-30) mmol/L BUN 12 (9-20) mg/dL Creatinine 0.80 (0.66-1.25) mg/dL Glucose 120 H (74-99) mg/dL Calcium 8.5 (8.4-10.2) mg/dL AST 25 (17-59) U/L ALT 20 (4-49) U/L Alkaline Phosphatase 57 (38-126) U/L Total Protein 6.2 L (6.3-8.2) g/dL Albumin 4.0 (3.5-5.0) g/dL Current Medications Generic Name Dose Route Start Last Admin Trade Name Freq PRN Reason Stop Dose Admin Acetaminophen 650 mg 11/15/23 22:42 Acetaminophen Tab 325 Mg Tab PO Q6HR PRN Mild Pain or Fever > 100.5 Hydrocodone Bitart/Acetaminophen 1 each 11/15/23 22:42 Hydrocodone/Apap 5-325mg 1 Each Tab PO Q6HR PRN Moderate Pain (Scale 4 to 6) Aspirin 81 mg 11/17/23 09:00 11/19/23 08:36 Aspirin 81 Mg PO 81 mg DAILY MARLA Administration Atorvastatin Calcium 20 mg 11/16/23 21:00 11/18/23 21:02 Atorvastatin 20 Mg Tab PO 20 mg HS MARLA Administration Cyanocobalamin 1,000 mcg 11/19/23 09:00 11/19/23 08:36 Cyanocobalamin 500 Mcg Tab PO 1,000 mcg DAILY MARLA Administration Dextrose/Water 25 ml 11/16/23 17:06 Dextrose 50% Syringe 50 Ml IVP PER PROTOCOL PRN Hypoglycemia Protocol Dextrose/Water 50 ml 11/16/23 17:06 Dextrose 50% Syringe 50 Ml IVP PER PROTOCOL PRN Hypoglycemia Protocol Ezetimibe 10 mg 11/17/23 09:00 11/19/23 08:36 Ezetimibe 10 Mg Tab PO 10 mg DAILY MARLA Administration Ferrous Sulfate 325 mg 11/18/23 07:30 11/19/23 06:40 Ferrous Sulfate 325 Mg Tab PO 325 mg BID-W/MEALS MARLA Administration Dextrose/Sodium Chloride 1,000 mls @ 50 mls/hr 11/16/23 10:15 11/18/23 21:02 Dextrose 5%-Ns Iv Soln IV Not Given .Q20H [facility] Insulin Aspart 0 unit 11/16/23 17:30 11/19/23 11:46 Insulin Aspart (Novolog) 100 Unit/Ml Vial SQ Not Given ACHS [facility] Protocol Isosorbide Mononitrate 30 mg 11/17/23 09:00 11/19/23 08:36 Isosorbide Mononitrate Er 30 Mg Tab.Er.24h PO 30 mg DAILY [facility] Administration Melatonin 3 mg 11/15/23 22:42 11/17/23 21:20 Melatonin 3 Mg Tablet PO 3 mg HS PRN Administration Insomnia Metoprolol Succinate 25 mg 11/17/23 09:00 11/19/23 08:36 Metoprolol Succinate (Er) 25 Mg Tab.Er.24h PO 25 mg DAILY MARLA Administration Naloxone HCl 0.2 mg 11/15/23 22:42 Naloxone 0.4 Mg/Ml 1 Ml Vial IV Q2M PRN Opioid Reversal Pantoprazole Sodium 40 mg 11/16/23 09:00 11/19/23 08:35 Pantoprazole 40 Mg/10 Ml Vial IV 40 mg DAILY MARLA Administration Repaglinide 1 mg 11/16/23 21:00 11/19/23 08:36 Repaglinide 1 Mg Tab PO 1 mg BID MARLA Administration Tamsulosin HCl 0.4 mg 11/17/23 09:00 11/19/23 08:36 Tamsulosin 0.4 Mg Cap.Er.24h PO 0.4 mg DAILY MARLA Administration Intake and Output 11/18/23 11/19/23 11/19/23 22:59 06:59 14:59 Intake Total 118 118 Balance 118 118 Intake: Oral 118 118 Other: Voiding Method Toilet Toilet Toilet # Voids 1 Weight 97.7 kg 11/19/23 06:56 11/19/23 06:56
--- NOTE | 2023-11-19 13:50 | P.PN ---
Subjective Progress Note Date: 11/19/23 This is a pleasant 68-year-old male patient with a history of coronary artery disease with previous coronary artery bypass grafting, diabetes mellitus, hypertension, hyperlipidemia, gout. He had been having issues with dark stools over the past couple weeks. He is following with his primary care provider who called him yesterday and told him to come to the emergency room for low hemoglobin. His hemoglobin here was 7.4. He did receive 1 unit of packed red blood cells. Current hemoglobin 8.6. White count 3.5. Platelets 245. Sodium 141. Potassium 4.1. Bicarb 25. BUN 13. Creatinine 0.82. Glucose 124. Stool for occult blood is negative. Procalcitonin negative at 0.04. The patient was having some complaints of dyspnea on exertion. Chest x-ray revealed a right pleural effusion and we are consulted for the same. He is seen in the selective care unit sitting up at the bedside. Awake and alert in no acute distress. Maintaining good O2 saturations in the 90s on room air. CT scan of the abdomen revealed no valid evidence of vascular occlusion. There is consolidative process in the right lung base with effusion. There is either a large hiatal hernia or potentially gastric pull-through. Stomach is seen above the diaphragm. Ultrasound of the right chest revealed a small 2.7 cm pocket. The patient is seen today November 18, 2023 in follow-up on the selective care unit. He is currently sitting up in a chair at the bedside. Awake and alert in no acute distress. Maintaining good O2 saturations in the 90s on room air. He did undergo EGD this morning and was found to have intrathoracic paraesophageal diaphragmatic hiatal hernia, grade 4 and mesenteric axial gastric volvulus. Glucose 188. He remains on D5W at 50 MLS per hour. The patient is seen today November 19, 2023 in follow-up on the selective care unit. He is up ambulating in his room. Awake and alert in no acute distress. Maintaining O2 saturations in the 90s on room air. White count 3.5. Hemoglobin 8.7. Platelets 217. Sodium 141. Potassium 4.2. Bicarb 23. BUN 12. Creatinine 0.80. Glucose 120. Plan is for colonoscopy tomorrow. Objective - Vital Signs Vital signs: Vital Signs Temp 97.9 F 11/18/23 20:55 Pulse 58 L 11/19/23 11:49 Resp 16 11/19/23 11:49 BP 109/72 11/19/23 11:49 Pulse Ox 97 11/19/23 11:49 FiO2 Intake & Output 11/18/23 11/19/23 11/19/23 18:59 06:59 18:59 Intake Total 454 118 Balance 454 118 Weight 97.7 kg Intake: IV 100 Oral 354 118 Other: Voiding Method Toilet Toilet Toilet # Voids 1 - Exam GENERAL EXAM: Alert, pleasant 68-year-old male, on room air, ambulating in his room, in no apparent distress. HEAD: Normocephalic. EYES: Normal reaction of pupils, equal size. NOSE: Clear with pink turbinates. THROAT: No erythema or exudates. NECK: No masses, no JVD. CHEST: No chest wall deformity. LUNGS: Equal air entry with diminished right lung base. CVS: S1 and S2 normal with no audible murmur, regular rhythm. ABDOMEN: No hepatosplenomegaly, normal bowel sounds, no guarding or rigidity. SPINE: No scoliosis or deformity SKIN: No rashes CENTRAL NERVOUS SYSTEM: No focal deficits, tone is normal in all 4 extremities. EXTREMITIES: There is no peripheral edema. No clubbing, no cyanosis. Peripheral pulses are intact. - Labs CBC & Chem 7: 11/19/23 06:56 11/19/23 06:56 Labs: Abnormal Lab Results - Last 24 Hours (Table) 11/18/23 11/18/23 11/19/23 Range/Units 16:51 20:06 05:53 WBC (3.8-10.6) k/uL RBC (4.30-5.90) m/uL Hgb (13.0-17.5) gm/dL Hct (39.0-53.0) % MCV (80.0-100.0) fL MCH (25.0-35.0) pg MCHC (31.0-37.0) g/dL RDW (11.5-15.5) % Chloride (98-107) mmol/L Glucose (74-99) mg/dL POC Glucose (mg/dL) 143 H 227 H 128 H (70-110) mg/dL Total Protein (6.3-8.2) g/dL 11/19/23 11/19/23 Range/Units 06:56 06:56 WBC 3.5 L (3.8-10.6) k/uL RBC 3.60 L (4.30-5.90) m/uL Hgb 8.7 L (13.0-17.5) gm/dL Hct 28.6 L (39.0-53.0) % MCV 79.3 L (80.0-100.0) fL MCH 24.0 L (25.0-35.0) pg MCHC 30.3 L (31.0-37.0) g/dL RDW 16.5 H (11.5-15.5) % Chloride 110 H (98-107) mmol/L Glucose 120 H (74-99) mg/dL POC Glucose (mg/dL) (70-110) mg/dL Total Protein 6.2 L (6.3-8.2) g/dL Assessment and Plan Assessment: Anemia of unclear etiology. Status post 1 unit of packed red blood cells. Current hemoglobin 8.7. Stool for occult blood negative. Large hiatal hernia, on Protonix. EGD today to 11/18/2023 revealed intrathoracic paraesophageal diaphragmatic hiatal hernia, grade 4. Mesenteric axial gastric volvulus Small right-sided pleural effusion. Ultrasound revealed a 2.7 cm pocket. Stable and on room air History of coronary artery disease with previous coronary artery bypass grafting Hyperlipidemia Hypertension History of gout BPH Diabetes mellitus Plan: The patient was seen and evaluated Currently stable and on room air Plan is for colonoscopy tomorrow We will continue to follow I have personally seen and examined the patient, performed the documentation and the assessment and plan as written. Number of minutes spent on the visit: 10.
--- NOTE | 2023-11-19 14:07 | P.PN ---
Subjective Progress Note Date: 11/19/23 CHIEF COMPLAINT: Anemia HISTORY OF PRESENT ILLNESS: Patient is status post EGD which reported intrathoracic paraesophageal diaphragmatic hiatal hernia grade 4, mesenteric axial gastric volvulus and erosive gastritis. Patient denies any abdominal pain. Denies any blood in his stools. Denies any nausea or vomiting. Vital stable WBC is 3.5 Hgb 8.7 PHYSICAL EXAM: VITAL SIGNS: Reviewed GENERAL: Well-developed in no acute distress. HEENT: No sclera icterus. Extraocular movements grossly intact. Moist buccal mucosa. Head is atraumatic, normocephalic. Hears conversational speech. No nasal drainag e. NECK: Supple without lymphadenopathy. CHEST: Non-labored respirations and equal bilateral excursions. CARDIOVASCULAR: Palpable 2+ radial pulses. ABDOMEN: Soft. Nondistended. Nontender. MUSCULOSKELETAL: No clubbing or cyanosis. NEUROLOGIC: No focal or lateralizing signs. Cranial nerves II through XII grossly intact. PSYCH: Appropriate affect. Alert and oriented to person, place and time. SKIN: Well perfused. Good skin turgor. ASSESSMENT: 1. Acute blood loss anemia requiring blood transfusions 2. Intrathoracic paraesophageal diaphragmatic hiatal hernia, grade 4 3. Mesenteric axial gastric volvulus 4. Erosive esophagitis PLAN: -Patient scheduled for colonoscopy tomorrow, 11/20/[address] Obando -Start GoLytely bowel prep with lactulose -Clear liquids today -N.p.o. after midnight -Continue Protonix Physician Resident Manager note has been reviewed by physician. Signing provider agrees with the documented findings, assessment, and plan of care. Objective - Vital Signs Vital signs: Vital Signs Temp 97.9 F 11/18/23 20:55 Pulse 58 L 11/19/23 11:49 Resp 16 11/19/23 11:49 BP 109/72 11/19/23 11:49 Pulse Ox 97 11/19/23 11:49 FiO2 Intake & Output 11/18/23 11/19/23 11/19/23 18:59 06:59 18:59 Intake Total 454 118 Balance 454 118 Weight 97.7 kg Intake: IV 100 Oral 354 118 Other: Voiding Method Toilet Toilet Toilet # Voids 1 - Labs CBC & Chem 7: 11/19/23 06:56 11/19/23 06:56 Labs: Abnormal Lab Results - Last 24 Hours (Table) 11/18/23 11/18/23 11/19/23 Range/Units 16:51 20:06 05:53 WBC (3.8-10.6) k/uL RBC (4.30-5.90) m/uL Hgb (13.0-17.5) gm/dL Hct (39.0-53.0) % MCV (80.0-100.0) fL MCH (25.0-35.0) pg MCHC (31.0-37.0) g/dL RDW (11.5-15.5) % Chloride (98-107) mmol/L Glucose (74-99) mg/dL POC Glucose (mg/dL) 143 H 227 H 128 H (70-110) mg/dL Total Protein (6.3-8.2) g/dL 11/19/23 11/19/23 Range/Units 06:56 06:56 WBC 3.5 L (3.8-10.6) k/uL RBC 3.60 L (4.30-5.90) m/uL Hgb 8.7 L (13.0-17.5) gm/dL Hct 28.6 L (39.0-53.0) % MCV 79.3 L (80.0-100.0) fL MCH 24.0 L (25.0-35.0) pg MCHC 30.3 L (31.0-37.0) g/dL RDW 16.5 H (11.5-15.5) % Chloride 110 H (98-107) mmol/L Glucose 120 H (74-99) mg/dL POC Glucose (mg/dL) (70-110) mg/dL Total Protein 6.2 L (6.3-8.2) g/dL
--- NOTE | 2023-11-19 15:19 | CA ---
Transthoracic Echo Report Name: Micah Castro Age: 68 Gender: M : 1955 Exam Date: 11/19/2023 09:45 Exam Location: [facility] Ht (in): 71 Wt (lb): 215 Ordering Physician: Davey Bauer MD Attending/Referring Phys: Multimedia Coordinator Henny Pinzon RDCS Procedure CPT: Indications: lvfunction Cardiac Hx: CABG Technical Quality: Technically difficult study Contrast 1: Definity Total Dose (mL): 2 Contrast 2: Total Dose (mL): MEASUREMENTS (Male / Female) Normal Values 2D ECHO LV Diastolic Diameter PLAX 4.9 cm 4.2 - 5.9 / 3.9 - 5.3 cm LV Systolic Diameter PLAX 3.9 cm IVS Diastolic Thickness 1.2 cm 0.6 - 1.0 / 0.6 - 0.9 cm LVPW Diastolic Thickness 1.0 cm 0.6 - 1.0 / 0.6 - 0.9 cm LV Relative Wall Thickness 0.4 RV Internal Dim ED PLAX 3.3 cm LA Systolic Diameter LX 3.2 cm 3.0 - 4.0 / 2.7 - 3.8 cm LA Volume 86.3 cm??? 18 - 58 / 22 - 52 cm??? LA Volume Index 38.6 cm???/m??? 16 - 28 cm???/m??? M-MODE Aortic Root Diameter MM 3.5 cm AV Cusp Separation MM 1.9 cm DOPPLER AV Peak Velocity 136.2 cm/s AV Peak Gradient 7.4 mmHg MV Area PHT 3.7 cm??? Mitral E Point Velocity 96.3 cm/s Mitral A Point Velocity 63.2 cm/s Mitral E to A Ratio 1.5 MV Deceleration Time 204.9 ms TR Peak Velocity 275.1 cm/s TR Peak Gradient 30.3 mmHg Right Ventricular Systolic Press 35.3 mmHg FINDINGS Left Ventricle Left ventricular ejection fraction is estimated at 40-45 %. Left ventricular cavity size normal. Mildly increased septal wall thickness. No obvious regional wall motion abnormalities. Right Ventricle Mild right ventricular dilatation. Mild pulmonary hypertension. Right Atrium Right atrium not well visualized. Left Atrium Moderately increased left atrial volume. Mildly increased left atrial area. Mitral Valve Structurally normal mitral valve. No mitral stenosis, regurgitation or prolapse. Aortic Valve Trileaflet aortic valve. No aortic valve stenosis or regurgitation. Tricuspid Valve Structurally normal tricuspid valve. Mild tricuspid regurgitation. Pulmonic Valve Structurally normal pulmonic valve. Trace to mild pulmonic regurgitation. Pericardium No pericardial effusion. Aorta Normal size aortic root and proximal ascending aorta. CONCLUSIONS Diagnosis: Congestive heart failure shortness of breath on exertion Dilated left ventricle with reduced LV systolic function ejection fraction 40- 45% without wall motion abnormalities Mildly enlarged right ventricle without significant elevation of RVSP Left atrial enlargement Previewed by: Dr. Andrés Bradley MD (Electronically Signed) Final Date: 19 November 2023 15:18
[2023-11-19] MEDS: LACTULOSE 20 GM/30 ML CUP PO ONE (15:41)
[2023-11-19] MEDS: PEG 3350 (236 GM/BTL) + LYTES 4,000 ML BOTTLE PO ONE (15:41)
[2023-11-19 16:29] LABS: Glucose,Whole Blood 149 mg/dL (70-110)
[2023-11-19] MEDS: MAGNESIUM HYDROXIDE 2,400 MG/30 ML CUP PO STA (17:44)
[2023-11-19 20:23] LABS: Glucose,Whole Blood 134 mg/dL (70-110)
--- NOTE | 2023-11-20 05:33 | P.PN ---
Subjective Progress Note Date: 11/19/23 HISTORY OF PRESENT ILLNESS: 68-year-old one of my office patient with active medical history of coronary artery disease post bypass surgery, history of type 2 diabetes, hypertension, hyperlipidemia, chronic lower back pain, history of gout who presented to the hospital on 11/15/2023 with likely GI bleed had very dark tarry stools for the last 2 weeks he was seen in the office and found to have low hemoglobin with send on Saturday his hemoglobin was 7.4 was initiated transfusion initially No GI coverage this week patient was seen general surgery Dr. Obando has not had any colonoscopy last 10 years no recent endoscopy reported no change in bowel habit or dysphagia but has been symptomatic with shortness of breath and increased heartburn last 2 weeks. Hemoglobin was corrected and patient was recommended to do endoscopy. Original assessment with CAT scan of the abdomen showed large hiatal hernia with potential gastric pull-through for gastric outlet syndrome as well. The plan on the finding with the EGD further management might require. 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 Hemoglobin has been stable does not require any further transfusion up to 8.6 so far, not clear why general surgery delay doing colonoscopy: Saturday IV should have done EGD and colonoscopy altogether in 1 day to avoid further delay on managing patient specially if intervention for this volvulus and large sliding hiatal hernia with what looks like mild strangulation need to be done urgently this to move on with a plan will be excised. Patient has quite a bit distended abdomen but no complaint of increased abdominal pain or intractable nausea vomiting he is back on a clear liquid diet till his prep for colonoscopy start in the afternoon today. REVIEW OF SYSTEMS: CONSTITUTIONAL: Well-developed no acute respiratory distress. EYES: No icterus sclerae, no conjunctivitis. EARS, NOSE, MOUTH, THROAT, and FACE: No sore throat, lymphadenopathy, carotid bruits or deformity. RESPIRATORY: No SOB cough or wheezes. CARDIOVASCULAR: No CP, Palpitation, PND, Orthopnea, or angina. GASTROINTESTINAL: Slight abdominal pain with nausea no vomiting positive change in bowel habits with tarry stool slight large hiatal hernia with possible gastric outlet syndrome. GENITOURINARY: Negative for Hematuria or UTI, no kidney stones. INTEGUMENT/BREAST: Negative for any muscular injury with mild osteoarthritis.. HEMATOLOGIC/LYMPHATIC: Negative for bleed or purpura. MUSCULOSKELTAL: Negative for Myalgia or arthralgia. NEURLOGICAL: No LOC, Sz or syncope, blurred vision dizziness or abnormality.. BEHAVIORAL/PSYCH: Negative. ENDOCRINE: Negative. PHYSICAL EXAMINATION: General Appearance: Alert, cooperative, no distress, appears stated age. Neck HEENT: Supple, no lymphadenopathy, no thyroid enlargement, no carotid bruits. Lungs: Decreased breath sounds specially in the right base positive for rhonchi no crackles or wheezes. Chest Wall: Decreased expansion with deep inspiration no tenderness and no deformity was found on exam, no costochondral pain or discomfort. Heart: Regular rate and rhythm, S1, S2 normal, no murmur, rub or gallop. Back: Symmetric, no curvature, ROM normal, no CVA tenderness. Abdomen: Significant pain and discomfort in the epigastric area no rebound or rigidity. Extremities: Extremities normal, atraumatic, no cyanosis or edema. Pulses: 2+ and symmetric. Skin: Skin color, texture, tugor normal, no rashes or lesions. Neurologic: Alert oriented x3 cranial nerves II through XII intact, no motor de ficit, no abnormal balance or gait. ASSESSMENT AND PLAN: _Acute gastrointestinal bleed: Most likely from the large hiatal hernia and volvulus with a strangulation around it causing symptoms to be the weight is, post EGD continue PPI prophylaxis but with the GI bleed to continue to workup probably for doing colonoscopy which apparently is not scheduled till Saturday. _Acute blood loss anemia: Posttransfusion continue to watch hemoglobin every day. 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 Obando is planning to do this repair outpatient need to be sent out to one of [facility] for such thing. _Right-sided pleural effusion: Ultrasound shows 2.7 cm pocket stable at this point does not require any thoracentesis. _Coronary artery disease post open heart surgery in the past has been doing well seeing cardiology on regular basis. _Blood 2 diabetes: Has been on metformin and Prandin Accu-Cheks sliding scales coverage for now hold off on medication. _Hypertension: Was slightly hypotensive using midodrine to keep his blood pressure systolic above 120 he is remain on losartan and metoprolol along with isosorbide mononitrate. _Hyperlipidemia: Still on atorvastatin and Zetia continue current medication. _BPH with no sign of urinary retention remain on Flomax. _Severe GERD: Has been on pantoprazole 40 mg daily. _Gout: With no acute attack has been stable no need for any active or acute medication. Discussion: Request cardiology consultation for medical clearance, continue to watch CBC, will be going for colonoscopy to complete workup for anemia but he is going require surgical repair for his large hiatal hernia grade 4 with mesenteric gastric volvulus. Objective - Vital Signs Vital signs: Vital Signs Temp 97.9 F 11/18/23 20:55 Pulse 68 11/19/23 03:46 Resp 18 11/19/23 03:46 BP 118/61 11/19/23 03:46 Pulse Ox 97 11/19/23 03:46 FiO2 Intake & Output 11/18/23 11/18/23 11/19/23 06:59 18:59 06:59 Intake Total 454 Balance 454 Weight 97.7 kg 97.7 kg Intake: IV 100 Oral 354 Other: Voiding Method Toilet Toilet Toilet # Voids 2 1 - Labs CBC & Chem 7: 11/17/23 06:24 11/17/23 06:24 Labs: Abnormal Lab Results - Last 24 Hours (Table) 11/18/23 11/18/23 11/18/23 Range/Units 06:13 11:26 16:51 POC Glucose (mg/dL) 138 H 188 H 143 H (70-110) mg/dL 11/18/23 11/19/23 Range/Units 20:06 05:53 POC Glucose (mg/dL) 227 H 128 H (70-110) mg/dL
[2023-11-20 06:08] LABS: Glucose,Whole Blood 116 mg/dL (70-110)
[2023-11-20 06:51] LABS: Anisocytosis Slight; HCT 27.3 % (39.0-53.0); HGB 8.5 gm/dL (13.0-17.5); Hypochromasia Marked; MCH 24.4 pg (25.0-35.0); MCV 78.6 fL (80.0-100.0); Mean Platelet Volume 7.6; Microcytosis Slight; Platelet Count 208 k/uL (150-450); Poikilocytosis Moderate; RBC 3.48 m/uL (4.30-5.90); RDW 16.4 % (11.5-15.5); WBC 3.8 k/uL (3.8-10.6)
[2023-11-20 07:03] LABS: ALT 21 U/L (4-49); AST 23 U/L (17-59); African American GFR (CKD) >90 (>60 ml/min/1.73 sqM); Albumin 3.6 g/dL (3.5-5.0); Alkaline Phosphatase 58 U/L (38-126); Anion Gap 6 mmol/L; Blood Urea Nitrogen 8 mg/dL (9-20); Calcium 8.4 mg/dL (8.4-10.2); Carbon Dioxide 24 mmol/L (22-30); Chloride 108 mmol/L (98-107); Glucose 111 mg/dL (74-99); Non-African American GFR(CKD) >90 (>60 ml/min/1.73 sqM); Sodium 138 mmol/L (137-145); Total Bilirubin 0.7 mg/dL (0.2-1.3); Total Protein 5.7 g/dL (6.3-8.2)
[2023-11-20] MEDS ORDERED: PROPOFOL 10 MG/ML 20 ML VIAL IV ONE (11:20)
[2023-11-20 11:34] VITALS: RESP 19; TEMP 97.5
[2023-11-20] MEDS: IV FLUID CONTINUATION 1,000 ML IV ONE (11:37)
[2023-11-20 12:07] VITALS: BP 119/70; PULSE 62
[2023-11-20 12:12] LABS: Glucose,Whole Blood 155 mg/dL (70-110)
--- NOTE | 2023-11-20 12:42 | P.PCN ---
Date of Procedure: 11/20/23 Description of Procedure: PREOPERATIVE DIAGNOSIS: Acute blood loss anemia status post transfusion Ileus POSTOPERATIVE DIAGNOSIS: Acute blood loss anemia status post transfusion Ileus OPERATION: Colonoscopy to the cecum, ileocecal valve and appendiceal orifice SURGEON: Lissy Obando MD. ANESTHESIA: MAC. INDICATIONS: The patient is a 68-year-old male who presents with acute blood loss anemia. Benefits and risks were described and informed consent was obtained. DESCRIPTION OF PROCEDURE: The patient had undergone Golytely prep. The patient had been brought into the operating room and laid in the left lateral decubitus position. After adequate intravenous sedation, the rectum was examined with 2% lidocaine jelly. Rectal tone within normal limits. An Olympus colonoscope was gently advanced to the cecum with clear visualization of the ileocecal valve including appendiceal orifice. The prep was good. No sigmoid diverticulosis was encountered without active bleeding. No active colonic bleeding was found. No intraluminal masses were identified within the colon. No colonic polyps were found. No evidence of focal colitis was found. Retroflexion of the scope demonstrated grade 2 internal hemorrhoids with recent inflammation. The colon was desufflated. The patient had tolerated the procedure well. Withdrawal time was over 6 minutes. FINDINGS: Aronchick preparation quality scale 1+ (1-5) Internal hemorrhoids, grade2 No thrombosed hemorrhoid identified. No arteriovenous malformations. No adenomatous polyps. No focal colitis. No sigmoid diverticulosis No stigmata of bleeding RECOMMENDATIONS: 1. Diet as tolerated 2. Repeat colonoscopy 10 years, 2033 3. May benefit from capsule endoscopy due to acute blood loss anemia
[2023-11-20] MEDS: LOSARTAN 25 MG TAB PO SCH (13:53)
[2023-11-20] MEDS: DAPAGLIFLOZIN PROPANEDIOL 10 MG TABLET PO SCH (13:54)
--- NOTE | 2023-11-20 16:54 | P.PN ---
Subjective Progress Note Date: 11/20/23 This is a pleasant 68-year-old male patient with a history of coronary artery disease with previous coronary artery bypass grafting, diabetes mellitus, hypertension, hyperlipidemia, gout. He had been having issues with dark stools over the past couple weeks. He is following with his primary care provider who called him yesterday and told him to come to the emergency room for low hemoglobin. His hemoglobin here was 7.4. He did receive 1 unit of packed red blood cells. Current hemoglobin 8.6. White count 3.5. Platelets 245. Sodium 141. Potassium 4.1. Bicarb 25. BUN 13. Creatinine 0.82. Glucose 124. Stool for occult blood is negative. Procalcitonin negative at 0.04. The patient was having some complaints of dyspnea on exertion. Chest x-ray revealed a right pleural effusion and we are consulted for the same. He is seen in the selective care unit sitting up at the bedside. Awake and alert in no acute distress. Maintaining good O2 saturations in the 90s on room air. CT scan of the abdomen revealed no valid evidence of vascular occlusion. There is consolidative process in the right lung base with effusion. There is either a large hiatal hernia or potentially gastric pull-through. Stomach is seen above the diaphragm. Ultrasound of the right chest revealed a small 2.7 cm pocket. The patient is seen today November 18, 2023 in follow-up on the selective care unit. He is currently sitting up in a chair at the bedside. Awake and alert in no acute distress. Maintaining good O2 saturations in the 90s on room air. He did undergo EGD this morning and was found to have intrathoracic paraesophageal diaphragmatic hiatal hernia, grade 4 and mesenteric axial gastric volvulus. Glucose 188. He remains on D5W at 50 MLS per hour. The patient is seen today November 19, 2023 in follow-up on the selective care unit. He is up ambulating in his room. Awake and alert in no acute distress. Maintaining O2 saturations in the 90s on room air. White count 3.5. Hemoglobin 8.7. Platelets 217. Sodium 141. Potassium 4.2. Bicarb 23. BUN 12. Creatinine 0.80. Glucose 120. Plan is for colonoscopy tomorrow. The patient is seen today November 20, 2023 in follow-up on the selective care unit. He is up ambulating in his room. Awake and alert in no acute distress. Maintaining good O2 saturations in the 90s on room air. Afebrile. Hemodynamically stable. He did undergo colonoscopy today. No significant findings. He is hoping to go home. They are going to treat him medically and hope to avoid surgery. Hemoglobin today stable at 8.5. Objective - Vital Signs Vital signs: Vital Signs Temp 97.5 F L 11/20/23 11:25 Pulse 62 11/20/23 12:07 Resp 19 11/20/23 12:07 BP 119/70 11/20/23 12:07 Pulse Ox 98 11/20/23 12:07 FiO2 Intake & Output 11/19/23 11/20/23 11/20/23 18:59 06:59 18:59 Intake Total 118 328 Balance 118 328 Weight 98.2 kg Intake: IV 210 Invasive Line 2 10 Oral 118 118 Other: Voiding Method Toilet Toilet Toilet # Voids 3 2 3 # Bowel Movements 3 - Exam GENERAL EXAM: Alert, 68-year-old male, on room air, in no apparent distress. HEAD: Normocephalic. EYES: Normal reaction of pupils, equal size. NOSE: Clear with pink turbinates. THROAT: No erythema or exudates. NECK: No masses, no JVD. CHEST: No chest wall deformity. LUNGS: Equal air entry with diminished right lung base. CVS: S1 and S2 normal with no audible murmur, regular rhythm. ABDOMEN: No hepatosplenomegaly, normal bowel sounds, no guarding or rigidity. SPINE: No scoliosis or deformity SKIN: No rashes CENTRAL NERVOUS SYSTEM: No focal deficits, tone is normal in all 4 extremities. EXTREMITIES: There is no peripheral edema. No clubbing, no cyanosis. Peripheral pulses are intact. - Labs CBC & Chem 7: 11/20/23 06:36 11/20/23 06:36 Labs: Abnormal Lab Results - Last 24 Hours (Table) 11/19/23 11/20/23 11/20/23 Range/Units 20:19 06:06 06:36 RBC 3.48 L (4.30-5.90) m/uL Hgb 8.5 L (13.0-17.5) gm/dL Hct 27.3 L (39.0-53.0) % MCV 78.6 L (80.0-100.0) fL MCH 24.4 L (25.0-35.0) pg RDW 16.4 H (11.5-15.5) % Chloride (98-107) mmol/L BUN (9-20) mg/dL Glucose (74-99) mg/dL POC Glucose (mg/dL) 134 H 116 H (70-110) mg/dL Total Protein (6.3-8.2) g/dL 11/20/23 11/20/23 Range/Units 06:36 12:10 RBC (4.30-5.90) m/uL Hgb (13.0-17.5) gm/dL Hct (39.0-53.0) % MCV (80.0-100.0) fL MCH (25.0-35.0) pg RDW (11.5-15.5) % Chloride 108 H (98-107) mmol/L BUN 8 L (9-20) mg/dL Glucose 111 H (74-99) mg/dL POC Glucose (mg/dL) 155 H (70-110) mg/dL Total Protein 5.7 L (6.3-8.2) g/dL Assessment and Plan Assessment: Anemia of unclear etiology. Status post 1 unit of packed red blood cells. Current hemoglobin 8.2. Stool for occult blood negative. Colonoscopy performed today Large hiatal hernia, on Protonix. EGD today to 11/18/2023 revealed intrathoracic paraesophageal diaphragmatic hiatal hernia, grade 4. Mesenteric axial gastric volvulus Small right-sided pleural effusion. Ultrasound revealed a 2.7 cm pocket. Stable and on room air History of coronary artery disease with previous coronary artery bypass grafting Hyperlipidemia Hypertension History of gout BPH Diabetes mellitus Plan: The patient was seen and evaluated Currently stable and on room air Medications, labs and colonoscopy results reviewed Plan is to treat the patient medically and try to avoid surgery Cleared for discharge from the pulmonary standpoint I have personally seen and examined the patient, performed the documentation and the assessment and plan as written. Number of minutes spent on the visit: 10.
--- NOTE | 2023-11-20 19:45 | P.PN ---
Subjective Progress Note Date: 11/20/23 HPI 68-year-old male known to Dr. Varam. He has a prior history of CAD s/p CABG. He had a heart cath in 2021 which showed patent OMAR to LCx and OMAR to LAD with severe chippe[place]-cree vessel disease. Patient presented to the hospital because of increased worsening shortness of breath for last 1 to 2 weeks. He reports that he is able to walk 1 mile without any limitations but going up 1 flight of stairs make him short of breath. If he carries a load with him while walking he gets short of breath. He had labs done with his primary care physician which showed a hemoglobin of 7.4. Due to this he was sent to the hospital where he got 1 unit of blood transfusion. He underwent upper GI endoscopy which showed hiatal hernia and he is being evaluated for possible hiatal hernia surgery. Cardiology is consulted for perioperative cardiac risk assessment. Patient is ECG shows sinus rhythm with right bundle branch block Patient's chest x-ray does not show signs of pulmonary congestion Hemoglobin 8.7, platelets 217, BUN 12, creatinine 0.8, iron 14, TIBC is high, ferritin is very low 7.1. Progress note 11/20/2023 Patient is seen and examined at bedside this a.m. He is denying any chest pain chest pressure or shortness of breath at this time. He is feeling much better after he received his blood transfusion. Hemoglobin has been stable. PHYSICAL EXAMINATION Vital signs reviewed. Head: Normocephalic. Eyes: Sclerae nonicteric. Neck: Brisk carotid upstroke, no jugular venous distention. Lungs: Clear to auscultation. Heart: Regular rate and rhythm, S1-S2, no S3, mild systolic murmur or rub. Abdomen: Soft nontender, positive bowel sounds. Extremities: No edema, intact distal pulses. Neuro: Alert, oritented, no focal deficits. Detailed neuro exam was not performed. ASSESSMENT Perioperative cardiac risk assessment for hiatal hernia surgery Acute symptomatic anemia Iron deficiency Hiatal hernia with erosive gastritis CAD s/p CABG. heart cath from 2021 showed GOMEZ to LCx and OMAR to LAD were patent. Severe chippewa-cree vessel disease Cardiac testing Echo: October 2023: Shows EF of 40 to 45%, moderate LA dilatation, moderate MR, Prior echo from December 2022 showed an EF of 50 to 55%. PLAN Add Farxiga 10 mg daily for cardiomyopathy Continue aspirin 81 mg, Lipitor 20, Zetia 10, Imdur 30, metoprolol succinate 25 mg daily. Patient's blood pressure and heart rate is optimally controlled. There is no concerns of any arrhythmias or any congestive heart failure or any acute ischemia at this time. Patient is on repaglinide. I have advised patient to be careful and check his blood glucose since I am starting him on Farxiga Avoid using midodrine Patient does have mild drop in his LVEF when compared to his echo from December 2022. Patient's last nuclear stress test showed small area of reversible perfusion defect which is consistent with his severe chippewa-cree vessel coronary artery disease. Due to mild troponin LVEF and prior history of severe CAD, I feel that patient is at higher than usual risk for any surgeries. If hiatal hernia surgery can be avoided and patient can be treated medically I would advise for that. If hiatal hernia surgery is somewhat urgent and is really needed, may proceed with observed higher cardiovascular risk. Would recommend IV iron supplementation Further recommendations to follow after reviewing echo and stress test reports Objective - Vital Signs Vital signs: Vital Signs Temp 97.5 F L 11/20/23 11:25 Pulse 62 11/20/23 12:07 Resp 19 11/20/23 12:07 BP 119/70 11/20/23 12:07 Pulse Ox 98 11/20/23 12:07 FiO2 Intake & Output 11/20/23 11/20/23 11/21/23 06:59 18:59 06:59 Intake Total 328 Balance 328 Weight 98.2 kg Intake: IV 210 Invasive Line 2 10 Oral 118 Other: Voiding Method Toilet Toilet # Voids 2 3 # Bowel Movements 3 - Labs CBC & Chem 7: 11/20/23 06:36 11/20/23 06:36 Labs: Abnormal Lab Results - Last 24 Hours (Table) 11/19/23 11/20/23 11/20/23 Range/Units 20:19 06:06 06:36 RBC 3.48 L (4.30-5.90) m/uL Hgb 8.5 L (13.0-17.5) gm/dL Hct 27.3 L (39.0-53.0) % MCV 78.6 L (80.0-100.0) fL MCH 24.4 L (25.0-35.0) pg RDW 16.4 H (11.5-15.5) % Chloride (98-107) mmol/L BUN (9-20) mg/dL Glucose (74-99) mg/dL POC Glucose (mg/dL) 134 H 116 H (70-110) mg/dL Total Protein (6.3-8.2) g/dL 11/20/23 11/20/23 Range/Units 06:36 12:10 RBC (4.30-5.90) m/uL Hgb (13.0-17.5) gm/dL Hct (39.0-53.0) % MCV (80.0-100.0) fL MCH (25.0-35.0) pg RDW (11.5-15.5) % Chloride 108 H (98-107) mmol/L BUN 8 L (9-20) mg/dL Glucose 111 H (74-99) mg/dL POC Glucose (mg/dL) 155 H (70-110) mg/dL Total Protein 5.7 L (6.3-8.2) g/dL
--- NOTE | 2023-11-24 19:14 | P.DS ---
Providers Date of admission: 11/15/23 22:43 Attending physician: Davey Bauer Consults: 11/15/23 22:42 Consult Physician Routine Consulting Provider: Lissy Obando Consult Reason/Comments: Anemia, melena, Scope? Do you want consulting provider notified?: Already Contacted 11/16/23 17:03 Consult Physician Routine Consulting Provider: Yasir Mann Consult Reason/Comments: RLL lung infilterate Do you want consulting provider notified?: Yes 11/19/23 06:20 Consult Physician Routine Consulting Provider: Chano Varma Consult Reason/Comments: CAD will need Clearance for HH Surgery might need open surgery. Do you want consulting provider notified?: Yes, Notify in am Primary care physician: Davey Juancarlos [facility] Course: HISTORY OF PRESENT ILLNESS: 68-year-old one of my office patient with active medical history of coronary artery disease post bypass surgery, history of type 2 diabetes, hypertension, hyperlipidemia, chronic lower back pain, history of gout who presented to the hospital on 11/15/2023 with likely GI bleed had very dark tarry stools for the last 2 weeks he was seen in the office and found to have low hemoglobin with send on Saturday his hemoglobin was 7.4 was initiated transfusion initially No GI coverage this week patient was seen general surgery Dr. Obando has not had any colonoscopy last 10 years no recent endoscopy reported no change in bowel habit or dysphagia but has been symptomatic with shortness of breath and increased heartburn last 2 weeks. Hemoglobin was corrected and patient was recommended to do endoscopy. Original assessment with CAT scan of the abdomen showed large hiatal hernia with potential gastric pull-through for gastric outlet syndrome as well. The plan on the finding with the EGD further manageme nt might require. 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 Hemoglobin has been stable does not require any further transfusion up to 8.6 so far, not clear why general surgery delay doing colonoscopy: Saturday IV should have done EGD and colonoscopy altogether in 1 day to avoid further delay on managing patient specially if intervention for this volvulus and large sliding hiatal hernia with what looks like mild strangulation need to be done urgently this to move on with a plan will be excised. Patient has quite a bit distended abdomen but no complaint of increased abdominal pain or intractable nausea vomiting he is back on a clear liquid diet till his prep for colonoscopy start in the afternoon today. 11/20/2023: Patient ended up going for colonoscopy today finding not consistent with any major abnormality to explain Shows small internal hemorrhoid, no thrombosed hemorrhoid identified, no AV malformation, no adenomatosis polyp, no focal colitis, no sigmoid diverticulosis and no stigmata of bleeding. Was advanced diet as expected and general surgery believe might benefit from doing capsule endoscopy for the acute blood loss anemia. Also cardiology had review his last echo from October 2023 with finding of ejection fraction of 40-45 percentile moderate LA dilatation moderate mitral regurgitation. Plan to add Farxiga 10 mg for cardiomyopathy continue aspirin Lipitor Zetia Imdur and me toprolol succinate to avoid using midodrine to be careful for might develop hypoglycemia being on Farxiga and Prandin. Patient benefit from doing continue glucose monitor as an outpatient apparently had nuclear stress test showed small area of reversible perfusion defect which is consistent with his severe [place] vessel coronary artery disease due to the mild troponin left ventricular ejection fraction and. History of severe CAD cardiology felt patient has a high risk for surgical intervention if needed if hiatal hernia surgery can be avoided and patient can be treated medically with advice that if hiatal hernia surgery is somewhat urgent and he is really need to make proceed with surgery with a higher cardiovascular risk. This spring as back to the full questions that patient had large hiatal hernia and volvulus with strangulating around it causing his symptoms. 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 And if this is the case if patient will require to have this procedure done in town or not. Will clear with GI bleed at this point patient can be discharged to discuss option of surgical intervention or not as an outpatient and even if he need to go for further consultation in one of the tertiary center and a larger hospital can be arranged as an outpatient. REVIEW OF SYSTEMS: CONSTITUTIONAL: Well-developed no acute respiratory distress. EYES: No icterus sclerae, no conjunctivitis. EARS, NOSE, MOUTH, THROAT, and FACE: No sore throat, lymphadenopathy, carotid bruits or deformity. RESPIRATORY: No SOB cough or wheezes. CARDIOVASCULAR: No CP, Palpitation, PND, Orthopnea, or angina. GASTROINTESTINAL: Slight abdominal pain with nausea no vomiting positive change in bowel habits with tarry stool slight large hiatal hernia with possible gastric outlet syndrome. GENITOURINARY: Negative for Hematuria or UTI, no kidney stones. INTEGUMENT/BREAST: Negative for any muscular injury with mild osteoarthritis.. HEMATOLOGIC/LYMPHATIC: Negative for bleed or purpura. MUSCULOSKELTAL: Negative for Myalgia or arthralgia. NEURLOGICAL: No LOC, Sz or syncope, blurred vision dizziness or abnormality.. BEHAVIORAL/PSYCH: Negative. ENDOCRINE: Negative. PHYSICAL EXAMINATION: General Appearance: Alert, cooperative, no distress, appears stated age. Neck HEENT: Supple, no lymphadenopathy, no thyroid enlargement, no carotid bruits. Lungs: Decreased breath sounds specially in the right base positive for rhonchi no crackles or wheezes. Chest Wall: Decreased expansion with deep inspiration no tenderness and no deformity was found on exam, no costochondral pain or discomfort. Heart: Regular rate and rhythm, S1, S2 normal, no murmur, rub or gallop. Back: Symmetric, no curvature, ROM normal, no CVA tenderness. Abdomen: Significant pain and discomfort in the epigastric area no rebound or rigidity. Extremities: Extremities normal, atraumatic, no cyanosis or edema. Pulses: 2+ and symmetric. Skin: Skin color, texture, tugor normal, no rashes or lesions. Neurologic: Alert oriented x3 cranial nerves II through XII intact, no motor deficit, no abnormal balance or gait. ASSESSMENT AND PLAN: _Acute gastrointestinal bleed: Most likely from the large hiatal hernia and volvulus with a strangulation around it causing symptoms to be the weight is, post EGD continue PPI prophylaxis but with the GI bleed to continue to workup probably for doing colonoscopy which apparently is not scheduled till Saturday. _Acute blood loss anemia: Posttransfusion continue to watch hemoglobin every day. 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 Obando is planning to do this repair outpatient need to be sent out to one of the large [facility] for such thing. _Right-sided pleural effusion: Ultrasound shows 2.7 cm pocket stable at this point does not require any thoracentesis. _Coronary artery disease post open heart surgery in the past has been doing well seeing cardiology on regular basis. _Blood 2 diabetes: Has been on metformin and Prandin Accu-Cheks sliding scales coverage for now hold off on medication. _Hypertension: Was slightly hypotensive using midodrine to keep his blood pressure systolic above 120 he is remain on losartan and metoprolol along with isosorbide mononitrate. _Hyperlipidemia: Still on atorvastatin and Zetia continue current medication. _BPH with no sign of urinary retention remain on Flomax. _Severe GERD: Has been on pantoprazole 40 mg daily. _Gout: With no acute attack has been stable no need for any active or acute medication. Discussion: Had a colonoscopy with no major finding also seen cardiology who believes if there is a way to do medical management without surgical intervention which they believed to be high risk patient was advised to be on Farxiga as an SGLT2 product to help reduction of his risk heart disease torres. Patient be discharged home to follow-up as an outpatient for further discussion for the current finding management. Hospital course: Patient admitted to the hospital on 11/16/2023 With complaint of very dark tarry stool for the last 2 weeks. Admission found to have hemoglobin of 7.4 in office was referred to the hospital patient was hospitalized to medical service with general surgery help with the current management with no colonoscopy for more than 10 years initial plan was to watch for any further drop in hemoglobin and advised to do an EGD and then colonoscopy when possible. 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 Patient is not having any active bleed at the time. He ended up going for colonoscopy on 11/20/2023 finding was not consistent with any major abnormality. The meanwhile patient was evaluated by cardiology for possible surgical clearance for an intervention we added Farxiga as an SGLT2 product and advised to avoid surgery if possible if not risk factor would be higher than expected specially with patient's cardiovascular history. Patient hemoglobin is stable no further bleed and last hemoglobin on 11/20/2023 was 8.5. Patient be discharged home to follow-up as an outpatient with general surgery to discuss the option of doing surgery in town versus in one of the tertiary center and a larger area. Time spent on discharging patient was over 40 minutes. Patient Condition at Discharge: Good Plan - Discharge Summary Discharge Rx Participant: No New Discharge Prescriptions: New Aspirin 81 mg PO DAILY tab Ferrous Sulfate [Iron (65 MG Elemental)] 325 mg PO BID-W/MEALS #60 tab Dapagliflozin Propanediol [Farxiga] 10 mg PO DAILY #30 tab Cyanocobalamin [Vitamin B-12] 1,000 mcg PO DAILY #90 tab Continue Acetaminophen Tab [Tylenol] 650 mg PO Q6HR PRN tab PRN Reason: Fever And/ Or Pain Tamsulosin [Flomax] 0.4 mg PO DAILY Ezetimibe [Zetia] 10 mg PO DAILY metFORMIN HCL 500 mg PO BID Losartan [Cozaar] 25 mg PO DAILY Isosorbide Mononitrate ER [Imdur] 30 mg PO DAILY Repaglinide 1 mg PO BID Midodrine [ProAmatine] 5 mg PO TID PRN PRN Reason: SBP below 100 Atorvastatin [Lipitor] 20 mg PO HS Pantoprazole [Protonix] 40 mg PO DAILY Metoprolol Succinate (ER) [Toprol XL] 25 mg PO DAILY Cinnamon Bark [Cinnamon] 2,000 mg PO Q2D Discontinued Aspirin 81 mg PO DAILY Discharge Medication List Acetaminophen Tab [Tylenol] 650 mg PO Q6HR PRN tab 11/10/17 [Rx] Ezetimibe [Zetia] 10 mg PO DAILY 05/11/21 [History] Repaglinide 1 mg PO BID 05/11/21 [History] Tamsulosin [Flomax] 0.4 mg PO DAILY 05/11/21 [History] Atorvastatin [Lipitor] 20 mg PO HS 11/16/23 [History] Cinnamon Bark [Cinnamon] 2,000 mg PO Q2D 11/16/23 [History] Isosorbide Mononitrate ER [Imdur] 30 mg PO DAILY 11/16/23 [History] Losartan [Cozaar] 25 mg PO DAILY 11/16/23 [History] Metoprolol Succinate (ER) [Toprol XL] 25 mg PO DAILY 11/16/23 [History] Midodrine [ProAmatine] 5 mg PO TID PRN 11/16/23 [History] Pantoprazole [Protonix] 40 mg PO DAILY 11/16/23 [History] metFORMIN HCL 500 mg PO BID 11/16/23 [History] Aspirin 81 mg PO DAILY tab 11/20/23 [Rx] Cyanocobalamin [Vitamin B-12] 1,000 mcg PO DAILY #90 tab 11/20/23 [Rx] Dapagliflozin Propanediol [Farxiga] 10 mg PO DAILY #30 tab 11/20/23 [Rx] Ferrous Sulfate [Iron (65 MG Elemental)] 325 mg PO BID-W/MEALS #60 tab 11/20/23 [Rx] Follow up Appointment(s)/Referral(s): Sharif Sesay [STAFF PHYSICIAN] - 1 Week (patient experience coordinator for anemia ) Chano Varma MD [STAFF PHYSICIAN] - 11/27/23 9:45 am Davey Bauer MD [Primary Care Provider] - 11/22/23 10:00 am Lissy Obando MD [STAFF PHYSICIAN] - 1 Week (office will call patient ) Patient Instructions/Handouts: Anemia (DC), Ileus (DC), Colonoscopy (DC), Upper Endoscopy (DC) Discharge Disposition: HOME SELF-CARE
== END 2023-11-20 14:52 | disposition home or self-care (01) | DRG 391 ==
LOC: EC 17:50 → SUPCPDRO 17:50 → 3SCARD 22:42 → OBSVTOIN 22:43 → 3SCARD 23:39
PROVIDERS: ADMIT Internal Medicine Geriatric Medicine; ATTEND Internal Medicine Geriatric Medicine
PROC: 30233N1 Transfusion of Nonautologous Red Blood Cells into Peripheral Vein, Percutaneous Approach (ICD-10-PCS; principal; 2023-11-15)
PROC: 0DJ08ZZ Inspection of Upper Intestinal Tract, Via Natural or Artificial Opening Endoscopic (ICD-10-PCS; 2023-11-18)
PROC: 0DJD8ZZ Inspection of Lower Intestinal Tract, Via Natural or Artificial Opening Endoscopic (ICD-10-PCS; 2023-11-20)
DX: K44.0 Diaphragmatic hernia with obstruction, without gangrene (principal); K56.2 Volvulus; D62 Acute posthemorrhagic anemia; K92.1 Melena; J90 Pleural effusion, not elsewhere classified; I42.9 Cardiomyopathy, unspecified; K22.10 Ulcer of esophagus without bleeding; J98.11 Atelectasis; K56.7 Ileus, unspecified; I95.9 Hypotension, unspecified; I10 Essential (primary) hypertension; E11.9 Type 2 diabetes mellitus without complications; I25.10 Atherosclerotic heart disease of native coronary artery without angina pectoris; K21.00 Gastro-esophageal reflux disease with esophagitis, without bleeding; K31.89 Other diseases of stomach and duodenum; E78.5 Hyperlipidemia, unspecified; K64.1 Second degree hemorrhoids; K29.60 Other gastritis without bleeding; G89.29 Other chronic pain; M54.50 Low back pain, unspecified; I45.10 Unspecified right bundle-branch block; N40.0 Benign prostatic hyperplasia without lower urinary tract symptoms; Z79.82 Long term (current) use of aspirin; Z79.84 Long term (current) use of oral hypoglycemic drugs; Z79.899 Other long term (current) drug therapy; Z87.891 Personal history of nicotine dependence; Z95.1 Presence of aortocoronary bypass graft; Z86.718 Personal history of other venous thrombosis and embolism
CPT/HCPCS: 36415; 36430; 43235; 45378; 71046; 74174; 76604; 80048; 80053; 81003; 82272; 82607; 82728; 82746; 83036; 83540; 83550; 83605; 83880; 84145; 84484; 85025; 85027; 85610; 86850; 86900; 86901; 86920; 93005; 93306; 94760; 96374; 99285

== ENCOUNTER → 2024-01-27 | Outpatient (CLI) | payer MEDICARE ==
[2024-01-27 11:29] LABS: ALT 33 U/L (10-49); AST 24 U/L (14-35); Albumin 4.5 g/dL (3.8-4.9); Alkaline Phosphatase 72 U/L (41-126); BUN/Creat Ratio 17.09 Ratio (12.00-20.00); Blood Urea Nitrogen 18.8 mg/dL (9.0-27.0); Calcium 9.2 mg/dL (8.7-10.3); Carbon Dioxide 24.5 mmol/L (21.6-31.8); Chloride 104 mmol/L (96-109); Chol/HDL Ratio 3.05 Ratio; Globulin 2.5 g/dL (1.6-3.3); Glucose 107 mg/dL (70-110); LDL Cholesterol,Calculated 72.4 mg/dL (0.0-131.0); Potassium 4.4 mmol/L (3.5-5.5); Sodium 142 mmol/L (135-145); Total Bilirubin 0.5 mg/dL (0.3-1.2)
== END | disposition home or self-care (01) ==
LOC: LABWHC1 08:57
PROVIDERS: ATTEND Internal Medicine Interventional Cardiology
DX: I10 Essential (primary) hypertension (principal); E78.2 Mixed hyperlipidemia
CPT/HCPCS: 36415; 80053; 80061

== ENCOUNTER → 2024-05-07 | Outpatient (CLI) | payer MEDICARE ==
[2024-05-07 15:11] LABS: BUN/Creat Ratio 14.82 Ratio (12.00-20.00); Blood Urea Nitrogen 16.3 mg/dL (9.0-27.0); Calcium 9.1 mg/dL (8.7-10.3); Carbon Dioxide 27.4 mmol/L (21.6-31.8); Chloride 104 mmol/L (96-109); Glucose 124 mg/dL (70-110); Potassium 4.8 mmol/L (3.5-5.5); Sodium 143 mmol/L (135-145)
[2024-05-07 17:01] LABS: NT-Pro-B-Type Natriuretic Pept 195 pg/mL (0-125)
== END | disposition home or self-care (01) ==
LOC: LABWHC1 08:12
PROVIDERS: ATTEND Nurse Practitioner Adult Health
DX: I50.22 Chronic systolic (congestive) heart failure (principal)
CPT/HCPCS: 36415; 80048; 83880

== ENCOUNTER → 2024-11-20 | Outpatient (CLI) | payer MEDICARE ==
[2024-11-20 16:08] LABS: ALT 51 U/L (10-49); AST 35 U/L (14-35); Albumin 4.7 g/dL (3.8-4.9); Albumin/Globulin Ratio 2.35 Ratio (1.60-3.17); Alkaline Phosphatase 68 U/L (41-126); Anion Gap 13.70 mmol/L (4.00-12.00); BUN/Creat Ratio 19.30 Ratio (12.00-20.00); Blood Urea Nitrogen 19.3 mg/dL (9.0-27.0); Calcium 9.0 mg/dL (8.7-10.3); Carbon Dioxide 25.3 mmol/L (21.6-31.8); Chloride 104 mmol/L (96-109); Cholesterol 152.00 mg/dL (0.00-200.00); Globulin 2.0 g/dL (1.6-3.3); Glucose 133 mg/dL (70-110); HDL Cholesterol 49.50 mg/dL (40.00-60.00); LDL Cholesterol,Calculated 76.5 mg/dL (0.0-131.0); Potassium 4.8 mmol/L (3.5-5.5); Sodium 143 mmol/L (135-145); Total Protein 6.7 g/dL (6.2-8.2); Triglycerides 130.00 mg/dL (0.00-149.00); VLDL Calculation 26.00 mg/dL (5.00-40.00)
== END | disposition home or self-care (01) ==
LOC: LABWHC1 08:28
PROVIDERS: ATTEND Internal Medicine Interventional Cardiology
DX: E78.2 Mixed hyperlipidemia (principal)
CPT/HCPCS: 36415; 80053; 80061